=== PATIENT | female | born 1945 | race Caucasian/White ===

== ENCOUNTER 2018-10-21 09:33 | Emergency (ER) | payer MEDICARE, OTHER ==
[~2018-10-21] VITALS: Ht 154.9 cm; Wt 47.2 kg
[~2018-10-21 09:33] MED LIST: ACYCLOVIR800 MG PO; ALENDRONATE SOD70 MG PO; AMLODIPINE BESY10 MG PO; BETAMETHASONE V15 GM TOP; FOLIC ACID1 MG PO; GABAPENTIN100 MG PO; HYDROCHLOROTHIA25 MG PO; KEFLEX500 MG PO; LEFLUNOMIDE20 MG PO; LOSARTAN POTASS50 MG PO; METHOTREXATE2.5 MG PO; NORCO 5-325 TA1 EACH PO; OMEPRAZOLE40 MG PO; PLAQUENIL200 MG PO; POTASSIUM CHLO10 MEQ PO; POTASSIUM CHLO20 ME1 PO; VITAMIN D350000 UNIT PO
--- OUTSIDE RECORDS SUMMARY | 2018-10-21 09:36 | XMS ---
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 Alexsander VISIT COUNT (12 MO.) 2 LEXI Doherty TOTAL 2 NOTE: Visits indicate total known visits. 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
--- NOTE | 2018-10-21 13:11 | EKG ---
[facility] [address] [place], [place] [address] Signed Normal sinus rhythm Low voltage QRS Borderline ECG No previous ECGs available Confirmed by FRANCHESKA OLIVIER DO ([id number]) on 10/21/2018 1:11:25 PM Electronically Signed By: FRANCHESKA OLIVIER DO 10/21/18 1311 PATIENT NAME: CARMEN HAY ANN Electrocardiogram DATE OF : 45 PHYSICIAN: FRANCHESKA OLIVIER DO REPORT #: [id number] REPORT IS CONFIDENTIAL AND NOT TO BE RELEASED WITHOUT AUTHORIZATION
--- NOTE | 2018-10-22 14:07 | EKG ---
[facility] [address] [place], [place] [address] Signed Normal sinus rhythm Low voltage QRS Borderline ECG When compared with ECG of 21-OCT-2018 10:00, No significant change was found Confirmed by FRANCHESKA OLIVIER DO ([id number]) on 10/22/2018 2:07:29 PM Electronically Signed By: FRANCHESKA OLIVIER DO 10/22/18 1407 PATIENT NAME: CARMEN HAY ANN Electrocardiogram DATE OF : 45 PHYSICIAN: FRANCHESKA OLIVIER DO REPORT #: [id number] REPORT IS CONFIDENTIAL AND NOT TO BE RELEASED WITHOUT AUTHORIZATION
== END 2018-10-21 18:28 | disposition home or self-care (01) ==
LOC: ED 09:33
DX: I31.9 Disease of pericardium, unspecified (principal); I10 Essential (primary) hypertension; Z87.891 Personal history of nicotine dependence; Z88.8 Allergy status to other drugs, medicaments and biological substances; Z91.041 Radiographic dye allergy status; Z79.899 Other long term (current) 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
CPT/HCPCS: 36415; 71045; 71275; 74174; 80053; 82550; 82553; 83605; 83874; 83880; 84484; 85025; 85379; 85610; 93005; 93010; 99285-25; Q9967

== ENCOUNTER 2019-01-28 10:17 | Emergency (ER) | payer MEDICARE, OTHER ==
[~2019-01-28] VITALS: Ht 154.9 cm; Wt 47.2 kg
--- OUTSIDE RECORDS SUMMARY | ~2019-01-28 | XMS | Encounter Summary ---
Demographics + + + | Address | [address] | | | [place] [address] | + + + | Home Phone | | + + + | Preferred Language | Unknown | + + + | Marital Status | | + + + | Mormon Affiliation | Unknown | + + + | Race | Unknown | + + + | Ethnic Group | Unknown | + + + Author + + + | Author | [facility] | | | and Jdana | + + + | Organization | [facility] | | | and Jdana | + + + | Address | Unknown | + + + | Phone | Unavailable | + + + Support + + +---------+ + | Name | Relationship | Address | Phone | + + +---------+ + | Rey Mohan | ECON | Unknown | | + + +---------+ + | Bo Mancilla | ECON | Unknown | Unavailable | + + +---------+ + Care Team Providers + +------+ + | Care Tax Services Specialist Name | Role | Phone | + [...] arthroplasty | [address] | [address] [place] | | | | | | [place] | [place], | | | | | Procedures | [place], [place] | [place] [address] | | | | | ot eval | [address] | Phone: | | | | | | Phone: | [phone] | | | | | | [phone] | Fax: | | | | | | Fax: | [phone] | | | | | | [phone] | | +--------+--------+ + + + + Encounter Details +--------+---------+ + + + | Date | Type | Department | Care Team | Description | +--------+---------+ + + + | 08/10/ | Office | [facility] | Rey Blackmon | Hx of arthroplasty | | 2013 | Visit | MED [facility] ONCOLOGY | MD [address] | (Primary Dx); | | | | THERAPY [address] [place] | Stiffness of hand | | | | [place], | [place] [address] | joint, left; | | | | [place] [address] | [phone] | Weakness of hand; | | | | [phone] | | HTN (hypertension); | | | | | Mady Mccray A, OT | Low back pain; | | | | | [address] | Osteoporosis; | | | | | [place], [place] | Rheumatoid arthritis | | | | | [address] | (HCC) | | | | | [...] + documented as of this encounter Progress Notes Mady Mccray, OT - 08/10/2013 6:36 PM PDTFormatting of this note might be different fr om the original. [facility] THERAPY OT OP [address] [place] [address] Occupational Therapy Daily Treatment Note Date: 08/10/2013 Patient Information Patient Name: Mignon Mohan Date of : 1945 Age: 68 y.o. History Encounter Diagnoses Code Name Primary? V45.89 Hx of arthroplasty Yes 719.54 Stiffness of hand joint, left 728.87 Weakness of hand 401.9 HTN (hypertension) 724.2 Low back pain 733.00 Osteoporosis 714.0 Rheumatoid arthritis (HCC) Date of Onset: Referring Provider: Rey Blackmon MD No past medical history on file. No past surgical history on file. Rehab Precautions 07/18/13 Rehab Precautions Precautions Comments 4 fingere cmc arthroplasty Today's Treatment Patient Name: Mignon Mohan/: 1945/ Start Time: 1030 Stop time: 1108 Duration: 38 minutes Timed Treatment Codes: 38 minutes # of OT Visits: Subjective: My stomach has been a little irrated so I am trying to not use so many pain pil ls Pain Assessment Pain Rating Pre Assessment: 3 Location: I am tired and I didn't take my pain meds last night or this morning. Objective Patient/Caregiver Education Learner: Patient Readiness: Acceptance Method: Explanation;Demonstration Response: Verbalizes Understanding;Demonstrated Understanding Comment: Review HEP. Manual Therapy Manual Therapy: PROM/AROM to IP's, with AROM to MP's. She was provided with a ulner deviat ion splint for the right hand for her to use to determine if it will improve her function an d prevent additional ulner drift. Assessment Pt continues to have some left ulner drift. "Walking" fingers to radial side of hand exerc ise changed to 5 repetitions every hour. Rehabilitation potential: Patient demonstrates good potential to achieve established goals to address the documented impairments by participating in skilled occupational therapy serv ices. Next Visit: continue as per protical Electronically signed by: Mady Mccray OT, 08/10/2013 18:36 Patient Name: Mignon Mohan/: 1945/ documented in this e ncounter Plan of Treatment +--------+---------+ + + + | Date | Type | Specialty | Care Team | Description | +--------+---------+ + + + | 03/07/ | Office | Rheumatology | [place], | | | 2019 | Visit | | MIGNON Corey [address] | | | | | | [address] | | | | | | [place] [address] | | | | | | [phone] | | | | | | | | +--------+---------+ + + + documented as of this encounter Visit Diagnoses + + | Diagnosis | + + | Hx of arthroplasty - Primary Personal history of surgery to other organs | + + | Stiffness of hand joint, left | + + | Weakness of hand Muscle weakness (generalized) | + + | HTN (hypertension) Unspecified essential hypertension | + + | Low back pain Lumbago | + + | Osteoporosis Osteoporosis, unspecified | + + | Rheumatoid arthritis (HCC) | + + documented in this encounter
--- OUTSIDE RECORDS SUMMARY | ~2019-01-28 | XMS | Encounter Summary ---
Demographics + + + | Address | [address] | | | [place] [address] | + + + | Home Phone | | + + + | Preferred Language | Unknown | + + + | Marital Status | | + + + | Islam Affiliation | Unknown | + + + | Race | Unknown | + + + | Ethnic Group | Unknown | + + + Author + + + | Author | [facility] | | | and Jdana | + + + | Organization | [facility] | | | and Jdana [...] Team Providers + +------+ + | Care Squad Boss Name | Role | Phone | + +------+ + | Yosef Morrow MD | PCP | | + +------+ + Encounter Details +--------+ + + + + | Date | Type | Department | Care Team | Description | +--------+ + + + + | 03// | Orders Only | [facility] | [place], | | | 2015 | | RHEUMATOLOGY [address] | Florina Case [address] | | | | | [address] | [address] | | | | | [place], [place] | [place] [address] | | | | | [address] | [phone] | | | | | [phone] | | | +--------+ + + + [...] | +--------+---------+ + + + | 03/07/ Office | Rheumatology | [place], | | | 2019 | Visit | | MIGNON Corey [address] | | | | | | [address] | | | | | | [place] [address] | | | | | | [phone] | | | | | | | | +--------+---------+ + + + documented as of this encounter Procedures + +--------+ + + + | Procedure Name | Priori | Date/Time | Associated Diagnosis | Comments | | | ty | | | | + +--------+ + + + | EXTERNAL LAB: CBC | Routin | 05/06/2015 | | Results for this | | | e | 10:39 AM | | procedure are in the | | | | PDT | | results section. | + +--------+ + + + | SEDIMENTATION RATE, | Routin | 05/06/2015 | | Results for this | | AUTOMATED | e | 10:39 AM | | procedure are in the | | | | PDT | | results section. | + +--------+ + + + | COMPREHENSIVE | Routin | 05/06/2015 | | Results for this | | METABOLIC PANEL | e | 10:39 AM | | procedure are in the | | | | PDT | | results section. | + +--------+ + + + documented in this encounter Results Sedimentation rate, automated (05/06/2015 10:39 AM PDT) + +--------+ + + + | Component | Value | Ref Range | Performed | Pathologist | | | | | At | Signature | + +--------+ + + + | Sed Rate | 51 (H) | 0 - 30 | EXTERNAL | | | | | [...] + +---------+ + + External Lab: CBC (05/06/2015 10:39 AM PDT) + + + + + + | Component | Value | Ref Range | Performed | Pathologist | | | | | At | Signature | + + + + + + | WBC | 9.1 | 3.8 - 11.0 | EXTERNAL | | | | | 10*3/uL | LAB | | + + + + + + | RED CELL | 3.62 (L) | 3.70 - 5.10 | EXTERNAL | | | COUNT | | | LAB | | + + + + + + | Hgb | 11.3 | 11.3 - 15.5 | EXTERNAL | | | | | g/dL | LAB | | + + + + + + | Hematocrit, | 33.6 (L) | 34.0 - 46.0 % | EXTERNAL | | | POC | | | LAB | | + + + + + + | MCV | 93.0 | 80.0 - 100.0 fL | EXTERNAL | | | | | | LAB | | + + + + + + | MCH | 31.2 | 27.0 - 34.0 pg | EXTERNAL | | | | | | LAB | | + + + + + + | MCHC | 33.7 | 32.0 - 35.5 | EXTERNAL | | | | | g/dL | LAB | | + + + + + + | Platelet | 340 | 150 - 400 | EXTERNAL | | | Count | | 10*3/uL | LAB | | | Plasma | | | | | + + + + + + | MPV | 7.8 | fL | EXTERNAL | | | | | | LAB | | + + + + + + | Differentia | AUTOMATED | | EXTERNAL | | | l Type | | | LAB | | + + + + + + | % Segmented | 81.5 | | EXTERNAL | | | | | | LAB | | | Neutrophils | | | | | + + + + + + | % | 9.2 | % | EXTERNAL | | | Lymphocytes | | | LAB | | + + + + + + | % Monocytes | 7.4 | % | EXTERNAL | | | | | | LAB | | + + + + + + | % | 1.5 | % | EXTERNAL | | | Eosinophils | | | LAB | | + + + + + + | % Basophils | 0.4 | % | EXTERNAL | | | | | | LAB | | + + + + + + | Absolute | 7.4 | 1.9 - 7.4 | EXTERNAL | | | Segmented | | 10*3/uL | LAB | | | Neutrophils | | | | | + + + + + + | Absolute | 0.8 (L) | 1.0 - 3.9 | EXTERNAL | | | Lymphocytes | | 10*3/uL | LAB | | + + + + + + | Absolute | 0.7 | 0.0 - 0.8 | EXTERNAL | | | Monocytes | | 10*3/uL | LAB | | + + + + + + | Absolute | 0.1 | 0.0 - 0.5 | EXTERNAL | | | Eosinophils | | 10*3/uL | LAB | | + + + + + + | Absolute | 0.0 | 0.0 - 0.1 | EXTERNAL | [...] + +---------+ + + Comprehensive Metabolic Panel (05/06/2015 10:39 AM PDT) + + + + + [...] + + | K | 3.9 | 3.5 - 4.9 | EXTERNAL | | | | | mmol/L | LAB | | + + + + + + | Cl | 101 | 99 - 109 mmol/L | EXTERNAL | | | | | | LAB | | + + + + + + | CO2 | 23 | 23 - 32 mmol/L | EXTERNAL | | | | | | LAB | | + + + + + + | Anion Gap | 18 | 5 - 20 mmol/L | EXTERNAL | | | | | | LAB | | + + + + + + | Glucose, | 115 (H) | 65 - 99 mg/dL | EXTERNAL | | | Fasting | | | LAB | | + + + + + + | BUN | 22 | 8 - 25 mg/dL | EXTERNAL | | | | | | LAB | | + + + + + + | Creatinine | 1.2 (H) | 0.50 - 1.00 | EXTERNAL | | | | | mg/dL | LAB | | + + + + + + | BUN/Creatin | 18 | | EXTERNAL | | | ine Ratio | | | LAB | | + + + + + + | Calcium | 8.7 | 8.5 - 10.5 | EXTERNAL | | | | | mg/dL | LAB | | + + + + + + | Protein, | 6.5 | 6.3 - 8.2 g/dL | EXTERNAL | | | Total | | | LAB | | + + + + + + | Albumin | 3.7 | 3.3 - 4.8 g/dL | EXTERNAL | | | | | | LAB | | + + + + + + | Globulin | 2.8 | 1.3 - 4.9 g/dL | EXTERNAL [...] + + + + | ALP, | 72 | 35 - 115 U/L | EXTERNAL | | | External | | | LAB | | + + + + + + | AST | 23 | 10 - 45 U/L | EXTERNAL | | | | | | LAB | | + + + + + + | ALT | 18 | 10 - 65 U/L | EXTERNAL | | | | | | LAB | | + + + + + + | Estimated | 47 (L)Comment: GFR <60: | | EXTERNAL | | | GFR | CHRONIC KIDNEY DISEASE, | | LAB | | | | IF [...]
--- OUTSIDE RECORDS SUMMARY | ~2019-01-28 | XMS | Encounter Summary ---
Demographics + + + | Address | [address] | | | [place] [address] | + + + | Home Phone | | + + + | Preferred Language | Unknown | + + + | Marital Status | | + + + | Amish Affiliation | Unknown | + + + | Race | Unknown | + + + | Ethnic Group | Unknown | + + + Author + + + | Author | [facility] | | | and Jdana | + + + | Organization | [facility] | | | and [...] Team Providers + +------+ + | Care Cigar Packer And Grader Name | Role | Phone | + +------+ + | Yosef Morrow MD | PCP | | + +------+ + Encounter Details +--------+ + + + + | Date | Type | Department | Care Team | Description | +--------+ + + + + | 11/ | Documentati | [facility] | Mady Mccray, | | | 2015 | on | MED [facility] ONCOLOGY | OT [address] | | | | | THERAPY [address] | [place], [place] | | | | | [place], | [address] | | | | | [place] [address] | | | | | | [phone] | | | +--------+ + + + [...] as of this encounter Progress Notes Mady Mccray OT - 01/01/2015 3:43 PM PSTFormatting of this note might be different fr om the original. [facility] THER[facility] OT OP [address] [place] [address] Occupational Therapy Discharge Note This discharge is associated with the evaluation completed on 07/18/13. Date: 01/01/2015 Patient Information Patient Name: Mignon Mohan Date of : 1945 Age: 69 y.o. Encounter Diagnoses Code Name Primary? Z98.89 Hx of arthroplasty Yes M62.81 Weakness of hand M81.0 Osteoporosis Date of Onset: 06/26/13Referring Provider: Rey Blackmon MD Total Number of Visits Completed: 8 Total Cancellations: 1 Total No Shows: 0 Mignon Mohan was last seen on 08/16/13. . At this time we find it necessary to discharg e this patient from therapy services. The last progress note of 08/16/13 will serve as objective status for purposes of discharge. Electronically signed by: Mady Mccray OT, 01/01/2015 15:43 Patient Name: Mignon Mohan/: 1945/ documented in this e ncounter Plan of Treatment +--------+---------+ + + + | Date | Type | Specialty | Care Team | Description | +--------+---------+ + + + | 03/07/ | Office | Rheumatology | [place], | | | 2019 | Visit | | MIGNON Corey [address] | | | | | | [address] | | | | | | [place] [address] | | | | | | [phone] | | | | | | | | +--------+---------+ + + + documented as of this encounter Visit Diagnoses + + | Diagnosis | + + | Hx of arthroplasty - Primary Personal history of surgery to other organs | + + | Weakness of hand Muscle weakness (generalized) | + + | Osteoporosis Osteoporosis, unspecified | + + documented in this encounter"
--- OUTSIDE RECORDS SUMMARY | ~2019-01-28 | XMS | Encounter Summary ---
Demographics + + + | Address | [address] | | | [place] [address] | + + + | Home Phone | | + + + | Preferred Language | Unknown | + + + | Marital Status | | + + + | Hindu Affiliation | Unknown | + + + | Race | Unknown | + + + | Ethnic Group | Unknown | + + + Author + + + | Author | [facility] | | | and Jdana | + + + | Organization | [facility] | | | and [...] Team Providers + +------+ + | Care Merchandising Intern Name | Role | Phone | + +------+ + | Yosef Morrow MD | PCP | | + +------+ + Encounter Details +--------+ + + + + | Date | Type | Department | Care Team | Description | +--------+ + + + + | 03// | Orders Only | [facility] | [place], | | | 2015 | | RHEUMATOLOGY [address] | Florina Case ASSEMBLIES AND INSTALLATIONS INSPECTOR [address] | | | | | [address] | [address] | | | | | [place], [place] | [place] [address] | | | | | [address] | [phone] | | | | | [phone] | | | +--------+ + + + [...] PL | | | | | | [place] [address] | | | | | | [phone] | | | | | | | [...]
--- OUTSIDE RECORDS SUMMARY | ~2019-01-28 | XMS | Encounter Summary ---
Demographics + + + | Address | [address] | | | [place] [address] | + + + | Home Phone | | + + + | Preferred Language | Unknown | + + + | Marital Status | | + + + | Buddhist Affiliation | Unknown | + + + | Race | Unknown | + + + | Ethnic Group | Unknown | + + + Author + + + | Author | [facility] | | | and Jdana | + + + | Organization | [facility] | | | and [...] Team Providers + +------+ + | Care Lasting Floorworker Name | Role | Phone | + [...] arthroplasty | [address] | [address] | | | | | | [place] | [place], | | | | | Procedures | [place] | [place] [address] | | | | | ot eval | [address] | Phone: | | | | | | Phone: | [phone] | | | | | | [phone] | Fax: | | | | | | Fax: | [phone] | | | | | | [phone] | | +--------+--------+ + + + + [...] Stiffness of hand | | | | [address] [place], | [place] [address] | joint, left; | | | | [place] [address] | [phone] | Weakness of hand; | | | | [phone] | | HTN (hypertension); | | | | | Mady Mccray, OT | Low back pain; | | | | | [address] | Osteoporosis; | | | | | [place], [place] | Rheumatoid arthritis | | | | | [address] | (HCC) | | | | | [...] encounter Progress Notes Mady Mccray, OT - 08/16/2013 6:01 PM PDTFormatting of this note might be different fr om the original. 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# Goal 2 Status: LTG not tested Plan Date of Onset: 06/26/13 Start of Care Date: 07/18/13 Requested # of Visits: 12 2x/wk for 6 weeks (Decrease to 1x/week due to travel distance) Certification From: 08/16/13 Certification To: 09/15/13 Treatment Plan/Interventions 46879 OT Evaluation;33380 Therapeutic Exercises;91475 Therapeutic Activities;Splinting;9753 5 Self Care/Home Management;23487 Manual Therapy Medicare Functional Limitation Reporting G [...] impaired, limited or restricted Outcome Measures Tools: [facility]-PAC and professional judgement Justification of Severity Rating: Continued limited ability to use left hand due to surger y and severe right hand ulnar deviation deformity Patient and/or family has indicated understanding of treatment needs and actively participa richard in the creation of this plan for care. Electronically signed by: Mady Mccray OT, 08/16/2013 18:02 Patient Name: Mignon Basiliobeverlyuna/: 1945/ signed by Mady Mccray OT at 08/16/2013 6:07 PM PDTdocumented in this encounter Plan of Treatment +--------+---------+ + + + | Date | Type | Specialty | Care Team | Description | +--------+---------+ + + + | 03/07/ | Office | Rheumatology | [place], | | | 2019 | Visit | | Florina Case [facility] [address] | | | | | | [address] | | | | | | [place] [address] | | | | | | [phone] | | | | | | | [...]
--- OUTSIDE RECORDS SUMMARY | ~2019-01-28 | XMS | Encounter Summary ---
Demographics + + + | Address | [address] | | | [place] [address] | + + + | Home Phone | | + + + | Preferred Language | Unknown | + + + | Marital Status | | + + + | Spiritism Affiliation | Unknown | + + + | Race | Unknown | + + + | Ethnic Group | Unknown | + + + Author + + + | Author | [facility] | | | and Jdana | + + + | Organization | [facility] | | [...] Team Providers + +------+ + | Care Utility Worker [place] Name | Role | Phone | + +------+ + | Yosef Morrow MD | PCP | | + +------+ + Encounter Details +--------+ + + + + | Date | Type | Department | Care Team | Description | +--------+ + + + + | 08/05/ | Orders Only | [facility] | [place], | | | 2016 | | RHEUMATOLOGY [address] | Florina Case INSTRUCTIONAL SYSTEMS DESIGNER [address] | | | | | [address] | [address] | | | | | [place], [place] | [place] [address] | | | | | [address] | [phone] | | | | | [phone] | | | +--------+ + + + [...] 2020 | Visit | | [address]IGNON Corey [address] | | | | | | [address] | | | | | | [place] [address] | | | | | | [phone] | | | | | | | [...] | | | | | performed at [facility] | | | | | | [facility] | | | | | | [facility], [address] | | | | | | [address] | | | | | | [place] [address] | | | | + + + [...] | | | | | performed at [facility] | | | | | | [facility] | | | | | | [facility], [address] | | | | | | [address] | | | | | | [place] [address] | | | | + + + [...] | | | | | performed at [facility] | | | | | | [facility] | | | | | | [facility], [address] | | | | | | [address] | | | | | | [place] [address] | | | | + + + [...] | | | | | | at [facility], [address] | | | | | | [place] | | | | | | [address] | | | | + + + [...] + + + | RED CELL | 4.10 | 3.70 - 5.10 | EXTERNAL | | | COUNT | | 10*6/uL | LAB | | + + + + + + | Hgb | 12.1 | 11.3 - 15.5 | [...]
--- OUTSIDE RECORDS SUMMARY | ~2019-01-28 | XMS | Encounter Summary ---
Demographics + + + | Address | [address] | | | [place] [address] | + + + | Home Phone | | + + + | Preferred Language | Unknown | + + + | Marital Status | | + + + | Hinduism Affiliation | Unknown | + + + | Race | Unknown | + + + | Ethnic Group | Unknown | + + + Author + + + | Author | [facility] | | | and Jdana | + + + | Organization | [facility] | | | and Jdana [...] Team Providers + +------+ + | Care Automatic Pinsetter Adjuster Name | Role | Phone | + [...] arthroplasty | [address] | [place] | | | | | | [place] | [place], | | | | | Procedures | [place], [place] | [place] [address] | | | | | ot eval | [address] | Phone: | | | | | | Phone: | [phone] | | | | | | [phone] | Fax: | | | | | | Fax: | [phone] | | | | | | [phone] | | +--------+--------+ + + + + Encounter Details +--------+---------+ + + + | Date | Type | Department | Care Team | Description | +--------+---------+ + + + | 08/14/ | Office | JEAN MARIE ALEGRIA | LorriRey andrade | Hx of arthroplasty | | 2013 | Visit | [facility] | MD [address] | (Primary Dx); | | | | THERAPY [address] [place] | Stiffness of hand | | | | [place], | [place] [address] | joint, left; | | | | [place] [address] | [phone] | Weakness of hand; | | | | [phone] | | HTN (hypertension); | | | [...] documented as of this encounter Progress Notes GloTammy griffiths COTA - 08/14/2013 3:14 PM PDT [facility] THERAPY OT OP [address] [place] [address] Occupational Therapy Daily Treatment Note Date: 08/14/2013 [...] [address] | | | | | | [place] [address] | | | | | | [phone] | | | | | | | [...]
--- OUTSIDE RECORDS SUMMARY | ~2019-01-28 | XMS | Encounter Summary ---
Demographics + + + | Address | [address] | | | [place] [address] | + + + | Home Phone | | + + + | Preferred Language | Unknown | + + + | Marital Status | | + + + | Taoism Affiliation | Unknown | + + + | Race | Unknown | + + + | Ethnic Group | Unknown | + + + Author + + + | Author | [facility] | | | and Jdana | + + + | Organization | [facility] | | | and Jdana [...] Team Providers + +------+ + | Care Bushing And Broach Operator Name | Role | Phone | + +------+ + PCP | Unavailable | + +------+ + Encounter Details +--------+ + + + + | Date | Type | Department | Care Team | Description | +--------+ + + + + | 11/18/ | Hospital | [facility] | Oscar Wilson MD | | | 2010 | Encounter | MED CTR XRAY [address] | [address] | | | | | [place] | [place] [address] | | | | | [place] [address] | [phone] | | | | | [phone] | | | +--------+ + + + [...] | | 2020 | Visit | | Florina Case MANAGER METAL [address] | | | | | | [address] | | | | | | [place] [address] | | | | | | [phone] | | | | | | | [...] At | + + + | [facility] Diagnostic Imaging Department | [facility] | | [address] | [facility] | | THREE VIEWS LUMBAR SPINE, | [...] Transcribed Date/Time: 11/18/2010 16:45 | | | Pile Header: <Electronically Signed by Leobardo Mcneill MD> | | | 11/18/10 2216 | | + + + + + | Procedure Note | + + | David Funes - 03/24/2013 3:57 PM [facility] | | Diagnostic Imaging Department | | [address] [facility] [place] | | | | | | | [...] | Transcribed Date/Time: 11/18/2010 16:45 | | Pile Header: | | <Electronically Signed by Leobardo Mcneill MD> 11/18/10 2216 | + + + +---------+ + + | Performing | Address | City/State/Zipcode | Phone Number | | Organization | | | | + +---------+ + + | [facility] | | | | | [facility] | | | | + +---------+ + + documented in this encounter Visit Diagnoses Not on filedocumented in this encounter"
--- OUTSIDE RECORDS SUMMARY | ~2019-01-28 | XMS | Encounter Summary ---
Demographics + + + | Address | [address] | | | [place] [address] | + + + | Home Phone | | + + + | Preferred Language | Unknown | + + + | Marital Status | | + + + | Presybeterian Affiliation | Unknown | + + + | Race | Unknown | + + + | Ethnic Group | Unknown | + + + Author + + + | Author | [facility] | | | and Jdana | + + + | Organization | [facility] | | | [...] Team Providers + +------+ + | Care Foot Worker Name | Role | Phone | [...] arthroplasty | [address] | [place] | | | | | | [place] | [place], | | | | | Procedures | [place], [place] | [place] [address] | | | | | ot eval | [address] | Phone: | | | | | | Phone: | [phone] | | | | | | [phone] | Fax: | | | | | | Fax: | [phone] | | | | | | [phone] | | +--------+--------+ + + + + Encounter Details +--------+---------+ + + + | Date | Type | Department | Care Team | Description | +--------+---------+ + + + | 07/18/ | Office | JEAN MARIE ALEGRIA | LorriRey | Hx of arthroplasty | | 2014 | Visit | [facility] | MD [address] | (Primary Dx); | | | | THERAPY [address] | [address] [place] | Stiffness of hand | | | | [place], | [place] [address] | joint, left; | | | | [place] [address] | [phone] | Weakness of hand; | | | | [phone] | | HTN (hypertension); | | | | | Mady Mccray, OT | Low back pain; | | | | | [address] | Osteoporosis; | | | | | [place] | Rheumatoid arthritis | | | | | [address] | (HCC) | | | | | [...] encounter Progress Notes Mady Mccray, OT - 07/18/2013 6:00 PM PDTFormatting of this note might be different fr om the original. [facility] THERAPY OT OP [address] [place] [address] Occupational Therapy Initial Assessment Date: 07/18/2013 Patient [...] Status: No current HEP Goal 2: Increase chief green officer to 20# Goal 2 Status: Not tested this date Plan Date of Onset: 06/26/13 Start of Care Date: 07/18/13 Requested # of Visits: 8 2x/wk for 6 weeks (Decrease to 1x/week due to travel distance) Certification From: 07/18/13 Certification To: 08/17/13 Treatment Plan/Interventions 46171 OT Evaluation;75734 Therapeutic Exercises;86336 Therapeutic Activities;Splinting;9753 5 Self Care/Home Management;43969 Manual Therapy Patient and/or family has indicated understanding of treatment needs and actively participa richard in the creation of this plan for care. Electronically signed by: Mady Mccray OT, 07/18/2013 18:00 Patient Name: Mignon Mohan/: 1945/ documented in [...] [address] | | | | | | [place] [address] | | | | | | [phone] | | | | | | | [...]
--- OUTSIDE RECORDS SUMMARY | ~2019-01-28 | XMS | Encounter Summary ---
Demographics + + + | Address | [address] | | | [place] [address] | + + + | Home Phone | | + + + | Preferred Language | Unknown | + + + | Marital Status | | + + + | Buddhism Affiliation | Unknown | + + + | Race | Unknown | + + + | Ethnic Group | Unknown | + + + Author + + + | Author | [facility] | | | and Jdana | + + + | Organization | [facility] | | | and Jdana | [...] Providers + +------+ + | Care Budget Clerk Name | Role | Phone | + +------+ + | Yosef Morrow MD | PCP | | + +------+ + Encounter Details +--------+ + + + + | Date | Type | Department | Care Team | Description | +--------+ + + + + | 02/23/ | Orders Only | [facility] | [place], | | | 2017 | | [address] | Florina Case, MAKEUP ARTIST [address] | | | | | [place], [place] | [address] | | | | | [address] | [place] [address] | | | | | [phone] | [phone] | | | | | | | [...] | | 2019 | Visit | | [address] | | | | | | [address] | | | | | | [place] [address] | | | | | | [phone] | | | | | | | [...] + + + | RED CELL | 4.02 | 3.70 - 5.10 | [...]
--- OUTSIDE RECORDS SUMMARY | ~2019-01-28 | XMS | Encounter Summary ---
Demographics + + + | Address | [address] | | | [place] [address] | + + + | Home Phone | | + + + | Preferred Language | Unknown | + + + | Marital Status | | + + + | Restorationist Affiliation | Unknown | + + + | Race | Unknown | + + + | Ethnic Group | Unknown | + + + Author + + + | Author | [facility] | | | and Jdana | + + + | Organization | [facility] | | | and Jdana [...] Team Providers + +------+ + | Care Logistics Administrator Name | Role | Phone | + +------+ + | Yosef Morrow MD | PCP | | + +------+ + Encounter Details +--------+ + + + + | Date | Type | Department | Care Team | Description | +--------+ + + + + | 03// | Orders Only | [facility] | Claraviry, | | | 2017 | | RHEUMATOLOGY [address] | Florina Case [address]TH[address]RI[address] | | | | | [address] | [address] | | | | | [place], [place] | [place] [address] | | | | | [address] | [phone] | | | | | [phone] | | | +--------+ + + + [...] PL | | | | | | [place] [address] | | | | | | [phone] | | | | | | | [...] in this encounter Results Sedimentation rate, automated (05/07/2016 2:24 PM PDT) + +--------+ + + + | Component | Value | Ref Range | Performed | Pathologist | | | | | At | Signature | + +--------+ + + + | Sed Rate | 85 (H) | 0 - 30 mm/h | [...] + + + + | WBC | 4.9 | 3.8 - 11.0 | EXTERNAL | | | | | 10*3/uL | LAB | | + + + + + + | RED CELL | 4.00 | 3.70 - 5.10 | EXTERNAL | | | COUNT | | 10*6/uL | LAB | | + + + + + + | Hgb | 12.1 | 11.3 - 15.5 | EXTERNAL | | | | | g/dL | LAB | | + + + + + + | Hematocrit, | 36.5 | 34.0 - 46.0 % | EXTERNAL | | | POC | | | LAB | | + + + + + + | MCV | 91.2 | 80.0 - 100.0 fL | EXTERNAL | | | | | | LAB | | + + + + + + | MCH | 30.2 | 27.0 - 34.0 pg | EXTERNAL | | | | | | LAB | | + + + + + + | MCHC | 33.1 | 32.0 - 35.5 | EXTERNAL | | | | | g/dL | LAB | | + + + + + + | RDW-CV | 53.8 (H) | 37 - 53 fL | EXTERNAL | | | | | | LAB | | + + + + + + | Platelet | 251 | 150 - 400 | EXTERNAL | | | Count | | 10*3/uL | LAB | | | Plasma | | | | | + + + + + + | MPV | 8.0 | fL | EXTERNAL | | | | | | LAB | | + + + + + + | Differentia | AUTOMATED | | EXTERNAL | | | l Type | | | LAB | | + + + + + + | % Segmented | 66.24 | % | EXTERNAL | | | | | | LAB | | | Neutrophils | | | | | + + + + + + | % | 20.21 | % | EXTERNAL | | | Lymphocytes | | | LAB | | + + + + + + | % Monocytes | 8.17 | % | EXTERNAL | | | | | | LAB | | + + + + + + | % | 4.61 | % | EXTERNAL | | | Eosinophils | | | LAB | | + + + + + + | % Basophils | 0.77 | % | EXTERNAL | | | | | | LAB | | + + + + + + | Absolute | 3.22 | 1.90 - 7.40 | EXTERNAL | | | Segmented | | 10*3/uL | LAB | | | Neutrophils | | | | | + + + + + + | Absolute | 0.98 (L) | 1.00 - 3.90 | EXTERNAL | | | Lymphocytes | | 10*3/uL | LAB | | + + + + + + | Absolute | 0.40 | 0.00 - 0.80 | EXTERNAL | | | Monocytes | | 10*3/uL | LAB | | + + + + + + | Absolute | 0.22 | 0.00 - 0.50 | EXTERNAL | | | Eosinophils | | 10*3/uL | LAB | | + + + + + + | Absolute | 0.04 | 0.00 - 0.10 | EXTERNAL | [...] + + + + | Cl | 104 | 99 - 109 mmol/L | EXTERNAL [...] + + + + | Glucose, | 97 | 65 - 99 mg/dL | EXTERNAL [...] + + + + | Protein, | 7.5 | 6.3 - 8.2 g/dL | EXTERNAL | | | Total | | | LAB | | + + + + + + | Albumin | 3.6 | 3.3 - 4.8 g/dL | EXTERNAL | | | | | | LAB | | + + + + + + | Globulin | 3.9 | 1.3 - 4.9 g/dL | EXTERNAL [...] + + + + | ALP, | 98 | 35 - 115 U/L | EXTERNAL | | | External | | | LAB | | + + + + + + | AST | 27 | 10 - 45 U/L | EXTERNAL | | | | | | LAB | | + + + + + + | ALT | 26 | 10 - 65 U/L | EXTERNAL [...]
--- OUTSIDE RECORDS SUMMARY | ~2019-01-28 | XMS | Encounter Summary ---
Demographics + + + | Address | [address] | | | [place] [address] | + + + | Home Phone [...] + | Author | [facility] | | | and Jdana | + + + | Organization | [facility] | | | and Jdana [...] Team Providers + +------+ + | Care Web Development Manager Name | Role | Phone | + +------+ + | Yosef Morrow MD | PCP | | + +------+ + Encounter Details +--------+ + + + + | Date | Type | Department | Care Team | Description | +--------+ + + + + | 09/11/ | Orders Only | [facility] | Provider, | Other intermediate | | 2019 | | SYSTEM GENERIC OP | MD [address] | (current) drug | | | | CONVERSION [address] | [address] | therapy; Rheumatoid | | | | [address] [place], [place] | [place] [address] | arthritis of | | | | [address] | | multiple sites | | | | [phone] | | without organ or | | [...] 2019 | Visit | | Florina Case [facility] [address] | | | | | | [address] | | | | | | [place] [address] | | | | | | [phone] | | | | | | | | +--------+---------+ + + + + +------+--------+ + + | Name | Type | Priori | Associated Diagnoses | Order Schedule | | | | ty | | | + +------+--------+ + + | Comprehensive | Lab | Routin | Other intermediate | Expected: | | Metabolic Panel | [...] with | Lab | Routin | Other intermediate teacher | 2 Occurrences | | Differential | [...] Comprehensive | Lab | Routin | Other intermediate teacher | 2 Occurrences | | Metabolic Panel [...] Rate | Lab | Routin | Other intermediate | 2 Occurrences | | | | [...] | Diagnosis | + + | Other intermediate teacher (current) 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 | + + | Rheumatoid arthritis of multiple sites without organ or system involvement with | | positive rheumatoid factor (HCC) | + + documented in this encounter"
--- OUTSIDE RECORDS SUMMARY | ~2019-01-28 | XMS | Encounter Summary ---
Demographics + + + | Address | [address] | | | [place] [address] | + + + | Home Phone | | + + + | Preferred Language | Unknown | + + + | Marital Status | | + + + | Hoahaoism Affiliation | Unknown | + + + | Race | Unknown | + + + | Ethnic Group | Unknown | + + + Author + + + | Author | [facility] | | | and Jdana | + + + | Organization | [facility] | | | and [...] Team Providers + +------+ + | Care Wildlife Ecologist Name | Role | Phone | + [...] arthroplasty | [address] | [place] | | | | | | [place] | [place], | | | | | Procedures | [place], [place] | [place] [address] | | | | | ot eval | [address] | Phone: | | | | | | Phone: | [phone] | | | | | | [phone] | Fax: | | | | | | Fax: | [phone] | | | | | | [phone] | | +--------+--------+ + + + + Encounter Details +--------+---------+ + + + | Date | Type | Department | Care Team | Description | +--------+---------+ + + + | 07/31/ | Office | JEAN MARIE DIAMOND ENEIDA | LorriRey | Stiffness of hand | | 2013 | Visit | [facility] | MD [address] | joint, left (Primary | | | | THERAPY [address] [place] | Dx); Hx of | | | | [place], | [place] [address] | arthroplasty; | | | | [place] [address] | [phone] | Weakness of hand; | | | | [phone] | | HTN (hypertension); | | | | | Mady Mccray, OT | Low back pain; | | | | | [address] | Osteoporosis; | | | | | [place] | Rheumatoid arthritis | | | | | [address] | (HCC) | | | | | [...] encounter Progress Notes Mady Mccray OT - 07/31/2013 5:42 PM PDTFormatting of this note might be different fr om the original. [facility] THERAPY OT OP [address] [place] [address] Occupational Therapy Daily Treatment Note Date: 07/31/2013 [...] | | | | | [place] [address] | | | | | | [phone] | | | | | | | [...]
--- OUTSIDE RECORDS SUMMARY | ~2019-01-28 | XMS | Encounter Summary ---
Demographics + + + | Address | [address] | | | [place] [address] | + + + | Home Phone | | + + + | Preferred Language | Unknown | + + + | Marital Status | | + + + | Moravian Affiliation | Unknown | + + + | Race | Unknown | + + + | Ethnic Group | Unknown | + + + Author + + + | Author | [facility] | | | and Jdana | + + + | Organization | [facility] | [...] Team Providers + +------+ + | Care Winery Cellar Hand Name | Role | Phone | + +------+ + | Yosef Morrow MD | PCP | | + +------+ + Encounter Details +--------+ + + + + | Date | Type | Department | Care Team | Description | +--------+ + + + + | 05/07/ | Orders Only | [facility] | Yosef Morrow | | | 2016 | | [address] | MD [address] | | | | | [place] | [address] | | | | | [address] | [place] | | | | | [phone] | [address] | | | | | | [phone] | | | | | | | [...] [address] | | | | | | [place] [address] | | | | | | [phone] | | | | | | | [...] - 1.030 | EXTERNAL | | | [place] | | | LAB | | + [...] + + + + + + | MUCUS UA | 1+ | | EXTERNAL | | | | [...] + + + | RED CELL | 4.08 | 3.70 - 5.10 | EXTERNAL | | | COUNT | | 10*6/uL | LAB | | + + + + + + | Hgb | 12.2 | 11.3 - 15.5 | [...]
--- OUTSIDE RECORDS SUMMARY | ~2019-01-28 | XMS | Encounter Summary ---
Demographics + + + | Address | [address] | | | [place] [address] | + + + | Home Phone [...] + + | Author | [facility] | | | and Jdana | + + + | Organization | [facility] | | | and [...] Team Providers + +------+ + | Care Airline Counter Agent Name | Role | Phone | [...] + + | 12/13/ | Refill | [facility] | Juaquin | Medication Refill; | | 2018 | | RHEUMATOLOGY [address] | [address] | Medication Refill | | | | [address] | [address] | | | | | [place], [place] | [place] [address] | | | | | [address] | [phone] | | | | | [phone] | | | +--------+--------+ + + + [...] [address] | | | | | | [place] [address] | | | | | | [phone] | | | | | | | | +--------+---------+ + + + documented as of this encounter Visit Diagnoses Not on filedocumented in this encounter"
--- OUTSIDE RECORDS SUMMARY | ~2019-01-28 | XMS | Encounter Summary ---
Demographics + + + | Address | [address] | | | [place] [address] | + + + | Home Phone [...] | Author | [facility] | | | and Jdana | + + + | Organization | [facility] | | | and [...] Team Providers + +------+ + | Care Loft Worker Head Name | Role | Phone | + +------+ + | Yosef Morrow MD | PCP | | + +------+ + Encounter Details +--------+ + + + + | Date | Type | Department | Care Team | Description | +--------+ + + + + | 03// | Orders Only | [facility] | Clarav[place], | | | 2017 | | RHEUMATOLOGY [address] | Florina Case ASSISTANT CONTROLLER [address] | | | | | [address] | [address] | | | | | [place], [place] | [place] [address] | | | | | [address] | [phone] | | | | | [phone] | | | +--------+ + + + [...] PL | | | | | | [place] [address] | | | | | | [phone] | | | | | | | [...]
--- OUTSIDE RECORDS SUMMARY | ~2019-01-28 | XMS | Encounter Summary ---
Demographics + + + | Address | [address] | | | [place] [address] | + + + | Home Phone [...] | [facility] | | | and Jdana | + + + | Organization | [facility] | | | and Jdana [...] Team Providers + +------+ + | Care Shoe Reconditioner Name | Role | Phone | + [...] arthroplasty | [address] | [address] [place] | | | | | | [place] | [place], | | | | | Procedures | [place], [place] | [place] [address] | | | | | ot eval | [address] | Phone: | | | | | | Phone: | [phone] | | | | | | [phone] | Fax: | | | | | | Fax: | [phone] | | | | | | [phone] | | +--------+--------+ + + + + [...] Stiffness of hand | | | | [place], | [place] [address] | joint, left; | | | | [place] [address] | [phone] | Weakness of hand; | | | | [phone] | | HTN (hypertension); | | | | | Mady Mccray A, OT | Low back pain; | | | | | [address] | Osteoporosis; | | | | | [place] | Rheumatoid arthritis | | | | | [address] | (HCC) | | | | | [...] might be different fr om the original. [facility] THERAPY OT OP [address] [place] [address] Occupational Therapy Daily Treatment Note Date: 08/10/2013 [...] [address] | | | | | | [place] [address] | | | | | | [phone] | | | | | | | [...]
--- OUTSIDE RECORDS SUMMARY | ~2019-01-28 | XMS | Encounter Summary ---
Demographics + + + | Address | [address] | | | [place] [address] | + + + | Home Phone | | + + + | Preferred Language | Unknown | + + + | Marital Status | | + + + | Nondenominational Affiliation | Unknown | + + + | Race | Unknown | + + + | Ethnic Group | Unknown | + + + Author + + + | Author | [facility] | | | and Jdana | + + + | Organization | [facility] | | | and Jdana | [...] Providers + +------+ + | Care Director Dermatology Name | Role | Phone | + [...] | [address] | Florina Case, [address]BURR OPERATOR [address] | | | | | [place], [place] | [address] | | | | | [address] | [place] [address] | | | | | [phone] | [phone] | | | | | | | [...] PL | | | | | | [place] [address] | | | | | | [phone] | | | | | | | [...]
--- OUTSIDE RECORDS SUMMARY | ~2019-01-28 | XMS | Encounter Summary ---
Demographics + + + | Address | [address] | | | [place] [address] | + + + | Home Phone | | + + + | Preferred Language | Unknown | + + + | Marital Status | | + + + | Lutheran Affiliation | Unknown | + + + | Race | Unknown | + + + | Ethnic Group | Unknown | + + + Author + + + | Author | [facility] | | | and Jdana | + + + | Organization | [facility] | [...] Team Providers + +------+ + | Care Streetcar Repairer Helper Name | Role | Phone | [...] arthroplasty | [address] | [address] [place] | | | | | | [place] | [place], | | | | | Procedures | [place], [place] | [place] [address] | | | | | ot eval | [address] | Phone: | | | | | | Phone: | [phone] | | | | | | [phone] | Fax: | | | | | | Fax: | [phone] | | | | | | [phone] | | +--------+--------+ + + + + Encounter Details +--------+---------+ + + + | Date | Type | Department | Care Team | Description | +--------+---------+ + + + | 07/26/ | Office | JEAN MARIE DIAMOND ENEIDA | LorriRey | Stiffness of hand | | 2013 | Visit | [facility] | [address] | joint, left (Primary | | | | THERAPY [address] [place] | Dx); Hx of | | | | [place], | [place] [address] | arthroplasty; | | | | [place] [address] | [phone] | Weakness of hand; | | | | [phone] | | HTN (hypertension); | | | | | Mady Mccray, OT | Low back pain; | | | | | [address] | Osteoporosis; | | | | | [place] | Rheumatoid arthritis | | | | | [address] | (HCC) | | | | | [...] encounter Progress Notes Mady Mccray, OT - 07/26/2013 3:06 PM PDTFormatting of this note might be different fr om the original. [facility] THERAPY OT OP [address] [place] [address] Occupational Therapy Daily Treatment Note Date: 07/26/2013 [...] skilled occupational therapy serv ices. Next Visit: Incre ROM. Electronically signed by: Mady Mccray OT, 07/26/2013 [...] [address] | | | | | | [place] [address] | | | | | | [phone] | | | | | | | [...]
--- OUTSIDE RECORDS SUMMARY | ~2019-01-28 | XMS | Encounter Summary ---
Demographics + + + | Address | [address] | | | [place] [address] | + + + | Home Phone | | + + + | Preferred Language | Unknown | + + + | Marital Status | | + + + | Druze Affiliation | Unknown | + + + | Race | Unknown | + + + | Ethnic Group | Unknown | + + + Author + + + | Author | [facility] | | | and Jdana | + + + | Organization | [facility] | | | and Jdana | [...] Team Providers + +------+ + | Care Wireless Consultant Name | Role | Phone | + [...] | | | | | [place] | [place], | | | | | Procedures | [place], [place] | [place] [address] | | | | | ot eval | [address] | Phone: | | | | | | Phone: | [phone] | | | | | | [phone] | Fax: | | | | | | Fax: | [phone] | | | | | | [phone] | | +--------+--------+ + + + + Encounter Details +--------+---------+ + + + | Date | Type | Department | Care Team | Description | +--------+---------+ + + + | 08/07/ | Office | [facility] | LorriRey | Stiffness of hand | | 2013 | Visit | MED CNT ONCOLOGY | MD [address] | joint, left (Primary | | | | THERAPY [address] [place] | Dx); Hx of | | | | [place], | [place] [address] | arthroplasty; | | | | [place] [address] | [phone] | Weakness of hand; | | | | [phone] | | HTN (hypertension); | | | | | Mady Mccray, OT | Low back pain; | | | | | [address] | Osteoporosis; | | | | | [place], [place] | Rheumatoid arthritis | | | | | [address] | (HCC) | | | | | [...] encounter Progress Notes Mady Mccray OT - 08/07/2013 3:39 PM PDTFormatting of this note might be different fr om the original. [facility] CTR THERAPY OT OP [address] [place] [address] Occupational Therapy Daily Treatment Note Date: 08/07/2013 [...] Mccray OT, 08/07/2013 15:39 Patient Name: Mignon Basiliobeverlyuna/: 1945/ documented in this e ncounter Plan of Treatment +--------+---------+ + + + | Date | Type | Specialty | Care Team | Description | +--------+---------+ + + + | 03/07/ | Office | Rheumatology | Juaquin, | | | 2019 | Visit | | [address] | | | | | | [address] | | | | | | [place] [address] | | | | | | [phone] | | | | | | | [...]
--- OUTSIDE RECORDS SUMMARY | ~2019-01-28 | XMS | Encounter Summary ---
Demographics + + + | Address | [address] | | | [place] [address] | + + + | Home Phone | | + + + | Preferred Language | Unknown | + + + | Marital Status | | + + + | Baptism Affiliation | Unknown | + + + | Race | Unknown | + + + | Ethnic Group | Unknown | + + + Author + + + | Author | [facility] | | | and Jdana | + + + | Organization | [facility] | | | and Jdana [...] Team Providers + +------+ + | Care Machine Setup Operator Name | Role | Phone | + +------+ + PCP | Unavailable | + +------+ + Encounter Details +--------+ + + + + | Date | Type | Department | Care Team | Description | +--------+ + + + + | 12/23/ | Hospital | [facility] | | | | 2005 | Encounter | MED CTR XRAY [address] | | | | | | [address] | | | | | | [place] [address] | | | | | | [phone] | | | +--------+ + + + [...] 2019 | Visit | | [address] | | | | | | [address] | | | | | | [place] [address] | | | | | | [phone] | | | | | | | | +--------+---------+ + + + documented as of this encounter Visit Diagnoses Not on filedocumented in this encounter"
--- OUTSIDE RECORDS SUMMARY | ~2019-01-28 | XMS | Clinical Summary ---
Demographics + + + | Address | [address] | | | [place] [address] | + + + | Home Phone [...] + + | Author | [facility] (Historical as of | | | 10-01-18) | + + + | Organization | [facility] (Historical as of | | | 10-01-18) [...] Team Providers + +------+ + | Care [facility] Shift Lead Name | Role | Phone | + [...] | | | | | | | ([facility]), High risk | | | [...] Influenza | | 12/03/2008 | | | (#1) | 9 | | | + + [...] +------+-------+ + | MEDICARE | MEDICA | [id number] | | | [address] | | | RE | | | | [place] [address] | | | IP-OP | | | | | + +--------+ +------+-------+ + | ODS HEALTH PLAN | ODS | [id number] | | | | | | HEALTH [...] | | al/Fam | | 1945 | [phone] | [place] | | | rakan | | | [phone] | [address] | + +--------+ +--------+ + +
--- OUTSIDE RECORDS SUMMARY | ~2019-01-28 | XMS | Encounter Summary ---
Demographics + + + | Address | [address] | | | [place] [address] | + + + | Home Phone [...] + | Author | [facility] | | | and Jdana | + + + | Organization | [facility] [...] Team Providers + +------+ + | Care Sales Designer Name | Role | Phone | + +------+ + | Yosef Morrow MD | PCP | | + +------+ + Encounter Details +--------+ + + + + | Date | Type | Department | Care Team | Description | +--------+ + + + + | 05/07/ | Orders Only | [facility] | Yosef Morrow | | | 2016 | | [address] | MD [address] | | | | | [place] | [address] | | | | | [address] | [place] | | | | | [phone] | [address] | | | | | | [phone] | | | | | | | [...] [address] | | | | | | [place] [address] | | | | | | [phone] | | | | | | | [...] - 1.030 | EXTERNAL | | | [place] | | | LAB | | + [...]
--- OUTSIDE RECORDS SUMMARY | ~2019-01-28 | XMS | Encounter Summary ---
Demographics + + + | Address | [address] | | | [place] [address] | + + + | Home Phone | | + + + | Preferred Language | Unknown | + + + | Marital Status | | + + + | Confucianism Affiliation | Unknown | + + + | Race | Unknown | + + + | Ethnic Group | Unknown | + + + Author + + + | Author | [facility] | | | and Jdana | + + + | Organization | [facility] | | | and Jdana [...] Team Providers + +------+ + | Care Mixing Supervisor Name | Role | Phone | + +------+ + | Yosef Morrow MD | PCP | | + +------+ + Encounter Details +--------+ + + + + | Date | Type | Department | Care Team | Description | +--------+ + + + + | 06/04/ | Documentati | [facility] ALEGRIA | Concetta Camara, | | | 2013 | on | MED CNT ONCOLOGY | OT [address] | | | | | THERAPY [address] | [place], [place] | | | | | [place], | [address] | | | | | [place] [address] | | | | | | [phone] | | | +--------+ + + + [...] of this encounter Progress Notes Concetta Camara, OT - 07/19/2013 11:47 [facility] [address] [place] [address] Cancellation/No Show Date: 07/19/2013 Patient Information Patient [...] [address] | | | | | | [place] [address] | | | | | | [phone] | | | | | | | [...]
--- OUTSIDE RECORDS SUMMARY | ~2019-01-28 | XMS | Encounter Summary ---
Demographics + + + | Address | [address] | | | [place] [address] | + + + | Home Phone [...] Author | [facility] | | | and Jdana | + + + | Organization | [facility] | | [...] Team Providers + +------+ + | Care Professional Athlete Name | Role | Phone | + [...] arthroplasty | [address] | [address] [place] | | | | | | [place] | [place], | | | | | Procedures | [place], [place] | [place] [address] | | | | | ot eval | [address] | Phone: | | | | | | Phone: | [phone] | | | | | | [phone] | Fax: | | | | | | Fax: | [phone] | | | | | | [phone] | | +--------+--------+ + + + + [...] Dx); Hx of | | | | [place], | [place] [address] | arthroplasty; | | | | [place] [address] | [phone] | Weakness of hand; | | | | [phone] | | HTN (hypertension); | | | | | Mady Mccray, OT | Low back pain; | | | | | [address] | Osteoporosis; | | | | | [place] | Rheumatoid arthritis | | | | | [address] | (HCC) | | | | | [...] might be different fr om the original. [facility] CTR THERAPY OT OP [address] [place] [address] Occupational Therapy Daily Treatment Note Date: 07/26/2013 [...] [address] | | | | | | [place] [address] | | | | | | [phone] | | | | | | | [...]
--- OUTSIDE RECORDS SUMMARY | ~2019-01-28 | XMS | Clinical Summary ---
Demographics + + + | Address | [address] | | | [place] [address] | + + + | Home Phone | | + + + | Preferred Language | Unknown | + + + | Marital Status | | + + + | Faith Affiliation | Unknown | + + + | Race | Unknown | + + + | Ethnic Group | Unknown | + + + Author + + + | Author | [facility] | | | and Jdana | + + + | Organization | [facility] | | | and Jdana [...] Team Providers + +------+ + | Care Preschool Paraprofessional Name | Role | Phone | + [...] + +---------+------+------+-------+ | methotrexate 2.5 | Take 7.5 mg by mouth | | 0 | | | Activ | | mg tablet | Once a week. | | | | | e | + + + +---------+------+------+-------+ | alendronate | Take 70 mg by mouth | | 0 | | | Activ | | (FOSAMAX) 70 mg | every 7 days. | | | | | e | [...] 0 | | | Activ | | (K-DUR) 20 mEq | 2 times daily. | | | | | [...] | | + + + +---------+------+------+-------+ | gabapentin | | | 0 | 03/2 | | Activ | | (NEURONTIN) 300 mg | | | | 7/20 | | [...] | | + + + +---------+------+------+-------+ | folic acid 1 mg | Take 1 tablet by | | 0 | 05/0 | | Activ | | tablet | mouth 3 (three) | | | 7/20 | | e | | | times daily. | | | 19 | | | + + + +---------+------+------+-------+ | hydroxychloroquine | Take 1 tablet by | | 0 | 07/0 | | Activ | | (PLAQUENIL) 200 mg | mouth 2 (two) times | | | 2/20 | | e | | tablet | daily. | | | 19 | | | + + + +---------+------+------+-------+ | methotrexate 2.5 | Take 4 tablets by | 20 | 2 | 10/2 | | Activ | | mg | mouth once a week. 4 | tablet | | 9/20 | | e | | tabletIndications: | tablets by mouth | | | 19 | | | | Rheumatoid Arthritis | weekly Indications: | | | | | | | | Rheumatoid | | | | | | | | Arthritis | | | | | | + + + +---------+------+------+-------+ | leflunomide | Take 1 tablet by | 30 | 2 | 10/2 | | Activ | | (ARAVA) 20 mg tablet | mouth Daily. | tablet | | 9/20 | | e | | | | | | 19 | | | + + + +---------+------+------+-------+ | hydroxychloroquine | Take 1 tablet by | 60 | 2 | 10/2 | | Activ | | (PLAQUENIL) 200 mg | mouth 2 times daily. | tablet | | 9/20 | | e | | tablet | | | | 19 | | [...] or sooner | | for symptoms of | + + + + + [...] Osteoporosis | 07/18/2013 | + + + Resolved Problems + + + + | Problem | Noted | Resolved | | | Date | Date | + + + + | Rheumatoid arthritis | 07/19/19 | | | | 14 | 9 | + + + + Encounters +--------+--------+ + + + | Date | Type | Specialty | Care Team | Description | +--------+--------+ + + + | 12/13/ | Refill | Rheumatology | Juaquin, | Medication Refill; | | 2018 | | | MIGNON Corey | Medication Refill | +--------+--------+ + + + from Last 3 Months [...] | Blood Pressure | 135/83 | 09/22/2018 9:35 AM | | | | | PDT | | + + + + + | Pulse | 85 | 09/22/2018 9:35 AM | | | | | PDT | | + + + + + | Temperature | 36.7 C (98.1 F) | 09/22/2018 9:35 AM | | | | | PDT | | + + + + + [...] | 48.1 kg (106 lb) | 09/22/2018 9:35 AM | | | | | PDT | | + + + + + | Height | 157.5 cm (5' 2") | 09/22/2018 9:35 AM | | | | | PDT | | + + + + + | Body Mass Index | 19.39 | 09/22/2018 9:35 AM | | | | | PDT | | + + + + + [...] [address] | | | | | | [place] [address] | | | | | | [phone] | | | | | | | [...] + + | Vaccine: Influenza | | 12/03/2008, 12/03/2008 | | | (#1) | 9 [...] + +--------+ | MEDICARE | MEDICA | [id number] | | [phone] | | Medica | | | RE | | 010-Pr | 5 | | re | | | PART A | | esent | | | | | | AND B | | | | | | + +--------+ +--------+ + +--------+ | MODA | MODA | [id number] | 02/15/19 | [phone] | [address] | Indemn | | | HEALTH | | 13-Pre | 9 | [address] | ity | | | MDCR | | sent | | [place], | | | | [place] | | | | [place] [address] | | + +--------+ +--------+ + +--------+ [...] | | al/Fam | | 1945 | [phone] | [place] [address] | | | rakan | | | 4 (Home) | | + +--------+ +--------+ + + | Mignon Mohan | Person | Self | [birth year] | [address] | | | al/Fam | | 1945 | [phone] | [place] [address] | | | rakan | | | 4 (Home) | | + +--------+ +--------+ + + Advance Directives + + + + + | Type | Date Recorded | Patient | Explanation | | | | Press Setter | | + + + + + | Power of | | | | | Sailing Instructor | | | | + + + + + | Advance | | | | | Directive | | | | + + + + +
--- OUTSIDE RECORDS SUMMARY | ~2019-01-28 | XMS | Encounter Summary ---
Demographics + + + | Address | [address] | | | [place] [address] | + + + | Home Phone | | + + + | Preferred Language | Unknown | + + + | Marital Status | | + + + | Pentecostal Affiliation | Unknown | + + + | Race | Unknown | + + + | Ethnic Group | Unknown | + + + Author + + + | Author | [facility] | | | and Jdana | + + + | Organization | [facility] [...] Team Providers + +------+ + | Care Senior Internal Auditor Name | Role | Phone | + [...] arthroplasty | [address] | [place] | | | | | | [place] | [place], | | | | | Procedures | [place], [place] | [place] [address] | | | | | ot eval | [address] | Phone: | | | | | | Phone: | [phone] | | | | | | [phone] | Fax: | | | | | | Fax: | [phone] | | | | | | [phone] | | +--------+--------+ + + + + [...] Stiffness of hand | | | | [place], | [place] [address] | joint, left; | | | | [place] [address] | [phone] | Weakness of hand; | | | | [phone] | | HTN (hypertension); | | | | | Mady Mccray, OT | Low back pain; | | | | | [address] | Osteoporosis; | | | | | [place] | Rheumatoid arthritis | | | | | [address] | (HCC) | | | | | [...] might be different fr om the original. [facility] CTR THERAPY OT OP [address] [place] [address] Occupational Therapy Initial Assessment Date: 07/18/2013 Patient [...] Status: No current HEP Goal 2: Increase wheel filler to 20# Goal 2 Status: Not tested this date Plan Date of Onset: 06/26/13 Start of Care Date: 07/18/13 Requested # of Visits: 8 2x/wk for 6 weeks (Decrease to 1x/week due to travel distance) Certification From: 07/18/13 Certification To: 08/17/13 Treatment Plan/Interventions 02267 OT Evaluation;09733 Therapeutic Exercises;69008 Therapeutic Activities;Splinting;9753 5 Self Care/Home Management;82491 Manual Therapy Patient and/or family has indicated [...] [address] | | | | | | [place] [address] | | | | | | [phone] | | | | | | | [...]
--- OUTSIDE RECORDS SUMMARY | ~2019-01-28 | XMS | Encounter Summary ---
Demographics + + + | Address | [address] | | | [place] [address] | + + + | Home Phone [...] Author | [facility] | | | and Jdana | + + + | Organization | [facility] | | | and [...] Team Providers + +------+ + | Care Telecommunication Operator Name | Role | Phone | [...] + + | 12/13/ | Refill | [facility] | Juaquin | Medication Refill; | | 2018 | | RHEUMATOLOGY [address] | [address] | Medication Refill | | | | [address] | [address] | | | | | [place], [place] | [place] [address] | | | | | [address] | [phone] | | | | | [phone] | | | +--------+--------+ + + + [...] [address] | | | | | | [place] [address] | | | | | | [phone] | | | | | | | | +--------+---------+ + + + documented as of this encounter Visit Diagnoses Not on filedocumented in this encounter"
--- OUTSIDE RECORDS SUMMARY | ~2019-01-28 | XMS | Encounter Summary ---
Demographics + + + | Address | [address] | | | [place] [address] | + + + | Home Phone | | + + + | Preferred Language | Unknown | + + + | Marital Status | | + + + | Jehovah'S Witness Affiliation | Unknown | + + + | Race | Unknown | + + + | Ethnic Group | Unknown | + + + Author + + + | Author | [facility] | | | and Jdana | + + + | Organization | [facility] | [...] Team Providers + +------+ + | Care Research Fellow Name | Role | Phone | + [...] arthroplasty | [address] | [address] [place] | | | | | | [place] | [place], | | | | | Procedures | [place], [place] | [place] [address] | | | | | ot eval | [address] | Phone: | | | | | | Phone: | [phone] | | | | | | [phone] | Fax: | | | | | | Fax: | [phone] | | | | | | [phone] | | +--------+--------+ + + + + Encounter Details +--------+---------+ + + + | Date | Type | Department | Care Team | Description | +--------+---------+ + + + | 07/24/ | Office | JEAN MARIE DIAMOND ENEIDA | Rey Blackmon | Stiffness of hand | | 2013 | Visit | MED CNT ONCOLOGY | MD [address] | joint, left (Primary | | | | THERAPY [address] [place] | Dx); Hx of | | | | [place], | [place] [address] | arthroplasty; | | | | [place] [address] | [phone] | Weakness of hand; | | | | [phone] | | HTN (hypertension); | | | | | Mady Mccray, OT | Low back pain; | | | | | [address] | Osteoporosis; | | | | | [place] | Rheumatoid arthritis | | | | | [address] | (HCC) | | | | | [...] encounter Progress Notes Mady Mccray, OT - 07/24/2013 2:26 PM PDTFormatting of this note might be different fr om the original. [facility] CTR THERAPY OT OP [address] [place] [address] Occupational Therapy Daily Treatment Note Date: 07/24/2013 [...] | | 2019 | Visit | | [address] | | | | | | [address] | | | | | | [place] [address] | | | | | | [phone] | | | | | | | [...]
--- OUTSIDE RECORDS SUMMARY | ~2019-01-28 | XMS | Clinical Summary ---
Demographics + + + | Address | [address] | | | [place] [address] | + + + | Home Phone [...] + | Author | [facility] (Historical as of | | | 10-01-18) | + + + | Organization | [facility] (Historical as of | | | 10-01-18) [...] Team Providers + +------+ + | Care Enterprise Application Administrator Name | Role | Phone | [...] | | | | | ([facility]), High risk | | | [...] +------+-------+ + | MEDICARE | MEDICA | [id number] | | | [address] | | | RE | | | | [place] [address] | | | IP-OP | | | | | + +--------+ +------+-------+ + | ODS HEALTH PLAN | ODS | [id number] | | | | | | HEALTH [...] | | al/Fam | | 1945 | [phone] | [place] | | | rakan | | | [phone] | [address] | + +--------+ +--------+ + +
--- OUTSIDE RECORDS SUMMARY | ~2019-01-28 | XMS | Clinical Summary ---
Demographics + + + | Address | [address] | | | [place] [address] | + + + | Home Phone [...] + | Author | [facility] | | | and Jdana | + + + | Organization | [facility] | | | and Jdana [...] Team Providers + +------+ + | Care Software Reverse Engineer Name | Role | Phone | [...] [address] | | | | | | [place] [address] | | | | | | [phone] | | | | | | | [...] + +--------+ | MEDICARE | MEDICA | [id number] | | [phone] | | Medica | | | RE | | 010-Pr | 5 | | re | | | PART A | | esent | | | | | | AND B | | | | | | + +--------+ +--------+ + +--------+ | MODA | MODA | [id number] | 02/15/19 | [phone] | [address] | Indemn | | | HEALTH | | 13-Pre | 9 | [address] | ity | | | MDCR | | sent | | [place], | | | | [place] | | | | [place] [address] | | + +--------+ +--------+ + +--------+ [...] | | al/Fam | | 1945 | [phone] | [place] [address] | | | rakan | | | 4 (Home) | | + +--------+ +--------+ + + | Mignon Mohan | Person | Self | [birth year] | | [address] | | | al/Fam | | 1945 | [phone] | [place] [address] | | | rakan | | | 4 (Home) | | + +--------+ +--------+ + + Advance Directives + + + + + | Type | Date Recorded | Patient | Explanation | | | | Lead Mechanic | | + + + + + | Power of | | | | | Campus Aide | | | | + + + + + | Advance | | | | | Directive | | | | + + + + +
--- OUTSIDE RECORDS SUMMARY | ~2019-01-28 | XMS | Encounter Summary ---
Demographics + + + | Address | [address] | | | [place] [address] | + + + | Home Phone [...] | Author | [facility] | | | and Jdana | + + + | Organization | [facility] [...] Team Providers + +------+ + | Care Gelatin Dynamite Packing Operator Name | Role | Phone | [...] arthroplasty | [address] | [address] [place] | | | | | | [place] | [place], | | | | | Procedures | [place], [place] | [place] [address] | | | | | ot eval | [address] | Phone: | | | | | | Phone: | [phone] | | | | | | [phone] | Fax: | | | | | | Fax: | [phone] | | | | | | [phone] | | +--------+--------+ + + + + [...] Stiffness of hand | | | | [place], | [place] [address] | joint, left; | | | | [place] [address] | [phone] | Weakness of hand; | | | | [phone] | | HTN (hypertension); | | | [...] griffiths COTA - 08/14/2013 3:14 PM PDT [facility] CTR THERAPY OT OP [address] [place] [address] Occupational Therapy Daily Treatment Note Date: 08/14/2013 [...] [address] | | | | | | [place] [address] | | | | | | [phone] | | | | | | | [...]
--- OUTSIDE RECORDS SUMMARY | ~2019-01-28 | XMS | Encounter Summary ---
Demographics + + + | Address | [address] | | | [place] [address] | + + + | Home Phone [...] + | Author | [facility] | | | and Jdana | + + + | Organization | [facility] | | | and Jdana [...] Team Providers + +------+ + | Care Automobile Service Station Attendant Name | Role | Phone | + [...] arthroplasty | [address] | [address] [place] | | | | | | [place] | [place], | | | | | Procedures | [place], [place] | [place] [address] | | | | | ot eval | [address] | Phone: | | | | | | Phone: | [phone] | | | | | | [phone] | Fax: | | | | | | Fax: | [phone] | | | | | | [phone] | | +--------+--------+ + + + + [...] Dx); Hx of | | | | [place], | [place] [address] | arthroplasty; | | | | [place] [address] | [phone] | Weakness of hand; | | | | [phone] | | HTN (hypertension); | | | | | Mady Mccray, OT | Low back pain; | | | | | [address] | Osteoporosis; | | | | | [place] | Rheumatoid arthritis | | | | | [address] | (HCC) | | | | | [...] might be different fr om the original. [facility] CTR THERAPY OT OP [address] [place] [address] Occupational Therapy Daily Treatment Note Date: 08/07/2013 [...] [address] | | | | | | [place] [address] | | | | | | [phone] | | | | | | | [...]
--- OUTSIDE RECORDS SUMMARY | ~2019-01-28 | XMS | Encounter Summary ---
Demographics + + + | Address | [address] | | | [place] [address] | + + + | Home Phone [...] Author | [facility] | | | and Jdana | + + + | Organization | [facility] | | [...] Team Providers + +------+ + | Care Installations Inspector Name | Role | Phone | [...] [place], [place] | | | | | [place], | [address] | | | | | [place] [address] | | | | | | [phone] | | | +--------+ + + + [...] THERAPY OT OP [address] [place] [address] Occupational Therapy Discharge Note This discharge is [...] | | | | | [place] [address] | | | | | | [phone] | | | | | | | [...]
--- OUTSIDE RECORDS SUMMARY | ~2019-01-28 | XMS | Encounter Summary ---
Demographics + + + | Address | [address] | | | [place] [address] | + + + | Home Phone [...] + | Author | [facility] | | | and Jdana | + + + | Organization | [facility] | | | and Jdana [...] Team Providers + +------+ + | Care Restoration Silversmith Name | Role | Phone | + [...] arthroplasty | [address] | [address] | | | | | | [place] | [place], | | | | | Procedures | [place], [place] | [place] [address] | | | | | ot eval | [address] | Phone: | | | | | | Phone: | [phone] | | | | | | [phone] | Fax: | | | | | | Fax: | [phone] | | | | | | [phone] | | +--------+--------+ + + + + [...] Dx); Hx of | | | | [place], | [place] [address] | arthroplasty; | | | | [place] [address] | [phone] | Weakness of hand; | | | | [phone] | | HTN (hypertension); | | | | | Mady Mccray, OT | Low back pain; | | | | | [address] | Osteoporosis; | | | | | [place] | Rheumatoid arthritis | | | | | [address] | (HCC) | | | | | [...] different fr om the original. [facility] THERAPY OT OP [address] [place] [address] Occupational Therapy Daily Treatment Note Date: 07/24/2013 [...] [address] | | | | | | [place] [address] | | | | | | [phone] | | | | | | | [...]
--- OUTSIDE RECORDS SUMMARY | ~2019-01-28 | XMS | Encounter Summary ---
Demographics + + + | Address | [address] | | | [place] [address] | + + + | Home Phone | | + + + | Preferred Language | Unknown | + + + | Marital Status | | + + + | Scientologist Affiliation | Unknown | + + + | Race | Unknown | + + + | Ethnic Group | Unknown | + + + Author + + + | Author | [facility] | | | and Jdana | + + + | Organization | [facility] | | | and Jdana [...] Team Providers + +------+ + | Care Dry Cleaning Counter Clerk Name | Role | Phone | + +------+ + PCP | Unavailable | + +------+ + Encounter Details +--------+ + + + + | Date | Type | Department | Care Team | Description | +--------+ + + + + | 12/23/ | Hospital | [facility] | | | | 2005 | Encounter | MED CTR XRAY [address] | | | | | | [address] | | | | | | [place] [address] | | | | | | [phone] | | | +--------+ + + + [...] 2019 | Visit | | [address] | | | | | | [address] | | | | | | [place] [address] | | | | | | [phone] | | | | | | | | +--------+---------+ + + + documented as of this encounter Visit Diagnoses Not on filedocumented in this encounter"
--- OUTSIDE RECORDS SUMMARY | ~2019-01-28 | XMS | Encounter Summary ---
Demographics + + + | Address | [address] | | | [place] [address] | + + + | Home Phone [...] Providers + +------+ + | Care Terrazzo Polisher Helper Name | Role | Phone | [...] arthroplasty | [address] | [address] [place] | | | | | | [place] | [place], | | | | | Procedures | [place] | [place] [address] | | | | | ot eval | [id number] | Phone: | | | | | | Phone: | [phone] | | | | | | [phone] | Fax: | | | | | | Fax: | [phone] | | | | | | [phone] | | +--------+--------+ + + + + [...] Stiffness of hand | | | | [place], | [place] [address] | joint, left; | | | | [place] [address] | [phone] | Weakness of hand; | | | | [phone] | | HTN (hypertension); | | | | | Mady Mccray, OT | Low back pain; | | | | | [address] | Osteoporosis; | | | | | [place], [place] | Rheumatoid arthritis | | | | | [address] | (HCC) | | | | | [...] [facility] THERAPY OT OP [address] [place] [address] Occupational Therapy Progress Assessment Date: 08/16/2013 Patient [...] independent iwth upgraed HEP Goal 2: Increase barrel lathe operator inside to 20# Goal 2 Status: LTG not tested Plan Date of Onset: 06/26/13 Start of Care Date: 07/18/13 Requested # of Visits: 12 2x/wk for 6 weeks (Decrease to 1x/week due to travel distance) Certification From: 08/16/13 Certification To: 09/15/13 Treatment Plan/Interventions 35210 OT Evaluation;30738 Therapeutic Exercises;13246 Therapeutic Activities;Splinting;9753 5 Self Care/Home Management;62661 Manual Therapy Medicare Functional Limitation Reporting G [...] impaired, limited or restricted Outcome Measures Tools: [facility]-P[facility] and professional judgement Justification of Severity Rating: [...] 2019 | Visit | | Florina Case [facility] [address] | | | | | | [address] | | | | | | [place] [address] | | | | | | [phone] | | | | | | | [...]
--- OUTSIDE RECORDS SUMMARY | ~2019-01-28 | XMS | Encounter Summary ---
Demographics + + + | Address | [address] | | | [place] [address] | + + + | Home Phone [...] + | Author | [facility] | | | and Jdana | + + + | Organization | [facility] [...] Team Providers + +------+ + | Care Travel Agent Name | Role | Phone | + +------+ + | Yosef Morrow MD | PCP | | + +------+ + Encounter Details +--------+ + + + + | Date | Type | Department | Care Team | Description | +--------+ + + + + | 08/05/ | Orders Only | [facility] | [place], | | | 2016 | | RHEUMATOLOGY [address] | Florina Case HOTEL NIGHT [address]UDIT[address] | | | | | [address] | [address] | | | | | [place], [place] | [place] [address] | | | | | [address] | [phone] | | | | | [phone] | | | +--------+ + + + [...] PL | | | | | | [place] [address] | | | | | | [phone] | | | | | | | [...] | | | | | performed at [facility] | | | | | | [facility] | | | | | | [facility], [address] | | | | | | [address] | | | | | | [place] [address] | | | | + + + [...] | | | | | performed at [facility] | | | | | | [facility] | | | | | | [facility]ostics, [address] | | | | | | [address] | | | | | | [place] [address] | | | | + + + [...] | | | | | performed at [facility] | | | | | | [facility] | | | | | | Diagnostics, [address] | | | | | | [address] | | | | | | [place] [address] | | | | + + + [...] [place] | | | | | | [address] | | | | + + + [...]
--- OUTSIDE RECORDS SUMMARY | ~2019-01-28 | XMS | Encounter Summary ---
Demographics + + + | Address | [address] | | | [place] [address] | + + + | Home Phone | | + + + | Preferred Language | Unknown | + + + | Marital Status | | + + + | Uatsdin Affiliation | Unknown | + + + | Race | Unknown | + + + | Ethnic Group | Unknown | + + + Author + + + | Author | [facility] | | | and Jdana | + + + | Organization | [facility] | | | and Jdana [...] Team Providers + +------+ + | Care Duct Layer Supervisor Name | Role | Phone | [...] [place], [place] | | | | | [place], | [address] | | | | | [place] [address] | | | | | | [phone] | | | +--------+ + + + [...] Camara, OT - 07/19/2013 [facility] [address] [place] [address] Cancellation/No Show Date: 07/19/2013 Patient Information Patient [...] [address] | | | | | | [place] [address] | | | | | | [phone] | | | | | | | [...]
--- OUTSIDE RECORDS SUMMARY | ~2019-01-28 | XMS | Encounter Summary ---
Demographics + + + | Address | [address] | | | [place] [address] | + + + | Home Phone [...] + | Author | [facility] | | | and Jdana | + + + | Organization | [facility] | | | and Jdana [...] Team Providers + +------+ + | Care Soapstoner Name | Role | Phone | + +------+ + | Yosef Morrow MD | PCP | | + +------+ + Encounter Details +--------+ + + + + | Date | Type | Department | Care Team | Description | +--------+ + + + + | 09/11/ | Orders Only | [facility] | Provider, | Other residential | | 2019 | | SYSTEM GENERIC OP | MD [address] | (current) drug | | | | CONVERSION [address] | [address] | therapy; Rheumatoid | | | | [address] [place], [place] | [place] [address] | arthritis of | | | | [address] | | multiple sites | | | | [phone] | | without organ or | | [...] 2019 | Visit | | Florina Case [facility] [address] | | | | | | [address] | | | | | | [place] [address] | | | | | | [phone] | | | | | | | | +--------+---------+ + + + + +------+--------+ + + | Name | Type | Priori | Associated Diagnoses | Order Schedule | | | | ty | | | + +------+--------+ + + | Comprehensive | Lab | Routin | Other residential | Expected: | | Metabolic Panel | [...] Rate | Lab | Routin | Other residential | 2 Occurrences | | | | [...] | Diagnosis | + + | 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
--- OUTSIDE RECORDS SUMMARY | ~2019-01-28 | XMS | Encounter Summary ---
Demographics + + + | Address | [address] | | | [place] [address] | + + + | Home Phone [...] | Author | [facility] | | | and Jdana | + + + | Organization | [facility] [...] Providers + +------+ + | Care Senior Physician Name | Role | Phone | + +------+ + PCP | Unavailable | + +------+ + Encounter Details +--------+ + + + + | Date | Type | Department | Care Team | Description | +--------+ + + + + | 11/18/ | Hospital | [facility] | Oscar Wilson MD | | | 2010 | Encounter | MED CTR XRAY [address] | [address] | | | | | [place] | [place] [address] | | | | | [place] [address] | [phone] | | | | | [phone] | | | +--------+ + + + [...] 2020 | Visit | | Florina Case [facility] [address] | | | | | | [address] | | | | | | [place] [address] | | | | | | [phone] | | | | | | | [...] Performed At | + + + | [facility] Diagnostic Imaging Department | [facility] | | [address] [facility] [address] | [facility] | | THREE VIEWS LUMBAR SPINE, | [...] Transcribed Date/Time: 11/18/2010 16:45 | | | Educational Administrator: <Electronically Signed by Leobardo Mcneill MD> | | | 11/18/10 2216 | | + + + + + | Procedure Note | + + | David Funes - 03/24/2013 3:57 PM [facility] | | Diagnostic Imaging Department | | [address] [facility] [place] | | | | | | [...] | Transcribed Date/Time: 11/18/2010 16:45 | | Educational Administrator: | | <Electronically Signed by Leobardo Mcneill [...]
--- OUTSIDE RECORDS SUMMARY | ~2019-01-28 | XMS | Encounter Summary ---
Demographics + + + | Address | [address] | | | [place] [address] | + + + | Home Phone [...] | [facility] | | | and Jdana | + + + | Organization | [facility] | | [...] Team Providers + +------+ + | Care Solar Installation Manager Name | Role | Phone | [...] arthroplasty | [address] | [place] | | | | | | [place] | [place], | | | | | Procedures | [place], [place] | [place] [address] | | | | | ot eval | [address] | Phone: | | | | | | Phone: | [phone] | | | | | | [phone] | Fax: | | | | | | Fax: | [phone] | | | | | | [phone] | | +--------+--------+ + + + + [...] Dx); Hx of | | | | [place], | [place] [address] | arthroplasty; | | | | [place] [address] | [phone] | Weakness of hand; | | | | [phone] | | HTN (hypertension); | | | | | Mady Mccray, OT | Low back pain; | | | | | [address] | Osteoporosis; | | | | | [place] | Rheumatoid arthritis | | | | | [address] | (HCC) | | | | | [...] OP [address] [place] [address] Occupational Therapy Daily Treatment Note Date: 07/31/2013 [...] | | | | | [place] [address] | | | | | | [phone] | | | | | | | [...]
--- OUTSIDE RECORDS SUMMARY | 2019-01-28 10:20 | XMS ---
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 Care History Medical/Surgical 10/24/2018 [facility] - Patient is currently established with [facility]. If patient is seen in the ED during business hours. Please contact [facility] at [facility]. Care Recommendation: This patient has had 5 or more Emergency Department visits in the last 12 months.\T\nbsp; Patient requires education on the scope and purpose of the ED as an acute care provider not a Primary Care Provider and should not be utilized for chronic conditions.\T\nbsp; These are guidelines and the provider should exercise clinical judgment when providing care. E.D. VISIT COUNT (12 MO.) 3 LEXI Doherty TOTAL 3 NOTE: Visits indicate total known visits. 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
[2019-01-28] MEDS ORDERED: PEPCID20 MG PO (10:34)
[2019-01-28] MEDS ORDERED: IMODIUM A-D2 M2 PO (12:39)
== END 2019-01-28 12:45 | disposition home or self-care (01) ==
LOC: ED 10:17
DX: R19.7 Diarrhea, unspecified (principal); I10 Essential (primary) hypertension; Z87.891 Personal history of nicotine dependence; Z88.8 Allergy status to other drugs, medicaments and biological substances; Z79.899 Other long term (current) 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
CPT/HCPCS: 80053; 81001; 85025; 96360; 96361; 99284-25; J7030

== ENCOUNTER 2019-06-19 10:15 | Inpatient (IN) | payer MEDICARE, OTHER ==
[~2019-06-19] VITALS: Ht 154.9 cm; Wt 44.5 kg
--- OUTSIDE RECORDS SUMMARY | ~2019-06-19 | XMS | Clinical Summary ---
Demographics + + + | Address | [address] | | | [place] [address] | + + + | Home Phone | | + + + | Preferred Language | Unknown | + + + | Marital Status | | + + + | Christian Affiliation | Unknown | + + + | Race | Unknown | + + + | Ethnic Group | Unknown | + + + Author + + + | Author | [facility] (Historical as of | | | 10-01-18) | + + + | Organization | [facility] (Historical as of | | | 10-01-18) | + + + | Address | Unknown | + + + | Phone | Unavailable | + + + Support + + +---------+ + | Name | Relationship | Address | Phone | + + +---------+ + | Rey Mohan | ECON | Unknown | | + + +---------+ + | Bo Mancilla ECON | Unknown | | + + +---------+ + Care Team Providers + +------+ + | Care Billet Shearer Name | Role | Phone | + +------+ + | Julio Cesar Hawley MD | PP | | + +------+ + Allergies + + + + + + | Active Allergy | Reactions | Severity | Noted | Comments | | | | | Date | | + + + + + + | Etanercept | Shortness of Breath | High | 05/06/19 | | | | | | 16 | | + + + + + + | Povidone Iodine | Rash | Medium | 05/06/19 | | | | | | 16 | | + + + + + + Current Medications + + +--------+---------+------+------+-------+ | Prescription | Sig. | Disp. | Refills | Star | End | Statu | | | | | | t | Date | s | | | | | | Date | | | + + +--------+---------+------+------+-------+ | potassium chloride | Take 20 mEq by mouth | | | | | Activ | | (OMAIRAOR-CON) 20 MEQ | daily. | | | | | e | | packet | | | | | | | + + +--------+---------+------+------+-------+ | betamethasone | Apply topically as | | | | | Activ | | valerate (VALISONE) | needed. | | | | | e | | 0.1 % cream | | | | | | | + + +--------+---------+------+------+-------+ | amLODIPine | Take 10 mg by mouth | | | | | Activ | | (NORVASC) 10 MG | daily. | | | | | e | | tablet | | | | | | | + + +--------+---------+------+------+-------+ | losartan (COZAAR) | Take 50 mg by mouth | | | | | Activ | | 50 MG tablet | daily. | | | | | e | + + +--------+---------+------+------+-------+ | Cholecalciferol | Take by mouth. | | | | | Activ | | (VITAMIN D3) 5000 | | | | | | e | | units CAPS | | | | | | | + + +--------+---------+------+------+-------+ | famotidine | | | | 09/0 | | Activ | | (PEPCID) 40 MG | | | | 6/20 | | e | | tablet | | | | 18 | | | + + +--------+---------+------+------+-------+ | | | | | 10/3 | | Activ | | lidocaine-prilocaine | | | | 0/20 | | e | | (EMLA) cream | | | | 18 | | | + + +--------+---------+------+------+-------+ | lidocaine | | | | 03/2 | | Activ | | (LIDODERM) 5 % | | | | 7/20 | | e | | | | | | 19 | | | + + +--------+---------+------+------+-------+ | gabapentin | | | | 03/2 | | Activ | | (NEURONTIN) 300 MG | | | | 7/20 | | e | | capsule | | | | 19 | | | + + +--------+---------+------+------+-------+ | folic acid | Take 1 tablet by | 270 | 3 | 05/0 | | Activ | | (FOLVITE) 1 MG | mouth 3 (three) | tablet | | 7/20 | | e | | tabletIndications: | times daily. | | | 19 | | | | Rheumatoid arthritis | | | | | | | | involving multiple | | | | | | | | sites with positive | | | | | | | | rheumatoid factor | | | | | | | | (HCC), High risk | | | | | | | | medication use | | | | | | | + + +--------+---------+------+------+-------+ | hydroxychloroquine | Take 1 tablet by | 180 | 0 | 07/0 | | Activ | | (PLAQUENIL) 200 MG | mouth 2 (two) times | tablet | | 2/20 | | e | | tabletIndications: | daily. | | | 19 | | | | Rheumatoid arthritis | | | | | | | | involving multiple | | | | | | | | sites with positive | | | | | | | | rheumatoid factor | | | | | | | | (HCC), High risk | | | | | | | | medication use | | | | | | | + + +--------+---------+------+------+-------+ | leflunomide | Take 1 tablet by | 90 | 0 | 07/0 | | Activ | | (ARAVA) 20 MG | mouth daily. | tablet | | 2/20 | | e | | tabletIndications: | | | | 19 | | | | Rheumatoid arthritis | | | | | | | | involving multiple | | | | | | | | sites with positive | | | | | | | | rheumatoid factor | | | | | | | | ([facility]), High risk | | | | | | | | medication use | | | | | | | + + +--------+---------+------+------+-------+ | methotrexate 2.5 | Take 4 tablets by | 48 | 0 | 07/0 | | Activ | | MG | mouth once a week. 4 | tablet | | 2/20 | | e | | tabletIndications: | tablets by mouth | | | 19 | | | | Rheumatoid Arthritis | weekly | | | | | | + + +--------+---------+------+------+-------+ Active Problems + + + | Problem | Noted Date | + + + | Iliac artery aneurysm, bilateral (HCC) | 05/25/2017 | + + + + + | Last Assessment & Plan: Incidental finding on recent MRI of | | lumbar spineEducational handouts given to her today from Up to | | dateRecommend she make appointment with to discuss | + + + + + | Primary osteoarthritis involving multiple joints | 08/06/2015 | + + + + + | Last Assessment & Plan: Stable, continue conservative | | measures.Avoid NSAID's | + + + + + | Osteoporosis | 08/06/2015 | + + + + + | Last Assessment & Plan: Under the care of | + + + + + | Rheumatoid arthritis involving multiple sites with positive | 05/06/2015 | | rheumatoid factor (HCC) | | + + + + + | Last Assessment & Plan: Initially diagnosed with RA in 1996. | | 2018-erosive changes were seen in the hands and feetTenderness to | | L foot with palpation on the plantar surface. Foot symptoms may | | be mechanical and not inflammatory.Due to changes in renal | | function, I am reluctant to increase dose of methotrexate and | | leflunomide dose should be decreased as well. Encouraged her to | | wear supportive shoes and may need podiatry consult for | | inserts/foot wear.If RA symptoms become active in the feet, may | | need to consider changes in plan of care- taking into | | consideration renal function.The risks and benefit of treatment | | plan were discussed today-Continue Plaquenil 400 mg a | | day--Continue methotrexate 10 mg once a week-Decrease leflunomide | | 20 mg every other day due to changes in renal function-continue | | to f/u with pcp for further evaluation of renal function. May | | need nephrology consult.Return to clinic 3 to 4 months or sooner | | for symptoms of active RA | + + + + + | High risk medication use | 05/06/2015 | + + + + + | Last Assessment & Plan: Update labs today and continue to | | monitor closely while on DMARD and/or biologic medication. | | Counseled regarding medication compliance as well as potential | | toxicities with medications such as cytopenias, liver | | abnormalities and risks for infection, and the need for routine | | blood work monitoring. | + + + + + | HTN (hypertension) | 07/18/2013 | + + + | Hx of arthroplasty | 07/18/2013 | + + + | Low back pain | 07/18/2013 | + + + + + | Last Assessment & Plan: This is a chronic long standing issue | | for herAt this time she chooses not to return to pain | | management, but if back symptoms do not improve or quality of | | life declines she may return to pain management clinic | + + Resolved Problems + + + + | Problem | Noted | Resolved | | | Date | Date | + + + + | Rheumatoid arthritis flare | 05/06/19 | | | | 16 | 7 | + + + + Immunizations + + + + | Name | Dates Previously Given | Next Due | + + + + | Influenza, Trivalent | 12/03/2008 | | | W/Preservative | | | + + + + | Pneumococcal | 03/10/2018 | | | Conjugate 13-valent | | | + + + + | Td | 10/28/2017, 12/31/2008 | | + + + + Family History + +------+ + + | Relation | Name | Status | Comments | + +------+ + + | Father | | | | + +------+ + + | Mother | | | | + +------+ + + Social History + +-------+ +--------+------+ | Tobacco Use | Types | Packs/Day | Years | Date | | | | | Used | | + +-------+ +--------+------+ | Former Smoker | | 1 | 35 | | + +-------+ +--------+------+ + +---+---+---+ | Smokeless Tobacco: | | | | | Never Used | | | | + +---+---+---+ + + +---------+ + | Alcohol Use | Drinks/We | oz/Week | Comments | | | ek | | | + + +---------+ + | No | | | | + + +---------+ + + + + | Sex Assigned at | Date Recorded | | | | + + + | Not on file | | + + + Last Filed Vital Signs + + + + | Vital Sign | Reading | Time Taken | + + + + | Blood Pressure | 135/83 | 09/22/2018 9:33 AM PDT | + + + + | Pulse | 85 | 09/22/2018 9:33 AM PDT | + + + + | Temperature | 36.7 C (98.1 F) | 09/22/2018 9:33 AM PDT | + + + + | Respiratory Rate | - | - | + + + + | Oxygen Saturation | 97% | 02/02/2018 10:41 AM PST | + + + + | Inhaled Oxygen | - | - | | Concentration | | | + + + + | Weight | 48.1 kg (106 lb) | 09/22/2018 9:33 AM PDT | + + + + | Height | 157.5 cm (5' 2") | 09/22/2018 9:33 AM PDT | + + + + | Body Mass Index | 19.39 | 09/22/2018 9:33 AM PDT | + + + + Plan of Treatment + + + + + | Health Maintenance | Due Date | Last Done | Comments | + + + + + | Breast Cancer | | | | | Screening | 5 | | | | (Mammogram) | | | | + + + + + | Colon Cancer | | | | | Screening | 5 | | | | (Colonoscopy) | | | | + + + + + | Vaccine: Zoster (1 | | | | | of 2) | 5 | | | + + + + + | DEXA SCAN SCREENING | | | | | | 0 | | | + + + + + | Vaccine: | | 10/28/2017, 12/31/2008 | | | Dtap/Tdap/Td (1 - | 8 | | | | Tdap) | | | | + + + + + | Vaccine: | | 03/10/2018 | | | Pneumococcal 65+ | 0 | | | | Low/Medium Risk (2 | | | | | of 2 - PPSV23) | | | | + + + + + | Vaccine: Influenza | | 12/03/2008 | | | (Season Ended) | 0 | | | + + + + + Results Not on filefrom Last 3 Months Insurance + +--------+ +------+-------+ + | Payer | Benefi | Subscriber | Type | Phone | Address | | | t Plan | ID | | | | | | / | | | | | | | Group | | | | | + +--------+ +------+-------+ + | MEDICARE | MEDICA | [id number] | | | [address] | | | RE | | | | [place] [phone] | | | IP-OP | | | | | + +--------+ +------+-------+ + | [employer]AN | ODS | [id number] | | | | | | HEALTH | | | | | | | PLAN | | | | | + +--------+ +------+-------+ + + +--------+ +--------+ + + | Guarantor Name | Accoun | Relation to | Date | Phone | Billing Address | | | t Type | Patient | of | | | | | | | | | | + +--------+ +--------+ + + | MIGNON MOHAN | Person | Self [birth year] Home: | [address] | | | al/Fam | | 1945 | [phone] [place] | | | [place] | | | [phone] | [phone] | + +--------+ +--------+ + +
--- OUTSIDE RECORDS SUMMARY | ~2019-06-19 | XMS | Encounter Summary ---
Demographics + + + | Address | [address] | | | [place] [address] | + + + | Home Phone | | + + + | Preferred Language | Unknown | + + + | Marital Status | | + + + | Mandaen Affiliation | Unknown | + + + | Race | Unknown | + + + | Ethnic Group | Unknown | + + + Author + + + | Author | [facility] | | | and Jdana | + + + | Organization | [facility] | | | and Jdana | + + + | Address | Unknown | + + + | Phone | Unavailable | + + + Support + + +---------+ + | Name | Relationship | Address | Phone | + + +---------+ + | Rey Mohan | ECON | Unknown | | + + +---------+ + Care Team Providers + +------+ + | Care Patent Searcher Name | Role | Phone | + +------+ + | Yosef Morrow MD | PCP | | + +------+ + Reason for Visit + + + | Reason | Comments | + + + | Therapy Daily | | | Treatment | | + + + Evaluate (Routine) +--------+--------+ + + + + | Status | Reason | Specialty | Diagnoses / | Referred By | Referred To | | | | | Procedures | Contact | Contact | +--------+--------+ + + + + | Closed | | Rehabilitatio | Diagnoses | Lorri, | [facility] | | | | n | left hand | Rey | Oncology | | | | | randall | MD hCaim | Therapy [address] | | | | | arthroplasty | [address] | [address] | | | | | | [place] | [place], | | | | | Procedures | [place], [place] | [place] [address] | | | | | ot eval | [address] | Phone: | | | | | | Phone: | [phone] | | | | | | [phone] | Fax: | | | | | | Fax: | [phone] | | | | | | [phone] | | +--------+--------+ + + + + Encounter Details +--------+---------+ + + + | Date | Type | Department | Care Team | Description | +--------+---------+ + + + | 07/24/ | Office | [facility] | Rey Blackmon | Stiffness of hand | | 2014 | Visit | [facility] | MD [address] | joint, left (Primary | | | | THERAPY [address] | Dx); Hx of | | | | [address] [place], | [place] [address] | arthroplasty; | | | | [place] [address] | [phone] | Weakness of hand; | | | | [phone] | | HTN (hypertension); | | | | | Mahendra, Mady A, OT | Low back pain; | | | | | [address] | Osteoporosis; | | | | | [place], [place] | Rheumatoid arthritis | | | | | [address] | (HCC) | | | | | | | +--------+---------+ + + + Social History + +-------+ +--------+------+ | Tobacco Use | Types | Packs/Day | Years | Date | | | | | Used | | + +-------+ +--------+------+ | Never Assessed | | | | | + +-------+ +--------+------+ + + + | Sex Assigned at | Date Recorded | | | | + + + | Not on file | | + + + + + + + | Job Start Date | Occupation | Industry | + + + + | Not on file | Not on file | Not on file | + + + + + + + + | Travel History | Travel Start | Travel End | + + + + + + | No recent travel history available. | + + documented as of this encounter Progress Mady Lamar OT - 07/24/2013 2:26 PM PDTFormatting of this note might be different fr om the original. [facility] OT OP [address] [place] [address] Occupational Therapy Daily Treatment Note Date: 07/24/2013 Patient Information Patient Name: Mignon Mohan Date of : 1945 Age: 68 y.o. History Encounter Diagnoses Code Name Primary? 719.54 Stiffness of hand joint, left Yes V45.89 Hx of arthroplasty 728.87 Weakness of hand 401.9 HTN (hypertension) 724.2 Low back pain 733.00 Osteoporosis 714.0 Rheumatoid arthritis (HCC) Date of Onset: 06/26/13 Referring Provider: Rey Blackmon MD Rehab Precautions 07/18/13 Rehab Precautions Precautions Comments 4 fingere cmc arthroplasty Today's Treatment Patient Name: Mignon Mohan/: 1945/ Start Time: 1115 Stop time: 1210 Duration: 55 minutes Timed Treatment Codes: 55 minutes # of OT Visits: 2 Subjective: I had some abrasions on my hand from doing the scar massge. I was really tired last week and couldn't come in. Pain Assessment Pain Rating Pre Assessment: 4 Location: MP's Objective Patient/Caregiver Education Learner: Patient Readiness: Acceptance Method: Explanation;Demonstration Response: Verbalizes Understanding;Demonstrated Understanding Comment: Pt and instructed in radiat "stepping" exercises as well as AROM to IP's a nd MP's. When hand was out of brace for adustments, pt wias using left hand to hold latoya gabriel. Disucssion that this is over doing activities at this time. She was also instruct ed to not perfrom any pinch exericses for another 2 months to provent deviation. Add Another User?: yes Learner: Significant Readiness: Acceptance Method: Explanation;Demonstration Response: Verbalizes Understanding Manual Therapy Manual Therapy Site: left hand Manual Therapy: Pt seen for modification of hand brace to add foam dividers between fingers to prevent ulnar deviation. AROM to hand. Assessment Discussion with pt that she can cause harm to her fingers after surgery if she over does a t this stage. Rehabilitation potential: Patient demonstrates good potential to achieve established goals to address the documented impairments by participating in skilled occupational therapy serv ices. Next Visit: Electronically signed by: Mady Mccray OT, 07/24/2013 14:27 Patient Name: Mignon Mohan/: 1945/ of documented in this e ncounter Plan of Treatment +--------+---------+ + + + | Date | Type | Specialty | Care Team | Description | +--------+---------+ + + + | 06/28/ | Office | Rheumatology | [place], | | | 2019 | Visit | | [address]ON [address] | | | | | | [address] | | | | | | [place] [address] | | | | | | [phone] | | | | | | | | +--------+---------+ + + + | 07/30/ | Office | Nephrology | Ismael Gonzalez MD | | 2019 | Visit | | [address] [facility] | | | | | | [address] [place] | | | | | | [address] | | | | | | | | +--------+---------+ + + + documented as of this encounter Visit Diagnoses + + | Diagnosis | + + | Stiffness of hand joint, left - Primary | + + | Hx of arthroplasty Personal history of surgery to other organs | + + | Weakness of hand Muscle weakness (generalized) | + + | HTN (hypertension) Unspecified essential hypertension | + + | Low back pain Lumbago | + + | Osteoporosis Osteoporosis, unspecified | + + | Rheumatoid arthritis (HCC) | + + documented in this encounter
--- OUTSIDE RECORDS SUMMARY | ~2019-06-19 | XMS | Encounter Summary ---
Demographics + + + | Address | [address] | | | [place] [address] | + + + | Home Phone | | + + + | Preferred Language | Unknown | + + + | Marital Status | | + + + | Confucianist Affiliation | Unknown | + + + | Race | Unknown | + + + | Ethnic Group | Unknown | + + + Author + + + | Author | [facility] | | | and Jdana | + + + | Organization | [facility] | | | and Jdana | [...] Team Providers + +------+ + | Care Financial Officer Name | Role | Phone | + [...] | | | | randall | MD Chaim | Therapy [address] | | | | | arthroplasty | [address] | [address] | | | | | | [place] | [place], | | | | | Procedures | [place], [place] | [place] [address] | | | | | ot eval | [address] | Phone: | | | | | | Phone: | [phone] | | | | | | [phone] | Fax: | | | | | | Fax: | [phone] | | | | | | [phone] | | +--------+--------+ + + + + Encounter Details +--------+---------+ + + + | Date | Type | Department | Care Team | Description | +--------+---------+ + + + | 07/31/ | Office | [facility] | Rey Blackmon | Stiffness of hand | | 2014 | Visit | [facility] | MD [address] | joint, left (Primary | | | | THERAPY [address] | Dx); Hx of | | | | [place], | [place] [address] | arthroplasty; | | | | [place] [address] | [phone] | Weakness of hand; | | | | [phone] | | HTN (hypertension); | | | | | Mahendra, Mady A, OT | Low back pain; | | | | | [address] | Osteoporosis; | | | | | [place] | Rheumatoid arthritis | | | | | [address] | (HCC) | | | | | [...] this encounter Progress Mady Lamar OT - 07/31/2013 5:42 PM PDTFormatting of this note might be different fr om the original. [facility] OT OP [address] [place] [address] Occupational Therapy Daily Treatment Note Date: 07/31/2013 Patient Information Patient Name: Mignon Mohan Date of : 1945 Age: 68 y.o. History Encounter Diagnoses Code Name Primary? 719.54 Stiffness of hand joint, left Yes V45.89 Hx of arthroplasty 728.87 Weakness of hand 401.9 HTN (hypertension) 724.2 Low back pain 733.00 Osteoporosis 714.0 Rheumatoid arthritis (HCC) Date of Onset: 06/26/13 Referring Provider: Rey Blackmon MD No past medical history on file. No past surgical history on file. Rehab Precautions 07/18/13 Rehab Precautions Precautions Comments 4 fingere cmc arthroplasty Today's Treatment Patient Name: Mignon Mohan/: 1945/ Start Time: 1030 Stop time: 1130 Duration: 60 minutes Timed Treatment Codes: 60 minutes # of OT Visits: 4 Subjective: I have been doing my exericses. The new splint feets good Pain Assessment Pain Rating Pre Assessment: 0 Location: soreness, no more of the sharp pains Objective Patient/Caregiver Education Learner: Patient Readiness: Acceptance Method: Demonstration;Explanation Response: Verbalizes Understanding;Demonstrated Understanding Comment: exercises with outrigger splint Manual Therapy Manual Therapy: MFR to scars and ROM per protical for left hand. Pt fitted with a outrigge r splint for exerciseing left hand. Assessment Splint fit appeared good. Rehabilitation potential: Patient demonstrates good potential to achieve established goals to address the documented impairments by participating in skilled occupational therapy serv ices. Next Visit: Monitor splint, increrase ROM. Electronically signed by: Mady Mccray OT, 07/31/2013 17:42 Patient Name: Mignon Mohan/: 1945/ documented in this e ncounter Plan of Treatment +--------+---------+ + + + | Date | Type | Specialty | Care Team | Description | +--------+---------+ + + + | 06/28/ | Office | Rheumatology | [place], | | | 2019 | Visit | | [address]IGNON [address] | | | | | | [address] | | | | | | [place] [address] | | | | | | [phone] | | | | | | | | +--------+---------+ + + + | 07/30/ | Office | Nephrology | Ismael Gonzalez MD | | | 2019 | Visit | | [address] [facility] | | | | | | [address] [place] | | | | | | [address] | | | | | | | [...] (HCC) | + + documented in this encounter"
--- OUTSIDE RECORDS SUMMARY | ~2019-06-19 | XMS | Clinical Summary ---
Demographics + + + | Address | [address] | | | [place] [address] | + + + | Home Phone | | + + + | Preferred Language | Unknown | + + + | Marital Status | | + + + | Moravian Affiliation | Unknown | + + + | Race | Unknown | + + + | Ethnic Group | Unknown | + + + Author + + + | Author | [facility] | | | and Jdana | + + + | Organization | [facility] | | | and Jdana | [...] Team Providers + +------+ + | Care Tape Machine Tailer Name | Role | Phone | + +------+ + | Julio Cesar Hawley MD | PCP | | + +------+ + Allergies + + + + + + | Active Allergy | Reactions | Severity | Noted | Comments | | | | | Date | | + + + + + + | Etanercept | | | 07/19/19 | | | | | | 14 | | + + + + + + | Povidone Iodine | Hives | | 07/19/19 | | | | | | 14 | | + + + + + + Medications + + + +---------+------+------+-------+ | Medication | Sig | Dispensed | Refills | Star | End | Statu | | | | | | t | Date | s | | | | | | Date | | | + + + +---------+------+------+-------+ | Cholecalciferol | Take by mouth. | | 0 | | | Activ | | (VITAMIN D3) 5000 | | | | | | e | | UNITS CAPS | | | | | | | + + + +---------+------+------+-------+ | omeprazole | Take 40 mg by mouth | | 0 | | | Activ | | (PRILOSEC) 40 MG | every morning | | | | | e | | capsule | (before breakfast). | | | | | | + + + +---------+------+------+-------+ | | Take 25 mg by mouth | | 0 | | | Activ | | hydrochlorothiazide | Daily. | | | | | e | | 25 mg tablet | | | | | | | + + + +---------+------+------+-------+ | amlodipine | Take 10 mg by mouth | | 0 | | | Activ | | (NORVASC) 10 MG | Daily. | | | | | e | | tablet | | | | | | | + + + +---------+------+------+-------+ | | Take 1 tablet by | | 0 | | | Activ | | HYDROcodone-acetamin | mouth every 6 hours | | | | | e | | ophen (NORCO) 5-325 | as needed. | | | | | | | mg per tablet | | | | | | | + + + +---------+------+------+-------+ | losartan (COZAAR) | Take 50 mg by mouth | | 0 | | | Activ | | 50 mg tablet | Daily. | | | | | e | + + + +---------+------+------+-------+ | folic acid 1 mg | Take 1 mg by mouth | | 0 | | | Activ | | tablet | Daily. | | | | | e | + + + +---------+------+------+-------+ | betamethasone | Apply topically as | | 0 | | | Activ | | valerate (VALISONE) | needed. | | | | | e | | 0.1 % cream | | | | | | | + + + +---------+------+------+-------+ | famotidine | | | 0 | 09/0 | | Activ | | (PEPCID) 40 MG | | | | 6/20 | | e | | tablet | | | | 18 | | | + + + +---------+------+------+-------+ | lidocaine | | | 0 | 03/2 | | Activ | | (LIDODERM) 5% patch | | | | 7/20 | | e | | | | | | 19 | | | + + + +---------+------+------+-------+ | | | | 0 | 10/3 | | Activ | | lidocaine-prilocaine | | | | 0/20 | | e | | (EMLA) cream | | | | 18 | | | + + + +---------+------+------+-------+ | potassium chloride | Take 20 mEq by mouth | | 0 | | | Activ | | (KLOR-CON) 20 MEQ | daily. | | | | | e | | packet | | | | | | | + + + +---------+------+------+-------+ | methotrexate 2.5 | Take 4 tablets by | 20 | 2 | 10/2 | | Activ | | mg | mouth once a week. 4 | tablet | | 11/04 | | e | | tabletIndications: | tablets by mouth | | | 19 | | | | Rheumatoid Arthritis | weekly Indications: | | | | | | | | Rheumatoid | | | | | | | | Arthritis | | | | | | + + + +---------+------+------+-------+ | leflunomide | Take 1 tablet by | 90 | 0 | 01/2 | | Activ | | (ARAVA) 20 mg tablet | mouth Daily. | tablet | | /20 | | e | | | | | | 20 | | | + + + +---------+------+------+-------+ | metroNIDAZOLE | Apply topically 2 | | 0 | | | Activ | | (METROCREAM) 0.75 % | times daily. | | | | | e | | cream | | | | | | | + + + +---------+------+------+-------+ | TURMERIC CURCUMIN | Take by mouth. | | 0 | | | Activ | | PO | | | | | | e | + + + +---------+------+------+-------+ | UNABLE TO FIND | Med Name: thc | | 0 | | | Activ | | | gummies | | | | | e | + + + +---------+------+------+-------+ | DULoxetine | | | 0 | 05/3 | | Activ | | (CYMBALTA) [address] | | | | 20 | | e | | capsule | | | | 19 | | | + + + +---------+------+------+-------+ | hydroxychloroquine | Take 1 tablet by | 180 | 0 | 04/2 | | Activ | | (PLAQUENIL) 200 mg | mouth 2 times daily. | tablet | | 2/20 | | e | | tabletIndications: | | | | 20 | | | | Rheumatoid arthritis | | | | | | | | involving multiple | | | | | | | | sites with positive | | | | | | | | rheumatoid factor | | | | | | | | (HCC) | | | | | | | + + + +---------+------+------+-------+ | hydroxychloroquine | Take 1 tablet by | 180 | 0 | 01/2 | 04/2 | Disco | | (PLAQUENIL) 200 mg | mouth 2 times daily. | tablet | | 1/20 | 2/20 | ntinu | | tablet | | | | 20 | 20 | ed | | | | | | | | (Reor | | | | | | | | frank) | + + + +---------+------+------+-------+ Active Problems + + + | Problem | Noted Date | + + + | Scoliosis | 05/16/2019 | + + + | Heart disease | 05/16/2019 | + + + | Migraine | 05/16/2019 | + + + | PVD (peripheral vascular disease) | 05/16/2019 | + + + | Eustachian tube dysfunction | 05/16/2019 | + + + | Normocytic anemia | 05/16/2019 | + + + | Herpes zoster without complication | 05/16/2019 | + + + | Post herpetic neuralgia | 05/16/2019 | + + + | Immunosuppressed status | 05/16/2019 | + + + | Iliac artery aneurysm, bilateral | 05/25/2017 | + + + + + | Overview: Last Assessment & Plan: | | Incidental finding on recent MRI of lumbar spine | | Educational handouts given to her today from Up to date | | Recommend she make appointment with to discuss | + + + + + | Primary osteoarthritis involving multiple joints | 08/06/2015 | + + + + + | Overview: Last Assessment & Plan: | | Stable, continue conservative measures. | | Avoid NSAID's | + + + + + [...] positive | 05/06/2015 | | rheumatoid factor | | + + + + + | Last Assessment & Plan: No clinical evidence of active | | disease on today's exam. Responding well to current treatment | | plan. No change in treatment plan. Patient understands that | | treatment is joint terminal attack controller and if patient fails to continue regimen , | | the disease has propensity to flare.RTC 3-4 mos | |RTC 3-4 mos | + + + + + | Rheumatoid arthritis involving multiple sites with positive | 05/06/2015 | | rheumatoid factor | | + + + + + | Overview: Last Assessment & Plan: Initially diagnosed with RA | | in 1996. 2017-erosive changes were seen in the hands and | | feetTenderness to L foot with palpation on the plantar surface. | | Foot symptoms may be mechanical and not inflammatory.Due to | | changes in renal function, I am reluctant to increase dose of | | methotrexate and leflunomide dose should be decreased as well. | | Encouraged her to wear supportive shoes and may need podiatry | | consult for inserts/foot wear.If RA symptoms become active in the | | feet, may need to consider changes in plan of [...] | + + + + + | Hx of arthroplasty | 07/18/2013 | + + + | Stiffness of hand joint | 07/18/2013 | + + + | Weakness of hand | 07/18/2013 | + + + | HTN (hypertension) | 07/18/2013 | + + + | Low back pain | 07/18/2013 | + + + | Osteoporosis | 07/18/2013 | + + + | Osteoporosis | 07/18/2013 | + + + + + | Overview: Last Assessment & Plan: | | Under the care of | + + Resolved Problems + + + + | Problem | Noted | Resolved | | | Date | Date | + + + + | Rheumatoid arthritis | 07/19/19 | | | | 14 | 9 | + + + + Encounters +--------+ + + + + | Date | Type | Specialty | Care Team | Description | +--------+ + + + + | 06/06/ | Refill | Rheumatology | Juaquin, | Medication Refill | | 2019 | | | [place] | | +--------+ + + + + | 05/15/ | Orders Only | Nephrology | Ismael Gonzalez MD | Hypertension, | | 2020 | | | | unspecified type | | | | | | (Primary Dx); | | | | | | Scoliosis, | | | | | | unspecified | | | | | | scoliosis type, | | | | | | unspecified spinal | | | | | | region; Heart | | | | | | disease; PVD | | | | | | (peripheral vascular | | | | | | disease) ([facility]); | | | | | | Dysfunction [...] (HCC) | +--------+ + + + + from Last 3 Months Family History + +------+ + + | [...] recent travel history available. | + + Last Filed Vital Signs + + + + + | Vital Sign | Reading | Time Taken | Comments | + + + + + | Blood Pressure | 123/87 | 03/07/2019 11:04 AM | | | | | PST | | + + + + + | Pulse | 96 | 03/07/2019 11:04 AM | | | | | PST | | + + + + + | Temperature | 36.4 C (97.6 F) | 03/07/2019 11:04 AM | | | | | PST | | + + + + + | Respiratory Rate | - | - | | + + + + + | Oxygen Saturation | - | - | | + + + + + | Inhaled Oxygen | - | - | | | Concentration | | | | + + + + + | Weight | 45.8 kg (101 lb) | 03/07/2019 11:04 AM | | | | | PST | | + + + + + | Height | 157.5 cm (5' 2") | 03/07/2019 11:04 AM | | | | | PST | | + + + + + | Body Mass Index | 18.47 | 03/07/2019 11:04 AM | | | | | PST | | + + + + + Plan of Treatment +--------+---------+ + + + | Date | Type | Specialty | Care Team | Description | +--------+---------+ + + + | 06/28/ | Office | Rheumatology | Juaquin, | | | 2019 | Visit | | [address] | | | | | | [address] [place] | | | | | | [place] [address] | | | | | | [phone] | | | | | | | | +--------+---------+ + + + | 07/30/ | Office | Nephrology | Ismael Gonzalez MD | | | 2019 | Visit | | [address] [facility] [address] [address] | | | | | | [address] [place] | | | | | | [address] | | | | | | | | +--------+---------+ + + + + + + + + | Health Maintenance | Due Date | Last Done | Comments | + + + + + | Colorectal Cancer | | | | | Screening | 5 | | | | (Colonoscopy) | | | | + + + + + | Breast Cancer | | | | | Screening | 0 | | | + + + + + | Vaccine: | | | | | Pneumococcal 65+ (1 | 0 | | | | of 2 - PCV13) | | | | + + + + + | Adult Annual | | | | | Wellness Visit | 9 | | | + + + + + | Vaccine: Zoster (3 | | 12/29/2018, 10/12/2018, | | | of 3) | 0 | 10/12/2018 | | + + + + + | Vaccine: | | 10/28/2017, 05/12/2012, | | | Dtap/Tdap/Td (3 - | 8 | 12/31/2008 | | | Td) | | | | + + + + + | Hepatitis C | Completed | 02/23/2017 | | | Screening | | | | + + + + + | Vaccine: Influenza | Completed | 11/10/2018, 03/03/2017, | | | | | 12/03/2008, Additional history | | | | | exists | | + + + + + Results Not on filefrom Last 3 Months Insurance + +--------+ +--------+ + +--------+ | Payer | Benefi | Subscriber | Effect | Phone | Address | Type | | | t Plan | ID | olga | | | | | | / | | Dates | | | | | | Group | | | | | | + +--------+ +--------+ + +--------+ | MEDICARE | MEDICA | [id number] | | [phone] | | Medica | | | RE | | 010-Pr | 5 | | re | | | PART A | | esent | | | | | | AND B | | | | | | + +--------+ +--------+ + +--------+ | MEDICARE | MEDICA | [id number] | 10/17/19 | [phone] | | Medica | | | RE | | 12-Pre | 5 | | re | | | PART A | | sent | | | | | | AND B | | | | | | + +--------+ +--------+ + +--------+ | MODA | MODA | [id number] | 02/15/19 | [phone] | [address] | Indemn | | | HEALTH | | 13-Pre | 9 | [phone] | ity | | | MDCR | | sent | | [place], | | | | [place] | | | | [place] [address] | | + +--------+ +--------+ + +--------+ | MODA | MODA | [id number] | 02/15/19 | [phone] | [address] | Indemn | | | HEALTH | | 19-Pre | 9 | [phone] | ity | | | MDCR | | sent | | [place], | | | | [place] | | | | [place] [address] | | + +--------+ +--------+ + +--------+ + +--------+ +--------+ + + | Guarantor Name | Accoun | Relation to | Date | Phone | Billing Address | | | t Type | Patient | of | | | | | | | | | | + +--------+ +--------+ + + | Mignon Mohan | Person | Self | [birth year] | [address] | | | al/Fam | | 1945 | [phone] | [place] [address] | | | rakan | | | 4 (Home) | | + +--------+ +--------+ + + | Mignon Mohan | Person | Self | [birth year] | | [address] | | | al/Fam | | 1945 | [phone] | [place] [address] | | | rakan | | | 4 (Home) | | + +--------+ +--------+ + + Advance Directives + + + + + | Type | Date Recorded | Patient | Explanation | | | | Medical Safety Director | | + + + + + | Power of | | | | | Showroom Sales Consultant | | | | + + + + + | Advance | | | | | Directive | | | | + + + + +
--- OUTSIDE RECORDS SUMMARY | ~2019-06-19 | XMS | Clinical Summary ---
Demographics + + + | Address | [address] | | | [place] [address] | + + + | Home Phone | | + + + | Preferred Language | Unknown | + + + | Marital Status | | + + + | Restorationist Affiliation | Unknown | + + + | Race | Unknown | + + + | Ethnic Group | Unknown | + + + Author + + + | Author | [facility] (Historical as of | | | 10-01-18) | + + + | Organization | [facility] (Historical as of | | | 10-01-18) [...] Team Providers + +------+ + | Care Hand Filer Balance Wheel Name | Role | Phone | + [...] | | | | | ([facility]), High risk | | | | [...] +------+-------+ + | MEDICARE | MEDICA | [id number] | | | [address] | | | RE | | | | [place] [phone] | | | IP-OP | | | | | + +--------+ +------+-------+ + | O[employer] HE[employer] PLAN | ODS | [id number] | | | | | | HEALTH [...] | | al/Fam | | 1945 | [phone] [place] | | | [place] | | [phone] | + +--------+ +--------+ + +
--- OUTSIDE RECORDS SUMMARY | ~2019-06-19 | XMS | Encounter Summary ---
Demographics + + + | Address | [address] | | | [place] [address] | + + + | Home Phone | | + + + | Preferred Language | Unknown | + + + | Marital Status | | + + + | Gnosticism Affiliation | Unknown | + + + | Race | Unknown | + + + | Ethnic Group | Unknown | + + + Author + + + | Author | [facility] | | | and Jdana | + + + | Organization | [facility] | | | and Jdana [...] Team Providers + +------+ + | Care College Hire Name | Role | Phone | + +------+ + | Yosef Morrow MD | PCP | | + +------+ + Encounter Details +--------+ + + + + | Date | Type | Department | Care Team | Description | +--------+ + + + + | 07/19/ | Documentati | [facility] | Concetta Camara, | | | 2013 | on | MED CNT ONCOLOGY | OT [address] | | | | | THERAPY [address] | [place] | | | | | [place], | [address] | | | | | [place] [address] | | | | | | [phone] | | | +--------+ + + + [...] documented as of this encounter Progress Notes Concetta Camara, [place] - [facility]19[facility]2013 [facility] [address] [facility] [address] Cancellation/No Show Date: 07/19/2013 Patient Information Patient Name: Mignon Mohan Date of : 1945 Age: 68 y.o. Reason for missed visit: Called to cancel, reported she did not feel up to coming in today. Phone call placed: no Plan: Patient does have more visits schedule. Electronically signed by: Concetta Camara OT, 07/19/2013 11:47 Patient Name: Mignon Mohan/: 1945/ documented in [...] [address] | | | | | | [place] [address] | | | | | | [phone] | | | | | | | | +--------+---------+ + + + | 07/30/ | Office | Nephrology | Ismael Gonzalez MD | | | 2019 | Visit | | [address] [facility] | | | | | | [address] [place] | | | | | | [address] | | | | | | | [...] | Rheumatoid arthritis (HCC) | + + | Stiffness of hand joint, left | + + documented in this encounter"
--- OUTSIDE RECORDS SUMMARY | ~2019-06-19 | XMS | Encounter Summary ---
Demographics + + + | Address | [address] | | | [place] [address] | + + + | Home Phone | | + + + | Preferred Language | Unknown | + + + | Marital Status | | + + + | Caodaism Affiliation | Unknown | + + + | Race | Unknown | + + + | Ethnic Group | Unknown | + + + Author + + + | Author | [facility] | | | and Jdana | + + + | Organization | [facility] | | | and [...] Team Providers + +------+ + | Care Market Stall Vendor Name | Role | Phone | + +------+ + | Yosef Morrow MD | PCP | | + +------+ + Encounter Details +--------+ + + + + | Date | Type | Department | Care Team | Description | +--------+ + + + + | 07/19/ | Documentati | [facility] | Concetta Camara, | | | 2013 | on | MED CNT ONCOLOGY | OT [address] | | | | | THERAPY [address] | [place] | | | | | [place], | [address] | | | | | [place] [address] | | | | | | [phone] | | | +--------+ + + + [...] Camara, [place] - 07/19/2013 11[facility]47 [facility] OP [address] [facility] [address] Cancellation/No Show Date: 07/19/2013 Patient Information Patient [...] | | | | | | [place] [address] | | | | | | [phone] | | | | | | | | +--------+---------+ + + + | 07/30/ | Office | Nephrology | Ismael Gonzalez MD | | | 2019 | Visit | | [address] [facility] | | | | | | [address] [place] | | | | | | [address] | | | | | | | [...]
--- OUTSIDE RECORDS SUMMARY | ~2019-06-19 | XMS | Encounter Summary ---
Demographics + + + | Address | [address] | | | [place] [address] | + + + | Home Phone | | + + + | Preferred Language | Unknown | + + + | Marital Status | | + + + | Anabaptism Affiliation | Unknown | + + + | Race | Unknown | + + + | Ethnic Group | Unknown | + + + Author + + + | Author | [facility] | | | and Jdana | + + + | Organization | [facility] | | | and [place]dana | [...] Team Providers + +------+ + | Care Terrazzo Grinder Name | Role | Phone | + +------+ + | Yosef Morrow MD | PCP | | + +------+ + Encounter Details +--------+ + + + + | Date | Type | Department | Care Team | Description | +--------+ + + + + | 02/23/ | Orders Only | [facility] | Juaquin, | | | 2018 | | [address] | [address] | | | | | [place] | [place] | | | | | [address] | [place] [address] | | | | | [phone] | [phone] | | | | | | | | +--------+ + + + [...] | Rheumatology | Juaquin, | | | 2020 | Visit | | [address] | | | | | | [address] | | | | | | [place] [address] | | | | | | [phone] | | | | | | | | +--------+---------+ + + + | 07/30/ | Office | Nephrology | Ismael Gonzalez MD | | | 2019 | Visit | | [address] [facility] | | | | | | [address] [place] | | | | | | [address] | | | | | | | | +--------+---------+ + + + documented as of this encounter Procedures + +--------+ + + + | Procedure Name | Priori | Date/Time | Associated Diagnosis | Comments | | | ty | | | | + +--------+ + + + | EXTERNAL LAB: AXEL | Routin | 02/23/2017 | | Results for this | | | e | 11:13 AM | | procedure are in the | | | | PST | | results section. | + +--------+ + + + | HEPATITIS PANEL, | Routin | 02/23/2017 | | Results for this | | CHRONIC | e | 11:13 AM | | procedure are in the | | | | PST | | results section. | + +--------+ + + + | SEDIMENTATION RATE, | Routin | 02/23/2017 | | Results for this | | AUTOMATED | e | 11:13 AM | | procedure are in the | | | | PST | | results section. | + +--------+ + + + | COMPREHENSIVE | Routin | 02/23/2017 | | Results for this | | METABOLIC PANEL | e | 11:13 AM | | procedure are in the | | | | PST | | results section. | + +--------+ + + + documented in this encounter Results Hepatitis Panel, Chronic (02/23/2017 11:13 AM PST) + + + + + + | Component | Value | Ref Range | Performed | Pathologist | | | | | At | Signature | + + + + + + | Hep A Total | REACTIVE (A) | | EXTERNAL | | | Ab Interp | | | LAB | | + + + + + + | HEP B | NON REACTIVE | | EXTERNAL | | | SURFACE | | | LAB | | | ANTIBODY | | | | | + + + + + + | Hepatitis B | NON REACTIVE | | EXTERNAL | | | Core Ab | | | LAB | | | Total | | | | | + + + + + + | HEP B | <0.35Comment: <1.00 | {index_val} | EXTERNAL | | | SURFACE | Non Immune1.00 | | LAB | | | ANTIBODY | OR MORE Indicates | | | | | | vaccine response or | | | | | | response to HBV | | | | | | infection. An Index | | | | | | Value (IV) of 1.00 is | | | | | | equivalent to 10 mIU/mL. | | | | | | Samples with an IV of | | | | | | 1.00 or greater are | | | | | | considered reactive | | | | | | (protected) in | | | | | | accordance with CDC | | | | | | Guidelines. | | | | + + + + + + | HCV Ab | NON REACTIVE | | EXTERNAL | | | | | | LAB | | + + + + + + | Hepatitis | Current or past HAV | | EXTERNAL | | | Interpretat | infection. No serologic | | LAB | | | ion | evidence of HCV | | | | | | infection or HBV | | | | | | infection or | | | | | | vaccination. | | | | + + + + + + + + | Specimen | + + | | + + + +---------+ + + | Performing | Address | City/State/Zipcode | Phone Number | | Organization | | | | + +---------+ + + | EXTERNAL LAB | | | | + +---------+ + + Sedimentation rate, automated (02/23/2017 11:13 AM PST) + +--------+ + + + | Component | Value | Ref Range | Performed | Pathologist | | | | | At | Signature | + +--------+ + + + | Sed Rate | 64 (H) | 0 - 30 mm/h | [...] + +---------+ + + External Lab: CBC (02/23/2017 11:13 AM PST) + + + + + + | Component | Value | Ref Range | Performed | Pathologist | | | | | At | Signature | + + + + + + | WBC | 7.20 | 3.80 - 11.00 | EXTERNAL | | | | | 10*3/uL | LAB | | + + + + + + | Red Blood | 4.02 | 3.70 - 5.10 | EXTERNAL | | | Cells | | 10*6/uL | LAB | | | Counted | | | | | + + + + + + | Hemoglobin | 12.1 | 11.3 - 15.5 | EXTERNAL | | | | | g/dL | LAB | | + + + + + + | Hematocrit, | 36.0 | 34.0 - 46.0 % | EXTERNAL | | | POC | | | LAB | | + + + + + + | MCV | 89.7 | 80.0 - 100.0 fL | EXTERNAL | | | | | | LAB | | + + + + + + | MCH | 30.2 | 27.0 - 34.0 pg | EXTERNAL | | | | | | LAB | | + + + + + + | MCHC | 33.7 | 32.0 - 35.5 | EXTERNAL | | | | | g/dL | LAB | | + + + + + + | RDW-CV | 54.3 (H) | 37 - 53 fL | EXTERNAL | | | | | | LAB | | + + + + + + | Platelet | 284 | 150 - 400 | EXTERNAL | [...] + + + | % Segmented | 68.13 | % | EXTERNAL | | | | | | LAB | | | Neutrophils | | | | | + + + + + + | % | 12.99 | % | EXTERNAL | | | Lymphocytes | | | LAB | | + + + + + + | % Monocytes | 16.29 | % | EXTERNAL | | | | | | LAB | | + + + + + + | % | 1.92 | % | EXTERNAL | | | Eosinophils | | | LAB | | + + + + + + | % Basophils | 0.67 | % | EXTERNAL | | | | | | LAB | | + + + + + + | Absolute | 4.90 | 1.90 - 7.40 | EXTERNAL | | | Segmented | | 10*3/uL | LAB | | | Neutrophils | | | | | + + + + + + | Absolute | 0.94 (L) | 1.00 - 3.90 | EXTERNAL | | | Lymphocytes | | 10*3/uL | LAB | | + + + + + + | Absolute | 1.17 (H) | 0.00 - 0.80 | EXTERNAL | | | Monocytes | | 10*3/uL | LAB | | + + + + + + | Absolute | 0.14 | 0.00 - 0.50 | EXTERNAL | | | Eosinophils | | 10*3/uL | LAB | | + + + + + + | Absolute | 0.05 | 0.00 - 0.10 | EXTERNAL | | | Basophils | [...] + +---------+ + + Comprehensive Metabolic Panel (02/23/2017 11:13 AM PST) + + + + + + | Component | Value | Ref Range | Performed | Pathologist | | | | | At | Signature | + + + + + + | Na | 138 | 135 - 145 | EXTERNAL | | | | | mmol/L | LAB | | + + + + + + | K | 4.1 | 3.5 - 4.9 | EXTERNAL | | | | | mmol/L | LAB | | + + + + + + | Cl | 102 | 99 - 109 mmol/L | EXTERNAL | | | | | | LAB | | + + + + + + | CO2 | 26 | 23 - 32 mmol/L | EXTERNAL | | | | | | LAB | | + + + + + + | Anion Gap | 14 | 5 - 20 mmol/L | EXTERNAL | | | | | | LAB | | + + + + + + | Glucose, | 85 | 65 - 99 mg/dL | EXTERNAL | | | Fasting | | | LAB | | + + + + + + | BUN | 20 | 8 - 25 mg/dL | EXTERNAL | | | | | | LAB | | + + + + + + | Creatinine | 1.5 (H) | 0.50 - 1.00 | EXTERNAL | | | | | mg/dL | LAB | | + + + + + + | BUN/Creatin | 13 | | EXTERNAL | | | ine Ratio | | | LAB | | + + + + + + | Calcium | 9.1 | 8.5 - 10.5 | EXTERNAL | | | | | mg/dL | LAB | | + + + + + + | Protein, | 7.1 | 6.3 - 8.2 g/dL | EXTERNAL | | | Total | | | LAB | | + + + + + + | Albumin | 3.3 | 3.3 - 4.8 g/dL | EXTERNAL | | | | | | LAB | | + + + + + + | Globulin | 3.8 | 1.3 - 4.9 g/dL | EXTERNAL | | | | | | LAB | | + + + + + + | A/G Ratio | 0.9 (L) | 1.0 - 2.4 | EXTERNAL | | | | | | LAB | | + + + + + + | Bilirubin | 0.3 | 0.1 - 1.5 mg/dL | EXTERNAL | | | Total | | | LAB | | + + + + + + | ALP, | 84 | 35 - 115 U/L | EXTERNAL | | | External | | | LAB | | + + + + + + | AST | 26 | 10 - 45 U/L | EXTERNAL | | | | | | LAB | | + + + + + + | ALT | 21 | 10 - 65 U/L | EXTERNAL | | | | | | LAB | | + + + + + + | Estimated | 36 (L)Comment: GFR <60: | mL/min/1.73_m2 | EXTERNAL | | | GFR | [...]
--- OUTSIDE RECORDS SUMMARY | ~2019-06-19 | XMS | Encounter Summary ---
Demographics + + + | Address | [address] | | | [place] [address] | + + + | Home Phone | | + + + | Preferred Language | Unknown | + + + | Marital Status | | + + + | Samaritan Affiliation | Unknown | + + + | Race | Unknown | + + + | Ethnic Group | Unknown | + + + Author + + + | Author | [facility] | | | and Jdana | + + + | Organization | [facility] | | | and Jdana [...] Team Providers + +------+ + | Care Clinic Manager Name | Role | Phone | + +------+ + | Yosef Morrow MD | PCP | | + +------+ + Reason for Visit + + + | Reason | Comments | + + + | Re-Assessment/ | | | Significant Change | | | Assessment | | + + + Evaluate (Routine) [...] arthroplasty | [address] | [place] | | | | | | [place] | [place], | | | | | Procedures | [place], [place] | [place] [address] | | | | | ot eval | [address] | Phone: | | | | | | Phone: | [phone] | | | | | | [phone] | Fax: | | | | | | Fax: | [phone] | | | | | | [phone] | | +--------+--------+ + + + + Encounter Details +--------+---------+ + + + | Date | Type | Department | Care Team | Description | +--------+---------+ + + + | 08/16/ | Office | [facility] | Lorri Rey | Hx of arthroplasty | | 2014 | Visit | [facility] | MD Ch[address] | (Primary Dx); | | | | THERAPY [address] [place] | Stiffness of hand | | | | [place], | [place] [address] | joint, left; | | | | [place] [address] | [phone] | Weakness of hand; | | | | [phone] | | HTN (hypertension); | | | | | MahendraMady A, OT | Low back pain; | | | | | [address] | Osteoporosis; | | | | | [place], [place] | Rheumatoid arthritis | | | | | [address] | (HCC) | | | | | [...] this encounter Progress Mady Lamar OT - 08/16/2013 6:01 PM PDTFormatting of this note might be different fr om the original. [facility] THERAP[facility] OT OP [address] [address] Occupational Therapy Progress Assessment Date: 08/16/2013 Patient Information Patient Name: Mignon Mohan Date [...] file. No past surgical history on file. Allergies Allergen Reactions Enbrel Povidone Iodine Hives Rehab Precautions 07/18/13 Rehab Precautions Precautions Comments 4 fingere cmc arthroplasty Pain Assessment Pain Rating Pre Assessment: 0 Objective Range of Motion (measured in degrees): Hand Dominance: right Left Hand AROM L Index Finger MCP Extension - Flexion 0-90: 70 Degrees L Long Finger MCP Extension - Flexion 0-90: 76 Degrees L Ring Finger MCP Extension - Flexion 0-90 : 56 Degrees L Small Finger MCP Extension - Flexion 0-90: 64 Left Hand AROM Comment: AROM MCP extension active (passive): Index 31(24), Middle 39(20), R ing 40(30), Little 26(19). PIP active extension I 31, M 35, R, 28, L 7(ring finger assisting ). Ulnar deviation of MCP active (passive): I 16(5), M and R 8(5), L 0 Today's Treatment Patient Name: Mignon Mohan/: 1945/ Start Time: 1030 Stop time: 1110 Duration: 40 minutes Timed Treatment Codes: 40 minutes # of OT Visits: 7 Visit Summary: I really like haveing my (resating) splint for my hand. Next Visit: Pt to see 08/22/13. Will continue program with recomendations by Patient/Caregiver Education Comment: instructed in use of left ulnar deviation splint to use during for light motions 30 min, 2x a day. Review of importance of not perfroming lateral pinch in order to preven t ulnare deviation of fingers. Manual Therapy Manual Therapy: Seen for re-eval. PROM to left hand Assessment Clinical Impression: Pt is progressing well, but is limited by the arthritis in her PIP pramod nts. She is progressing well with prevention of ulnar deviation, but has some MP extensor l ag. Rehabilitation potential: Patient demonstrates good potential to achieve established goals to address the documented impairments by participating in skilled occupational therapy serv ices. Outcome Specific Scored Goals Patient's Primary Functional Goal 1: Pt will be independent with use of splnt to protect fi ngers and thumb s/p surgery Primary Functional Goal 1 Status Comment: Goal achieved - New goal to be independent with u se of ulnar deviation splint to prevent devition until totally healed. Patient's Primary Functional Goal 2: Pt will be able to use left hand for daily activities in preparation for anticipated surgery on right hand. Primary Functional Goal 2 Status Comment: In progress. OP OT Goals Goal 1: Pt will be independent with HEP Goal 1 Status: Castro achieved, New goal to be independent iwth upgraed HEP Goal 2: Increase senior center director to 20# Goal 2 Status: LTG not tested Plan Date of Onset: 06/26/13 Start of Care Date: 07/18/13 Requested # of Visits: 12 2x/wk for 6 weeks (Decrease to 1x/week due to travel distance) Certification From: 08/16/13 Certification To: 09/15/13 Treatment Plan/Interventions 94414 OT Evaluation;91663 Therapeutic Exercises;87688 Therapeutic Activities;Splinting;9753 5 Self Care/Home Management;90389 Manual Therapy Medicare Functional Limitation Reporting G Code Severity Modifier Current Status G8987 Self care functional limitation, current status, at therapy episode outset and at reporting intervals CM At least 80 percent but less than 100 percent impaired, limited o r restricted Goal G8988 Self care functional limitation, projected goal status CL At least 60 percent b ut less than 80 percent impaired, limited or restricted Outcome Measures Tools: [place] AM-PAC and professional judgement Justification of Severity Rating: Continued limited ability to use left hand due to surger y and severe right hand ulnar deviation deformity Patient and/or family has indicated understanding of treatment needs and actively participa richard in the creation of this plan for care. Electronically signed by: Mady Mccray OT, 08/16/2013 18:02 Patient Name: Mignon Mohan/: 1945/ signed by Mady Mccray OT at 08/16/2013 6:07 PM PDTdocumented in this encounter Plan of Treatment +--------+---------+ + + + | Date | Type | Specialty | Care Team | Description | +--------+---------+ + + + | 06/28/ | Office | Rheumatology | Juaquin, | | | 2019 | Visit | | [address] | | | | | | [address] | | | | | | [place] [address] | | | | | | [phone] | | | | | | | | +--------+---------+ + + + | 07/30/ | Office | Nephrology | Ismael Gonzalez MD | | | 2019 | Visit | | [address] [facility] | | | | | | [address] [place] | | | | | | [address] | | | | | | | [...]
--- OUTSIDE RECORDS SUMMARY | ~2019-06-19 | XMS | Encounter Summary ---
Demographics + + + | Address | [address] | | | [place] [address] | + + + | Home Phone | | + + + | Preferred Language | Unknown | + + + | Marital Status | | + + + | Quaker Affiliation | Unknown | + + + | Race | Unknown | + + + | Ethnic Group | Unknown | + + + Author + + + | Author | [facility] | | | and Jdana | + + + | Organization | [facility] | | | and Jdana | [...] Team Providers + +------+ + | Care Beading Machine Operator Name | Role | Phone | + +------+ + PCP | Unavailable | + +------+ + Encounter Details +--------+ + + + + | Date | Type | Department | Care Team | Description | +--------+ + + + + | 11/18/ | [facility] | [facility] | Oscar Wilson MD | | | 2010 | Encounter | MED CTR XRAY [address] | | | | | [address] | [place] [address] | | | | | [place] [address] | [phone] | | | | | [phone] | | | +--------+ + + + [...] 2019 | Visit | | [address] | | | | | | [address] | | | | | | [place] [address] | | | | | | [phone] | | | | | | | | +--------+---------+ + + + | 07/30/ | Office | Nephrology | Ismael Gonzalez MD | | | 2019 | Visit | | [address] [facility] | | | | | | [address] [facility], [place] | | | | | | [address] | | | | | | | | +--------+---------+ + + + documented as of this encounter Procedures + +--------+ + + + | Procedure Name | Priori | Date/Time | Associated Diagnosis | Comments | | | ty | | | | + +--------+ + + + | XR LUMBAR SPINE 2 OR | | 11/18/2010 | | Results for this | | 3 VW | | 1:16 PM | | procedure are in the | | | | PDT | | results section. | + +--------+ + + + documented in this encounter Results XR Lumbar Spine 2 or 3 Vw (11/18/2010 1:16 PM PDT) + + | Specimen | + + | | + + + + + | Narrative | Performed At | + + + | [facility] Diagnostic Imaging Department | [facility] | | [address] [facility] | [facility] | | THREE VIEWS LUMBAR SPINE, | DIAG IMG | | 11/18/2010 CLINICAL HISTORY: BACK PAIN. COMPARISON: Lumbar | | | MRI 11/03/2010. FINDINGS: Lateral views of the lumbar spine in | | | neutral, flexed and extended positions are provided. The most | | | inferior type lumbar vertebra is designated L5. There is | | | exaggeration of the lumbar lordosis. Compression deformities of | | | the T10 through T12 vertebral bodies correspond with those visible on | | | previous MRI and appear grossly similar in extent. Lumbar | | | vertebral height is maintained , without evidence of new fracture. | | | There is multilevel vertebral spondylosis and facet hypertrophy. | | | Mild to moderate disc space narrowing is present at L1- 2 and mild | | | disc space narrowing is present at L2-3. Approximately 3 mm of | | | retrolisthesis of L1 on L2 is stable with active extension but | | | resolves with active flexion. Approximately 4 mm of retrolisthesis | | | of L2 on L3 is stable with active extension but decreases to 2 mm | | | with active flexion. Approximately 2 mm of retrolisthesis of L3 on | | | L4 increases to 2.5 mm with active extension and resolves with | | | active flexion. There is aortoiliac calcification. IMPRESSION: | | | 1. MULTILEVEL DEGENERATIVE DISC DISEASE AND SPONDYLOSIS AND | | | EXAGGERATION OF THE LUMBAR LORDOSIS, WITH GRADE I RETROLISTHESIS AT | | | L1-2, L2-3 AND L3-4 DEMONSTRATING A SIMILAR APPEARANCE WITH ACTIVE | | | EXTENSION BUT DECREASING WITH ACTIVE FLEXION, DESCRIBED. 2. | | | SIMILAR COMPRESSION DEFORMITIES OF THE T10 THROUGH T12 VERTEBRAL | | | BODIES. 3. VASCULAR CALCIFICATION. Dictated Date/Time: | | | 11/18/2010 16:21 Transcribed Date/Time: 11/18/2010 16:45 | | | Hand Ironer: <Electronically Signed by Leobardo Mcneill MD> | | | 11/18/10 2216 | | + + + + + | Procedure Note | + + | Marin, Rad Conversion - 03/24/2013 3:57 PM [facility] | | Diagnostic Imaging Department | | [address] [facility] | | | | | | | | THREE VIEWS LUMBAR SPINE, 11/18/2010 | | | | CLINICAL HISTORY: BACK PAIN. | | | | COMPARISON: Lumbar MRI 11/03/2010. | | | | FINDINGS: Lateral views of the lumbar spine in neutral, flexed and extended | | positions are provided. The most inferior type lumbar vertebra is designated | | L5. There is exaggeration of the lumbar lordosis. Compression deformities of | | the T10 through T12 vertebral bodies correspond with those visible on previous | | MRI and appear grossly similar in extent. Lumbar vertebral height is maintained | | , without evidence of new fracture. There is multilevel vertebral spondylosis | | and facet hypertrophy. Mild to moderate disc space narrowing is present at L1- | | 2 and mild disc space narrowing is present at L2-3. | | | | Approximately 3 mm of retrolisthesis of L1 on L2 is stable with active | | extension but resolves with active flexion. | | | | Approximately 4 mm of retrolisthesis of L2 on L3 is stable with active | | extension but decreases to 2 mm with active flexion. | | | | Approximately 2 mm of retrolisthesis of L3 on L4 increases to 2.5 mm with | | active extension and resolves with active flexion. | | | | There is aortoiliac calcification. | | | | IMPRESSION: | | 1. MULTILEVEL DEGENERATIVE DISC DISEASE AND SPONDYLOSIS AND EXAGGERATION OF | | THE LUMBAR LORDOSIS, WITH GRADE I RETROLISTHESIS AT L1-2, L2-3 AND L3-4 | | DEMONSTRATING A SIMILAR APPEARANCE WITH ACTIVE EXTENSION BUT DECREASING WITH | | ACTIVE FLEXION, DESCRIBED. | | | | 2. SIMILAR COMPRESSION DEFORMITIES OF THE T10 THROUGH T12 VERTEBRAL BODIES. | | | | 3. VASCULAR CALCIFICATION. | | | | Dictated Date/Time: 11/18/2010 16:21 | | Transcribed Date/Time: 11/18/2010 16:45 | | Hand Ironer: | | <Electronically Signed by Leobardo Mcneill MD> 11/18/10 2216 | + + + +---------+ + + | Performing | Address | City/State/Zipcode | Phone Number | | Organization | | | | + +---------+ + + | [place] | | | | | [facility] [place] | | | | + +---------+ + + documented in this encounter Visit Diagnoses Not on filedocumented in this encounter"
--- OUTSIDE RECORDS SUMMARY | ~2019-06-19 | XMS | Encounter Summary ---
Demographics + + + | Address | [address] | | | [place] [address] | + + + | Home Phone | | + + + | Preferred Language | Unknown | + + + | Marital Status | | + + + | Hinduism Affiliation | Unknown | + + + | Race | Unknown | + + + | Ethnic Group | Unknown | + + + Author + + + | Author | [facility] | | | and Jdana | + + + | Organization | [facility] | | | and Jdana [...] Team Providers + +------+ + | Care Tanyard Worker Name | Role | Phone | + [...] arthroplasty | [address] | [address] [place] | | | | | | [place] | [place], | | | | | Procedures | [place], [place] | [place] [address] | | | | | ot eval | [address] | Phone: | | | | | | Phone: | [phone] | | | | | | [phone] | Fax: | | | | | | Fax: | [phone] | | | | | | [phone] | | +--------+--------+ + + + + [...] Dx); Hx of | | | | [place], | [place] [address] | arthroplasty; | | | | [place] [address] | [phone] | Weakness of hand; | | | | [phone] | | HTN (hypertension); | | | | | Mahendra, Mady A, OT | Low back pain; | | | | | [address] | Osteoporosis; | | | | | [place] | Rheumatoid arthritis | | | | | [address] | (HCC) | | | | | [...] might be different fr om the original. [facility] THERAPY OT OP [address] [address] Occupational Therapy Daily Treatment Note Date: 07/24/2013 [...] [address] | | | | | | [place] [address] | | | | | | [phone] | | | | | | | | +--------+---------+ + + + | 07/30/ | Office | Nephrology | Ismael Gonzalez MD | | 2019 | Visit | | [address] [facility] | | | | | | [address] [place] | | | | | | [address] | | | | | | | [...]
--- OUTSIDE RECORDS SUMMARY | ~2019-06-19 | XMS | Encounter Summary ---
Demographics + + + | Address | [address] | | | [place] [address] | + + + | Home Phone | | + + + | Preferred Language | Unknown | + + + | Marital Status | | + + + | Bahai Affiliation | Unknown | + + + | Race | Unknown | + + + | Ethnic Group | Unknown | + + + Author + + + | Author | [facility] | | | and Jdana | + + + | Organization | [facility] | | [...] Team Providers + +------+ + | Care Golf Course Starter Name | Role | Phone | + [...] arthroplasty | [address] | [place] | | | | | | [place] | [place], | | | | | Procedures | [place], [place] | [place] [address] | | | | | ot eval | [address] | Phone: | | | | | | Phone: | [phone] | | | | | | [phone] | Fax: | | | | | | Fax: | [phone] | | | | | | [phone] | | +--------+--------+ + + + + [...] Stiffness of hand | | | | [place], | [place] [address] | joint, left; | | | | [place] [address] | [phone] | Weakness of hand; | | | | [phone] | | HTN (hypertension); | | | | | Mahendra, Mady A, OT | Low back pain; | | | | | [address] | Osteoporosis; | | | | | [place] | Rheumatoid arthritis | | | | | [address] | (HCC) | | | | | [...] might be different fr om the original. [facility] THERAPY OT OP [address] [address] Occupational Therapy Daily Treatment Note Date: 08/10/2013 [...] [address] | | | | | | [place] [address] | | | | | | [phone] | | | | | | | | +--------+---------+ + + + | 07/30/ | Office | Nephrology | Ismael Gonzalez MD | | | 2019 | Visit | | [address] [facility] | | | | | | [address] [place] | | | | | | [address] | | | | | | | [...]
--- OUTSIDE RECORDS SUMMARY | ~2019-06-19 | XMS | Encounter Summary ---
Demographics + + + | Address | [address] | | | [place] [address] | + + + | Home Phone | | + + + | Preferred Language | Unknown | + + + | Marital Status | | + + + | Sikh Affiliation | Unknown | + + + | Race | Unknown | + + + | Ethnic Group | Unknown | + + + Author + + + | Author | [facility] | | | and Jdana | + + + | Organization | [facility] | | | and Jdana [...] Team Providers + +------+ + | Care Manager Grocery Name | Role | Phone | + +------+ + PCP | Unavailable | + +------+ + Encounter Details +--------+ + + + + | Date | Type | Department | Care Team | Description | +--------+ + + + + | 12/23/ | Hospital | [facility] | | | | 2005 | Encounter | MED CTR XRAY [address] | | | | | | [address] | | | | | | [place] [address] | | | | | | [phone] | | | +--------+ + + + [...] 2019 | Visit | | [address] | | | | | | [address] | | | | | | [place] [address] | | | | | | [phone] | | | | | | | | +--------+---------+ + + + | 06/15/ | Office | Nephrology | Ismael Gonzalez MD | | | 2019 | Visit | | [address] [facility] | | | | | | [address] [place] | | | | | | [address] | | | | | | | | +--------+---------+ + + + documented as of this encounter Visit Diagnoses Not on filedocumented in this encounter"
--- OUTSIDE RECORDS SUMMARY | ~2019-06-19 | XMS | Encounter Summary ---
Demographics + + + | Address | [address] | | | [place] [address] | + + + | Home Phone | | + + + | Preferred Language | Unknown | + + + | Marital Status | | + + + | Catholic Affiliation | Unknown | + + + | Race | Unknown | + + + | Ethnic Group | Unknown | + + + Author + + + | Author | [facility] | | | and Jdana | + + + | Organization | [facility] | | | and Jdana [...] Team Providers + +------+ + | Care Calender Runner Name | Role | Phone | + +------+ + | Yosef Morrow MD | PCP | | + +------+ + Encounter Details +--------+ + + + + | Date | Type | Department | Care Team | Description | +--------+ + + + + | 05/07/ | Orders Only | [facility] | Yosef Morrow | | | 2017 | | [address] | [address] | | | | | [place] | [address] | | | | | [address] | [place] | | | | | [phone] | [address] | | | | | | [phone] | | | | | | | [...] 2020 | Visit | | [address] | | | | | | [address] | | | | | | [place] [address] | | | | | | [phone] | | | | | | | | +--------+---------+ + + + | 07/30/ | Office | Nephrology | Ismael Gonzalez MD | | | 2019 | Visit | | [address] [facility] | | | | | | [address] [place] | | | | | | [address] | | | | | | | | +--------+---------+ + + + documented as of this encounter Procedures + +--------+ + + + | Procedure Name | Priori | Date/Time | Associated Diagnosis | Comments | | | ty | | | | + +--------+ + + + | URINALYSIS, REFLEX | Routin | 05/07/2016 | | Results for this | | MICROSCOPIC AND/OR | e | 3:06 PM | | procedure are in the | | CULTURE | | PDT | | results section. | + +--------+ + + + | URINALYSIS, | Routin | 05/07/2016 | | Results for this | | MICROSCOPIC ONLY | e | 3:06 PM | | procedure are in the | | | | PDT | | results section. | + +--------+ + + + | EXTERNAL LAB: CBC | Routin | 05/07/2016 | | Results for this | | | e | 2:24 PM | | procedure are in the | | | | PDT | | results section. | + +--------+ + + + | VITAMIN D, | Routin | 05/07/2016 | | Results for this | | DEFICIENCY SCREEN | e | 2:24 PM | | procedure are in the | | (25-HYDROXY) | | PDT | | results section. | + +--------+ + + + | SEDIMENTATION RATE, | Routin | 05/07/2016 | | Results for this | | AUTOMATED | e | 2:24 PM | | procedure are in the | | | | PDT | | results section. | + +--------+ + + + | C-REACTIVE PROTEIN | Routin | 05/07/2016 | | Results for this | | | e | 2:24 PM | | procedure are in the | | | | PDT | | results section. | + +--------+ + + + | COMPREHENSIVE | Routin | 05/07/2016 | | Results for this | | METABOLIC PANEL | e | 2:24 PM | | procedure are in the | | | | PDT | | results section. | + +--------+ + + + documented in this encounter Results Urinalysis, Reflex Microscopic and/or Culture (05/07/2016 3:06 PM PDT) + + + + + + | Component | Value | Ref Range | Performed | Pathologist | | | | | At | Signature | + + + + + + | Color | YELLOW | | EXTERNAL | | | | | | LAB | | + + + + + + | Clarity | CLEAR | | EXTERNAL | | | | | | LAB | | + + + + + + | Specific | 1.018 | 1.002 - 1.030 | EXTERNAL | | | [place], | | | LAB | | | Urine | | | | | + + + + + + | Leukocyte | NEGATIVE | | EXTERNAL | | | Esterase, | | | LAB | | | Urine | | | | | + + + + + + | Nitrite, | NEGATIVE | | EXTERNAL | | | Urine | | | LAB | | + + + + + + | Urobilinoge | NORMAL | mg/dL | EXTERNAL | | | n, Urine | | | LAB | | + + + + + + | Protein, | 100 (A) | mg/dL | EXTERNAL | | | Urine | | | LAB | | + + + + + + | pH, Urine | 5.0 | 5.0 - 8.0 | EXTERNAL | | | | | | LAB | | + + + + + + | Blood, | NEGATIVE | | EXTERNAL | | | Urine | | | LAB | | + + + + + + | Ketones | NEGATIVE | mg/dL | EXTERNAL | | | | | | LAB | | + + + + + + | Bilirubin, | NEGATIVE | | EXTERNAL | | | Urine | | | LAB | | + + + + + + | Glucose, | NEGATIVE | mg/dL | EXTERNAL | | | Urine | | | LAB | | + + + + + + + + | Specimen | + + | | + + + +---------+ + + | Performing | Address | City/State/Zipcode | Phone Number | | Organization | | | | + +---------+ + + | EXTERNAL LAB | | | | + +---------+ + + Urinalysis, Microscopic Only (05/07/2016 3:06 PM PDT) + + + + + + | Component | Value | Ref Range | Performed | Pathologist | | | | | At | Signature | + + + + + + | WBC, UA | 0-2 | 0 - 5 /[HPF] | EXTERNAL | | | | | | LAB | | + + + + + + | RBC, UA | 3-5 | 0 - 5 /[HPF] | EXTERNAL | | | | | | LAB | | + + + + + + | Epithelial | 6-10 | /[LPF] | EXTERNAL | | | Cells | | | LAB | | + + + + + + | Bacteria, | 1+ (A) | | EXTERNAL | | | UA | | | LAB | | + + + + + + | Mucus, | 1+ | | EXTERNAL | | | Urine | | | LAB | | + + + + + + | CASTS | SEE BELOW | /[LPF] | EXTERNAL | | | | | | LAB | | + + + + + + | CASTS | 3-5 HYALINE CAST | /[LPF] | EXTERNAL | | | | | | LAB | | + + + + + + + + | Specimen | + + | | + + + +---------+ + + | Performing | Address | City/State/Zipcode | Phone Number | | Organization | | | | + +---------+ + + | EXTERNAL LAB | | | | + +---------+ + + Vitamin D, Deficiency Screen (25-Hydroxy) (05/07/2016 2:24 PM PDT) + + + + + + | Component | Value | Ref Range | Performed | Pathologist | | | | | At | Signature | + + + + + + | Vit D, | 49Comment: <20 ng/mL | 30 - 150 ng/mL | EXTERNAL | | | 25-Hydroxy | Suggests deficiency | | LAB | | | | of 25-OH Vitamin D. | | | | | | 20-29 ng/mL | | | | | | Suggests a relative | | | | | | insufficiency of 25-OH | | | | | | Vitamin D. 30-150 ng/mL | | | | | | Suggests a sufficient | | | | | | level of 25-OH Vitamin | | | | | | D. >150 ng/mL | | | | | | Toxic level of 25-OH | | | | | | Vitamin D. Blood levels | | | | | | of 25 Hydroxy Vitamin D | | | | | | vary with the extent of | | | | | | sun exposure. Values | | | | | | tend to be highest in | | | | | | late summer and lowest | | | | | | in the spring. Values | | | | | | also tend to decrease | | | | | | with age, due to | | | | | | decreased precursor | | | | | | synthesis in the skin. | | | | + + + + + + + + | Specimen | + + | | + + + +---------+ + + | Performing | Address | City/State/Zipcode | Phone Number | | Organization | | | | + +---------+ + + | EXTERNAL LAB | | | | + +---------+ + + Sedimentation rate, automated (05/07/2016 2:24 PM PDT) + +---------+ + + + | Component | Value | Ref Range | Performed | Pathologist | | | | | At | Signature | + +---------+ + + + | Sed Rate | 103 (H) | 0 - 30 mm/h | [...] + +---------+ + + External Lab: CBC (05/07/2016 2:24 PM PDT) + + + + + + | Component | Value | Ref Range | Performed | Pathologist | | | | | At | Signature | + + + + + + | WBC | 4.74 | 3.80 - 11.00 | EXTERNAL | | | | | 10*3/uL | LAB | | + + + + + + | Red Blood | 4.08 | 3.70 - 5.10 | EXTERNAL | | | Cells | | 10*6/uL | LAB | | | Counted | | | | | + + + + + + | Hemoglobin | 12.2 | 11.3 - 15.5 | EXTERNAL | | | | | g/dL | LAB | | + + + + + + | Hematocrit, | 37.4 | 34.0 - 46.0 % | EXTERNAL | | | POC | | | LAB | | + + + + + + | MCV | 91.8 | 80.0 - 100.0 fL | EXTERNAL | | | | | | LAB | | + + + + + + | MCH | 29.9 | 27.0 - 34.0 pg | EXTERNAL | | | | | | LAB | | + + + + + + | MCHC | 32.5 | 32.0 - 35.5 | EXTERNAL | | | | | g/dL | LAB | | + + + + + + | RDW-CV | 54.7 (H) | 37 - 53 fL | EXTERNAL | | | | | | LAB | | + + + + + + | Platelet | 264 | 150 - 400 | EXTERNAL | | | Count | | 10*3/uL | LAB | | | Plasma | | | | | + + + + + + | MPV | 7.9 | fL | EXTERNAL | | | | | | LAB | | + + + + + + | Differentia | AUTOMATED | | EXTERNAL | | | l Type | | | LAB | | + + + + + + | % Segmented | 66.20 | % | EXTERNAL | | | | | | LAB | | | Neutrophils | | | | | + + + + + + | % | 19.64 | % | EXTERNAL | | | Lymphocytes | | | LAB | | + + + + + + | % Monocytes | 9.05 | % | EXTERNAL | | | | | | LAB | | + + + + + + | % | 4.46 | % | EXTERNAL | | | Eosinophils | | | LAB | | + + + + + + | % Basophils | 0.65 | % | EXTERNAL | | | | | | LAB | | + + + + + + | Absolute | 3.14 | 1.90 - 7.40 | EXTERNAL | | | Segmented | | 10*3/uL | LAB | | | Neutrophils | | | | | + + + + + + | Absolute | 0.93 (L) | 1.00 - 3.90 | EXTERNAL | | | Lymphocytes | | 10*3/uL | LAB | | + + + + + + | Absolute | 0.43 | 0.00 - 0.80 | EXTERNAL | | | Monocytes | | 10*3/uL | LAB | | + + + + + + | Absolute | 0.21 | 0.00 - 0.50 | EXTERNAL | | | Eosinophils | | 10*3/uL | LAB | | + + + + + + | Absolute | 0.03 | 0.00 - 0.10 | EXTERNAL | [...] | + +---------+ + + C-Reactive Protein (05/07/2016 2:24 PM PDT) + +---------+ + + + | [...] + +---------+ + + Comprehensive Metabolic Panel (05/07/2016 2:24 PM PDT) + + + + + + | Component | Value | Ref Range | Performed | Pathologist | | | | | At | Signature | + + + + + + | Na | 139 | 135 - 145 | EXTERNAL | | | | | mmol/L | LAB | | + + + + + + | K | 4.2 | 3.5 - 4.9 | EXTERNAL | | | | | mmol/L | LAB | | + + + + + + | Cl | 103 | 99 - 109 mmol/L | EXTERNAL | | | | | | LAB | | + + + + + + | CO2 | 24 | 23 - 32 mmol/L | EXTERNAL | | | | | | LAB | | + + + + + + | Anion Gap | 16 | 5 - 20 mmol/L | EXTERNAL | | | | | | LAB | | + + + + + + | Glucose, | 96 | 65 - 99 mg/dL | EXTERNAL | | | Fasting | | | LAB | | + + + + + + | BUN | 21 | 8 - 25 mg/dL | EXTERNAL | | | | | | LAB | | + + + + + + | Creatinine | 1.5 (H) | 0.50 - 1.00 | EXTERNAL | | | | | mg/dL | LAB | | + + + + + + | BUN/Creatin | 14 | | EXTERNAL | | | ine Ratio | | | LAB | | + + + + + + | Calcium | 9.4 | 8.5 - 10.5 | EXTERNAL | | | | | mg/dL | LAB | | + + + + + + | Protein, | 7.6 | 6.3 - 8.2 g/dL | EXTERNAL | | | Total | | | LAB | | + + + + + + | Albumin | 3.6 | 3.3 - 4.8 g/dL | EXTERNAL | | | | | | LAB | | + + + + + + | Globulin | 4.0 | 1.3 - 4.9 g/dL | EXTERNAL [...] + + + + | ALP, | 99 | 35 - 115 U/L | EXTERNAL | | | External | | | LAB | | + + + + + + | AST | 29 | 10 - 45 U/L | EXTERNAL | | | | | | LAB | | + + + + + + | ALT | 27 | 10 - 65 U/L | EXTERNAL [...]
--- OUTSIDE RECORDS SUMMARY | ~2019-06-19 | XMS | Encounter Summary ---
Demographics + + + | Address | [address] | | | [place] [address] | + + + | Home Phone | | + + + | Preferred Language | Unknown | + + + | Marital Status | | + + + | Tenriism Affiliation | Unknown | + + + | Race | Unknown | + + + | Ethnic Group | Unknown | + + + Author + + + | Author | [facility] | | | and Jdana | + + + | Organization | [facility] | | | and Jdana | [...] Team Providers + +------+ + | Care Linoleum Layer Name | Role | Phone | + [...] [address] | | | | | [place] | [address] | | | | | [address] | [place] | | | | | [phone] | [address] | | | | | | [phone] | | | | | | | [...] 2020 | Visit | | [address] | | | | | | [address] | | | | | | [place] [address] | | | | | | [phone] | | | | | | | | +--------+---------+ + + + | 07/30/ | Office | Nephrology | Ismael Gonzalez MD | | | 2019 | Visit | | [address] [facility] | | | | | | [address] [place] [address] | | | | | | [address] | | | | | | | [...] - 1.030 | EXTERNAL | | | [place], | | | LAB | | | [...]
--- OUTSIDE RECORDS SUMMARY | ~2019-06-19 | XMS | Encounter Summary ---
Demographics + + + | Address | [address] | | | [place] [address] | + + + | Home Phone | | + + + | Preferred Language | Unknown | + + + | Marital Status | | + + + | Voodoo Affiliation | Unknown | + + + | Race | Unknown | + + + | Ethnic Group | Unknown | + + + Author + + + | Author | [facility] | | | and Jdana | + + + | Organization | [facility] | | | and [...] Team Providers + +------+ + | Care Fur Buyer Name | Role | Phone | + [...] arthroplasty | [address] | [address] [place] | | | | | | [place] | [place], | | | | | Procedures | [place], [place] | [place] [address] | | | | | ot eval | [address] | Phone: | | | | | | Phone: | [phone] | | | | | | [phone] | Fax: | | | | | | Fax: | [phone] | | | | | | [phone] | | +--------+--------+ + + + + [...] Dx); Hx of | | | | [address] [place], | [place] [address] | arthroplasty; | | | | [place] [address] | [phone] | Weakness of hand; | | | | [phone] | | HTN (hypertension); | | | | | Mahendra, Mady A, OT | Low back pain; | | | | | [address] | Osteoporosis; | | | | | [place], [place] | Rheumatoid arthritis | | | | | [address] | (HCC) | | | | | [...] might be different fr om the original. [facility] OT OP [address] [address] Occupational Therapy Daily Treatment Note Date: 07/31/2013 [...] [address] | | | | | | [place] [address] | | | | | | [phone] | | | | | | | | +--------+---------+ + + + | 07/30/ | Office | Nephrology | Ismael Gonzalez MD | | | 2019 | Visit | | [address] [facility] | | | | | | [address] [place] | | | | | | [address] | | | | | | | [...]
--- OUTSIDE RECORDS SUMMARY | ~2019-06-19 | XMS | Encounter Summary ---
Demographics + + + | Address | [address] | | | [place] [address] | + + + | Home Phone | | + + + | Preferred Language | Unknown | + + + | Marital Status | | + + + | Jewish Affiliation | Unknown | + + + | Race | Unknown | + + + | Ethnic Group | Unknown | + + + Author + + + | Author | [facility] | | | and Jdana | + + + | Organization | [facility] | | | and Jdana | [...] Team Providers + +------+ + | Care Casing Trimmer Name | Role | Phone | + +------+ + PCP | Unavailable | + +------+ + Encounter Details +--------+ + + + + | Date | Type | Department | Care Team | Description | +--------+ + + + + | 11/18/ | [facility] | [facility] | Oscar Wilson MD | | | 2010 | Encounter | MED CTR XRAY [address] | [address] | | | | | [address] | [place] [address] | | | | | [place] [address] | [phone] | | | | | [phone] | | | +--------+ + + + [...] 2019 | Visit | | [address] | | | | | | [address] | | | | | | [place] [address] | | | | | | [phone] | | | | | | | | +--------+---------+ + + + | 07/30/ | Office | Nephrology | Ismael Gonzalez MD | | | 2019 | Visit | | [address] [facility] | | | | | | [address] [facility] [place] | | | | | | [address] | | | | | | | [...] Performed At | + + + | [facility] Diagnostic Imaging Department | [facility] | | [address] [facility] | [facility] | | THREE VIEWS LUMBAR SPINE, | [...] Transcribed Date/Time: 11/18/2010 16:45 | | | Automated Manufacturing Instructor: <Electronically Signed by Leobardo Mcnelil MD> | | | 11/18/10 2216 | | + + + + + | Procedure Note | + + | Marin, Rad Conversion - 03/24/2013 3:57 PM [facility] | | Diagnostic Imaging Department | | [address] [facility] | | | | | | | [...] | Transcribed Date/Time: 11/18/2010 16:45 | | Automated Manufacturing Instructor: | | <Electronically Signed by Leobardo Mcneill [...]
--- OUTSIDE RECORDS SUMMARY | ~2019-06-19 | XMS | Encounter Summary ---
Demographics + + + | Address | [address] | | | [place] [address] | + + + | Home Phone | | + + + | Preferred Language | Unknown | + + + | Marital Status | | + + + | Restoration Affiliation | Unknown | + + + | Race | Unknown | + + + | Ethnic Group | Unknown | + + + Author + + + | Author | [facility] | | | and Jdana | + + + | Organization | [facility] | | | and Jdana [...] Team Providers + +------+ + | Care Track Oiler Name | Role | Phone | + +------+ + | Yosef Morrow MD | PCP | | + +------+ + Reason for Visit + + + | Reason | Comments | + + + | Initial Assessment | | + + + Evaluate [...] arthroplasty | [address] | [address] | | | | | | [place] | [place], | | | | | Procedures | [place], [place] | [place] [address] | | | | | ot eval | [address] | Phone: | | | | | | Phone: | [phone] | | | | | | [phone] | Fax: | | | | | | Fax: | [phone] | | | | | | [phone] | | +--------+--------+ + + + + Encounter Details +--------+---------+ + + + | Date | Type | Department | Care Team | Description | +--------+---------+ + + + | 06/03/ | Office | [facility] | Lorri Rey | Hx of arthroplasty | | 2014 | Visit | [facility] | MD [address] | (Primary Dx); | | | | THERAPY [address] [place] | Stiffness of hand | | | | [place], | [place] [address] | joint, left; | | | | [place] [address] | [phone] | Weakness of hand; | | | | [phone] | | HTN (hypertension); | | | | | Mahendra, Mady A, OT | Low back pain; | | | | | [address] | Osteoporosis; | | | | | [place], [place] | Rheumatoid arthritis | | | | | [address] | (HCC) | | | | | [...] this encounter Progress Mady Lamar OT - 07/18/2013 6:00 PM PDTFormatting of this note might be different fr om the original. [facility] TH[facility] OT OP [address] [address] Occupational Therapy Initial Assessment Date: 07/18/2013 Patient Information Patient Name: Mignon Mohan Date of : 1945 Age: 68 y.o. History Encounter Diagnoses Code Name Primary? V45.89 Hx of arthroplasty Yes 719.54 Stiffness of hand joint, left 728.87 Weakness of hand 401.9 HTN (hypertension) 724.2 Low back pain 733.00 Osteoporosis 714.0 Rheumatoid arthritis (HCC) Onset Date: 06/26/13 Referring Provider: Rey Blackmon MD No past medical history on file. No past surgical history on file. Allergies Allergen Reactions Enbrel Povidone Iodine Hives Prior treatment: None within the last sixty days Rehab Precautions 07/18/13 Rehab Precautions Precautions Comments 4 fingere cmc arthroplasty Fall Risk 2 or more falls in the past year?: No Abuse Assessment Do you feel safe in your current relationship or home?: Yes Subjective Mechanism of injury: Surgery for MCP arthroplasty of fingers 2-5 and fusion of thumb CMC. History of Symptoms: DOS 06/26/13 Previous level of function and limitations: very limited due to immobilization of left hand and severe ulnar deviation of right hand. Work status: Retired Living situation: Lives with . Son lives in area and assists when he is off of wor k. Today's Treatment Patient Name: Mignon Mohan/: 1945/ Start Time: 1235 Stop time: 1400 Duration: 85 minutes Timed Treatment Codes: 55 minutes # of OT Visits: 1 Visit Summary: I had my susrgery 07/05/13 and had my stitiches out today. Next Visit: Instruct in HEP Patient/Caregiver Education Learner: Patient Readiness: Acceptance Method: Explanation Comment: Pt instructed to continue wearing this brace for support of the hand. She was ins tructed in scar massage to be done in splint. Manual Therapy Manual Therapy: Pt seen for fabrication of left hand resting splint. K tape applied to for arm and hand to reduce edema. moderate edema maily distal to the surgery with bruising over PIP's of all fingers and thumb. Wound healing well with eschar over middle 1/2 of dorsal hand. Some continued inflammation but no infection noted. Assessment Clinical Impression: Pt 22 day post left 4 finger MCP arthroplasty with fusion of thumb CMC . Currently requiring assistance from for daily self care due to lack of left hand use and limited right hand use due to severe ulnar deviation. She would benif from OT for splinting, scar management, A/PROM, progressive strengtheing as per proticol and HEP instruc tion. . Rehabilitation potential: Patient demonstrates good potential to achieve established goals to address the documented impairments by participating in skilled occupational therapy serv ices. Outcome Specific Scored Goals Primary Functional Goals: Functional Goal 1;Functional Goal 2 Patient's Primary Functional Goal 1: Pt will be independent with use of splnt to protect fi ngers and thumb s/p surgery Primary Functional Goal 1 Status Comment: Wearing support from MD Patient's Primary Functional Goal 2: Pt will be able to use left hand for daily activities in preparation for anticipated surgery on right hand. 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 Electronically signed by: Mady Mccray OT, 07/18/2013 18:00 Patient Name: Mignon Suazokyrieuna/: 1945/ documented in this e ncounter Plan [...] | | | | | | [place] [address] | | | | | | [phone] | | | | | | | | +--------+---------+ + + + | 07/30/ | Office | Nephrology | Ismael Gonzalez MD | | | 2019 | Visit | | [address] | | | | | | [address] [place] | | | | | | [address] | | | | | | | [...]
--- OUTSIDE RECORDS SUMMARY | ~2019-06-19 | XMS | Encounter Summary ---
Demographics + + + | Address | [address] | | | [place] [address] | + + + | Home Phone | | + + + | Preferred Language | Unknown | + + + | Marital Status | | + + + | Worship Affiliation | Unknown | + + + | Race | Unknown | + + + | Ethnic Group | Unknown | + + + Author + + + | Author | [facility] | | | and Jdana | + + + | Organization | [facility] | | | and Jdana [...] Team Providers + +------+ + | Care Disability Aide Name | Role | Phone | + +------+ + | Julio Cesar Hawley MD | PCP | | + +------+ + Encounter Details +--------+ + + + + | Date | Type | Department | Care Team | Description | +--------+ + + + + | 05/15/ | Orders Only | [facility] | Ismael Gonzalez MD | Hypertension, | | 2020 | | NEPHROLOGY [place] | [address] [facility] | unspecified type | | | | [address] | [address] [place], [place] | (Primary Dx); | | | | [address] | [address] | Scoliosis, | | | | [place], [place] | | unspecified | | | | [address] | | scoliosis type, | | | | [phone] | | unspecified spinal | | | [...] [address] | | | | | | [place] [address] | | | | | | [phone] | | | | | | | | +--------+---------+ + + + | 07/30/ | Office | Nephrology | Ismael Gonzalez MD | | | 2019 | Visit | | [address] [facility] | | | | | | [address] [place] | | | | | | [address] | | | | | | | [...]
--- OUTSIDE RECORDS SUMMARY | ~2019-06-19 | XMS | Encounter Summary ---
Demographics + + + | Address | [address] | | | [place] [address] | + + + | Home Phone | | + + + | Preferred Language | Unknown | + + + | Marital Status | | + + + | Confucianist Affiliation | Unknown | + + + | Race | Unknown | + + + | Ethnic Group | Unknown | + + + Author + + + | Author | [facility] | | | and Jdana | + + + | Organization | [facility] | | | and Jdana [...] Team Providers + +------+ + | Care Radar Scientist Name | Role | Phone | + [...] arthroplasty | [address] | [address] [place] [address] | | | | | | [place] | [place], | | | | | Procedures | [place], [place] | [place] [address] | | | | | ot eval | [address] | Phone: | | | | | | Phone: | [phone] | | | | | | [phone] | Fax: | | | | | | Fax: | [phone] | | | | | | [phone] | | +--------+--------+ + + + + [...] Dx); Hx of | | | | [place], | [place] [address] | arthroplasty; | | | | [place] [address] | [phone] | Weakness of hand; | | | | [phone] | | HTN (hypertension); | | | | | Mahendra, Mady A, OT | Low back pain; | | | | | [address] | Osteoporosis; | | | | | [place] | Rheumatoid arthritis | | | | | [address] | (HCC) | | | | | [...] might be different fr om the original. [facility] THERAPY OT OP [address] [address] Occupational Therapy Daily Treatment Note Date: 07/26/2013 [...] [place] | | | | | | [place] [address] | | | | | | [phone] | | | | | | | | +--------+---------+ + + + | 07/30/ | Office | Nephrology | Ismael Gonzalez MD | | | 2019 | Visit | | [address] [facility] | | | | | | [address] [place] | | | | | | [address] | | | | | | | [...]
--- OUTSIDE RECORDS SUMMARY | ~2019-06-19 | XMS | Encounter Summary ---
Demographics + + + | Address | [address] | | | [place] [address] | + + + | Home Phone | | + + + | Preferred Language | Unknown | + + + | Marital Status | | + + + | Gnosticist Affiliation | Unknown | + + + | Race | Unknown | + + + | Ethnic Group | Unknown | + + + Author + + + | Author | [facility] | | | and Jdana | + + + | Organization | [facility] | | | and [...] Team Providers + +------+ + | Care Budget Analyst Name | Role | Phone | + +------+ + PCP | Unavailable | + +------+ + Encounter Details +--------+ + + + + | Date | Type | Department | Care Team | Description | +--------+ + + + + | 12/23/ | Hospital | [facility] | | | | 2005 | Encounter | MED CTR XRAY [address] | | | | | | [address] | | | | | | [place] [address] | | | | | | [phone] | | | +--------+ + + + [...] 2019 | Visit | | [address] | | | | | | [address] [place] | | | | | | [place] [address] | | | | | | [phone] | | | | | | | | +--------+---------+ + + + | 06/15/ | Office | Nephrology | Ismael Gonzalez MD | | | 2019 | Visit | | [address] [facility] | | | | | | [address] [place] | | | | | | [address] | | | | | | | | +--------+---------+ + + + documented as of this encounter Visit Diagnoses Not on filedocumented in this encounter"
--- OUTSIDE RECORDS SUMMARY | ~2019-06-19 | XMS | Encounter Summary ---
Demographics + + + | Address | [address] | | | [place] [address] | + + + | Home Phone | | + + + | Preferred Language | Unknown | + + + | Marital Status | | + + + | Cheondoism Affiliation | Unknown | + + + | Race | Unknown | + + + | Ethnic Group | Unknown | + + + Author + + + | Author | [facility] | | | and Jdana | + + + | Organization | [facility] | | | and [...] Team Providers + +------+ + | Care Back End Engineer Name | Role | Phone | + +------+ + | Yosef Morrow MD | PCP | | + +------+ + Encounter Details +--------+ + + + + | Date | Type | Department | Care Team | Description | +--------+ + + + + | 07/19/ | Documentati | [facility] | Concetta Camara, | | | 2013 | on | MED CNT ONCOLOGY | OT [address] | | | | | THERAPY [address] | [place] | | | | | [place], | [address] | | | | | [place] [address] | | | | | | [phone] | | | +--------+ + + + [...] Camara, STERLING - 07/19/2013 11[facility]47 [facility] [address] [facility] [address] Cancellation/No Show Date: 07/19/2013 Patient Information Patient [...] | | | | | | [place] [address] | | | | | | [phone] | | | | | | | | +--------+---------+ + + + | 07/30/ | Office | Nephrology | Ismael Gonzalez MD | | | 2019 | Visit | | [address] [facility] | | | | | | [address] [place] | | | | | | [address] | | | | | | | [...]
--- OUTSIDE RECORDS SUMMARY | ~2019-06-19 | XMS | Encounter Summary ---
Demographics + + + | Address | [address] | | | [place] [address] | + + + | Home Phone | | + + + | Preferred Language | Unknown | + + + | Marital Status | | + + + | Episcopalian Affiliation | Unknown | + + + | Race | Unknown | + + + | Ethnic Group | Unknown | + + + Author + + + | Author | [facility] | | | and Jdana | + + + | Organization | [facility] | | | and Jdana [...] Team Providers + +------+ + | Care Enzyme Chemist Name | Role | Phone | + [...] arthroplasty | [address] | [address] [place] | | | | | | [place] | [place], | | | | | Procedures | [place], [place] | [place] [address] | | | | | ot eval | [address] | Phone: | | | | | | Phone: | [phone] | | | | | | [phone] | Fax: | | | | | | Fax: | [phone] | | | | | | [phone] | | +--------+--------+ + + + + Encounter Details +--------+---------+ + + + | Date | Type | Department | Care Team | Description | +--------+---------+ + + + | 08/07/ | Office | [facility] | Rey Blackmon | Stiffness of hand | | 2014 | Visit | MED CNT ONCOLOGY | MD [address] | joint, left (Primary | | | | THERAPY [address] | Dx); Hx of | | | | [place], | [place] [address] | arthroplasty; | | | | [place] [address] | [phone] | Weakness of hand; | | | | [phone] | | HTN (hypertension); | | | | | Mahendra, Mady A, OT | Low back pain; | | | | | [address] | Osteoporosis; | | | | | [place], [place] | Rheumatoid arthritis | | | | | [address] | (HCC) | | | | | [...] this encounter Progress Mady Lamar OT - 08/07/2013 3:39 PM PDTFormatting of this note might be different fr om the original. [facility] THERAPY OT OP [address] [address] Occupational Therapy Daily Treatment Note Date: 08/07/2013 Patient Information Patient Name: Mignon Mohan Date [...] Patient Name: Mignon Mohan/: 1945/ Start Time: 0950 Stop time: 1030 Duration: 40 minutes Timed Treatment Codes: minutes # of OT Visits: 5 Subjective: It seems to be going just fine Pain Assessment Pain Rating Pre Assessment: 1 Location: hand, greater in bacl Objective Manual Therapy Manual Therapy Site: left hand Manual Therapy: Pt seen for ROM to left fingers. She was provided with finger splinst to p revent PIP hyper extension for middle, index and little fingers. Assessment Pt progressing well. Rehabilitation potential: Patient demonstrates good potential to achieve established goals to address the documented impairments by participating in skilled occupational therapy serv ices. Next Visit: increase MP extension of resting splint Electronically signed by: Mady Mccray OT, 08/07/2013 15:39 Patient Name: Mignon Mohan/: 1945/ documented in [...] | | | | | [place] [address] | | | | | | [phone] | | | | | | | | +--------+---------+ + + + | 07/30/ | Office | Nephrology | Ismael Gonzalez MD | | | 2019 | Visit | | [address] [facility] | | | | | | [address] [place] | | | | | | [address] | | | | | | | [...]
--- OUTSIDE RECORDS SUMMARY | ~2019-06-19 | XMS | Encounter Summary ---
Demographics + + + | Address | [address] | | | [place] [address] | + + + | Home Phone | | + + + | Preferred Language | Unknown | + + + | Marital Status | | + + + | Baptist Affiliation | Unknown | + + + | Race | Unknown | + + + | Ethnic Group | Unknown | + + + Author + + + | Author | [facility] | | | and Jdana | + + + | Organization | [facility] | | | and dJana | + + + | Address | Unknown | + + + | Phone | Unavailable | + + + Support + + +---------+ + | Name | Relationship | Address | Phone | + + +---------+ + | Rey Mohan | ECON | Unknown | | + + +---------+ + Care Team Providers + +------+ + | Care Room Service Supervisor Name | Role | Phone | + [...] [address] | | | | | [place] | [address] | | | | | [address] | [place] | | | | | [phone] | [address] | | | | | | [phone] | | | | | | | [...] 2020 | Visit | | [address] | | | | | | [address] [place] | | | | | | [place] [address] | | | | | | [phone] | | | | | | | | +--------+---------+ + + + | 07/30/ | Office | Nephrology | Ismael Gonzalez MD | | | 2019 | Visit | | [address] [facility] | | | | | | [address] [place] | | | | | | [address] | | | | | | | [...] - 1.030 | EXTERNAL | | | [place], | | | LAB | | | [...]
--- OUTSIDE RECORDS SUMMARY | ~2019-06-19 | XMS | Encounter Summary ---
Demographics + + + | Address | [address] | | | [place] [address] | + + + | Home Phone | | + + + | Preferred Language | Unknown | + + + | Marital Status | | + + + | Presybeterian Affiliation | Unknown | + + + | Race | Unknown | + + + | Ethnic Group | Unknown | + + + Author + + + | Author | [facility] | | | and Jdana | + + + | Organization | [facility] | | [...] Team Providers + +------+ + | Care Automotive Glass Technician Name | Role | Phone | [...] arthroplasty | [address] | [address] [place] | | | | | | [place] | [place], | | | | | Procedures | [place], [place] | [place] [address] | | | | | ot eval | [address] | Phone: | | | | | | Phone: | [phone] | | | | | | [phone] | Fax: | | | | | | Fax: | [phone] | | | | | | [phone] | | +--------+--------+ + + + + [...] Stiffness of hand | | | | [place], | [place] [address] | joint, left; | | | | [place] [address] | [phone] | Weakness of hand; | | | | [phone] | | HTN (hypertension); | | | [...] Landa COTA - 08/14/2013 3:14 PM PDT [facility] CTR THERAPY OT OP [address] [place] [address] Occupational Therapy Daily Treatment Note Date: 08/14/2013 [...] | | | | | | [place] [address] | | | | | | [phone] | | | | | | | | +--------+---------+ + + + | 07/30/ | Office | Nephrology | Ismael Gonzalez MD | | | 2019 | Visit | | [address] [facility] | | | | | | [address] [place] | | | | | | [address] | | | | | | | [...]
--- OUTSIDE RECORDS SUMMARY | ~2019-06-19 | XMS | Encounter Summary ---
Demographics + + + | Address | [address] | | | [place] [address] | + + + | Home Phone | | + + + | Preferred Language | Unknown | + + + | Marital Status | | + + + | Sabianist Affiliation | Unknown | + + + | Race | Unknown | + + + | Ethnic Group | Unknown | + + + Author + + + | Author | [facility] | | | and Jdana | + + + | Organization | [facility] | | | and [...] Team Providers + +------+ + | Care Safety Associate Name | Role | Phone | + [...] arthroplasty | [address] | [address] [place] | | | | | | [place] | [place], | | | | | Procedures | [place], [place] | [place] [address] | | | | | ot eval | [address] | Phone: | | | | | | Phone: | [phone] | | | | | | [phone] | Fax: | | | | | | Fax: | [phone] | | | | | | [phone] | | +--------+--------+ + + + + [...] Stiffness of hand | | | | [place], | [place] [address] | joint, left; | | | | [place] [address] | [phone] | Weakness of hand; | | | | [phone] | | HTN (hypertension); | | | [...] Landa COTA - 08/14/2013 3:14 PM PDT [facility] CTR THERAPY OT OP [address] [place] [address] Occupational Therapy Daily Treatment Note Date: 08/14/2013 [...] | | | | | | [place] [address] | | | | | | [phone] | | | | | | | | +--------+---------+ + + + | 07/30/ | Office | Nephrology | Ismael Gonzalez MD | | | 2019 | Visit | | [address] [facility] | | | | | | [address] [place] | | | | | | [address] | | | | | | | [...]
--- OUTSIDE RECORDS SUMMARY | ~2019-06-19 | XMS | Encounter Summary ---
Demographics + + + | Address | [address] | | | [place] [address] | + + + | Home Phone | | + + + | Preferred Language | Unknown | + + + | Marital Status | | + + + | Judaism Affiliation | Unknown | + + + | Race | Unknown | + + + | Ethnic Group | Unknown | + + + Author + + + | Author | [facility] | | | and Jdana | + + + | Organization | [facility] | | | and [...] Team Providers + +------+ + | Care Soybean Grower Name | Role | Phone | + [...] | [address] | [address] | | | | | [place] | [place] | | | | | [address] | [place] [address] | | | | | [phone] | [phone] | | | | | | | [...] 2020 | Visit | | [address] | | | | | | [address] [place] | | | | | | [place] [address] | | | | | | [phone] | | | | | | | | +--------+---------+ + + + | 07/30/ | Office | Nephrology | Ismael Gonzalez MD | | | 2019 | Visit | | [address] [facility] | | | | | | [address] [place] | | | | | | [address] | | | | | | | [...]
--- OUTSIDE RECORDS SUMMARY | ~2019-06-19 | XMS | Encounter Summary ---
Demographics + + + | Address | [address] | | | [place] [address] | + + + | Home Phone [...] | Author | [facility] | | | and Jdana | + + + | Organization | [facility] | | | and [...] Providers + +------+ + | Care Casing Tier Name | Role | Phone | + +------+ + | Yosef Morrow MD | PCP | | + +------+ + Encounter Details +--------+ + + + + | Date | Type | Department | Care Team | Description | +--------+ + + + + | 05/05/ | Orders Only | [facility] | [place], | | | 2015 | | RHEUMATOLOGY [address] | [address] | | | | | [address] | [address] | | | | | [place] | [place] [address] | | | | | [address] | [phone] | | | | | [phone] | | | +--------+ + + + [...] 2020 | Visit | | [address] | | | | | | [address] | | | | | | [place] [address] | | | | | | [phone] | | | | | | | | +--------+---------+ + + + | 07/30/ | Office | Nephrology | Ismael Gonzalez MD | | | 2019 | Visit | | [address] [facility] | | | | | | [address] [place] | | | | | | [address] | | | | | | | | +--------+---------+ + + + documented as of this encounter Procedures + +--------+ + + + | Procedure Name | Priori | Date/Time | Associated Diagnosis | Comments | | | ty | | | | + +--------+ + + + | EXTERNAL LAB: AXEL | Routin | 05/06/2015 | | Results [...] | + +---------+ + + External Lab: AX[facility] (05/06/2015 10:39 AM PDT) + + + [...] + + + | Red Blood | 3.62 (L) | 3.70 - 5.10 | EXTERNAL | | | Cells | | | LAB | | | Counted | | | | | + + + + + + | Hemoglobin | 11.3 | 11.3 - 15.5 | [...]
--- OUTSIDE RECORDS SUMMARY | ~2019-06-19 | XMS | Encounter Summary ---
Demographics + + + | Address | [address] | | | [place] [address] | + + + | Home Phone | | + + + | Preferred Language | Unknown | + + + | Marital Status | | + + + | Rastafarian Affiliation | Unknown | + + + | Race | Unknown | + + + | Ethnic Group | Unknown | + + + Author + + + | Author | [facility] | | | and Jdana | + + + | Organization | [facility] | | | and Jdana [...] Team Providers + +------+ + | Care Military Education Coordinator Name | Role | Phone | + +------+ + | Julio Cesar Hawley MD | PCP | | + +------+ + Encounter Details +--------+ + + + + | Date | Type | Department | Care Team | Description | +--------+ + + + + | 05/15/ | Orders Only | [facility] | Ismael Gonzalez MD | Hypertension, | | 2020 | | NEPHROLOGY [place] | [address] [facility] | unspecified type | | | | [address] | [address] [place], [place] | (Primary Dx); | | | | [address] | [address] | Scoliosis, | | | | [place], [place] | | unspecified | | | | [address] | | scoliosis type, | | | | [phone] | | unspecified spinal | | | [...] [place] | | | | | | [place] [address] | | | | | | [phone] | | | | | | | | +--------+---------+ + + + | 07/30/ | Office | Nephrology | Ismael Gonzalez MD | | | 2019 | Visit | | [address] [facility] | | | | | | [address] [place] | | | | | | [address] | | | | | | | [...]
--- OUTSIDE RECORDS SUMMARY | ~2019-06-19 | XMS | Encounter Summary ---
Demographics + + + | Address | [address] | | | [place] [address] | + + + | Home Phone | | + + + | Preferred Language | Unknown | + + + | Marital Status | | + + + | Baptism Affiliation | Unknown | + + + | Race | Unknown | + + + | Ethnic Group | Unknown | + + + Author + + + | Author | [facility] | | | and Jdana | + + + | Organization | [facility] | | | and [...] Team Providers + +------+ + | Care Services Program Manager Name | Role | Phone | + +------+ + | Julio Cesar Hawley MD | PCP | | + +------+ + Encounter Details +--------+ + + + + | Date | Type | Department | Care Team | Description | +--------+ + + + + | 05/15/ | Orders Only | [facility] | Ismael Gonzalez MD | Hypertension, | | 2020 | | NEPHROLOGY [place] | [address] [facility] | unspecified type | | | | [address] | [address] [place], [place] | (Primary Dx); | | | | [address] | [address] | Scoliosis, | | | | [place], [place] | | unspecified | | | | [address] | | scoliosis type, | | | | [phone] | | unspecified spinal | | | [...] [address] | | | | | | [place] [address] | | | | | | [phone] | | | | | | | | +--------+---------+ + + + | 07/30/ | Office | Nephrology | Ismael Gonzalez MD | | | 2019 | Visit | | [address] [facility] | | | | | | [address] [place] | | | | | | [address] | | | | | | | [...]
--- OUTSIDE RECORDS SUMMARY | ~2019-06-19 | XMS | Encounter Summary ---
Demographics + + + | Address | [address] | | | [place] [address] | + + + | Home Phone | | + + + | Preferred Language | Unknown | + + + | Marital Status | | + + + | Yazdanism Affiliation | Unknown | + + + | Race | Unknown | + + + | Ethnic Group | Unknown | + + + Author + + + | Author | [facility] | | | and Jdana | + + + | Organization | 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 | therapy; Rheumatoid | | | | [address] [place], [place] | [place] [address] | arthritis of | | | | [address] | | multiple sites | | | | [phone] | | without organ or | | | | | | system involvement | | | | | | with positive | | | | | | rheumatoid factor | | | | | | (HCC) | +--------+ + + + + [...] | | | | | [place] [address] | | | | | | [phone] | | | | | | | | +--------+---------+ + + + | 07/30/ | Office | Nephrology | Ismael Gonzalez MD | | | 2019 | Visit | | [address] | | | | | | [address] | | | | | | [address] | | | | | | | | +--------+---------+ + + + + +------+--------+ + + | Name | Type | Priori | Associated Diagnoses | Order Schedule | | | | ty | | | + +------+--------+ + + | Comprehensive | Lab | Routin | Other longterm | Expected: | | Metabolic Panel | | e | (current) drug | 11/11/2017, Expires: | | | | | therapy Rheumatoid | 10/28/2018 | | | | | arthritis of | | | | | | multiple sites | | | | | | without organ or | | | | | | system involvement | | | | | | with positive | | | | | | rheumatoid factor | | | | | | (HCC) | | + +------+--------+ + + | CBC with | Lab | Routin | 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 | 2 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 | | Differential | | e | (current) drug | starting 09/30/2018 | | | | | therapy Rheumatoid | until 05/18/2019 | | | | | arthritis of | | | | | | multiple sites | | | | | | without organ or | | | | | | system involvement | | | | | | with positive | | | | | | rheumatoid factor | | | | | | (HCC) | | + +------+--------+ + + | Comprehensive | Lab | Routin | 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 | 2 Occurrences | | Metabolic Panel | | e | (current) drug | starting 09/30/2018 | | | | | therapy Rheumatoid | until 05/18/2019 | | | | | arthritis of | | | | | | multiple sites | | | | | | without organ or | | | | | | system involvement | | | | | | with positive | | | | | | rheumatoid factor | | | | | | (HCC) | | + +------+--------+ + + | Sedimentation Rate | Lab | Routin | Other longterm | 2 Occurrences | | | | e | (current) drug | starting 09/30/2018 | | | | | therapy Rheumatoid | until 05/18/2019 | | | | | arthritis of | | | | | | multiple sites | | | | | | without organ or | | | | | | system involvement | | | | | | with positive | | | | | | rheumatoid factor | | | | | | ([facility]) | | + +------+--------+ + + documented as of this encounter Visit Diagnoses + + | Diagnosis | + + | Other longterm (current) 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 | + + | Rheumatoid arthritis of multiple sites without organ or system involvement with | | positive rheumatoid factor (HCC) | + + documented in this encounter"
--- OUTSIDE RECORDS SUMMARY | ~2019-06-19 | XMS | Encounter Summary ---
Demographics + + + | Address | [address] | | | [place] [address] | + + + | Home Phone | | + + + | Preferred Language | Unknown | + + + | Marital Status | | + + + | Presybeterian Affiliation | Unknown | + + + | Race | Unknown | + + + | Ethnic Group | Unknown | + + + Author + + + | Author | [facility] | | | and Jdana | + + + | Organization | [facility] | | | and [...] Team Providers + +------+ + | Care Keymodule Assembly Machine Tender Name | Role | Phone | + +------+ + | Yosef Morrow MD | PCP | | + +------+ + Encounter Details +--------+ + + + + | Date | Type | Department | Care Team | Description | +--------+ + + + + | 01/01/ | Documentati | [facility] | Mady Mccray, | | | 2014 | on | MED CNT ONCOLOGY | OT [address] | | | | | THERAPY [address] | [place] | | | | | [place], | [address] | | | | | [place] [address] | | | | | | [phone] | | | +--------+ + + + [...] might be different fr om the original. [facility] THERAPY OT OP [address] [place] [address] Occupational Therapy Discharge Note This discharge is [...] 2019 | Visit | | Florina Case [facility] [address] | | | | | | [address] | | | | | | [place] [address] | | | | | | [phone] | | | | | | | | +--------+---------+ + + + | 07/30/ | Office | Nephrology | Ismael Gonzalez MD | | 2019 | Visit | | [address] | | | | | | [address] [place] | | | | | | [address] | | | | | | | [...]
--- OUTSIDE RECORDS SUMMARY | ~2019-06-19 | XMS | Encounter Summary ---
Demographics + + + | Address | [address] | | | [place] [address] | + + + | Home Phone | | + + + | Preferred Language | Unknown | + + + | Marital Status | | + + + | Yarsanism Affiliation | Unknown | + + + | Race | Unknown | + + + | Ethnic Group | Unknown | + + + Author + + + | Author | [facility] | | | and Jdana | + + + | Organization | [facility] | | | and [...] Team Providers + +------+ + | Care Director Experimental Medicine Name | Role | Phone | + [...] + + | 12/13/ | Refill | [facility] | Juaquin, | Medication Refill; | | 2018 | | RHEUMATOLOGY [address] | Florina Case [address] | Medication Refill | | | | [address] | [address] | | | | | [place], [place] | [place] [address] | | | | | [address] | [phone] | | | | | [phone] | | | +--------+--------+ + + + [...] | | | | | [place] [address] | | | | | | [phone] | | | | | | | | +--------+---------+ + + + | 07/30/ | Office | Nephrology | Ismael Gonzalez MD | | | 2019 | Visit | | [address] | | | | | | [address] [place] | | | | | | [address] | | | | | | | | +--------+---------+ + + + documented as of this encounter Visit Diagnoses Not on filedocumented in this encounter"
--- OUTSIDE RECORDS SUMMARY | ~2019-06-19 | XMS | Encounter Summary ---
Demographics + + + | Address | [address] | | | [place] [address] | + + + | Home Phone [...] | Author | [facility] | | | and Jdana | + + + | Organization | [facility] | | | and [...] Team Providers + +------+ + | Care Avionics Integration Engineer Name | Role | Phone | + +------+ + PCP | Unavailable | + +------+ + Encounter Details +--------+ + + + + | Date | Type | Department | Care Team | Description | +--------+ + + + + | 11/18/ | [facility] | [facility] | Oscar Wilson MD | | | 2010 | Encounter | MED CTR XRAY [address] | [address] | | | | | [place] [address] | [place] [address] | | | | | [place] [address] | [phone] | | | | | [phone] | | | +--------+ + + + [...] 2019 | Visit | | [address] | | | | | | [address] | | | | | | [place] [address] | | | | | | [phone] | | | | | | | | +--------+---------+ + + + | 07/30/ | Office | Nephrology | Ismael Gonzalez MD | | | 2019 | Visit | | [address] [facility] | | | | | | [address] [facility] [place] | | | | | | [address] | | | | | | | [...] Performed At | + + + | [facility] Diagnostic Imaging Department | [facility] | | [address] [facility] | [facility] | | THREE VIEWS LUMBAR [...] Transcribed Date/Time: 11/18/2010 16:45 | | | Hedis Review Nurse: <Electronically Signed by Leobardo Mcneill MD> | | | 11/18/10 2216 | | + + + + + | Procedure Note | + + | Marin, Rad Conversion - 03/24/2013 3:57 PM [facility] | | Diagnostic Imaging Department | | [address] [facility] | | | | | | [...] | Transcribed Date/Time: 11/18/2010 16:45 | | Hedis Review Nurse: | | <Electronically Signed by Leobardo Mcneill [...]
--- OUTSIDE RECORDS SUMMARY | ~2019-06-19 | XMS | Encounter Summary ---
Demographics + + + | Address | [address] | | | [place] [address] | + + + | Home Phone | | + + + | Preferred Language | Unknown | + + + | Marital Status | | + + + | Shinto Affiliation | Unknown | + + + | Race | Unknown | + + + | Ethnic Group | Unknown | + + + Author + + + | Author | [facility] | | | and Jdana | + + + | Organization | [facility] | | | and [...] Team Providers + +------+ + | Care Lens Generator Name | Role | Phone | + [...] [address] | | | | | [place] | [address] | | | | | [address] | [place] | | | | | [phone] | [address] | | | | | | [phone] | | | | | | | [...] 2020 | Visit | | [address] | | | | | | [address] | | | | | | [place] [address] | | | | | | [phone] | | | | | | | | +--------+---------+ + + + | 07/30/ | Office | Nephrology | Ismael Gonzalez MD | | | 2019 | Visit | | [address] [facility] | | | | | | [address] [place] | | | | | | [address] | | | | | | | [...] - 1.030 | EXTERNAL | | | [place], | | | LAB | | | [...]
--- OUTSIDE RECORDS SUMMARY | ~2019-06-19 | XMS | Encounter Summary ---
Demographics + + + | Address | [address] | | | [place] [address] | + + + | Home Phone [...] + | Author | [facility] | | | and Jdana | + + + | Organization | [facility] | [...] Team Providers + +------+ + | Care Low Pressure Kettle Operator Name | Role | Phone | [...] | [address] | [address] | | | | | [place] | [place] | | | | | [address] | [place] [address] | | | | | [phone] | [phone] | | | | | | | [...] 2020 | Visit | | [address] | | | | | | [address] | | | | | | [place] [address] | | | | | | [phone] | | | | | | | | +--------+---------+ + + + | 07/30/ | Office | Nephrology | Ismael Gonzalez MD | | | 2019 | Visit | | [address] [facility] | | | | | | [address] [place] | | | | | | [address] | | | | | | | [...]
--- OUTSIDE RECORDS SUMMARY | ~2019-06-19 | XMS | Encounter Summary ---
Demographics + + + | Address | [address] | | | [place] [address] | + + + | Home Phone [...] + | Author | [facility] | | | and Jdana | + + + | Organization | [facility] | | | and [...] Team Providers + +------+ + | Care Mattress Spring Encaser Name | Role | Phone | + [...] | [address] | [address] | | | | | [place] | [place] | | | | | [address] | [place] [address] | | | | | [phone] | [phone] | | | | | | | [...] 2020 | Visit | | [address] | | | | | | [address] | | | | | | [place] [address] | | | | | | [phone] | | | | | | | | +--------+---------+ + + + | 07/30/ | Office | Nephrology | Ismael Gonzalez MD | | | 2019 | Visit | | [address] [facility] | | | | | | [address] [place] | | | | | | [address] | | | | | | | [...]
--- OUTSIDE RECORDS SUMMARY | ~2019-06-19 | XMS | Encounter Summary ---
Demographics + + + | Address | [address] | | | [place] [address] | + + + | Home Phone [...] Author | [facility] | | | and Jdana | + + + | Organization | [facility] | | [...] Team Providers + +------+ + | Care Infant Lead Teacher Name | Role | Phone | + [...] arthroplasty | [address] | [address] | | | | | | [place] | [place], | | | | | Procedures | [place], [place] | [place] [address] | | | | | ot eval | [address] | Phone: | | | | | | Phone: | [phone] | | | | | | [phone] | Fax: | | | | | | Fax: | [phone] | | | | | | [phone] | | +--------+--------+ + + + + [...] Stiffness of hand | | | | [address] [place], | [place] [address] | joint, left; | | | | [place] [address] | [phone] | Weakness of hand; | | | | [phone] | | HTN (hypertension); | | | | | MahendraMady A, OT | Low back pain; | | | | | [address] | Osteoporosis; | | | | | [place], [place] | Rheumatoid arthritis | | | | | [address] | (HCC) | | | | | [...] OT OP [address] [address] Occupational Therapy Progress Assessment Date: 08/16/2013 Patient [...] independent iwth upgraed HEP Goal 2: Increase practice billing associate to 20# Goal 2 Status: LTG not tested Plan Date of Onset: 06/26/13 Start of Care Date: 07/18/13 Requested # of Visits: 12 2x/wk for 6 weeks (Decrease to 1x/week due to travel distance) Certification From: 08/16/13 Certification To: 09/15/13 Treatment Plan/Interventions 92541 OT Evaluation;39345 Therapeutic Exercises;03907 Therapeutic Activities;Splinting;9753 5 Self Care/Home Management;08860 Manual Therapy Medicare Functional Limitation Reporting G [...] impaired, limited or restricted Outcome Measures Tools: [place] AM-PAC and professional judgement Justification of Severity [...] [address] | | | | | | [place] [address] | | | | | | [phone] | | | | | | | | +--------+---------+ + + + | 07/30/ | Office | Nephrology | Ismael Gonzalez MD | | | 2019 | Visit | | [address] [facility] | | | | | | [address] [place] | | | | | | [address] | | | | | | | [...]
--- OUTSIDE RECORDS SUMMARY | ~2019-06-19 | XMS | Encounter Summary ---
Demographics + + + | Address | [address] | | | [place] [address] | + + + | Home Phone | | + + + | Preferred Language | Unknown | + + + | Marital Status | | + + + | Yazidi Affiliation | Unknown | + + + | Race | Unknown | + + + | Ethnic Group | Unknown | + + + Author + + + | Author | [facility] | | | and Jdana | + + + | Organization | [facility] | | | and Jdana | [...] Team Providers + +------+ + | Care Payroll Supervisor Name | Role | Phone | [...] arthroplasty | [address] | [address] | | | | | | [place] | [place], | | | | | Procedures | [place], [place] | [place] [address] | | | | | ot eval | [address] | Phone: | | | | | | Phone: | [phone] | | | | | | [phone] | Fax: | | | | | | Fax: | [phone] | | | | | | [phone] | | +--------+--------+ + + + + [...] Dx); Hx of | | | | [address] [place], | [place] [address] | arthroplasty; | | | | [place] [address] | [phone] | Weakness of hand; | | | | [phone] | | HTN (hypertension); | | | | | Mahendra, Mady A, OT | Low back pain; | | | | | [address] | Osteoporosis; | | | | | [place], [place] | Rheumatoid arthritis | | | | | [address] | (HCC) | | | | | [...] might be different fr om the original. [facility] CTR THERAPY OT OP [address] [address] Occupational Therapy Daily Treatment Note Date: 07/31/2013 [...] [address] | | | | | | [place] [address] | | | | | | [phone] | | | | | | | | +--------+---------+ + + + | 07/30/ | Office | Nephrology | Ismael Gonzalez MD | | | 2019 | Visit | | [address] [facility] | | | | | | [address] [place] | | | | | | [address] | | | | | | | [...]
--- OUTSIDE RECORDS SUMMARY | ~2019-06-19 | XMS | Encounter Summary ---
Demographics + + + | Address | [address] | | | [place] [address] | + + + | Home Phone | | + + + | Preferred Language | Unknown | + + + | Marital Status | | + + + | Voodoo Affiliation | Unknown | + + + | Race | Unknown | + + + | Ethnic Group | Unknown | + + + Author + + + | Author | [facility] | | | and Jdana | + + + | Organization | [facility] | | | and [...] Team Providers + +------+ + | Care Weight Clerk Name | Role | Phone | + +------+ + | Yosef Morrow MD | PCP | | + +------+ + Encounter Details +--------+ + + + + | Date | Type | Department | Care Team | Description | +--------+ + + + + | 07/19/ | Documentati | [facility] | Concetta Camara, | | | 2013 | on | MED CNT ONCOLOGY | OT [address] | | | | | THERAPY [address] | [place] | | | | | [place], | [address] | | | | | [place] [address] | | | | | | [phone] | | | +--------+ + + + [...] Camara, STERLING - 07/19/2013 11[facility] OP [address] [facility] [address] Cancellation/No Show Date: 07/19/2013 Patient Information Patient [...] | | | | | | [place] [address] | | | | | | [phone] | | | | | | | | +--------+---------+ + + + | 07/30/ | Office | Nephrology | Ismael Gonzalez MD | | | 2019 | Visit | | [address] [facility] | | | | | | [address] [place] | | | | | | [address] | | | | | | | [...]
--- OUTSIDE RECORDS SUMMARY | ~2019-06-19 | XMS | Encounter Summary ---
Demographics + + + | Address | [address] | | | [place] [address] | + + + | Home Phone | | + + + | Preferred Language | Unknown | + + + | Marital Status | | + + + | Congregation Affiliation | Unknown | + + + | Race | Unknown | + + + | Ethnic Group | Unknown | + + + Author + + + | Author | [facility] | | | and Jdana | + + + | Organization | [facility] | | | and [...] Team Providers + +------+ + | Care Blind Escort Name | Role | Phone | + +------+ + | Yosef Morrow MD | PCP | | + +------+ + Encounter Details +--------+ + + + + | Date | Type | Department | Care Team | Description | +--------+ + + + + | 05/07/ | Orders Only | [facility] | Juaquin, | | | 2016 | | RHEUMATOLOGY [address] | [address] | | | | | [address] | [address] | | | | | [place] | [place] [address] | | | | | [address] | [phone] | | | | | [phone] | | | +--------+ + + + [...] 2020 | Visit | | [address] | | | | | | [address] | | | | | | [place] [address] | | | | | | [phone] | | | | | | | | +--------+---------+ + + + | 07/30/ | Office | Nephrology | Ismael Gonzalez MD | | | 2019 | Visit | | [address] [facility] | | | | | | [address] [place] | | | | | | [address] | | | | | | | | +--------+---------+ + + + documented as of this encounter Procedures + +--------+ + + + | Procedure Name | Priori | Date/Time | Associated Diagnosis | Comments | | | ty | | | | + +--------+ + + + | EXTERNAL LAB: AXEL | Routin | 05/07/2016 | | Results [...] + + + | Red Blood | 4.00 | 3.70 - 5.10 | [...]
--- OUTSIDE RECORDS SUMMARY | ~2019-06-19 | XMS | Encounter Summary ---
Demographics + + + | Address | [address] | | | [place] [address] | + + + | Home Phone | | + + + | Preferred Language | Unknown | + + + | Marital Status | | + + + | Taoism Affiliation | Unknown | + + + | Race | Unknown | + + + | Ethnic Group | Unknown | + + + Author + + + | Author | [facility] | | | and Jdana | + + + | Organization | [facility] | | | and [...] Team Providers + +------+ + | Care Bee Tender Name | Role | Phone | + +------+ + | Yosef Morrow MD | PCP | | + +------+ + Encounter Details +--------+ + + + + | Date | Type | Department | Care Team | Description | +--------+ + + + + | 05/07/ | Orders Only | [facility] | Juaquin, | | | 2016 | | RHEUMATOLOGY [address] | [address] | | | | | [address] | [address] | | | | | [place] | [place] [address] | | | | | [address] | [phone] | | | | | [phone] | | | +--------+ + + + [...] 2020 | Visit | | [address] | | | | | | [address] | | | | | | [place] [address] | | | | | | [phone] | | | | | | | | +--------+---------+ + + + | 07/30/ | Office | Nephrology | Ismael Gonzalez MD | | | 2019 | Visit | | [address] [facility] | | | | | | [address] [place] | | | | | | [address] | | | | | | | [...]
--- OUTSIDE RECORDS SUMMARY | ~2019-06-19 | XMS | Encounter Summary ---
Demographics + + + | Address | [address] | | | [place] [address] | + + + | Home Phone | | + + + | Preferred Language | Unknown | + + + | Marital Status | | + + + | Temple Affiliation | Unknown | + + + | Race | Unknown | + + + | Ethnic Group | Unknown | + + + Author + + + | Author | [facility] | | | and Jdana | + + + | Organization | [facility] | [...] Team Providers + +------+ + | Care Heel Packer Name | Role | Phone | + +------+ + | Julio Cesar Hawley MD | PCP | | + +------+ + Reason for Visit + + + | Reason | Comments | + + + | Rheumatoid Arthritis | | + + + Encounter Details +--------+---------+ + + + | Date | Type | Department | Care Team | Description | +--------+---------+ + + + | 03/07/ | Office | [facility] | Juaquin, | Rheumatoid arthritis | | 2020 | Visit | RHEUMATOLOGY [address] | [address] | involving multiple | | | | [address] | [address] | sites with positive | | | | [place], [place] | [place] [address] | rheumatoid factor | | | | [address] | [phone] | (HCC) (Primary Dx); | | | | [phone] | | High risk medication | | | | | | use | +--------+---------+ + + + Social History [...] + + documented as of this encounter Last Filed Vital Signs + + + [...] | | + + + + + documented in this encounter Patient Instructions Patient Instructions Luiza Landry, Narrow Gauge Engineer - 03/07/2019 11:10 AM PSTWe hope that you have experienced exceptional care today and that you found our service to be courte ous and helpful. If you have any questions you can send us a message/request using [employer]-Sec or call our o ffice at [phone]. To reach Luiza AGUDELO type extension [phone]. If you are unable to reach a nurse during clinic hours, please leave a detailed message. We check our messages often and return calls in a timely manner during clinic hours. Medication refills- please contact your pharmacy first Orders for labs or imaging: Please remember that Florina will only call you if something i s of concern AND needs to be addressed, otherwise results will be discussed at your next of fice visit. You can also look at your results on [employer]. If you are experiencing an emergency, please call 911 Continue methotrexate 4 tabs once week, plaquenil 2 tabs every day and arava 1 tab every da y documented in this encounter Progress Notes Florina Reza ARNP - 03/07/2019 11:10 AM PSTFormatting of this note might be diffe rent from the original. Subjective: Patient ID: Mignon Mohan is a 74 y.o. female. Reason for visit: Rheumatoid Arthritis Here forFollow up Rheumatological History Patient was diagnosed in 1996 with an initial presentation of pain in the hands/feet. Serology: Unable to locate data from 2000 Pertinent Imagin- X-rays H/F- Erosive changes in hands and feet HPI Last visit:09/22/2018 Changes in overall health since last visit: No Main Concern: RA-overall she is doing well on current regimen. She states that she is taki ng leflunomide 1 tab a day not every other day She states that she has tried to increase iron intake in her diet to improve symptoms of an emia Denies joint pain, swelling, AM stiffness > 30 minutes, fevers, illness, infection, rashes, oral ulcers, chest pain, SOB or abdominal pain Current medications:Plaquenil 400 mg QD (refilled by PCP), Methotrexate 10 mg once per w [place] (dose dec.due to mild anemia and changes in renal function), Folic acid 2 mg QD, Arava 20 mg QD Previous Medications tried and failed: Enbrel-respiratory infections The following portions of the patient's history were reviewed and updated as appropriate an d is available elsewhere in the record: allergies, current medications, past family history, past social history, past surgical history and problem list. Past Medical History: Diagnosis Date Anemia Hypertension Osteoarthritis Review of Systems Constitutional: Negative for fatigue and fever. HENT: Negative for mouth sores. Eyes: Negative for pain and redness. Respiratory: Negative for cough and shortness of breath. Cardiovascular: Negative for chest pain. Gastrointestinal: Positive for abdominal pain and diarrhea. Negative for blood in stool. Genitourinary: Negative for dysuria and hematuria. Musculoskeletal: Negative for arthralgias and joint swelling. Skin: Negative for rash. Neurological: Negative for numbness and headaches. Psychiatric/Behavioral: The patient is not nervous/anxious. IFlorina, reviewed the above ROS, all other systems are reviewed and nega tive Objective: BP 123/87 | Pulse 96 | Temp 36.4 C (97.6 F) | Ht 1.575 m (5' 2") | Wt 45.8 kg (101 lb) | No | BMI 18.47 kg/m Physical Exam Constitutional: Appearance: She is well-developed. HENT: Head: Normocephalic. Eyes: Pupils: Pupils are equal, round, and reactive to light. Cardiovascular: Rate and Rhythm: Normal rate and regular rhythm. Heart sounds: Normal heart sounds. Pulmonary: Effort: Pulmonary effort is normal. Breath sounds: Normal breath sounds. Musculoskeletal: Normal range of motion. Comments: Musculoskeletal examination of the RIGHT and LEFT upper extremity, RIGHT and L EFT lower extremity, spine, ribs ,pelvis ,head and neck was performed See homonculus Musculoskeletal examination reveals chronic rheumatoid changes with MCP subluxation and uln ar deviation and forefoot deformities Skin: General: Skin is warm and dry. Neurological: Mental Status: She is alert and oriented to person, place, and time. Psychiatric: Behavior: Behavior normal. There is currently no information documented on the homunculus. Go to the Rheumatology acti juvenal and complete the homunculus joint exam. ZAMORA-28 (ESR): 3.01 (Low disease activity) I Luiza AGUDELO am personally using the homunculus tool during Florina SALINAS patient exam. Labs reviewed in [facility] --09/22/201805/30- Neg.IEP 2018hep b/c neg. Eye exam- 08/2018-satisfactory Tb- negative 10/2017 Reviewed chart notes, labs and imaging form other provider(s) since the last visit. Assessment and Plan: Visit Diagnoses and Associated Orders: Rheumatoid arthritis involving multiple sites with positive rheumatoid factor (HCC) (Primar y) Assessment & Plan: No clinical evidence of active disease on today's exam. Responding well to current treatment plan. No change in treatment plan. Patient understands that treatment is exterminator termite and if patient fails to continue regimen , the disease has propensity to flare. RTC 3-4 mos High risk medication use Assessment & Plan: Update labs today and continue to monitor closely while on DMARD and/or biologic medication . Counseled regarding medication compliance as well as potential toxicities with medication s such as cytopenias, liver abnormalities and risks for infection, and the need for routine blood work monitoring. Other orders - leflunomide (ARAVA) 20 mg tablet; Take 1 tablet by mouth Daily. Dispense: 90 tablet; Refill: 0 - hydroxychloroquine (PLAQUENIL) 200 mg tablet; Take 1 tablet by mouth 2 times daily. Dispense: 180 tablet; Refill: 0 Risks and benefits of a treatment plan were explained to patient. Patient will follow up with their primary care physician in regards to non-rheumatological symptoms listed under review of systems. Patient was advised to contact our office if there are any change in their symptoms. This document has been prepared with App[employer]rick voice recognition system. The possibility of "s ound alike" casino slot supervisor errors, and additions, or deletions may occur. If there is any que stion with respect to clarity of the message being conveyed, please contact me directly for clarification. documented in this encounter Plan of Treatment +--------+---------+ + + + | Date | Type | Specialty | Care Team | Description | +--------+---------+ + + + | 06/28/ | Office | Rheumatology | Juaquin, | | | 2019 | Visit | | [address] | | | | | | [address] | | | | | | [place] [address] | | | | | | [phone] | | | | | | | | +--------+---------+ + + + | 07/30/ | Office | Nephrology | Ismael Gonzalez MD | | | 2019 | Visit | | [address] [facility] | | | | | | [address] [place] | | | | | | [address] | | | | | | | | +--------+---------+ + + + documented as of this encounter Visit Diagnoses + + | Diagnosis | + + | Rheumatoid arthritis involving multiple sites with positive rheumatoid factor (HCC) - | | Primary | + + | High risk medication use Encounter for long-term (current) use of other medications | + + documented in this encounter
--- OUTSIDE RECORDS SUMMARY | ~2019-06-19 | XMS | Clinical Summary ---
Demographics + + + | Address | [address] | | | [place] [address] | + + + | Home Phone | | + + + | Preferred Language | Unknown | + + + | Marital Status | | + + + | Jain Affiliation | Unknown | + + + | Race | Unknown | + + + | Ethnic Group | Unknown | + + + Author + + + | Author | [facility] (Historical as of | | | 10-01-18) | + + + | Organization | [facility] (Historical as of | | | 10-01-18) [...] Team Providers + +------+ + | Care Ornamental Metal Worker Apprentice Name | Role | Phone | + [...] | | | | | | | ([facility]), High risk | | | | | [...] +------+-------+ + | MEDICARE | MEDICA | [id number] | | | [address] | | | RE | | | | [place] [phone] | | | IP-OP | | | | | + +--------+ +------+-------+ + | ODS HEALTH PLAN | ODS | [id number] | | | | | | HEALTH [...] | | al/Fam | | 1945 | [phone] [place] | | | rakan | | | [phone] | [phone] | + +--------+ +--------+ + +
--- OUTSIDE RECORDS SUMMARY | ~2019-06-19 | XMS | Clinical Summary ---
Demographics + + + | Address | [address] | | | [place] [address] | + + + | Home Phone [...] Author | [facility] | | | and Jdana | + + + | Organization | [facility] [...] Team Providers + +------+ + | Care Catering Truck Driver Name | Role | Phone | + [...] Patient understands that | | treatment is termination clerk and if patient fails to continue regimen [...] | | | | | | disease) ([facility]); | | | | | | Dysfunction [...] 2019 | Visit | | [address] | | | | | | [address] | | | | | | [place] [address] | | | | | | [phone] | | | | | | | | +--------+---------+ + + + | 07/30/ | Office | Nephrology | Ismael Gonzalez MD | | | 2019 | Visit | | [address] [facility] | | | | | | [address] [place] | | | | | | [address] | | | | | | | [...] + +--------+ | MEDICARE | MEDICA | [id number] | | [phone] | | Medica | | | RE | | 010-Pr | 5 | | re | | | PART A | | esent | | | | | | AND B | | | | | | + +--------+ +--------+ + +--------+ | MEDICARE | MEDICA | [id number] | 10/17/19 | [phone] | | Medica | | | RE | | 12-Pre | 5 | | re | | | PART A | | sent | | | | | | AND B | | | | | | + +--------+ +--------+ + +--------+ | MODA | MODA | [id number] | 02/15/19 | [phone] | [address] | Indemn | | | HEALTH | | 13-Pre | 9 | [phone] | ity | | | MDCR | | sent | | [place], | | | | [place] | | | | [place] [address] | | + +--------+ +--------+ + +--------+ | MODA | MODA | [id number] | 02/15/19 | [phone] | [address] | Indemn | | | HEALTH | | 19-Pre | 9 | [phone] | ity | | | MDCR | | sent | | [place], | | | | [place] | | | | [place] [address] | | + +--------+ +--------+ + +--------+ [...] | | al/Fam | | 1945 | [phone] | [place] [address] | | | rakan | | | 4 (Home) | | + +--------+ +--------+ + + | Mignon Mohan | Person | Self | [birth year] | [address] | | | al/Fam | | 1945 | [phone] | [place] [address] | | | rakan | | | 4 (Home) | | + +--------+ +--------+ + + Advance Directives + + + + + | Type | Date Recorded | Patient | Explanation | | | | Director Online Marketing | | + + + + + | Power of | | | | | Home Coordinator | | | | + + + + + | Advance | | | | | Directive | | | | + + + + +
--- OUTSIDE RECORDS SUMMARY | ~2019-06-19 | XMS | Encounter Summary ---
Demographics + + + | Address | [address] | | | [place] [address] | + + + | Home Phone | | + + + | Preferred Language | Unknown | + + + | Marital Status | | + + + | Roman Catholic Affiliation | Unknown | + + + | Race | Unknown | + + + | Ethnic Group | Unknown | + + + Author + + + | Author | [facility] | | | and Jdana | + + + | Organization | [facility] | | [...] Team Providers + +------+ + | Care Custom Studio Coordinator Name | Role | Phone | [...] + + | 01/28/ | Telephone | [facility] | Juaquin, | Results | | 2019 | | RHEUMATOLOGY [address] | Florina Case, SITE AUDITOR [address] | | | | | [address] | [address] | | | | | [place], [place] | [place] [address] | | | | | [address] | [phone] | | | | | [phone] | | | +--------+ + + + [...] | | | | | | [place] [address] | | | | | | [phone] | | | | | | | | +--------+---------+ + + + | 07/30/ | Office | Nephrology | Ismael Gonzalez MD | | | 2019 | Visit | | [address] [facility] | | | | | | [address] [place] | | | | | | [address] | | | | | | | | +--------+---------+ + + + documented as of this encounter Visit Diagnoses Not on filedocumented in this encounter"
--- OUTSIDE RECORDS SUMMARY | ~2019-06-19 | XMS | Encounter Summary ---
Demographics + + + | Address | [address] | | | [place] [address] | + + + | Home Phone [...] Author | [facility] | | | and Jdana | + + + | Organization | [facility] | [...] Team Providers + +------+ + | Care Cat Tender Name | Role | Phone | [...] + + | 01/28/ | Telephone | [facility] | Juaquin, | Results | | 2019 | | RHEUMATOLOGY [address] | Florina Case, ABRASIVE WORKER [address] | | | | | [address] | [address] | | | | | [place], [place] | [place] [address] | | | | | [address] | [phone] | | | | | [phone] | | | +--------+ + + + [...] | | | | | | [place] [address] | | | | | | [phone] | | | | | | | | +--------+---------+ + + + | 07/30/ | Office | Nephrology | Ismael Gonzalez MD | | | 2019 | Visit | | [address] [facility] | | | | | | [address] [place] | | | | | | [address] | | | | | | | | +--------+---------+ + + + documented as of this encounter Visit Diagnoses Not on filedocumented in this encounter"
--- OUTSIDE RECORDS SUMMARY | ~2019-06-19 | XMS | Encounter Summary ---
Demographics + + + | Address | [address] | | | [place] [address] | + + + | Home Phone | | + + + | Preferred Language | Unknown | + + + | Marital Status | | + + + | Religion Affiliation | Unknown | + + + | Race | Unknown | + + + | Ethnic Group | Unknown | + + + Author + + + | Author | [facility] | | | and Jdana | + + + | Organization | [facility] | | | and Jdana [...] Team Providers + +------+ + | Care Primer Expeditor And Drier Name | Role | Phone | + [...] + + | 06/06/ | Refill | [facility] | Clarain, | Medication Refill | | 2019 | | RHEUMATOLOGY [address] | Florina Case, [facility] [address] | | | | | [address] | [address] | | | | | [place], [place] | [place] [address] | | | | | [address] | [phone] | | | | | [phone] | | | +--------+--------+ + + + [...] [address] | | | | | | [place] [address] | | | | | | [phone] | | | | | | | | +--------+---------+ + + + | 07/30/ | Office | Nephrology | Ismael Gonzalez MD | | | 2019 | Visit | | [address] [facility] | | | | | | [address] | | | | | | [address] | | | | | | | | +--------+---------+ + + + documented as of this encounter Visit Diagnoses + + | Diagnosis | + + | Rheumatoid arthritis involving multiple sites with positive rheumatoid factor (HCC) - | | Primary | + + documented in this encounter"
--- OUTSIDE RECORDS SUMMARY | ~2019-06-19 | XMS | Encounter Summary ---
Demographics + + + | Address | [address] | | | [place] [address] | + + + | Home Phone | | + + + | Preferred Language | Unknown | + + + | Marital Status | | + + + | Presybeterian Affiliation | Unknown | + + + | Race | Unknown | + + + | Ethnic Group | Unknown | + + + Author + + + | Author | [facility] | | | and Jdana | + + + | Organization | [facility] | | [...] Team Providers + +------+ + | Care Order Management Specialist Name | Role | Phone | [...] [address] | | | | | [place], | [address] | | | | | [place] [address] | | | | | | [phone] | | | +--------+ + + + [...] [facility] THERAPY OT OP [address] [place] [address] Occupational Therapy Discharge Note This discharge is [...] 2019 | Visit | | Florina Case [facility] [address] | | | | | | [address] | | | | | | [place] [address] | | | | | | [phone] | | | | | | | | +--------+---------+ + + + | 07/30/ | Office | Nephrology | Ismael Gonzalez MD | | 2019 | Visit | | [address] | | | | | | [address] [place] | | | | | | [address] | | | | | | | [...]
--- OUTSIDE RECORDS SUMMARY | ~2019-06-19 | XMS | Encounter Summary ---
Demographics + + + | Address | [address] | | | [place] [address] | + + + | Home Phone [...] | Author | [facility] | | | and Jdana | + + + | Organization | [facility] | | | and Jdana [...] Team Providers + +------+ + | Care Equity Trader Name | Role | Phone | + [...] arthroplasty | [address] | [address] [place] | | | | | | [place] | [place], | | | | | Procedures | [place], [place] | [place] [address] | | | | | ot eval | [address] | Phone: | | | | | | Phone: | [phone] | | | | | | [phone] | Fax: | | | | | | Fax: | [phone] | | | | | | [phone] | | +--------+--------+ + + + + [...] Stiffness of hand | | | | [place] [place], | [place] [address] | joint, left; | | | | [place] [address] | [phone] | Weakness of hand; | | | | [phone] | | HTN (hypertension); | | | | | Mahendra, Mady A, OT | Low back pain; | | | | | [address] | Osteoporosis; | | | | | [place], [place] | Rheumatoid arthritis | | | | | [address] | (HCC) | | | | | [...] might be different fr om the original. [facility] CTR THERAPY OT OP [address] [address] Occupational Therapy Daily Treatment Note Date: 08/10/2013 [...] [address] | | | | | | [place] [address] | | | | | | [phone] | | | | | | | | +--------+---------+ + + + | 07/30/ | Office | Nephrology | Ismael Gonzalez MD | | | 2019 | Visit | | [address] [facility] | | | | | | [address] [place] | | | | | | [address] | | | | | | | [...]
--- OUTSIDE RECORDS SUMMARY | ~2019-06-19 | XMS | Encounter Summary ---
Demographics + + + | Address | [address] | | | [place] [address] | + + + | Home Phone [...] [facility] | | | and Jdana | + + + | Organization | [facility] | | | and Jdana [...] Team Providers + +------+ + | Care Beam Builder Helper Name | Role | Phone | + [...] + + | 06/06/ | Refill | [facility] | Clarain, | Medication Refill | | 2019 | | RHEUMATOLOGY [address] | Florina Case, [facility] [address] | | | | | [address] | [address] | | | | | [place], [place] | [place] [address] | | | | | [address] | [phone] | | | | | [phone] | | | +--------+--------+ + + + [...] [address] | | | | | | [place] [address] | | | | | | [phone] | | | | | | | | +--------+---------+ + + + | 07/30/ | Office | Nephrology | Ismael Gonzalez MD | | | 2019 | Visit | | [address] [facility] | | | | | | [address] | | | | | | [address] | | | | | | | | +--------+---------+ + + + documented as of this encounter Visit Diagnoses + + | Diagnosis | + + | Rheumatoid arthritis involving multiple sites with positive rheumatoid factor (HCC) - | | Primary | + + documented in this encounter"
--- OUTSIDE RECORDS SUMMARY | ~2019-06-19 | XMS | Encounter Summary ---
Demographics + + + | Address | [address] | | | [place] [address] | + + + | Home Phone | | + + + | Preferred Language | Unknown | + + + | Marital Status | | + + + | Methodist Affiliation | Unknown | + + + | Race | Unknown | + + + | Ethnic Group | Unknown | + + + Author + + + | Author | [facility] | | | and Jdana | + + + | Organization | [facility] | | | and Jdana [...] Team Providers + +------+ + | Care Civil Transportation Engineer Name | Role | Phone | [...] arthroplasty | [address] | [address] [place] | | | | | | [place] | [place], | | | | | Procedures | [place], [place] | [place] [address] | | | | | ot eval | [address] | Phone: | | | | | | Phone: | [phone] | | | | | | [phone] | Fax: | | | | | | Fax: | [phone] | | | | | | [phone] | | +--------+--------+ + + + + [...] Dx); Hx of | | | | [place], | [place] [address] | arthroplasty; | | | | [place] [address] | [phone] | Weakness of hand; | | | | [phone] | | HTN (hypertension); | | | | | Mahendra, Mady A, OT | Low back pain; | | | | | [address] | Osteoporosis; | | | | | [place] | Rheumatoid arthritis | | | | | [address] | (HCC) | | | | | [...] might be different fr om the original. [facility] CTR THERAPY OT OP [address] [address] Occupational Therapy Daily Treatment Note Date: 07/26/2013 [...] [address] | | | | | | [place] [address] | | | | | | [phone] | | | | | | | | +--------+---------+ + + + | 07/30/ | Office | Nephrology | Ismael Gonzalez MD | | | 2019 | Visit | | [address] [facility] | | | | | | [address] [place] | | | | | | [address] | | | | | | | [...]
--- OUTSIDE RECORDS SUMMARY | ~2019-06-19 | XMS | Encounter Summary ---
Demographics + + + | Address | [address] | | | [place] [address] | + + + | Home Phone | | + + + | Preferred Language | Unknown | + + + | Marital Status | | + + + | Holiness Affiliation | Unknown | + + + | Race | Unknown | + + + | Ethnic Group | Unknown | + + + Author + + + | Author | [facility] | | | and Jdana | + + + | Organization | [facility] | [...] Team Providers + +------+ + | Care Third Miller Name | Role | Phone | + [...] + + | 12/13/ | Refill | [facility] | Juaquin, | Medication Refill; | | 2018 | | RHEUMATOLOGY [address] | Florina Case FITTER'S ASSISTANT [address] | Medication Refill | | | | [address] | [address] | | | | | [place], [place] | [place] [address] | | | | | [address] | [phone] | | | | | [phone] | | | +--------+--------+ + + + [...] | | | | | [place] [address] | | | | | | [phone] | | | | | | | | +--------+---------+ + + + | 07/30/ | Office | Nephrology | Ismael Gonzalez MD | | | 2019 | Visit | | [address] | | | | | | [address] [place] | | | | | | [address] | | | | | | | | +--------+---------+ + + + documented as of this encounter Visit Diagnoses Not on filedocumented in this encounter"
--- OUTSIDE RECORDS SUMMARY | ~2019-06-19 | XMS | Encounter Summary ---
Demographics + + + | Address | [address] | | | [place] [address] | + + + | Home Phone | | + + + | Preferred Language | Unknown | + + + | Marital Status | | + + + | Faith Affiliation | Unknown | + + + | Race | Unknown | + + + | Ethnic Group | Unknown | + + + Author + + + | Author | [facility] | | | and Jdana | + + + | Organization | [facility] | | | and Jdana [...] Providers + +------+ + | Care Computer Programmer Chief Name | Role | Phone | + +------+ + PCP | Unavailable | + +------+ + Encounter Details +--------+ + + + + | Date | Type | Department | Care Team | Description | +--------+ + + + + | 12/23/ | Hospital | [facility] | | | | 2005 | Encounter | MED CTR XRAY [address] | | | | | | [address] | | | | | | [place] [address] | | | | | | [phone] | | | +--------+ + + + [...] 2019 | Visit | | [address] | | | | | | [address] [place] | | | | | | [place] [address] | | | | | | [phone] | | | | | | | | +--------+---------+ + + + | 06/15/ | Office | Nephrology | Ismael Gonzalez MD | | | 2019 | Visit | | [address] [facility] | | | | | | [address] [place] | | | | | | [address] | | | | | | | | +--------+---------+ + + + documented as of this encounter Visit Diagnoses Not on filedocumented in this encounter"
--- OUTSIDE RECORDS SUMMARY | ~2019-06-19 | XMS | Encounter Summary ---
Demographics + + + | Address | [address] | | | [place] [address] | + + + | Home Phone | | + + + | Preferred Language | Unknown | + + + | Marital Status | | + + + | Confucianism Affiliation | Unknown | + + + | Race | Unknown | + + + | Ethnic Group | Unknown | + + + Author + + + | Author | [facility] | | | and Jdana | + + + | Organization | [facility] | | | and Jdana | [...] Team Providers + +------+ + | Care Glue Spreader Name | Role | Phone | + [...] arthroplasty | [address] | [address] | | | | | | [place] | [place], | | | | | Procedures | [place], [place] | [place] [address] | | | | | ot eval | [address] | Phone: | | | | | | Phone: | [phone] | | | | | | [phone] | Fax: | | | | | | Fax: | [phone] | | | | | | [phone] | | +--------+--------+ + + + + [...] Stiffness of hand | | | | [address] [place], | [place] [address] | joint, left; | | | | [place] [address] | [phone] | Weakness of hand; | | | | [phone] | | HTN (hypertension); | | | [...] Landa COTA - 08/14/2013 3:14 PM PDT [facility] THERAPY OT OP [address] [place] [address] Occupational Therapy Daily Treatment Note Date: 08/14/2013 [...] | | | | | | [place] [address] | | | | | | [phone] | | | | | | | | +--------+---------+ + + + | 07/30/ | Office | Nephrology | Ismael Gonzalez MD | | | 2019 | Visit | | [address] [facility] | | | | | | [address] [place] | | | | | | [address] | | | | | | | [...]
--- OUTSIDE RECORDS SUMMARY | ~2019-06-19 | XMS | Encounter Summary ---
Demographics + + + | Address | [address] | | | [place] [address] | + + + | Home Phone [...] | Author | [facility] | | | and Jdana | + + + | Organization | [facility] | | | and Jdana [...] Team Providers + +------+ + | Care Executive Secretary Name | Role | Phone | + +------+ + | Yosef Morrow MD | PCP | | + +------+ + Encounter Details +--------+ + + + + | Date | Type | Department | Care Team | Description | +--------+ + + + + | 05/07/ | Orders Only | [facility] | Juaquin, | | | 2016 | | RHEUMATOLOGY [address] | [address] | | | | | [address] | [address] [place] | | | | | [place] | [place] [address] | | | | | [address] | [phone] | | | | | [phone] | | | +--------+ + + + [...] 2020 | Visit | | [address] | | | | | | [address] [place] | | | | | | [place] [address] | | | | | | [phone] | | | | | | | | +--------+---------+ + + + | 07/30/ | Office | Nephrology | Ismael Gonzalez MD | | | 2019 | Visit | | [address] [facility] | | | | | | [address] [place] | | | | | | [address] | | | | | | | [...]
--- OUTSIDE RECORDS SUMMARY | ~2019-06-19 | XMS | Encounter Summary ---
Demographics + + + | Address | [address] | | | [place] [address] | + + + | Home Phone [...] | [facility] | | | and Jdana | + + + | Organization | [facility] | | | and [...] Team Providers + +------+ + | Care Talent Management Manager Name | Role | Phone | [...] + + | 01/28/ | Telephone | [facility] | Juaquin, | Results | | 2019 | | RHEUMATOLOGY [address] | Florina Case, TRAFFIC REPRESENTATIVE [address] | | | | | [address] | [address] | | | | | [place], [place] | [place] [address] | | | | | [address] | [phone] | | | | | [phone] | | | +--------+ + + + [...] | | | | | | [place] [address] | | | | | | [phone] | | | | | | | | +--------+---------+ + + + | 07/30/ | Office | Nephrology | Ismael Gonzalez MD | | | 2019 | Visit | | [address] [facility] [facility] | | | | | | [address] [place] | | | | | | [address] | | | | | | | | +--------+---------+ + + + documented as of this encounter Visit Diagnoses Not on filedocumented in this encounter"
--- OUTSIDE RECORDS SUMMARY | ~2019-06-19 | XMS | Encounter Summary ---
Demographics + + + | Address | [address] | | | [place] [address] | + + + | Home Phone [...] Author | [facility] | | | and Jdana | + + + | Organization | [facility] | | | and dJana | [...] Team Providers + +------+ + | Care Postal Supervisor Name | Role | Phone | [...] arthroplasty | [address] | [address] [place] | | | | | | [place] | [place], | | | | | Procedures | [place], [place] | [place] [address] | | | | | ot eval | [address] | Phone: | | | | | | Phone: | [phone] | | | | | | [phone] | Fax: | | | | | | Fax: | [phone] | | | | | | [phone] | | +--------+--------+ + + + + [...] Dx); Hx of | | | | [address] [place], | [place] [address] | arthroplasty; | | | | [place] [address] | [phone] | Weakness of hand; | | | | [phone] | | HTN (hypertension); | | | | | Mahendra, Mady A, OT | Low back pain; | | | | | [address] | Osteoporosis; | | | | | [place] | Rheumatoid arthritis | | | | | [address] | (HCC) | | | | | [...] be different fr om the original. [facility] THERAPY OT OP [address] [address] Occupational Therapy Daily Treatment Note Date: 07/24/2013 [...] [place] | | | | | | [place] [address] | | | | | | [phone] | | | | | | | | +--------+---------+ + + + | 07/30/ | Office | Nephrology | Ismael Gonzalez MD | | 2019 | Visit | | [address] [facility] | | | | | | [address] [place] | | | | | | [address] | | | | | | | [...]
--- OUTSIDE RECORDS SUMMARY | ~2019-06-19 | XMS | Encounter Summary ---
Demographics + + + | Address | [address] | | | [place] [address] | + + + | Home Phone [...] | Author | [facility] | | | and Jdana | + + + | Organization | [facility] | | | and Jdana [...] Team Providers + +------+ + | Care Cupola Melter Name | Role | Phone | + [...] + + | 01/28/ | Telephone | [facility] | Juaquin, | Results | | 2019 | | RHEUMATOLOGY [address] | Florina Case, EXHIBIT CARPENTER [address] | | | | | [address] | [address] | | | | | [place], [place] | [place] [address] | | | | | [address] | [phone] | | | | | [phone] | | | +--------+ + + + [...] | | | | | [place] [address] | | | | | | [phone] | | | | | | | | +--------+---------+ + + + | 07/30/ | Office | Nephrology | Ismael Gonzalez MD | | | 2019 | Visit | | [address] [facility] | | | | | | [address] [place] | | | | | | [address] | | | | | | | | +--------+---------+ + + + documented as of this encounter Visit Diagnoses Not on filedocumented in this encounter"
--- OUTSIDE RECORDS SUMMARY | ~2019-06-19 | XMS | Encounter Summary ---
Demographics + + + | Address | [address] | | | [place] [address] | + + + | Home Phone | | + + + | Preferred Language | Unknown | + + + | Marital Status | | + + + | Mandaeism Affiliation | Unknown | + + + | Race | Unknown | + + + | Ethnic Group | Unknown | + + + Author + + + | Author | [facility] | | | and Jdana | + + + | Organization | [facility] | | | and Jdana [...] Team Providers + +------+ + | Care Patient Transition Specialist Name | Role | Phone | + +------+ + | Yosef Morrow MD | PCP | | + +------+ + Encounter Details +--------+ + + + + | Date | Type | Department | Care Team | Description | +--------+ + + + + | 05/05/ | Orders Only | [facility] | Juaquin, | | | 2015 | | RHEUMATOLOGY [address] | [address] | | | | | [address] | [address] | | | | | [place] | [place] [address] | | | | | [address] | [phone] | | | | | [phone] | | | +--------+ + + + [...] 2020 | Visit | | [address] | | | | | | [address] | | | | | | [place] [address] | | | | | | [phone] | | | | | | | | +--------+---------+ + + + | 07/30/ | Office | Nephrology | Ismael Gonzalez MD | | | 2019 | Visit | | [address] [facility] | | | | | | [address] [place] | | | | | | [address] | | | | | | | [...]
--- OUTSIDE RECORDS SUMMARY | ~2019-06-19 | XMS | Encounter Summary ---
Demographics + + + | Address | [address] | | | [place] [address] | + + + | Home Phone [...] | Author | [facility] | | | and Jdana | + + + | Organization | [facility] | | | and [...] Team Providers + +------+ + | Care Proj Mgr Name | Role | Phone | + +------+ + | Yosef Morrow MD | PCP | | + +------+ + Encounter Details +--------+ + + + + | Date | Type | Department | Care Team | Description | +--------+ + + + + | 05/05/ | Orders Only | [facility] | Juaquin, | | | 2015 | | RHEUMATOLOGY [address] | [address] | | | | | [address] | [address] | | | | | [place] | [place] [address] | | | | | [address] | [phone] | | | | | [phone] | | | +--------+ + + + [...] 2020 | Visit | | [address] | | | | | | [address] | | | | | | [place] [address] | | | | | | [phone] | | | | | | | | +--------+---------+ + + + | 07/30/ | Office | Nephrology | Ismael Gonzalez MD | | | 2019 | Visit | | [address] [facility] | | | | | | [address] [place] | | | | | | [address] | | | | | | | [...]
--- OUTSIDE RECORDS SUMMARY | ~2019-06-19 | XMS | Encounter Summary ---
Demographics + + + | Address | [address] | | | [place] [address] | + + + | Home Phone [...] + | Author | [facility] | | | and Jdana | + + + | Organization | [facility] | | | and [...] Team Providers + +------+ + | Care Regional Production Manager Name | Role | Phone | [...] + + | 06/06/ | Refill | [facility] | Clarain, | Medication Refill | | 2019 | | RHEUMATOLOGY [address] | Florina Case, [facility] [address] | | | | | [address] | [address] | | | | | [place], [place] | [place] [address] | | | | | [address] | [phone] | | | | | [phone] | | | +--------+--------+ + + + [...] [place] | | | | | | [place] [address] | | | | | | [phone] | | | | | | | | +--------+---------+ + + + | 07/30/ | Office | Nephrology | Ismael Gonzalez MD | | | 2019 | Visit | | [address] [facility] | | | | | | [address] | | | | | | [address] | | | | | | | | +--------+---------+ + + + documented as of this encounter Visit Diagnoses + + | Diagnosis | + + | Rheumatoid arthritis involving multiple sites with positive rheumatoid factor (HCC) - | | Primary | + + documented in this encounter"
--- OUTSIDE RECORDS SUMMARY | ~2019-06-19 | XMS | Encounter Summary ---
Demographics + + + | Address | [address] | | | [place] [address] | + + + | Home Phone | | + + + | Preferred Language | Unknown | + + + | Marital Status | | + + + | Yazidism Affiliation | Unknown | + + + | Race | Unknown | + + + | Ethnic Group | Unknown | + + + Author + + + | Author | [facility] | | | and Jdana | + + + | Organization | [facility] | | | and Jdana [...] Team Providers + +------+ + | Care Steward/Stewardess Name | Role | Phone | + +------+ + | Yosef Morrow MD | PCP | | + +------+ + Encounter Details +--------+ + + + + | Date | Type | Department | Care Team | Description | +--------+ + + + + | 08/05/ | Orders Only | [facility] | Juaquin, | | | 2015 | | RHEUMATOLOGY [address] | [address] | | | | | [address] | [address] | | | | | [place] | [place] [address] | | | | | [address] | [phone] | | | | | [phone] | | | +--------+ + + + [...] 2020 | Visit | | [address] | | | | | | [address] | | | | | | [place] [address] | | | | | | [phone] | | | | | | | | +--------+---------+ + + + | 07/30/ | Office | Nephrology | Ismael Gonzalez MD | | | 2019 | Visit | | [address] [facility] | | | | | | [address] [place] | | | | | | [address] | | | | | | | | +--------+---------+ + + + documented as of this encounter Procedures + +--------+ + + + | Procedure Name | Priori | Date/Time | Associated Diagnosis | Comments | | | ty | | | | + +--------+ + + + | EXTERNAL LAB: AXEL | Routin | 08/06/2015 | | Results [...] | | | | | performed at [facility] | | | | | | [place] | | | | | | Diagnostics, [address] | | | | | | [address] | | | | | | [place] [address] | | | | + + + [...] | | | | | performed at [facility] | | | | | | [place] | | | | | | Diagnostics, [address] | | | | | | [address] | | | | | | [place] [address] | | | | + + + [...] | | | | | performed at [facility] | | | | | | [place] | | | | | | Diagnostics, [address] | | | | | | [address] | | | | | | [place] [address] | | | | + + + [...] [place] | | | | | | [address] | | | | + + + [...]
--- OUTSIDE RECORDS SUMMARY | ~2019-06-19 | XMS | Encounter Summary ---
Demographics + + + | Address | [address] | | | [place] [address] | + + + | Home Phone | | + + + | Preferred Language | Unknown | + + + | Marital Status | | + + + | Zoroastrianism Affiliation | Unknown | + + + | Race | Unknown | + + + | Ethnic Group | Unknown | + + + Author + + + | Author | [facility] | | | and Jdana | + + + | Organization | [facility] | | | and [...] Team Providers + +------+ + | Care Air Export Logistics Manager Name | Role | Phone | + +------+ + | Yosef Morrow MD | PCP | | + +------+ + Encounter Details +--------+ + + + + | Date | Type | Department | Care Team | Description | +--------+ + + + + | 08/05/ | Orders Only | [facility] | Juaquin, | | | 2015 | | RHEUMATOLOGY [address] | [address] | | | | | [address] | [address] | | | | | [place] | [place] [address] | | | | | [address] | [phone] | | | | | [phone] | | | +--------+ + + + [...] 2020 | Visit | | [address] | | | | | | [address] | | | | | | [place] [address] | | | | | | [phone] | | | | | | | | +--------+---------+ + + + | 07/30/ | Office | Nephrology | Ismael Gonzalez MD | | | 2019 | Visit | | [address] [facility] | | | | | | [address] [place] | | | | | | [address] | | | | | | | [...] | | | | | performed at [facility] | | | | | | [place] | | | | | | Diagnostics, [address] | | | | | | [address] | | | | | | [place] [address] | | | | + + + [...] | | | | | performed at [facility] | | | | | | [place] | | | | | | Diagnostics, [address] | | | | | | [address] | | | | | | [place] [address] | | | | + + + [...] | | | | | performed at [facility] | | | | | | [place] | | | | | | Diagnostics, [address] | | | | | | [address] | | | | | | [place] [address] | | | | + + + [...] [place] | | | | | | [address] | | | | + + + [...]
--- OUTSIDE RECORDS SUMMARY | ~2019-06-19 | XMS | Encounter Summary ---
Demographics + + + | Address | [address] | | | [place] [address] | + + + | Home Phone [...] Author | [facility] | | | and Jdana | + + + | Organization | [facility] | | | and Jdana [...] Providers + +------+ + | Care Electrical Contractor Name | Role | Phone | + [...] arthroplasty | [address] | [address] [place] | | | | | | [place] | [place], | | | | | Procedures | [place], [place] | [place] [address] | | | | | ot eval | [address] | Phone: | | | | | | Phone: | [phone] | | | | | | [phone] | Fax: | | | | | | Fax: | [phone] | | | | | | [phone] | | +--------+--------+ + + + + [...] Dx); Hx of | | | | [place], | [place] [address] | arthroplasty; | | | | [place] [address] | [phone] | Weakness of hand; | | | | [phone] | | HTN (hypertension); | | | | | Mahendra, Mady A, OT | Low back pain; | | | | | [address] | Osteoporosis; | | | | | [place] | Rheumatoid arthritis | | | | | [address] | (HCC) | | | | | [...] might be different fr om the original. [facility] THERAPY OT OP [address] [address] Occupational Therapy Daily Treatment Note Date: 07/26/2013 [...] [place] | | | | | | [place] [address] | | | | | | [phone] | | | | | | | | +--------+---------+ + + + | 07/30/ | Office | Nephrology | Ismael Gonzalez MD | | | 2019 | Visit | | [address] [facility] | | | | | | [address] [place] | | | | | | [address] | | | | | | | [...]
--- OUTSIDE RECORDS SUMMARY | ~2019-06-19 | XMS | Encounter Summary ---
Demographics + + + | Address | [address] | | | [place] [address] | + + + | Home Phone [...] | Author | [facility] | | | and Jdana | + + + | Organization | [facility] | | | and [...] Team Providers + +------+ + | Care Hotel Director Name | Role | Phone | + [...] arthroplasty | [address] | [address] [place] | | | | | | [place] | [place], | | | | | Procedures | [place], [place] | [place] [address] | | | | | ot eval | [address] | Phone: | | | | | | Phone: | [phone] | | | | | | [phone] | Fax: | | | | | | Fax: | [phone] | | | | | | [phone] | | +--------+--------+ + + + + [...] Stiffness of hand | | | | [place], | [place] [address] | joint, left; | | | | [place] [address] | [phone] | Weakness of hand; | | | | [phone] | | HTN (hypertension); | | | [...] Landa COTA - 08/14/2013 3:14 PM PDT [facility] THERAPY OT OP [address] [place] [address] Occupational Therapy Daily Treatment Note Date: 08/14/2013 [...] | | | | | | [place] [address] | | | | | | [phone] | | | | | | | | +--------+---------+ + + + | 07/30/ | Office | Nephrology | Ismael Gonzalez MD | | | 2019 | Visit | | [address] [facility] | | | | | | [address] [place] | | | | | | [address] | | | | | | | [...]
--- OUTSIDE RECORDS SUMMARY | ~2019-06-19 | XMS | Encounter Summary ---
Demographics + + + | Address | [address] | | | [place] [address] | + + + | Home Phone [...] | Author | [facility] | | | and Jdana | + + + | Organization | [facility] | | | and [...] Team Providers + +------+ + | Care Masseur/Masseuse Name | Role | Phone | + [...] arthroplasty | [address] | [address] [place] | | | | | | [place] | [place], | | | | | Procedures | [place], [place] | [place] [address] | | | | | ot eval | [address] | Phone: | | | | | | Phone: | [phone] | | | | | | [phone] | Fax: | | | | | | Fax: | [phone] | | | | | | [phone] | | +--------+--------+ + + + + [...] Dx); Hx of | | | | [place], | [place] [address] | arthroplasty; | | | | [place] [address] | [phone] | Weakness of hand; | | | | [phone] | | HTN (hypertension); | | | | | Mahendra, Mady A, OT | Low back pain; | | | | | [address] | Osteoporosis; | | | | | [place] | Rheumatoid arthritis | | | | | [address] | (HCC) | | | | | [...] might be different fr om the original. [facility] THERAPY OT OP [address] [address] Occupational Therapy Daily Treatment Note Date: 08/07/2013 [...] | | | | | [place] [address] | | | | | | [phone] | | | | | | | | +--------+---------+ + + + | 07/30/ | Office | Nephrology | Ismael Gonzalez MD | | | 2019 | Visit | | [address] [facility] | | | | | | [address] [place] | | | | | | [address] | | | | | | | [...]
--- OUTSIDE RECORDS SUMMARY | ~2019-06-19 | XMS | Encounter Summary ---
Demographics + + + | Address | [address] | | | [place] [address] | + + + | Home Phone | | + + + | Preferred Language | Unknown | + + + | Marital Status | | + + + | Yarsanism Affiliation | Unknown | + + + | Race | Unknown | + + + | Ethnic Group | Unknown | + + + Author + + + | Author | [facility] | | | and Jdana | + + + | Organization | [facility] | | | and Jdana [...] Team Providers + +------+ + | Care Political Organizer Name | Role | Phone | + +------+ + | Julio Cesar Hawley MD | PCP | | + +------+ + Encounter Details +--------+ + + + + | Date | Type | Department | Care Team | Description | +--------+ + + + + | 09/11/ | Orders Only | [facility] | Provider, | Other extermination supervisor | | 2019 | | SYSTEM GENERIC OP | MD [address] | (current) drug | | | | [address]VERSION [address] | [address] | therapy; Rheumatoid | | | | [address] [place], [place] | [place] [address] | arthritis of | | | | [address] | | multiple sites | | | | [phone] | | without organ or | | [...] | | | | | [place] [address] | | | | | | [phone] | | | | | | | | +--------+---------+ + + + | 07/30/ | Office | Nephrology | Ismael Gonzalez MD | | | 2019 | Visit | | [address] [place] | | | | | | [address] [facility] | | | | | | [address] | | | | | | | | +--------+---------+ + + + + +------+--------+ + + | Name | Type | Priori | Associated Diagnoses | Order Schedule | | | | ty | | | + +------+--------+ + + | Comprehensive | Lab | Routin | Other custodial | Expected: | | Metabolic Panel | [...] with | Lab | Routin | Other extermination supervisor | 2 Occurrences | | Differential | [...] Comprehensive | Lab | Routin | Other extermination supervisor | 2 Occurrences | | Metabolic Panel [...] Rate | Lab | Routin | Other custodial | 2 Occurrences | | | | [...] factor | | | | | | ([facility]) | | + +------+--------+ + + documented as of this encounter Visit Diagnoses + + | Diagnosis | + + | Other custodial (current) 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 | + + | Rheumatoid arthritis of multiple sites without organ or system involvement with | | positive rheumatoid factor (HCC) | + + documented in this encounter"
--- OUTSIDE RECORDS SUMMARY | ~2019-06-19 | XMS | Encounter Summary ---
Demographics + + + | Address | [address] | | | [place] [address] | + + + | Home Phone | | + + + | Preferred Language | Unknown | + + + | Marital Status | | + + + | Synagogue Affiliation | Unknown | + + + | Race | Unknown | + + + | Ethnic Group | Unknown | + + + Author + + + | Author | [facility] | | | and Jdana | + + + | Organization | [facility] | | | and Jdana [...] Team Providers + +------+ + | Care Hr Administrator Name | Role | Phone | + +------+ + | Yosef Morrow MD | PCP | | + +------+ + Encounter Details +--------+ + + + + | Date | Type | Department | Care Team | Description | +--------+ + + + + | 05/05/ | Orders Only | [facility] | [place], | | | 2015 | | RHEUMATOLOGY [address] | [address] | | | | | [address] | [address] | | | | | [place] | [place] [address] | | | | | [address] | [phone] | | | | | [phone] | | | +--------+ + + + [...] | 2020 | Visit | | [address] | | | | | | [address] | | | | | | [place] [address] | | | | | | [phone] | | | | | | | | +--------+---------+ + + + | 07/30/ | Office | Nephrology | Ismael Gonzalez MD | | | 2019 | Visit | | [address] [facility] | | | | | | [address] [place] | | | | | | [address] | | | | | | | [...]
--- OUTSIDE RECORDS SUMMARY | ~2019-06-19 | XMS | Encounter Summary ---
Demographics + + + | Address | [address] | | | [place] [address] | + + + | Home Phone [...] Author | [facility] | | | and Jdana | + + + | Organization | [facility] | | | and [...] Team Providers + +------+ + | Care Lacing String Cutter Name | Role | Phone | + +------+ + | Yosef Morrow MD | PCP | | + +------+ + Encounter Details +--------+ + + + + | Date | Type | Department | Care Team | Description | +--------+ + + + + | 05/07/ | Orders Only | [facility] | [place], | | | 2016 | | RHEUMATOLOGY [address] | [address] | | | | | [address] | [address] [place] | | | | | [place] | [place] [address] | | | | | [address] | [phone] | | | | | [phone] | | | +--------+ + + + [...] 2020 | Visit | | [address] | | | | | | [address] | | | | | | [place] [address] | | | | | | [phone] | | | | | | | | +--------+---------+ + + + | 07/30/ | Office | Nephrology | Ismael Gonzalez MD | | | 2019 | Visit | | [address] [facility] | | | | | | [address] [place] | | | | | | [address] | | | | | | | [...]
--- OUTSIDE RECORDS SUMMARY | ~2019-06-19 | XMS | Encounter Summary ---
Demographics + + + | Address | [address] | | | [place] [address] | + + + | Home Phone | | + + + | Preferred Language | Unknown | + + + | Marital Status | | + + + | Amish Affiliation | Unknown | + + + | Race | Unknown | + + + | Ethnic Group | Unknown | + + + Author + + + | Author | [facility] | | | and Jdana | + + + | Organization | [facility] | [...] Team Providers + +------+ + | Care Sole Cementer Name | Role | Phone | + +------+ + | Yosef oMrrow MD | PCP | | + +------+ [...] arthroplasty | [address] | [address] | | | | | | [place] | [place], | | | | | Procedures | [place], [place] | [place] [address] | | | | | ot eval | [address] | Phone: | | | | | | Phone: | [phone] | | | | | | [phone] | Fax: | | | | | | Fax: | [phone] | | | | | | [phone] | | +--------+--------+ + + + + [...] Dx); Hx of | | | | [address] [place], | [place] [address] | arthroplasty; | | | | [place] [address] | [phone] | Weakness of hand; | | | | [phone] | | HTN (hypertension); | | | | | Mahendra, Mady A, OT | Low back pain; | | | | | [address] | Osteoporosis; | | | | | [place] | Rheumatoid arthritis | | | | | [address] | (HCC) | | | | | [...] be different fr om the original. [facility] CTR THERAPY OT OP [address] [address] Occupational Therapy Daily Treatment Note Date: 08/07/2013 [...] | | | | | [place] [address] | | | | | | [phone] | | | | | | | | +--------+---------+ + + + | 07/30/ | Office | Nephrology | Ismael Gonzalez MD | | | 2019 | Visit | | [address] [facility] | | | | | | [address] [place] | | | | | | [address] | | | | | | | [...]
--- OUTSIDE RECORDS SUMMARY | ~2019-06-19 | XMS | Encounter Summary ---
Demographics + + + | Address | [address] | | | [place] [address] | + + + | Home Phone | | + + + | Preferred Language | Unknown | + + + | Marital Status | | + + + | Sikh Affiliation | Unknown | + + + | Race | Unknown | + + + | Ethnic Group | Unknown | + + + Author + + + | Author | [facility] | | | and Jdana | + + + | Organization | [facility] [...] Team Providers + +------+ + | Care Appellate Conferee Name | Role | Phone | + +------+ + | Julio Cesar Hawley MD | PCP | | + +------+ + Encounter Details +--------+ + + + + | Date | Type | Department | Care Team | Description | +--------+ + + + + | 09/11/ | Orders Only | [facility] | Provider, | Other watermelon inspector | | 2019 | | SYSTEM GENERIC OP | MD [address] | (current) drug | | | | [address] | [address] | therapy; Rheumatoid | | | | [address] [place], [place] | [place] [address] | arthritis of | | | | [address] | | multiple sites | | | | [phone] | | without organ or | | [...] | | | | | [place] [address] | | | | | | [phone] | | | | | | | | +--------+---------+ + + + | 07/30/ | Office | Nephrology | Ismael Gonzalez MD | | | 2019 | Visit | | [address] [place] | | | | | | [address] [facility] | | | | | | [address] | | | | | | | | +--------+---------+ + + + + +------+--------+ + + | Name | Type | Priori | Associated Diagnoses | Order Schedule | | | | ty | | | + +------+--------+ + + | Comprehensive | Lab | Routin | Other group home | Expected: | | Metabolic Panel | [...] with | Lab | Routin | Other watermelon inspector | 2 Occurrences | | Differential | [...] Comprehensive | Lab | Routin | Other watermelon inspector | 2 Occurrences | | Metabolic Panel [...] Rate | Lab | Routin | Other group home | 2 Occurrences | | | | [...] | | | | | ([facility]) | | + +------+--------+ + + documented as of this encounter Visit Diagnoses + + | Diagnosis | + + | Other group home (current) 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 | + + | Rheumatoid arthritis of multiple sites without organ or system involvement with | | positive rheumatoid factor (HCC) | + + documented in this encounter"
--- OUTSIDE RECORDS SUMMARY | ~2019-06-19 | XMS | Encounter Summary ---
Demographics + + + | Address | [address] | | | [place] [address] | + + + | Home Phone [...] | Author | [facility] | | | and Jdana | + + + | Organization | [facility] | | [...] Team Providers + +------+ + | Care Pipe Roller Name | Role | Phone | + [...] arthroplasty | [address] | [address] | | | | | | [place] | [place], | | | | | Procedures | [place], [place] | [place] [address] | | | | | ot eval | [address] | Phone: | | | | | | Phone: | [phone] | | | | | | [phone] | Fax: | | | | | | Fax: | [phone] | | | | | | [phone] | | +--------+--------+ + + + + [...] Stiffness of hand | | | | [address] [place], | [place] [address] | joint, left; | | | | [place] [address] | [phone] | Weakness of hand; | | | | [phone] | | HTN (hypertension); | | | | | Mahendra, Mady A, OT | Low back pain; | | | | | [address] | Osteoporosis; | | | | | [place] | Rheumatoid arthritis | | | | | [address] | (HCC) | | | | | [...] might be different fr om the original. [facility] CTR THERAPY OT OP [address] [address] Occupational Therapy Initial Assessment Date: 07/18/2013 Patient [...] Status: No current HEP Goal 2: Increase editing clerk to 20# Goal 2 Status: Not tested this date Plan Date of Onset: 06/26/13 Start of Care Date: 07/18/13 Requested # of Visits: 8 2x/wk for 6 weeks (Decrease to 1x/week due to travel distance) Certification From: 07/18/13 Certification To: 08/17/13 Treatment Plan/Interventions 50626 OT Evaluation;88571 Therapeutic Exercises;87700 Therapeutic Activities;Splinting;9753 5 Self Care/Home Management;75502 Manual Therapy Patient and/or family has indicated [...] | | | | | [place] [address] | | | | | | [phone] | | | | | | | | +--------+---------+ + + + | 07/30/ | Office | Nephrology | Ismael Gonzalez MD | | | 2019 | Visit | | [address] | | | | | | [address] [place] | | | | | | [address] | | | | | | | [...]
--- OUTSIDE RECORDS SUMMARY | ~2019-06-19 | XMS | Encounter Summary ---
Demographics + + + | Address | [address] | | | [place] [address] | + + + | Home Phone | | + + + | Preferred Language | Unknown | + + + | Marital Status | | + + + | Alevism Affiliation | Unknown | + + + | Race | Unknown | + + + | Ethnic Group | Unknown | + + + Author + + + | Author | [facility] | | | and Jdana | + + + | Organization | [facility] | | [...] Team Providers + +------+ + | Care Paediatrician Name | Role | Phone | + [...] | | [place] | [place] [address] | | | | | [address] | [phone] | | | | | [phone] | | | +--------+ + + + [...] 2020 | Visit | | [address] | | | | | | [address] | | | | | | [place] [address] | | | | | | [phone] | | | | | | | | +--------+---------+ + + + | 07/30/ | Office | Nephrology | Ismael Gonzalez MD | | | 2019 | Visit | | [address] [facility] | | | | | | [address] [place] | | | | | | [address] | | | | | | | [...] | | | | | performed at [facility] | | | | | | [facility] | | | | | | Diagnostics, [address] | | | | | | [address] | | | | | | [place] [address] | | | | + + + [...] | | | | | performed at [facility] | | | | | | [facility] | | | | | | Diagnostics, [address] | | | | | | [address] | | | | | | [place] [address] | | | | + + + [...] | | | | | performed at [facility] | | | | | | [facility] | | | | | | Diagnostics, [address] | | | | | | [address] | | | | | | [place] [address] | | | | + + + [...] Esteban | | | | | | [address] | | | | + + + [...]
--- OUTSIDE RECORDS SUMMARY | ~2019-06-19 | XMS | Encounter Summary ---
Demographics + + + | Address | [address] | | | [place] [address] | + + + | Home Phone [...] | Author | [facility] | | | and Jdana | + + + | Organization | [facility] | | | [...] Team Providers + +------+ + | Care Die Cast Technician Name | Role | Phone | + +------+ + PCP | Unavailable | + +------+ + Encounter Details +--------+ + + + + | Date | Type | Department | Care Team | Description | +--------+ + + + + | 12/23/ | Hospital | [facility] | | | | 2005 | Encounter | MED CTR XRAY [address] | | | | | | [address] | | | | | | [place] [address] | | | | | | [phone] | | | +--------+ + + + [...] 2019 | Visit | | [address] | | | | | | [address] | | | | | | [place] [address] | | | | | | [phone] | | | | | | | | +--------+---------+ + + + | 06/15/ | Office | Nephrology | Ismael Gonzalez MD | | | 2019 | Visit | | [address] [facility] | | | | | | [address] [place] | | | | | | [address] | | | | | | | | +--------+---------+ + + + documented as of this encounter Visit Diagnoses Not on filedocumented in this encounter"
--- OUTSIDE RECORDS SUMMARY | ~2019-06-19 | XMS | Encounter Summary ---
Demographics + + + | Address | [address] | | | [place] [address] | + + + | Home Phone | | + + + | Preferred Language | Unknown | + + + | Marital Status | | + + + | Adventist Affiliation | Unknown | + + + | Race | Unknown | + + + | Ethnic Group | Unknown | + + + Author + + + | Author | [facility] | | | and Jdana | + + + | Organization | [facility] | | [...] Team Providers + +------+ + | Care Sleep Lab Technologist Name | Role | Phone | + [...] + + | 12/13/ | Refill | [facility] | [place], | Medication Refill; | | 2018 | | RHEUMATOLOGY [address] | [address] | Medication Refill | | | | [address] | [address] | | | | | [place], [place] | [place] [address] | | | | | [address] | [phone] | | | | | [phone] | | | +--------+--------+ + + + [...] | | | | | [place] [address] | | | | | | [phone] | | | | | | | | +--------+---------+ + + + | 07/30/ | Office | Nephrology | Ismael Gonzalez MD | | | 2019 | Visit | | [address] | | | | | | [address] [place] | | | | | | [address] | | | | | | | | +--------+---------+ + + + documented as of this encounter Visit Diagnoses Not on filedocumented in this encounter"
--- OUTSIDE RECORDS SUMMARY | ~2019-06-19 | XMS | Encounter Summary ---
Demographics + + + | Address | [address] | | | [place] [address] | + + + | Home Phone [...] | Author | [facility] | | | and Jdana | + + + | Organization | [facility] | | [...] Team Providers + +------+ + | Care Student Records Coordinator Name | Role | Phone | [...] arthroplasty | [address] | [address] [place] | | | | | | [place] | [place], | | | | | Procedures | [place], [place] | [place] [address] | | | | | ot eval | [address] | Phone: | | | | | | Phone: | [phone] | | | | | | [phone] | Fax: | | | | | | Fax: | [phone] | | | | | | [phone] | | +--------+--------+ + + + + Encounter Details +--------+---------+ + + + | Date | Type | Department | Care Team | Description | +--------+---------+ + + + | 08/10/ | Office | [facility] | Rey Blcakmon | Hx of arthroplasty | | 2014 | Visit | MED CNT ONCOLOGY | MD [address] | (Primary Dx); | | | | THERAPY [address] [place] | Stiffness of hand | | | | [place], | [place] [address] | joint, left; | | | | [place] [address] | [phone] | Weakness of hand; | | | | [phone] | | HTN (hypertension); | | | | | Mahendra, Mady A, OT | Low back pain; | | | | | [address] | Osteoporosis; | | | | | [place], [place] | Rheumatoid arthritis | | | | | [address] | (HCC) | | | | | [...] be different fr om the original. [facility] CTR THERAPY OT OP [address] [address] Occupational Therapy Daily Treatment Note Date: 08/10/2013 [...] [address] | | | | | | [place] [address] | | | | | | [phone] | | | | | | | | +--------+---------+ + + + | 07/30/ | Office | Nephrology | Ismael Gonzalez MD | | | 2019 | Visit | | [address] [facility] | | | | | | [address] [place] | | | | | | [address] | | | | | | | [...]
--- OUTSIDE RECORDS SUMMARY | ~2019-06-19 | XMS | Encounter Summary ---
Demographics + + + | Address | [address] | | | [place] [address] | + + + | Home Phone | | + + + | Preferred Language | Unknown | + + + | Marital Status | | + + + | Jainism Affiliation | Unknown | + + + | Race | Unknown | + + + | Ethnic Group | Unknown | + + + Author + + + | Author | [facility] | | | and Jdana | + + + | Organization | [facility] | | [...] Team Providers + +------+ + | Care Turning Machine Operator Helper Name | Role | Phone | [...] arthroplasty | [address] | [place] | | | | | | [place] | [place], | | | | | Procedures | [place], [place] | [place] [address] | | | | | ot eval | [address] | Phone: | | | | | | Phone: | [phone] | | | | | | [phone] | Fax: | | | | | | Fax: | [phone] | | | | | | [phone] | | +--------+--------+ + + + + [...] Dx); Hx of | | | | [place], | [place] [address] | arthroplasty; | | | | [place] [address] | [phone] | Weakness of hand; | | | | [phone] | | HTN (hypertension); | | | | | Mahendra, Mady A, OT | Low back pain; | | | | | [address] | Osteoporosis; | | | | | [place] | Rheumatoid arthritis | | | | | [address] | (HCC) | | | | | [...] OT OP [address] [address] Occupational Therapy Daily Treatment Note Date: 07/26/2013 Patient Information Patient Name: Mignno Mohan Date of : 1945 Age: 68 [...] [address] | | | | | | [place] [address] | | | | | | [phone] | | | | | | | | +--------+---------+ + + + | 07/30/ | Office | Nephrology | Ismael Gonzalez MD | | | 2019 | Visit | | [address] [facility] | | | | | | [address] [place] | | | | | | [address] | | | | | | | [...]
--- OUTSIDE RECORDS SUMMARY | ~2019-06-19 | XMS | Encounter Summary ---
Demographics + + + | Address | [address] | | | [place] [address] | + + + | Home Phone | | + + + | Preferred Language | Unknown | + + + | Marital Status | | + + + | Scientology Affiliation | Unknown | + + + | Race | Unknown | + + + | Ethnic Group | Unknown | + + + Author + + + | Author | [facility] | | | and Jdana | + + + | Organization | [facility] | | | and Jdana [...] Providers + +------+ + | Care Chief Sustainability Officer Name | Role | Phone | + +------+ + | Yosef Morrow MD | PCP | | + +------+ + Encounter Details +--------+ + + + + | Date | Type | Department | Care Team | Description | +--------+ + + + + | 01/01/ | Documentati | [facility] | Mady Mccray, | | | 2014 | on | MED CNT ONCOLOGY | OT [address] | | | | | THERAPY [address] | [place] | | | | | [place], | [address] | | | | | [place] [address] | | | | | | [phone] | | | +--------+ + + + [...] might be different fr om the original. [facility] CTR THERAPY OT OP [address] [place] [address] Occupational Therapy Discharge Note This discharge is [...] 2019 | Visit | | Florina Case [facility] [address] | | | | | | [address] | | | | | | [place] [address] | | | | | | [phone] | | | | | | | | +--------+---------+ + + + | 07/30/ | Office | Nephrology | Ismael Gonzalez MD | | 2019 | Visit | | [address] | | | | | | [address] [place] | | | | | | [address] | | | | | | | [...]
--- OUTSIDE RECORDS SUMMARY | ~2019-06-19 | XMS | Encounter Summary ---
Demographics + + + | Address | [address] | | | [place] [address] | + + + | Home Phone [...] Author | [facility] | | | and Jdana | + + + | Organization | [facility] | [...] Team Providers + +------+ + | Care Water Systems Designer Name | Role | Phone | + +------+ + | Julio Cesar Hawley MD | PCP | | + +------+ + Encounter Details +--------+ + + + + | Date | Type | Department | Care Team | Description | +--------+ + + + + | 09/11/ | Orders Only | [facility] | Provider, | Other healthcare corporate account director | | 2019 | | SYSTEM GENERIC OP | [address] | (current) drug | | | | [address]VERSION [address] | [address] | therapy; Rheumatoid | | | | [address] [place], [place] | [place] [address] | arthritis of | | | | [address] | | multiple sites | | | | [phone] | | without organ or | | [...] | 2019 | Visit | | [address] | | | | | | [address] | | | | | | [place] [address] | | | | | | [phone] | | | | | | | | +--------+---------+ + + + | 07/30/ | Office | Nephrology | Ismael Gonzalez MD | | | 2019 | Visit | | [address] | | | | | | [address] [facility] | | | | | | [address] | | | | | | | | +--------+---------+ + + + + +------+--------+ + + | Name | Type | Priori | Associated Diagnoses | Order Schedule | | | | ty | | | + +------+--------+ + + | Comprehensive | Lab | Routin | Other correction | Expected: | | Metabolic Panel | [...] with | Lab | Routin | Other healthcare corporate account director | 2 Occurrences | | Differential | [...] Comprehensive | Lab | Routin | Other healthcare corporate account director | 2 Occurrences | | Metabolic Panel [...] Rate | Lab | Routin | Other correction | 2 Occurrences | | | | [...] | | | | | ([facility]) | | + +------+--------+ + + documented as of this encounter Visit Diagnoses + + | Diagnosis | + + | Other correction (current) 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 | + + | Rheumatoid arthritis of multiple sites without organ or system involvement with | | positive rheumatoid factor (HCC) | + + documented in this encounter"
--- OUTSIDE RECORDS SUMMARY | ~2019-06-19 | XMS | Encounter Summary ---
Demographics + + + | Address | [address] | | | [place] [address] | + + + | Home Phone [...] + | Author | [facility] | | | and Jdana | + + + | Organization | [facility] | | | and [...] Team Providers + +------+ + | Care Picking Crew Supervisor Name | Role | Phone | + +------+ + | Yosef Morrow MD | PCP | | + +------+ + Encounter Details +--------+ + + + + | Date | Type | Department | Care Team | Description | +--------+ + + + + | 01/01/ | Documentati | [facility] | Mady Mccray, | | | 2014 | on | MED CNT ONCOLOGY | OT [address] | | | | | THERAPY [address] | [place] | | | | | [place], | [address] | | | | | [place] [address] | | | | | | [phone] | | | +--------+ + + + [...] HOSPITAL CTR THERAPY OT OP [address] [place] [address] Occupational Therapy Discharge Note This discharge is [...] 2019 | Visit | | Florina Case [facility] [address] | | | | | | [address] | | | | | | [place] [address] | | | | | | [phone] | | | | | | | | +--------+---------+ + + + | 07/30/ | Office | Nephrology | Ismael Gonzalez MD | | 2019 | Visit | | [address] | | | | | | [address] [place] | | | | | | [address] | | | | | | | [...]
--- OUTSIDE RECORDS SUMMARY | ~2019-06-19 | XMS | Encounter Summary ---
Demographics + + + | Address | [address] | | | [place] [address] | + + + | Home Phone [...] | Author | [facility] | | | and Jdana | + + + | Organization | [facility] | [...] Providers + +------+ + | Care Back Roll Lathe Operator Name | Role | Phone | [...] arthroplasty | [address] | [address] [place] | | | | | | [place] | [place], | | | | | Procedures | [place], [place] | [place] [address] | | | | | ot eval | [address] | Phone: | | | | | | Phone: | [phone] | | | | | | [phone] | Fax: | | | | | | Fax: | [phone] | | | | | | [phone] | | +--------+--------+ + + + + [...] Stiffness of hand | | | | [place], | [place] [address] | joint, left; | | | | [place] [address] | [phone] | Weakness of hand; | | | | [phone] | | HTN (hypertension); | | | | | Mahendra, Mayd A, OT | Low back pain; | | | | | [address] | Osteoporosis; | | | | | [place] | Rheumatoid arthritis | | | | | [address] | (HCC) | | | | | [...] might be different fr om the original. [facility] THERAPY OT OP [address] [address] Occupational Therapy Initial Assessment Date: 07/18/2013 Patient [...] Status: No current HEP Goal 2: Increase napper tender to 20# Goal 2 Status: Not tested this date Plan Date of Onset: 06/26/13 Start of Care Date: 07/18/13 Requested # of Visits: 8 2x/wk for 6 weeks (Decrease to 1x/week due to travel distance) Certification From: 07/18/13 Certification To: 08/17/13 Treatment Plan/Interventions 20774 OT Evaluation;20663 Therapeutic Exercises;92349 Therapeutic Activities;Splinting;9753 5 Self Care/Home Management;63534 Manual Therapy Patient and/or family has indicated [...] | | | | | | [place] [address] | | | | | | [phone] | | | | | | | | +--------+---------+ + + + | 07/30/ | Office | Nephrology | Ismael Gonzalez MD | | | 2019 | Visit | | [address] | | | | | | [address] [place] | | | | | | [address] | | | | | | | [...]
--- OUTSIDE RECORDS SUMMARY | ~2019-06-19 | XMS | Encounter Summary ---
Demographics + + + | Address | [address] | | | [place] [address] | + + + | Home Phone | | + + + | Preferred Language | Unknown | + + + | Marital Status | | + + + | Pentecostalism Affiliation | Unknown | + + + | Race | Unknown | + + + | Ethnic Group | Unknown | + + + Author + + + | Author | [facility] | | | and Jdana | + + + | Organization | [facility] [...] Team Providers + +------+ + | Care Glass Sander Name | Role | Phone | + [...] + + | 03/07/ | Office | [facility] | Jua[place], | Rheumatoid arthritis | | 2020 | Visit | RHEUMATOLOGY [address] | [address] | involving multiple | | | | [address] | [address] | sites with positive | | | | [place], [place] | [place] [address] | rheumatoid factor | | | | [address] | [phone] | (HCC) (Primary Dx); | | | | [phone] | | High risk medication | | [...] encounter Patient Instructions Patient Instructions Luiza Landry, Dragger - 03/07/2019 11:10 AM PSTWe hope that you have experienced exceptional care today and that you found our service to be courte ous and helpful. If you have any questions you can send us a message/request using Zamplus [employer] or call our o ffice at [phone]. To reach Luiza AGUDELO type extension [phone]. If you are unable to reach a [...] can also look at your results on SeoPult. If you are experiencing an emergency, please [...] PCP), Methotrexate 10 mg once per w sleetmute (dose dec.due to mild anemia and changes [...] Florina SALINAS patient exam. Labs reviewed in [facility] --09/22/201805/30- Neg.IEP 2018hep b/c neg. Eye [...] treatment plan. Patient understands that treatment is termite inspector and if patient fails to continue regimen [...] symptoms. This document has been prepared with [employer] voice recognition system. The possibility of "s ound alike" manager solar errors, and additions, or deletions may occur. [...] [address] | | | | | | [place] [address] | | | | | | [phone] | | | | | | | | +--------+---------+ + + + | 07/30/ | Office | Nephrology | Ismael Gonzalez MD | | | 2019 | Visit | | [address] [facility] | | | | | | [address] [place] | | | | | | [address] | | | | | | | [...]
--- OUTSIDE RECORDS SUMMARY | ~2019-06-19 | XMS | Clinical Summary ---
Demographics + + + | Address | [address] | | | [place] [address] | + + + | Home Phone [...] Author | [facility] | | | and Jdana | + + + | Organization | [facility] [...] Providers + +------+ + | Care Sales Representative Public Utilities Name | Role | Phone | + [...] Patient understands that | | treatment is intermediate designer and if patient fails to continue regimen [...] | | | | | | disease) ([facility]); | | | | | | [...] 2019 | Visit | | [address] | | | | | | [address] [place] | | | | | | [place] [address] | | | | | | [phone] | | | | | | | | +--------+---------+ + + + | 07/30/ | Office | Nephrology | Ismael Gonzalez MD | | | 2019 | Visit | | [address] [facility] | | | | | | [address] [place] | | | | | | [address] | | | | | | | [...] + +--------+ | MEDICARE | MEDICA | [id number] | | [phone] | | Medica | | | RE | | 010-Pr | 5 | | re | | | PART A | | esent | | | | | | AND B | | | | | | + +--------+ +--------+ + +--------+ | MEDICARE | MEDICA | [id number] | 10/17/19 | [phone] | | Medica | | | RE | | 12-Pre | 5 | | re | | | PART A | | sent | | | | | | AND B | | | | | | + +--------+ +--------+ + +--------+ | MODA | MODA | [id number] | 02/15/19 | [phone] | [address] | Indemn | | | HEALTH | | 13-Pre | 9 | [phone] | ity | | | MDCR | | sent | | [place], | | | | [place] | | | | [place] [address] | | + +--------+ +--------+ + +--------+ | MODA | MODA | [id number] | 02/15/19 | [phone] | [address] | Indemn | | | HEALTH | | 19-Pre | 9 | [address] | ity | | | MDCR | | sent | | [place], | | | | [place] | | | | [place] [address] | | + +--------+ +--------+ + +--------+ [...] | | al/Fam | | 1945 | [phone] | [place] [address] | | | rakan | | | 4 (Home) | | + +--------+ +--------+ + + | Mignon Mohan | Person | Self | [birth year] | [address] | | | al/Fam | | 1945 | [phone] | [place] [address] | | | rakan | | | 4 (Home) | | + +--------+ +--------+ + + Advance Directives + + + + + | Type | Date Recorded | Patient | Explanation | | | | Grinding Operator | | + + + + + | Power of | | | | | Nursing Support Worker | | | | + + + + + | Advance | | | | | Directive | | | | + + + + +
--- OUTSIDE RECORDS SUMMARY | ~2019-06-19 | XMS | Encounter Summary ---
Demographics + + + | Address | [address] | | | [place] [address] | + + + | Home Phone [...] Author | [facility] | | | and Jdana | + + + | Organization | [facility] [...] Providers + +------+ + | Care Senior Mortgage Loan Processor Name | Role | Phone | [...] arthroplasty | [address] | [address] [place] | | | | | | [place] | [place], | | | | | Procedures | [place], [place] | [place] [address] | | | | | ot eval | [address] | Phone: | | | | | | Phone: | [phone] | | | | | | [phone] | Fax: | | | | | | Fax: | [phone] | | | | | | [phone] | | +--------+--------+ + + + + [...] Dx); Hx of | | | | [place], | [place] [address] | arthroplasty; | | | | [place] [address] | [phone] | Weakness of hand; | | | | [phone] | | HTN (hypertension); | | | | | Mahendra, Mady A, OT | Low back pain; | | | | | [address] | Osteoporosis; | | | | | [place] | Rheumatoid arthritis | | | | | [address] | (HCC) | | | | | [...] might be different fr om the original. [facility] CTR THERAPY OT OP [address] [address] Occupational Therapy Daily Treatment Note Date: 08/07/2013 [...] | | | | | [place] [address] | | | | | | [phone] | | | | | | | | +--------+---------+ + + + | 07/30/ | Office | Nephrology | Ismael Gonzalez MD | | | 2019 | Visit | | [address] [facility] | | | | | | [address] [place] | | | | | | [address] | | | | | | | [...]
--- OUTSIDE RECORDS SUMMARY | ~2019-06-19 | XMS | Clinical Summary ---
Demographics + + + | Address | [address] | | | [place] [address] | + + + | Home Phone | | + + + | Preferred Language | Unknown | + + + | Marital Status | | + + + | Sikh Affiliation | Unknown | + + + | Race | Unknown | + + + | Ethnic Group | Unknown | + + + Author + + + | Author | [facility] (Historical as of | | | 10-01-18) | + + + | Organization | [facility] (Historical as of | | | 10-01-18) [...] Providers + +------+ + | Care Manager Pharmacy Name | Role | Phone | + [...] | | | | | | | ([facility]), High risk | | | | | [...] +------+-------+ + | MEDICARE | MEDICA | [id number] | | | [address] | | | RE | | | | [place] [address] | | | IP-OP | | | | | + +--------+ +------+-------+ + | ODS HE[employer] PLAN | ODS | [id number] | | | | | | HEALTH [...] | | al/Fam | | 1945 | [phone] | [place] | | | [place]kan | | | [phone] | [address] | + +--------+ +--------+ + +
--- OUTSIDE RECORDS SUMMARY | ~2019-06-19 | XMS | Encounter Summary ---
Demographics + + + | Address | [address] | | | [place] [address] | + + + | Home Phone [...] | Author | [facility] | | | and Jdana | + + + | Organization | [facility] | | | [...] Team Providers + +------+ + | Care Agricultural Pilot Name | Role | Phone | + +------+ + | Julio Cesar Hawley MD | PCP | | + +------+ + Encounter Details +--------+ + + + + | Date | Type | Department | Care Team | Description | +--------+ + + + + | 05/15/ | Orders Only | [facility] | Ismael Gonzalez MD | Hypertension, | | 2020 | | NEPHROLOGY [place] | [address] [facility] | unspecified type | | | | [address] | [address] [place], [place] | (Primary Dx); | | | | [address] | [address] | Scoliosis, | | | | [place], [place] | | unspecified | | | | [address] | | scoliosis type, | | | | [phone] | | unspecified spinal | | | [...] [address] | | | | | | [place] [address] | | | | | | [phone] | | | | | | | | +--------+---------+ + + + | 07/30/ | Office | Nephrology | Ismael Gonzalez MD | | | 2019 | Visit | | [address] [facility] | | | | | | [address] [place] | | | | | | [address] | | | | | | | [...]
--- OUTSIDE RECORDS SUMMARY | ~2019-06-19 | XMS | Encounter Summary ---
Demographics + + + | Address | [address] | | | [place] [address] | + + + | Home Phone [...] Author | [facility] | | | and Jdana | + + + | Organization | [facility] | | | and [...] Providers + +------+ + | Care Business Development Coordinator Name | Role | Phone | [...] arthroplasty | [address] | [address] [place] | | | | | | [place] | [place], | | | | | Procedures | [place], [place] | [place] [address] | | | | | ot eval | [address] | Phone: | | | | | | Phone: | [phone] | | | | | | [phone] | Fax: | | | | | | Fax: | [phone] | | | | | | [phone] | | +--------+--------+ + + + + [...] Stiffness of hand | | | | [place], | [place] [address] | joint, left; | | | | [place] [address] | [phone] | Weakness of hand; | | | | [phone] | | HTN (hypertension); | | | | | Mahendra, Mady A, OT | Low back pain; | | | | | [address] | Osteoporosis; | | | | | [place], [place] | Rheumatoid arthritis | | | | | [address] | (HCC) | | | | | [...] might be different fr om the original. 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# Goal 2 Status: Not tested this date Plan Date of Onset: 06/26/13 Start of Care Date: 07/18/13 Requested # of Visits: 8 2x/wk for 6 weeks (Decrease to 1x/week due to travel distance) Certification From: 07/18/13 Certification To: 08/17/13 Treatment Plan/Interventions 49483 OT Evaluation;84415 Therapeutic Exercises;54707 Therapeutic Activities;Splinting;9753 5 Self Care/Home Management;99559 Manual Therapy Patient and/or family has indicated [...] | | | | | | [place] [address] | | | | | | [phone] | | | | | | | | +--------+---------+ + + + | 07/30/ | Office | Nephrology | Ismael Gonzalez MD | | | 2019 | Visit | | [address] | | | | | | [address] [place] | | | | | | [address] | | | | | | | [...]
--- OUTSIDE RECORDS SUMMARY | ~2019-06-19 | XMS | Encounter Summary ---
Demographics + + + | Address | [address] | | | [place] [address] | + + + | Home Phone [...] | Author | [facility] | | | and Jdana | + + + | Organization | [facility] | | | and Jdana [...] Team Providers + +------+ + | Care Photoengraving Helper Name | Role | Phone | [...] arthroplasty | [address] | [address] [place] | | | | | | [place] | [place], | | | | | Procedures | [place], [place] | [place] [address] | | | | | ot eval | [address] | Phone: | | | | | | Phone: | [phone] | | | | | | [phone] | Fax: | | | | | | Fax: | [phone] | | | | | | [phone] | | +--------+--------+ + + + + [...] Dx); Hx of | | | | [place], | [place] [address] | arthroplasty; | | | | [place] [address] | [phone] | Weakness of hand; | | | | [phone] | | HTN (hypertension); | | | | | Mahendra, Mady A, OT | Low back pain; | | | | | [address] | Osteoporosis; | | | | | [place] | Rheumatoid arthritis | | | | | [address] | (HCC) | | | | | [...] might be different fr om the original. [facility] THERAPY OT OP [address] [address] Occupational Therapy Daily Treatment Note Date: 07/24/2013 [...] [address] | | | | | | [place] [address] | | | | | | [phone] | | | | | | | | +--------+---------+ + + + | 07/30/ | Office | Nephrology | Ismael Gonzalez MD | | 2019 | Visit | | [address] [facility] | | | | | | [address] [place] | | | | | | [address] | | | | | | | [...]
--- OUTSIDE RECORDS SUMMARY | ~2019-06-19 | XMS | Encounter Summary ---
Demographics + + + | Address | [address] | | | [place] [address] | + + + | Home Phone [...] Author | [facility] | | | and Jdana | + + + | Organization | [facility] | | [...] Providers + +------+ + | Care Night Cleaner Name | Role | Phone | + [...] + + | 06/06/ | Refill | [facility] | Clarain, | Medication Refill | | 2019 | | RHEUMATOLOGY [address] | Florina Case, [facility] [address] | | | | | [address] | [address] | | | | | [place], [place] | [place] [address] | | | | | [address] | [phone] | | | | | [phone] | | | +--------+--------+ + + + [...] [address] | | | | | | [place] [address] | | | | | | [phone] | | | | | | | | +--------+---------+ + + + | 07/30/ | Office | Nephrology | Ismael Gonzalez MD | | | 2019 | Visit | | [address] [facility] | | | | | | [address] [facility] | | | | | | [address] | | | | | | | | +--------+---------+ + + + documented as of this encounter Visit Diagnoses + + | Diagnosis | + + | Rheumatoid arthritis involving multiple sites with positive rheumatoid factor (HCC) - | | Primary | + + documented in this encounter"
--- OUTSIDE RECORDS SUMMARY | ~2019-06-19 | XMS | Encounter Summary ---
Demographics + + + | Address | [address] | | | [place] [address] | + + + | Home Phone [...] Author | [facility] | | | and Jdana | + + + | Organization | [facility] | | | and [...] Team Providers + +------+ + | Care Target Aircraft Technician Name | Role | Phone | [...] + + | 03/07/ | Office | [facility] | Juaquin, | Rheumatoid arthritis | | 2020 | Visit | RHEUMATOLOGY [address] | [address] | involving multiple | | | | [address] | [address] | sites with positive | | | | [place], [place] | [place] [address] | rheumatoid factor | | | | [address] | [phone] | (HCC) (Primary Dx); | | | | [phone] | | High risk medication | | [...] encounter Patient Instructions Patient Instructions Luiza Landry, Ceramics Instructor - 03/07/2019 11:10 AM PSTWe hope that you have experienced exceptional care today and that you found our service to be courte ous and helpful. If you have any questions you can send us a message/request using Veotag or call our o ffice at [phone]. To reach Luiza AGUDELO type extension [phone]. If you are unable to reach a [...] can also look at your results on Koffeeware. If you are experiencing an emergency, please [...] PCP), Methotrexate 10 mg once per w [place] (dose dec.due to mild anemia and changes [...] Florina SALINAS patient exam. Labs reviewed in [facility] --09/22/201805/30- Neg.IEP 2018hep b/c neg. [...] treatment plan. 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 This document has been prepared with [employer] voice recognition system. The possibility of "s ound alike" front desk auxiliary errors, and additions, or deletions may occur. [...] [address] | | | | | | [place] [address] | | | | | | [phone] | | | | | | | | +--------+---------+ + + + | 07/30/ | Office | Nephrology | Ismael Gonzalez MD | | | 2019 | Visit | | [address] [facility] | | | | | | [address] [place] | | | | | | [address] | | | | | | | [...]
--- OUTSIDE RECORDS SUMMARY | ~2019-06-19 | XMS | Encounter Summary ---
Demographics + + + | Address | [address] | | | [place] [address] | + + + | Home Phone | | + + + | Preferred Language | Unknown | + + + | Marital Status | | + + + | Sikhism Affiliation | Unknown | + + + | Race | Unknown | + + + | Ethnic Group | Unknown | + + + Author + + + | Author | [facility] | | | and Jdana | + + + | Organization | [facility] | | | [...] Team Providers + +------+ + | Care Aniline Press Worker Name | Role | Phone | + +------+ + PCP | Unavailable | + +------+ + Encounter Details +--------+ + + + + | Date | Type | Department | Care Team | Description | +--------+ + + + + | 11/18/ | [facility] | [facility] | Oscar Wilson MD | | | 2010 | Encounter | MED CTR XRAY [address] | [address] | | | | | [address] | [place] [address] | | | | | [place] [address] | [phone] | | | | | [phone] | | | +--------+ + + + [...] 2019 | Visit | | [address] | | | | | | [address] | | | | | | [place] [address] | | | | | | [phone] | | | | | | | | +--------+---------+ + + + | 07/30/ | Office | Nephrology | Ismael Gonzalez MD | | | 2019 | Visit | | [address] [facility] | | | | | | [address] [facility] [place] | | | | | | [address] | | | | | | | [...] Performed At | + + + | [facility] Diagnostic Imaging Department | [facility] | | [address] [facility] | [facility] | | THREE VIEWS LUMBAR SPINE, | [...] Transcribed Date/Time: 11/18/2010 16:45 | | | Civil Lawyer: <Electronically Signed by Leobardo Mcneill MD> | | | 11/18/10 2216 | | + + + + + | Procedure Note | + + | Marin, Rad Conversion - 03/24/2013 3:57 PM [facility] | | Diagnostic Imaging Department | | [address] [facility] | | | | | | | [...] | Transcribed Date/Time: 11/18/2010 16:45 | | Civil Lawyer: | | <Electronically Signed by Leobardo Mcneill [...]
--- OUTSIDE RECORDS SUMMARY | ~2019-06-19 | XMS | Clinical Summary ---
Demographics + + + | Address | [address] | | | [place] [address] | + + + | Home Phone | | + + + | Preferred Language | Unknown | + + + | Marital Status | | + + + | Adventism Affiliation | Unknown | + + + | Race | Unknown | + + + | Ethnic Group | Unknown | + + + Author + + + | Author | [facility] | | | and Jdana | + + + | Organization | 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 and if patient fails to continue regimen [...] | | | | | | disease) ([facility]); | | | | | | Dysfunction [...] 2019 | Visit | | [address] | | | | | | [address] [place] | | | | | | [place] [address] | | | | | | [phone] | | | | | | | | +--------+---------+ + + + | 07/30/ | Office | Nephrology | Ismael Gonzalez MD | | | 2019 | Visit | | [address] [facility] | | | | | | [address] [place] | | | | | | [address] | | | | | | | [...] + +--------+ | MEDICARE | MEDICA | [id number] | | [phone] | | Medica | | | RE | | 010-Pr | 5 | | re | | | PART A | | esent | | | | | | AND B | | | | | | + +--------+ +--------+ + +--------+ | MEDICARE | MEDICA | [id number] | 10/17/19 | [phone] | | Medica | | | RE | | 12-Pre | 5 | | re | | | PART A | | sent | | | | | | AND B | | | | | | + +--------+ +--------+ + +--------+ | MODA | MODA | [id number] | 02/15/19 | [phone] | [address] | Indemn | | | HEALTH | | 13-Pre | 9 | [address] | ity | | | MDCR | | sent | | [place], | | | | [place] | | | | [place] [address] | | + +--------+ +--------+ + +--------+ | MODA | MODA | [id number] | 02/15/19 | [phone] | [address] | Indemn | | | HEALTH | | 19-Pre | 9 | [address] | ity | | | MDCR | | sent | | [place], | | | | [place] | | | | [place] [address] | | + +--------+ +--------+ + +--------+ [...] | | al/Fam | | 1945 | [phone] | [place] [address] | | | [place] | | | 4 (Home) | | + +--------+ +--------+ + + | Mignon Mohan | Person | Self | [birth year] | [address] | | | al/Fam | | 1945 | [phone] | [place] [address] | | | [place] | | | 4 (Home) | | + +--------+ +--------+ + + Advance Directives + + + + + | Type | Date Recorded | Patient | Explanation | | | | Bricklayer Helper | | + + + + + | Power of | | | | | Audio Operator | | | | + + + + + | Advance | | | | | Directive | | | | + + + + +
--- OUTSIDE RECORDS SUMMARY | ~2019-06-19 | XMS | Encounter Summary ---
Demographics + + + | Address | [address] | | | [place] [address] | + + + | Home Phone [...] + | Author | [facility] | | | and Jdana | + + + | Organization | [facility] | | | and [...] Team Providers + +------+ + | Care Planner Internship Name | Role | Phone | [...] arthroplasty | [address] | [address] | | | | | | [place] | [place], | | | | | Procedures | [place], [place] | [place] [address] | | | | | ot eval | [id number] | Phone: | | | | | | Phone: | [phone] | | | | | | [phone] | Fax: | | | | | | Fax: | [phone] | | | | | | [phone] | | +--------+--------+ + + + + [...] Stiffness of hand | | | | [address] [place], | [place] [address] | joint, left; | | | | [place] [address] | [phone] | Weakness of hand; | | | | [phone] | | HTN (hypertension); | | | | | MahendraMady A, OT | Low back pain; | | | | | [address] | Osteoporosis; | | | | | [place], [place] | Rheumatoid arthritis | | | | | [address] | (HCC) | | | | | [...] might be different fr om the original. 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# Goal 2 Status: LTG not tested Plan Date of Onset: 06/26/13 Start of Care Date: 07/18/13 Requested # of Visits: 12 2x/wk for 6 weeks (Decrease to 1x/week due to travel distance) Certification From: 08/16/13 Certification To: 09/15/13 Treatment Plan/Interventions 07945 OT Evaluation;58464 Therapeutic Exercises;83152 Therapeutic Activities;Splinting;9753 5 Self Care/Home Management;52264 Manual Therapy Medicare Functional Limitation Reporting G [...] impaired, limited or restricted Outcome Measures Tools: [place] AM-PAC and professional judgement Justification of Severity [...] [address] | | | | | | [place] [address] | | | | | | [phone] | | | | | | | | +--------+---------+ + + + | 07/30/ | Office | Nephrology | Ismael Gonzalez MD | | | 2019 | Visit | | [address] [facility] | | | | | | [address] [place] | | | | | | [address] | | | | | | | [...]
--- OUTSIDE RECORDS SUMMARY | ~2019-06-19 | XMS | Encounter Summary ---
Demographics + + + | Address | [address] | | | [place] [address] | + + + | Home Phone [...] | Author | [facility] | | | and Jdana | + + + | Organization | [facility] | | [...] Team Providers + +------+ + | Care Pneumatic System Conveyor Operator Name | Role | Phone | [...] + + | 12/13/ | Refill | [facility] | Juaquin, | Medication Refill; | | 2018 | | RHEUMATOLOGY [address] | Florina Case DRYING EQUIPMENT OPERATOR [address] | Medication Refill | | | | [address] | [address] | | | | | [place], [place] | [place] [address] | | | | | [address] | [phone] | | | | | [phone] | | | +--------+--------+ + + + [...] | | | | | [place] [address] | | | | | | [phone] | | | | | | | | +--------+---------+ + + + | 07/30/ | Office | Nephrology | Ismael Gonzalez MD | | | 2019 | Visit | | [address] | | | | | | [address] [place] | | | | | | [address] | | | | | | | | +--------+---------+ + + + documented as of this encounter Visit Diagnoses Not on filedocumented in this encounter"
--- OUTSIDE RECORDS SUMMARY | ~2019-06-19 | XMS | Encounter Summary ---
Demographics + + + | Address | [address] | | | [place] [address] | + + + | Home Phone [...] | Author | [facility] | | | and Jdana | + + + | Organization | [facility] | | [...] Team Providers + +------+ + | Care Academic Physician Name | Role | Phone | + [...] arthroplasty | [address] | [address] | | | | | | [place] | [place], | | | | | Procedures | [place], [place] | [place] [address] | | | | | ot eval | [id number] | Phone: | | | | | | Phone: | [phone] | | | | | | [phone] | Fax: | | | | | | Fax: | [phone] | | | | | | [phone] | | +--------+--------+ + + + + [...] Dx); Hx of | | | | [address] [place], | [place] [address] | arthroplasty; | | | | [place] [address] | [phone] | Weakness of hand; | | | | [phone] | | HTN (hypertension); | | | | | Mahendra, Mady A, OT | Low back pain; | | | | | [address] | Osteoporosis; | | | | | [place], [place] | Rheumatoid arthritis | | | | | [address] | (HCC) | | | | | [...] be different fr om the original. [facility] TH[facility] OT OP [address] [address] Occupational Therapy Daily Treatment Note Date: 07/31/2013 [...] [address] | | | | | | [place] [address] | | | | | | [phone] | | | | | | | | +--------+---------+ + + + | 07/30/ | Office | Nephrology | Ismael Gonzalez MD | | | 2019 | Visit | | [address] [facility] | | | | | | [address] [place] [address] | | | | | | [address] | | | | | | | [...]
--- OUTSIDE RECORDS SUMMARY | ~2019-06-19 | XMS | Encounter Summary ---
Demographics + + + | Address | [address] | | | [place] [address] | + + + | Home Phone [...] | Author | [facility] | | | and Jdana | + + + | Organization | [facility] | [...] Team Providers + +------+ + | Care Discovery Manager Name | Role | Phone | [...] arthroplasty | [address] | [address] [place] [address] | | | | | | [place] | [place], | | | | | Procedures | [place], [place] | [place] [address] | | | | | ot eval | [address] | Phone: | | | | | | Phone: | [phone] | | | | | | [phone] | Fax: | | | | | | Fax: | [phone] | | | | | | [phone] | | +--------+--------+ + + + + [...] Stiffness of hand | | | | [address] [place], | [place] [address] | joint, left; | | | | [place] [address] | [phone] | Weakness of hand; | | | | [phone] | | HTN (hypertension); | | | | | Mahendra, Mady A, OT | Low back pain; | | | | | [address] | Osteoporosis; | | | | | [place], [place] | Rheumatoid arthritis | | | | | [address] | (HCC) | | | | | [...] OT OP [address] [address] Occupational Therapy Daily Treatment Note Date: 08/10/2013 [...] [address] | | | | | | [place] [address] | | | | | | [phone] | | | | | | | | +--------+---------+ + + + | 07/30/ | Office | Nephrology | Ismael Gonzalez MD | | | 2019 | Visit | | [address] [facility] | | | | | | [address] | | | | | | [address] | | | | | | | [...]
--- OUTSIDE RECORDS SUMMARY | ~2019-06-19 | XMS | Encounter Summary ---
Demographics + + + | Address | [address] | | | [place] [address] | + + + | Home Phone [...] Author | [facility] | | | and Jdana | + + + | Organization | [facility] [...] Team Providers + +------+ + | Care Candle Pourer Name | Role | Phone | + [...] arthroplasty | [address] | [address] [place] | | | | | | [place] | [place], | | | | | Procedures | [place], [place] | [place] [address] | | | | | ot eval | [address] | Phone: | | | | | | Phone: | [phone] | | | | | | [phone] | Fax: | | | | | | Fax: | [phone] | | | | | | [phone] | | +--------+--------+ + + + + [...] Stiffness of hand | | | | [place], | [place] [address] | joint, left; | | | | [place] [address] | [phone] | Weakness of hand; | | | | [phone] | | HTN (hypertension); | | | | | MahendraMady A, OT | Low back pain; | | | | | [address] | Osteoporosis; | | | | | [place] | Rheumatoid arthritis | | | | | [address] | (HCC) | | | | | [...] might be different fr om the original. 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# Goal 2 Status: LTG not tested Plan Date of Onset: 06/26/13 Start of Care Date: 07/18/13 Requested # of Visits: 12 2x/wk for 6 weeks (Decrease to 1x/week due to travel distance) Certification From: 08/16/13 Certification To: 09/15/13 Treatment Plan/Interventions 06454 OT Evaluation;97885 Therapeutic Exercises;44363 Therapeutic Activities;Splinting;9753 5 Self Care/Home Management;78706 Manual Therapy Medicare Functional Limitation Reporting G [...] impaired, limited or restricted Outcome Measures Tools: [place] AM-PAC and professional judgement Justification of Severity [...] [address] | | | | | | [place] [address] | | | | | | [phone] | | | | | | | | +--------+---------+ + + + | 07/30/ | Office | Nephrology | Ismael Gonzalez MD | | | 2019 | Visit | | [address] [facility] | | | | | | [address] | | | | | | [address] | | | | | | | [...]
--- OUTSIDE RECORDS SUMMARY | ~2019-06-19 | XMS | Encounter Summary ---
Demographics + + + | Address | [address] | | | [place] [address] | + + + | Home Phone [...] + | Author | [facility] | | | and Jdana | + + + | Organization | [facility] | | | and [...] Providers + +------+ + | Care Health And Fitness Professor Name | Role | Phone | [...] + + | 03/07/ | Office | [facility] | J[place], | Rheumatoid arthritis | | 2020 | Visit | RHEUMATOLOGY [address] | [address] | involving multiple | | | | [address] | [address] | sites with positive | | | | [place], [place] | [place] [address] | rheumatoid factor | | | | [address] | [phone] | (HCC) (Primary Dx); | | | | [phone] | | High risk medication | | [...] encounter Patient Instructions Patient Instructions Luiza Landry, Resume Specialist - 03/07/2019 11:10 AM PSTWe hope that you have experienced exceptional care today and that you found our service to be courte ous and helpful. If you have any questions you can send us a message/request using Tablo or call our o ffice at [phone]. To reach Luiza AGUDELO type extension [phone]. If you are unable to reach a [...] can also look at your results on MembraneX. If you are experiencing an emergency, please [...] PCP), Methotrexate 10 mg once per w kaltag (dose dec.due to mild anemia and changes [...] Florina SALINAS patient exam. Labs reviewed in [facility] --09/22/201805/30- Neg.IEP 2018hep b/c neg. Eye [...] plan. 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 This document has been prepared with Door 6 voice recognition system. The possibility of "s ound alike" shift coordinator errors, and additions, or deletions may occur. [...] [address] | | | | | | [place] [address] | | | | | | [phone] | | | | | | | | +--------+---------+ + + + | 07/30/ | Office | Nephrology | Ismael Gonzalez MD | | | 2019 | Visit | | [address] [facility] | | | | | | [address] | | | | | | [address] | | | | | | | [...]
--- OUTSIDE RECORDS SUMMARY | ~2019-06-19 | XMS | Encounter Summary ---
Demographics + + + | Address | [address] | | | [place] [address] | + + + | Home Phone | | + + + | Preferred Language | Unknown | + + + | Marital Status | | + + + | Advent Affiliation | Unknown | + + + | Race | Unknown | + + + | Ethnic Group | Unknown | + + + Author + + + | Author | [facility] | | | and Jdana | + + + | Organization | [facility] | | | and [...] Team Providers + +------+ + | Care Sous Chef Name | Role | Phone | + +------+ + | Yosef Morrow MD | PCP | | + +------+ + Encounter Details +--------+ + + + + | Date | Type | Department | Care Team | Description | +--------+ + + + + | 08/05/ | Orders Only | [facility] | Juaquin, | | | 2015 | | RHEUMATOLOGY [address] | [address] | | | | | [address] | [address] | | | | | [place] | [place] [address] | | | | | [address] | [phone] | | | | | [phone] | | | +--------+ + + + [...] 2020 | Visit | | [address] | | | | | | [address] | | | | | | [place] [address] | | | | | | [phone] | | | | | | | | +--------+---------+ + + + | 07/30/ | Office | Nephrology | Ismael Gonzalez MD | | | 2019 | Visit | | [address] [facility] | | | | | | [address] | | | | | | [address] | | | | | | | [...] | | | | | performed at [place] | | | | | | [facility] | | | | | | [facility], [address] | | | | | | [address] | | | | | | [place] [address] | | | | + + + [...] | | | | | performed at [place] | | | | | | [facility] | | | | | | [facility], [address] | | | | | | [address] | | | | | | [place] [address] | | | | + + + [...] | | | | | performed at [place] | | | | | | [facility] | | | | | | [facility], [address] | | | | | | [address] | | | | | | [place] [address] | | | | + + + [...] Esteban | | | | | | [address] | | | | + + + [...]
[~2019-06-19 10:15] MED LIST changes: +IMODIUM A-D2 M2 PO; +PEPCID20 MG PO; +VITAMIN D325 MC2 PO; -VITAMIN D350000 UNIT PO
--- OUTSIDE RECORDS SUMMARY | 2019-06-19 10:18 | XMS ---
PreManage Notification: CARMEN HAY Security Division Order Analyst Events No recent Security Events currently on file CRITERIA MET - [facility] - Has Care Guidelines CARE PROVIDERS JESUS COWAN Internal Medicine 10/24/2018-Current PHONE: Unknown Gael has no Care Guidelines for this patient. Care History Medical/Surgical 10/24/2018 [facility] - Patient is currently established with [facility]. If patient is seen in the ED during business hours. Please contact [facility]Ws at [facility]. Care Recommendation: This patient has had 5 [...] providing care. E.D. VISIT COUNT (12 MO.) 4 [facility] TOTAL 4 NOTE: Visits indicate total known visits. ED/UCC VISIT TRACKING (12 MO.) 06/19/2019 10:[address] [facility] [place] TYPE: Emergency COMPLAINT: - ABDOMINAL PAIN 04/20/2019 10:17 [facility] [place] TYPE: Emergency COMPLAINT: - FALL DIAGNOSES: - Personal history of nicotine dependence - Fall on same level from slipping, tripping and stumbling with - Essential (primary) hypertension - Contusion of right front wall of thorax, initial encounter - Contusion of lower back and pelvis, initial encounter - Other usp (current) 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 - Allergy status to other drugs, medicaments and biological sub 01/28/2019 10:17 [facility] [place] TYPE: Emergency COMPLAINT: - FLU SYMPTOMS DIAGNOSES: - Diarrhea, unspecified - 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 - Personal history of nicotine dependence - Allergy status to other drugs, medicaments and biological sub - Essential (primary) hypertension 10/21/2018 09:34 [facility] [place] TYPE: Emergency COMPLAINT: - SOB DIAGNOSES: - Essential (primary) hypertension - Other usp (current) 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 - Radiographic dye allergy status - Allergy status to other drugs, medicaments and biological sub - Disease of pericardium, unspecified - Personal history of nicotine dependence - Other chest pain INPATIENT VISIT TRACKING (12 MO.) No inpatient visits to display in this time frame [id number]
--- NOTE | 2019-06-19 15:08 | NUR ---
PT TO MED-SURG FLOOR TRANSFERS SELF TO BED C/O PAIN / MORPHINE ADMINISTERED. PT CONTINUES TO BE PAINFUL THROUGHOUT ADMIT PROCESS WARM PACK APPLIED TO ABDOMEN. DIVERTIC PAMPLET PROVIDED DISCUSSED CURRENT ILLNESS AT LENGTH QUESTIONS ANSWERED. CALL LIGHT IN REACH, TV CONTROL AND GUID PROVIDED. PERSONAL CARE ITEMS AVAILABLE. SWABS FOR THRIST AND ORAL CARE AT BEDSIDE. PT DENIES FURTHER NEEDS AT THIS TIME AGREES TO USE CALL LIGHT FOR ANYTHING OUT OF BED OR NEEDS
--- NOTE | 2019-06-19 15:45 | NUR ---
Notified Dr. Spence regarding new results for EKG. Heart rate noted to be 129.
--- NOTE | 2019-06-19 15:59 | NUR ---
PT IN BED SHAKING IN PAIN REPORTING IT "29/11). 2MG MORPHINE ADMINSITERED. EKG COMPLETED. PT UNABLE TO QUITE SHAKING FOR IMAGE. HR READ 129. VITALS TAKEN HR 140'S. BLOOD PRESSURE ELEVATED. DR OLIVIER NOTIFIED OF EKG AND CONSUT. [facility]
--- NOTE | 2019-06-19 16:23 | NUR ---
DR CHILEL IN TO SEE PT DISCUSSES PLAN OF CARE WITH HER. PT CONTINUES TO BE PAINFUL AND NAUSEATED NEW ORDERS BEING WRITTEN
--- NOTE | 2019-06-19 17:06 | NUR ---
PT GIVEN DILAUDID FOR PAIN AND PHENERGAN FOR NAUSEA SHE AGREES THIS IS MUCH MORE EFFECTIVE. PT IS ABLE TO DOZE OFF, AWAKENS TO VOICE. CURRENTLY RATES PAIN 7/10 DOWN FROM 12/10. ASKED HER IF SHE FELT SHE NEEDED MORE PAIN MEDICATION SHE STATES "NO, NOT RIGHT NOW, I THINK I'LL BE FINE" PT RETURNS TO DOZING A SHORT TIME LATER. SATS DIP TO 88 PT SNORING SOFTLY 02 PLACED AT 1LPM TO MAINTAIN SATS 90
--- NOTE | 2019-06-19 17:10 | NUR ---
ELEVATED HEART RATE REPORTED TO DR COPE PRIOR TO MED CHANGES PT HR WAS 120-130'S. CURRENTLY 119 WILL CONTINUE TO MONITOR
--- NOTE | 2019-06-19 17:39 | NUR ---
PT RESTING SOUNDLY HR 112 SATS 88 02 BUMPED UP TO 2LPM NC.
--- NOTE | 2019-06-19 18:28 | NUR ---
PATIENT IN BED RESTING WITH EYES CLOSED. CALL LIGHT IN REACH. NO FURTHER NEEDS AT THIS TIME.
--- NOTE | 2019-06-19 19:15 | NUR ---
RECEIVED REPORT FROM DAY SHIFT. PT IN BED, ALERT, PARTICIPATED IN REPORT. PT ON 2L OF O2 VIA NC. SCDS ON, BED IN LOW POSITION, BED ALARM ON FOR SAFETY. CALL LIGHT WITHIN REACH. NO NEEDS AT THE MOMENT.
--- NOTE | 2019-06-19 19:58 | NUR ---
IN THE PT ROOM, STARTED SCHEDULED IV ABX. PT ALERT, ORIENTED. STATED HER PAIN 2/. SPO2 94% ON RA. RT IN THE ROOM, ASSESSED LUNG SOUND. DONE WITH ASSESSMENT. PROVIDED ORAL SWABS. BED ALARM IS ON FOR SAFETY. CALL LIGHT WITHIN REACH. NO NEEDS AT THE MOMENT
--- NOTE | 2019-06-19 20:44 | NUR ---
VS and I&Os complete. pt toileted, gown changed because it was far too large for pt. Nothing further needed at this time.
--- NOTE | 2019-06-19 21:06 | NUR ---
IN THE PT ROOM, STARTED SCHEDULED IV ABX. PT IN BED, STATED HER PAIN IS 2/10. ON RA. BED IN LOW POSITIOM, CALL LIGHT IN REACH. BED ALARM IS ON OR SAFETY.
--- NOTE | 2019-06-19 23:49 | NUR ---
PT RESTING IN BED WITH EYES CLOSED. BREATHING EVEN, NOT LABORED. DIM LIGHT IN THE ROOM. BED IN LOW POSITION, BED ALARM ON. CALL LIGHT WITHIN REACH.
--- NOTE | 2019-06-20 02:10 | NUR ---
IN THE PT ROOM. STARTED SCHEDULED IV ABX. PT UP IN HER BED. EDUCATED BY MAGNO LINARES HOW TO USE I.S. DEMONSTRATED USE OF I.S. DONE WITH ASSESSMENT. SCD ON. STATED HER PAIN 04/24. BED IN LOW POSITION. CALL LIGHT WITHIN REACH.
--- NOTE | 2019-06-20 05:37 | NUR ---
IV PUMP BEEPING. ERROR RESOLVED. pt REPORTED PAIN, PRIMARY RN INFORMED. CALL LIGHT WITHIN REACH.
--- NOTE | 2019-06-20 05:49 | NUR ---
VS AND I&OS COMPLETE. PT TOILETED. NOTHING FURTHER NEEDED AT THIS TIME.
--- NOTE | 2019-06-20 05:54 | NUR ---
pt reported pain, prn iv medication was given. see mar. pt tolerated well. in bed, awake, cooperative with care. all questions answered. bed in low position, call light within reach. no needs at the moment.
--- NOTE | 2019-06-20 05:56 | NUR ---
PT ALERT, ORIENTED, COOPERATIVE WITH CARES. PLEASANT. DID NOT GET TOO MUCH SLEEP DURING THIS SHIFT. CRACKLES AUSCALTATED AT RIGHT BASE. PT EDUCATED HOW TO USE I.S. DEMONSTRATED BACK. AMBULATED TO THE BATHROOM 1 PERSON STAND BY. VOIDED. REPORTED PAIN ONCE AT THE END OF THE SHIFT. PRN MED WAS GIVEN, SEE MAR.
--- NOTE | 2019-06-20 06:01 | NUR ---
PT ALERT, ORIENTED, PLEASANT. NG TUBE IN PLACE ON LOW INTERMITTEN SUCTION. DRAINAGE HAS BROWN COLOR. PT ANXIOUS. REPORTED THAT SHE FEELS CONGESTED AND NEEDS HER INHALER WHICH IS AT HOME. SPO2 90% ON RA. PRN MEDS WERE GIVEN, SEE MAR. PAIN MANAGEMENT UNDER CONTROL WITH PRN MEDS. SEE APR. IV PATENT. DRESSING IS CLEAN, DRY, INTACT. PT AMBULATED TO THE BATHROOM 1 PERSON STAND BY ASSIST. COOPERATIVE WITH CARE.
--- NOTE | 2019-06-20 06:26 | NUR ---
pt REPORTED 5/10 PAIN "IT COMES AND GOES" REQUESTED MORE PRN PAIN MEDICATION. PRIMARY RN INFORMED. CALL LIGHT WITHIN REACH.
--- NOTE | 2019-06-20 06:55 | NUR ---
in the pt room, pt still in pain. prn iv pain meds was given, see mar. pt tolerated well. call light in reach.
--- NOTE | 2019-06-20 07:20 | NUR ---
PATIENT RESTING IN BED. CALL LIGHT WITHIN REACH.
--- NOTE | 2019-06-20 07:32 | NUR ---
REPORT RECEIVED FROM MAGNO AKINS. PT AWAKE BUT TIRED. JUST HAD PAIN MEDICATION AND IS NOW RELAXED.
--- NOTE | 2019-06-20 08:10 | NUR ---
PT AWAKE AND TALKING ABOUT HER RA AND MEDICATIONS. DENIES PAIN ATT. STATES SHE FEELS FLUSHED, HAS COLD WASHCLOTH ON HEAD. REMOVED BLANKET, HEAT IS DOWN IN ROOM. MEDS GIVEN WNL. VS STABLE.
--- NOTE | 2019-06-20 08:47 | CONS ---
[facility] [address] [place], [place] [address] Signed DATE OF CONSULTATION: 06/19/2019 CHIEF COMPLAINT: Left lower quadrant abdominal pain. HISTORY OF PRESENT ILLNESS: Mignon is a 74-year-old female, who is immunocompromised because of her medications for the rheumatoid arthritis and her eczema. I know Mignon from back in 2005, when I had to resect a segment of her jejunum for ischemia. It has been put back together [id number] and stapled. We also took out her left ovary, which was benign. She is known to have a history of smoking, has peripheral arterial disease. In fact, she has an abdominal aortic aneurysm at 2.7 cm. However, she has bilateral iliac artery aneurysms with the right measuring 2.7 cm and the left is 3.3 cm. She has been following with the Vascular surgeon over [facility]. She just saw him earlier this year, but no current plans to place a stent and so forth. Over the last week, she has been having increasing left lower quadrant abdominal pain. We know she had a colonoscopy in 2014 because her mother had colon cancer around age 88. Mignon had minimal sigmoid diverticulosis at that time. She was generally scheduled to come back every 5 years because of her family history of colon cancer. However, we are in the midst of coronavirus pandemic and she developed this left lower quadrant abdominal pain. She has been in the emergency room. She has been evaluated by Dr. Adriano Eduardo. Her white count is elevated and she is a bit tachycardic mainly from the pain. She did undergo a CT scan of abdomen and pelvis, which confirms the aneurysms, but also this diverticular disease with inflammatory changes around the sigmoid colon as it goes behind the uterus toward the rectum. There appears to be a mural fluid collection around 46 x 23 x 14 mm. I have been asked as a general surgeon on-call to admit earlier today. We started on cefepime and Flagyl. We asked the Internal Medicine Service to see her as well because of her immunocompromised state. She would represent some increased risk for surgery if needed. ALLERGIES: Iodine, causes hives and Enbrel, I think cause fluid around her lungs. MEDICATIONS: 1. Amlodipine. 2. Betamethasone cream. 3. Folic acid. 4. Leflunomide. 5. Losartan. 6. Methotrexate. 7. Plaquenil. 8. Potassium chloride. 9. Vitamin D. Electronically Signed By: ASHLEY CHILEL MD 06/20/19 0847 PATIENT NAME: MIGNON HAY CONSULTATION DATE OF : 45 REPORT #: [id number] PHYSICIAN: ASHLEY CHILEL MD PCP: JULIO CESAR HAWLEY MD REPORT IS CONFIDENTIAL AND NOT TO BE RELEASED WITHOUT AUTHORIZATION [facility] [address], [place] [address] Signed 10. Hydroxychloroquine. 11. Loperamide. 12. Pepcid. PAST MEDICAL HISTORY: Includes a chronic cough, cataract, sinusitis, hypertension, peripheral arterial disease, pneumonia, asthma, the ischemic small intestine in 2005, chronic renal insufficiency, benign left ovarian cyst, osteoporosis, eczema, rheumatoid arthritis, migraine headaches, chronic pain and the alcohol abuse in remission. PAST SURGICAL HISTORY: Includes her cataract surgery, right breast benign biopsy, small bowel resection of 12 inches of jejunum in 2005 for ischemic reasons, open cholecystectomy in the , tubal ligation 1966. The left oophorectomy 2005 for benign indication. The and hand surgery and a colonoscopy in 2014. SOCIAL HISTORY: She still likes coffee. She has quit smoking in 2012, where she did use e-cigarettes. She is not drinking any longer. She is to Rey at [phone]. They prefer the [facility]. Dr. Julio Cesar Hawley is her primary care provider. FAMILY HISTORY: Mother had colon cancer at age 88. Father at age 25 from alcohol abuse and her mother had heart disease. REVIEW OF SYSTEMS: All 10 systems reviewed and she does have rather significant rheumatoid arthritis. She has had joints replaced in her left hand up in [place]. PHYSICAL EXAMINATION: VITAL SIGNS: Her blood pressure is 140/83, heart rate 109, respiratory rate 18, temperature is 98.2. She is 99% on room air. She is 5 feet 1 inch and 44 kg. GENERAL: Mignon is a 74-year-old female, lying supine in her hospital bed. Nurses with us. I can tell she is in some pain tachycardic. However, she speaks well and she actually has pretty good insight. LUNGS: Clear to auscultation. HEART: Tachycardic. ABDOMEN: Soft and flat, but she is tender in the left lower quadrant. LABORATORY DATA: White blood cell count is 21,000, hemoglobin 14, neutrophils 84, platelets 236. BUN 21, creatinine 1.37, glucose 107. Liver function tests are negative. Albumin 3.2, lipase 12. Urinalysis unremarkable. Electronically Signed By: ASHLEY CHILEL MD 06/20/19 0847 PATIENT NAME: MIGNON HAY ANN CONSULTATION DATE OF : 45 REPORT #: [id number] PHYSICIAN: ASHLEY CHILEL MD PCP: JULIO CESAR HAWLEY MD REPORT IS CONFIDENTIAL AND NOT TO BE RELEASED WITHOUT AUTHORIZATION [facility] [address], [place] [address] Signed RADIOGRAPHIC STUDIES: CT scan and pelvis is reviewed along with the report. One could see the aneurysms in the abdominal aorta and iliac arteries. She had diverticular disease with this 46 x 23 x 14 mm fluid collection in the bowel wall behind the uterus. ASSESSMENT/PLAN: Mignon is a 74-year-old female, who presents with rather significant diverticulitis for at least a week with mural fluid collection. We are going to treat her conservatively for now with cefepime, Flagyl, and IV fluids. We will keep her n.p.o. and we will increase her pain med from morphine to Dilaudid. Hopefully, we will have to operate on this occasion and we will get her through this acute episode of diverticular disease. Otherwise, she would pry end up with a colostomy, particularly since she is immunocompromised. She has expressed understanding and agrees to above plan. Ashley Chilel MD ALB/MODL /[id number] cc: MD Ashley Corcoran MD Copies: JULIO CESAR HAWLEY MD, ANDREW L MD ~ Electronically Signed By: ASHLEY CHILEL MD 06/20/19 0847 PATIENT NAME: MIGNON HAY CONSULTATION DATE OF : 45 REPORT #: [id number] PHYSICIAN: ASHLEY CHILEL MD PCP: JULIO CESAR HAWLEY MD REPORT IS CONFIDENTIAL AND NOT TO BE RELEASED WITHOUT AUTHORIZATION
--- NOTE | 2019-06-20 09:23 | NUR ---
PATIENT RESTING IN BED. VITAL SIGNS DONE BY RN. I&O DONE. PATIENT DID NOT VOID DURING THIS PERIOD. RN NOTIFIED. CALL LIGHT WITHIN REACH. NO OTHER NEEDS AT THIS TIME
--- NOTE | 2019-06-20 09:59 | NUR ---
PT GIVEN ICE WATER NOW THAT SHE IS ADVANCED. ADVISED TO GO SLOW. PT REPORTS A LITTLE NAUSEA AFTER SIPS.
--- NOTE | 2019-06-20 10:00 | NUR ---
In and spoke stuart castillo. She is resting in bed. States she has diverticulitis and has been very painful. Unsure what he treatment will be. 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 Lives with her spouse Rey in a 1 story house. Has 1 step into her house with a ramp. She does not use DME. States she has rhumatoid arthritis and her does the house hold chores. She plans on discharge to home when cleared by the
--- NOTE | 2019-06-20 10:47 | NUR ---
CALL LIGHT ANSWERED. PATIENT RESTING IN BED. PATIENT GOES TO USE THE BATHROOM. ONE PERSON ASSISTING. PATIENT BACKS TO BED. CALL LIGHT WITHIN REACH. NO OTHER NEEDS AT THIS TIME
--- NOTE | 2019-06-20 11:16 | NUR ---
ASSISTED PT WITH FWW TO AMB TO CHAIR. BLANKETS ON, CALL LIGHT IN REACH.
--- NOTE | 2019-06-20 12:15 | NUR ---
PT BACK IN BED AFTER SITTING IN CHAIR FOR AWHILE. SPIT UP SMALL AMT OF BILE LOOKING FLUID. CALL LIGHT IN PLACE. WOULD LIKE TO TAKE A NAP.
--- NOTE | 2019-06-20 12:22 | NUR ---
PT HAD BOUT OF NAUSEA AGAIN. GIVEN 4MG ZOFRAN.
--- NOTE | 2019-06-20 13:06 | NUR ---
PATIENT RESTING IN BED. VITAL SIGNS AND I&O DONE. CALL LIGHT WITHIN REACH. NO OTHER NEEDS AT THIS TIME
--- NOTE | 2019-06-20 13:09 | EKG ---
[facility] [address] [place] [id number] Signed Sinus tachycardia Inferior infarct , age undetermined Cannot rule out Anterior infarct , age undetermined Abnormal ECG When compared with ECG of 21-OCT-2018 16:07, Vent. rate has increased BY 57 BPM Inferior infarct is now present Confirmed by FRANCHESKA OLIVIER DO ([id number]) on 06/20/2019 1:08:48 PM Electronically Signed By: FRANCHESKA OLIVIER DO 06/20/19 1309 PATIENT NAME: CARMEN HAY ANN Electrocardiogram DATE OF : 45 PHYSICIAN: FRANCHESKA OLIVIER DO REPORT #: [id number] REPORT IS CONFIDENTIAL AND NOT TO BE RELEASED WITHOUT AUTHORIZATION
[2019-06-20] MEDS ORDERED: K-TAB ER20 MEQ PO (13:35)
--- NOTE | 2019-06-20 14:44 | NUR ---
PT GIVEN WARM BLANKET AND STARTED FLAGYL . CALL LIGHT IN REACH.
--- NOTE | 2019-06-20 14:45 | NUR ---
MED REC COMPLETE
--- NOTE | 2019-06-20 17:04 | NUR ---
PATIENT RESTING IN BED. VITAL SIGNS AND I&O DONE. ICE WATER GIVEN. CALL LIGHT WITHIN REACH. NO OTHER NEEDS AT THIS TIME
--- NOTE | 2019-06-20 18:15 | NUR ---
PT SLEPT MOST OF DAY. REDNESS OUTLINED ON LEG. MOSTLY UNCHANGED. URINE OUTPUT QS. PAIN TOLERABLE. HOME MEDS RESTARTED. AMBULATES SBA.
--- NOTE | 2019-06-20 18:40 | NUR ---
PT MORE DISTENDED THIS AFTERNOON, LAYING WITH LEGS UP. DECLINED WALKING. NON PAINFUL, PAIN MOSTLY IN BACK. U\O QS. NEW IV. D5LR @125.
--- NOTE | 2019-06-20 19:22 | NUR ---
RECEIVED REPORT FROM DAY SHIFT. PT IN BED, ALERT, PLEASANT, PARTICIPATED IN REPORT. BED IN LOW POSITION, SCDS ON. I.S. AT THE BEDSIDE. PT DENIED PAIN AT THE MOMENT. CALL LIGHT IN REACH.
--- NOTE | 2019-06-20 20:19 | NUR ---
IN THE PT ROOM, STARTED IV ABX. PT REPORTED PAIN 5/10, PRN PAIN MED WAS GIVEN, SEE MAR. DONE WITH ASSESMENT. PT IN BED, CALL LIGHT IN REACH.
--- NOTE | 2019-06-20 20:35 | NUR ---
TOOK PT ON WALK IN AGUIRRE, SHE MADE IT TO THE END OF THE AGUIRRE AND BACK TO HER ROOM. SHE USED THE RESTROOM AND IS NOW BACK IN BED. SHE IS BURPING AFTER THE WALK. SHE DENIES FURTHER NEEDS AT THIS TIME AND CALL LIGHT IS CLOSE. IV IS INFUSING FINE.
--- NOTE | 2019-06-20 22:50 | NUR ---
IN THE PT ROOM, STARTED SCHEDULED IV ABX. PT AWAKE, DENIED PAIN. NO NEED AT THE MOMENT. BED IN LOW POSITION, CALL LIGHT IN REACH.
--- NOTE | 2019-06-21 02:10 | NUR ---
IN THE PT ROOM, STARTED SCHEDULED IV ABX. PT REPORTED PAIN, MEDICATED WITH PRN IV MED. SEE APR. PT AMBULATED TO THE BATHROOM AND BACK TO BED 1 PERSOM ASSIST. DONE WITH ASSESSMENT. PT IN BED. NO NEEDS AT THE MOMENT. CALL LIGHT IN REACH.
--- NOTE | 2019-06-21 02:56 | NUR ---
in the pt room to re-assess pain. pt awake, stated it is 2/10. call light in reach, no needs at the moment.
--- NOTE | 2019-06-21 05:12 | NUR ---
PT CALLED FOR FRESH ICEWATER FOR ORAL SWAB. VS TAKEN BUT PT DOES NOT NEED TO VOID YET. PT DENIES FURTHER NEEDS AT THIS TIME. CALL LIGHT IS CLOSE.
--- NOTE | 2019-06-21 05:49 | NUR ---
ASSISTED PT TO RESTROOM AND BACK TO BED, PT DENIES FURTHER NEEDS. CALL LIGHT IS CLOSE.
--- NOTE | 2019-06-21 06:17 | NUR ---
pt alert, oriented, cooperative with cares. ambulated with walker around the unit. reported pain and nausea this shift. prn meds wer given. see mar. iv site is patent, dressing is clean, dry, intact. demonstrated use of i.s.
--- NOTE | 2019-06-21 06:52 | NUR ---
PT REPORTED PAIN, PRN IV MED WAS GIVEN, SEE MAR. PT IN BED, CALL LIGHT IN REACH.
--- NOTE | 2019-06-21 09:33 | NUR ---
PT C/O INCREASED ABD PRESSURE AND HAVING REFLUX INTO THROAT AFTER EATING JELLO. ABD FIRM AND DISTENDED. DENIES FLATUS THIS AM. BS VERY HYPOACTIVE. CALL PLACED TO DR CHILEL AND RECIEVED ORDER FOR PT TO BE NPO.
--- NOTE | 2019-06-21 10:30 | NUR ---
PT HAS BEEN SITTING UP IN RECLINER, REQUESTING PAIN MEDICATION FOR 6/10 PAIN, DILAUDID GIVEN, ASSISTED BACK TO BED. WARM BLANKET FOR COMFORT, HOB UP 30 DEGRESS. REMAINS NPO.
--- NOTE | 2019-06-21 11:00 | NUR ---
In and spoke with Mignon. States she is back to NPO status due to pain and distention following clear liq intake. Denies any needs at this time.
--- NOTE | 2019-06-21 12:24 | NUR ---
ONE PERSON ASSIST USING FWW TO AMBULATE INTO BATHROOM TO VOID -200ML DARK YELLOW URINE, PT CONT. TO FEEL BLOATED WITH INCREASED BURPING WITH ACTIVITY, REMAINS NPO, IVF PATENT.
--- NOTE | 2019-06-21 14:00 | NUR ---
ENCOURAGED TO GET UP TO RECLINER, C/O ABD DISTENTION AND PAIN, CONT. TO HAVE LOUD BURPING, DILAUDID GIVEN FOR PAIN.
--- NOTE | 2019-06-21 17:44 | NUR ---
IV INFILTRATED, RESTARTED INTO RFA, C/O FEDERICO 07/25 REQUESTING PAIN MEDICATION, DILAUDID GIVEN, REMAINS NPO, ABD VERY DISTENDED. NO EMESIS. CALL LIGHT IN EASY REACH.
--- NOTE | 2019-06-21 19:06 | NUR ---
PATIENT IN BED WATCHING TV. CALL LIGHT IN REACH. NO FURTHER NEEDS AT THIS TIME.
--- NOTE | 2019-06-21 19:19 | NUR ---
IN ROOM FOR REPORT, PT DENIES NEEDS AT THIS TIME. CALL LIGHT IS WITHIN REACH.
--- NOTE | 2019-06-21 20:17 | NUR ---
IN ROOM TO ASSESS PT AND ADMINISTER MEDICATIONS. PT WANTS TO WAIT ON PAIN MEDS AT THIS TIME. SHE IS BLOATED AND BURPING. PT DENIES FURTHER NEEDS AT THIS TIME. CALL LIGHT IS CLOSE. IV IS INFUSING FINE.
--- NOTE | 2019-06-21 20:38 | NUR ---
VITALS AND I&OS DONE AND CHARTED. HELPED PT TO THE BATHROOM AND BACK TO BED WITH HER FWW. CHANGED HER ABI AND PILLOW CASE. BEDSIDE TABLE AND CALL LIGHT IN REACH. PT NEEDS NOTHING MORE AT THIS TIME.
--- NOTE | 2019-06-21 22:13 | NUR ---
PT AMBULATED SBA WITH FWW DOWN TO END OF AGUIRRE AND BACK. PT BURPED MANY TIMES ALONG THE WAY AND STATES SHE FEELS LIKE SHE MAY HAVE FLATULENCE SOON. SHE DENIES PAIN MEDICINE AT THIS TIME AND STATES SHE CAN HANDLE IT KNOWING THAT IT MAY SLOW GUT MOTILITY. ASSISTED PT TO THE RESTROOM AND BACK TO BED. SHE DENIES FURTHER NEEDS AT THIS TIME. CALL LIGHT IS CLOSE.
--- NOTE | 2019-06-21 22:37 | NUR ---
PT DECIDED TO HAVE DILAUDID, ENCOURAGED HER TO MAKE SURE SHE WALKS MORE. PT AGREES. CALL LIGHT IS CLOSE AND PT DENIES FURTHER NEEDS.
--- NOTE | 2019-06-21 23:50 | NUR ---
PT IS RESTING WITH EYES CLOSED, RR IS EVEN AND NONLABORED. CALL LIGHT IS CLOSE.
--- NOTE | 2019-06-22 02:14 | NUR ---
FLAGYL INFUSING, PT DENIES NEEDS AT THIS TIME. CALL LIGHT IS CLOSE, SEE ASSESSMENT.
--- NOTE | 2019-06-22 02:55 | NUR ---
HELPED PT TO THE BATHROOM AND BACK TO BED WITH HER FWW. SCD'S PLUGGED BACK IN. BEDSIDE TABLE AND CALL LIGHT IN REACH. FRESH ICE PACK GIVEN FOR HER WRIST, PER PT REQUEST. PT ASKED FOR PAIN MEDS, I INFORMED HER RN KWAME. PT NEEDS NOTHING MORE AT THIS TIME.
--- NOTE | 2019-06-22 03:04 | NUR ---
ADMINISTERED IV DILAUDID FOR 8/10 PAIN. PT DENIES FURTHER NEEDS AT THIS TIME. CALL LIGHT IS WITHIN REACH. PT STILL NOT PASSING GAS BUT BURPING ALOT.
--- NOTE | 2019-06-22 03:19 | NUR ---
PT FEELING SICK ADMINISTERED ZOFRAN AND COOL WASH CLOTH PROVIDED. PT DENIES FURTHER NEEDS. CALL LIGHT IS CLOSE.
--- NOTE | 2019-06-22 04:21 | NUR ---
PT REPORTS PAIN AT ABOUT 2/10 ON FACES SCALE. SHE SAYS IT IS MOVING UPWARD. ADMINISTERED TYLENOL, SEE EMAR. SHE DENIES FURTHER NEEDS AT THIS TIME, MOM IS AT BEDSIDE. CALL LIGHT IS CLOSE.
--- NOTE | 2019-06-22 04:35 | NUR ---
IN ROOM TO CHECK ON PT, SHE REPORTS DILAUDID AND ZOFRAN HELPED SOME BUT SWELLING IN HER HANDS AND JOINTS ARE REALLY BOTHERING HER. SHE ALSO STATES SHE USES PAIN PATCHES AT HOME. SHE HAS HANDS ELEVATED ON PILLOWS AND ICE BAG ON THEM. SHE DENIES FURTHER NEEDS AT THIS TIME. CALL LIGHT IS CLOSE.
--- NOTE | 2019-06-22 06:22 | NUR ---
PT REMAINS VERY BLOATED AND UNCOMFORTABLE. SHE HAS DILAUDID FOR PAIN AND SHE TOOK ZOFRAN FOR NAUSEA. SHE IS NPO AND BURPING ALOT. SHE DID NOT HAVE FLATUS THROUGH THE NIGHT. HER JOINTS ARE SWOLLEN AND CAUSING HER DISCOMFORT, SHE WOULD REALLY LIKE TO TAKE HER HOME RA MEDS. IV IS INFUSING DSLR AT 100, SHE IS A 1PA WITH FWW.
--- NOTE | 2019-06-22 06:57 | NUR ---
HELPED PT TO THE BATHROOM AND BACK TO BED WITH HER FWW. BEDSIDE TABLE AND CALL LIGHT IN REACH. PT NEEDS NOTHING MORE AT THIS TIME.
--- NOTE | 2019-06-22 07:31 | NUR ---
PT IS ALERT SITTING UP IN BED, STATES SHE IS PASSING FLATUS THIS MORNING AND FEELS BLOATING HAS IMPROVED, DENIES NAUSEA AND REPORTS PAIN IS BETTER. WANTS TO GET UP TO SHOWER THIS AM.
--- NOTE | 2019-06-22 09:30 | NUR ---
Spoke with Mignon. Sitting up in recliner. Has just showered. States she is exhausted from activity. Remains NPO. Discussed SNF for dc as pt is deconditioned. She declines and cont. to want to go home. She would accept PT.
--- NOTE | 2019-06-22 09:39 | NUR ---
DR CHILEL IN TO SEE PT, AGREES WITH PLAN TO INCREASE ACTIVITY TODAY, REMAIN NPO WITH IVF. PT IN GOOD SPIRITS.
--- NOTE | 2019-06-22 11:00 | NUR ---
UP TO SHOWER WITH SBA, TOLERATED WELL.
--- NOTE | 2019-06-22 13:08 | NUR ---
PT TOOK SHORT WALK, THAN TO BED TO REST, C/O ABD PRESSURE AND DISTENTION AGAIN, DILAUDID GIVEN, IVF PATENT, REMAINS NPO, POSITIONED FOR COMFORT, CALL LIGHT IN EASY REACH.
--- NOTE | 2019-06-22 18:44 | NUR ---
PT HAS BEEN ENCOURAGED TO BE UP IN RECLINER, HAD SHOWER THIS AM, AMBULATED X3. CONT. TO HAVE ABD DISTENTION, VERY HYPOACTIVE BT'S, OCCASIONAL FLATUS, INCREASED BELCHING, NO NAUSEA, DILAUDID GIVEN FOR PAIN. REMAINS NPO WITH IVF, IV RATE INCREASED TO 125, REMAINS AFEBRILE. USING CALL LIGHT APPROP.
--- NOTE | 2019-06-22 20:21 | NUR ---
ON ROOM AIR, ivF INFUSING, NO C/O ADVERSE REACTION TO IV ABX. MEDICATED WITH DILAUDID 1MG IV PER C/O ABD PAIN 10/10, ABD DISTENDED, FAINT TATA BOWEL TONES. PASSING FLATUS, NO BM TODAY. TOLERATING ICE CHIPS, REPOSITIONED IN BED. HEEL PROTECTORS TO R ELBOW. IV SITE RW INTACT. IS AT BEDSIDE. WARM BLANKET TO ABD. TALKED TO EDU AT PTS REQUESTS VIA PTS PRIVATE CELL PHONE. CALL LIGHT AT BEDSIDE
--- NOTE | 2019-06-22 22:38 | NUR ---
HELPED PT TO THE BATHROOM AND BACK TO BED WITH HER FWW. I PUT SOME LOTION ON HER BACK PER HER REQUEST. FRESH ICE, NEW SPIT TOWEL, BEDSIDE TABLE AND CALL LIGHT IN REACH.
--- NOTE | 2019-06-22 23:22 | NUR ---
PT REQUESTED SOMETHING FOR NAUSEA, ADMINISTERED IV ZOFRAN. SHE DENIES FUTHER NEEDS AT THIS TIME. CALL LIGHT IS CLOSE.
--- NOTE | 2019-06-22 23:50 | NUR ---
RESTING, NO FURTHER C/O N/V, NO C/O PAIN, IVF AND CEFEPINE INFUSING W/O PROBLEMS. USES CALL LIGHT APPROPRIATELY
--- NOTE | 2019-06-23 01:22 | NUR ---
PT CALLED REQUESTING PAIN MEDICINE, ADMINISTER DILAUDID. SHE STATED SHE WANTS TO GO TO SLEEP, ADMINISTERED FLAGYL SINCE IT IS DUE SOON SO WE DON'T HAVE TO WAKE HER. SHE DENIES FURTHER NEEDS AT THIS TIME. CALL LIGHT IS WITHIN REACH.
--- NOTE | 2019-06-23 01:48 | NUR ---
VITALS DONE AND CHARTED.
--- NOTE | 2019-06-23 01:48 | NUR ---
pt very restless, anxious, c/o 10/10 abd pain. abd distended, mabel, passing flatus, no changes from earlier assessment. was medicated earlier with DIlaudid 1mg IV, 0.5mg IV given. safety reassured, . mouth care done by self. ice chips removed, turns self in bed. IVF infusing well
--- NOTE | 2019-06-23 01:49 | NUR ---
INFORMED RN AVERY OF B\P
--- NOTE | 2019-06-23 02:24 | NUR ---
HELPED PT TO THE BATHROOM AND BACK TO BED WITH HER FWW. BEDSIDE TABLE AND CALL LIGHT IN REACH. PT NEEDS NOTHING MORE AT THIS TIME.
--- NOTE | 2019-06-23 04:18 | NUR ---
Provided pt with lemon glycerin swabs
--- NOTE | 2019-06-23 04:28 | NUR ---
resting, resp even unlabored, eyes closed, ivf infusing, r arm heel protector in place, scds in place. fluids and call light at hands reach
--- NOTE | 2019-06-23 05:53 | NUR ---
PT CONTINUES TO BE ANXIOUS OVER ABD BEING DISTENDED, WAS MEDICATED SEVERAL TIMES WITH DILAUDID PER ABD PAIN AND ABD DISTENTION WITH FAIR TO NO RELIEF. ICE CHIPS REMOVED, ABD DISTENTION DOWN, ABD STILL FIRM AND TENDER. TATA. PASSING GAS RECTALLY AND BURPING. REASSURED, CALMER. NPO. MOUTH SWABS GIVEN. EXPLAINED TO PT WHY SHE COULD NOT HAVE WATER SHE WANTED WATER TO GARGLE HER THROAT.IV RESTARTED. HEEL PROTECTORS TO BOTH ELBOWS. SCDS IN PLACE. PT HADS LESS EDEMATOUS FROM RA. WENT BACK TO SLEEP. CONTIUES TO OBSERVE AND REASSURED SAFETY AND PAIN CONTROL. VOIDING QS, 1PA/FWW
--- NOTE | 2019-06-23 07:05 | NUR ---
RECEIVED REPORT FROM AVERY KIRAN. PT LAYING IN BED, CALL LIGHT WITHIN REACH. NO COMPLAINTS OR CONCERNS AT THIS TIME
--- NOTE | 2019-06-23 08:10 | NUR ---
IN PTS ROOM GIVING MEDS. PT LAYING IN BED. DENIES PAIN. PT STATES THAT SHE IS PASSING GAS
--- NOTE | 2019-06-23 09:19 | NUR ---
IN PTS ROOM HANGING ANTIBIOTICS. PT DENIES PAIN, JUST FEELS GASSY. LUIS KIRAN FROM CASE MANAGEMENT IN ROOM AT THIS TIME
--- NOTE | 2019-06-23 09:31 | NUR ---
SPOKE WITH PATIENT IN ROOM. PATIENT STILL FEELING UNWELL. PATIENT BURPING OFTEN DURING CONVERSATION. PATIENT FEELS VERY WEAK. SHE STILL INTENDS TO DISCHARGE HOME WITH . WE DISCUSSED WEAKNESS, SHE IS AGREEABLE TO HOME HEALTH IF NEEDED. SHE FEELS HER WILL BE ABLE TO HELP HER NEEDED.
--- NOTE | 2019-06-23 11:30 | NUR ---
PT REPORTING PAIN AFTER MOVING TO THE RESTROOM AND THEN BACK TO BED. PROVIDED PT WITH 1M OF DILAUDID FOR THE PAIN AT THIS TIME
--- NOTE | 2019-06-23 12:58 | NUR ---
CHECKED ON PT. CALL LIGHT WITHIN REACH BUT PT DID STATE THAT SHE WOULD LIKE TO GO TO THE BATHROOM. ASSITED PT TO RESTROOM AND THEN BACK TO BED. PER PT REQUEST PUT LOTION ON PTS BACK WHERE SHE STATED SHE FELT SORE.
--- NOTE | 2019-06-23 14:38 | NUR ---
IN PTS ROOM HANGING MEDS. CALL LIGHT WITHIN REACH. NO COMPLAINTS AT THIS TIME
--- NOTE | 2019-06-23 17:00 | NUR ---
PT UP TO RESTROOM, WHEN BACK TO BED PT STATES THAT SHE WOULD LIKE A PAIN MED AT THIS TIME. PROVIDED PT WITH 1MG DILAUDID FOR PAIN
--- NOTE | 2019-06-23 19:51 | NUR ---
up to br, voided, 1pa, back to bed, repositioned. IVF infusing well, nmo c/o adverse reaction to iv abx. on room air, less anxious, easily redirectable and calmer after safety and pain control reassured, abd distended less than yesterday, mabel, firm to touch. declined elbow protectors, bruisingareas both elbows and bruised areas l arm. legs elevated in pillows. call light at bedside, continuous to be NPO
--- NOTE | 2019-06-23 21:45 | NUR ---
PATIENT CALLED FOR ASSISTANCE TO AMBULATE TO BATHROOM. THIS OFFICIAL COURT REPORTER ASSISTED PATIENT TO BATHROOM, PATIENT TOLERATED WELL, COMPLAINS OF PAIN AND REQUESTING PAIN MEDICATION AT THIS TIME. PATIENT AMBULATED BACK TO BED, PATIENT HAS TWO RED SPOTS ABOUT A QUARTER IN SIZE ON BONY PROMINENCES OF SPINE IN MIDDLE BACK. RN NOTIFIED, PATIENT ENCOURAGED TO LAY ON HER SIDE OR PLACE PILLOWS UNDERNEATH BUT PATIENT DECLINES. PATIENT RESTING, CALL LIGHT IN REACH, SIDE RAILS UP X2, NO FURTHER NEEDS AT THSI TIME.
--- NOTE | 2019-06-23 22:23 | NUR ---
medicated with dilaudid 1mg IV 8/10 abd pain, back and hands pain , anxious, reassured. NPO
--- NOTE | 2019-06-23 22:47 | NUR ---
MAGNO VARELA REQUESTS THIS CHEMICAL INSTRUMENTATION OFFICER TO SIT IN ROOM WITH PATIENT TO HELP CALM HER ANXIETY. PATIENT APPEARS ANXIOUS, STATES SHE NEEDS TO GET UP TO USE THE BATHROOM. PATIENT AMBULATES TO BATHROOM TO VOID, WASHES HANDS AND FACE AT SINK, DENTURES IN CONTAINER AT BEDSIDE. PATIENT BACK IN BED, COMPLAINS OF THE RED SPOTS ON HER BACK STARTING TO ACHE. RN NOTIFIED. PATIENT APPEARS CALMER AFTER SITTING WITH HER AND STARTS TO CLOSE HER EYES AND REST. CALL LIGHT IN REACH, BED RAILS UP X2, NO FURTHER NEEDS AT THIS TIME.
--- NOTE | 2019-06-23 23:05 | NUR ---
allevyn applied to mid back, red area bony prominence
--- NOTE | 2019-06-24 02:12 | NUR ---
awakes easily, goes back to sleep, resp even, unlabored, no c/o pain. comfortable, IVF infusing, NPO, Mouth swabs and IS at bedside. took elbow protectors off. call light at hands reach, IVF infusing
--- NOTE | 2019-06-24 03:33 | NUR ---
FELLED SEAM OPERATOR CHAINSTITCH TO DESK, PT COMPLAINING OF NOT BEING ABLE TO CATCH HER BREATH. SAID SHE WOKE UP DIDN'T KNOW WHERE SHE WAS, WAS LOOKING FOR HER . NOTED VS, HR IN THE 130'S, O2 SATS IN 80'S. COMPLAIN OF PRESSURE, BUT PRESSURE LOCATED UPPER ABD AREA VS CHEST/HEART. WASN'T SURE SHE WANTED TO GET UP PEE, POOP OR WHAT SHE WANTED. BREATHING APPROX 20, ABLE TO FORM SENTENCES. CONTINUED TO COMPLAIN OF NOT BEING ABLE TO CATCH HER BREATH. NO CYANOSIS NOTED. FINGERS, SKIN WARM. UP TO BSC, VOIDED, BACK TO BED STATING FELT LITTLE BETTER. EKG COMPLETED DUE TO THE PRESSURE AND RAPID HR. RATE 125 WITH EKG. O2 PLACED WHEN RN FIRST INTO THE ROOM, 2L NC. AT THISTIME, 0337 STATES BREATHING BETTER, IF SHE CAN "JUST CONTROL" IT. STATES HER RA IS ACTING UP, COMPLAINING OF DRYNESS. O2 SATS 94%, HR 124 PER MACHINE . PLAN TO GET PAIN MEDICATION TO PT
--- NOTE | 2019-06-24 03:49 | NUR ---
MED WITH 1 MG DILAUDID FOR 8/10 PAIN, RESP 14 CURRENTLY WITH HR 115. WANTED TV ON TO DISTRACT HER. CALL LIGHT WITH REACH.
--- NOTE | 2019-06-24 04:15 | NUR ---
CALMER, CPOX OFF AT HER REQUESTS, SATS 95%, PULSE 96, R20, REASSURED, CALMER. IVF INFUSING
--- NOTE | 2019-06-24 04:21 | NUR ---
Sat with pt, listend to pt talk for about 5 min, pt seemed to relax, provided pt with a wet rag, pt stated she was ok she is not having a heart attack.
--- NOTE | 2019-06-24 05:48 | NUR ---
c/o feeling nauseated, dry heaving, medicated with Zofran 8mg IV
--- NOTE | 2019-06-24 07:10 | NUR ---
RECEIVED REPORT FROM AVERY KIRAN. PT LAYING IN BED AWAKE THIS AM, NO COMPLIANTS AT THIS TIME
--- NOTE | 2019-06-24 08:01 | NUR ---
IN PTS ROOM GIVING MORNING MEDS. PT AWAKE AND ALERT. CALL LIGHT WITHIN REACH. PT STATES THAT SHE IS READY FOR SOME PAIN MEDS. PROVIDED PT WITH 1 MG OF DILAUADID FOR COMFORT
--- NOTE | 2019-06-24 09:30 | NUR ---
IN PTS RROM TO HANG MORE MEDICATIONS. PT STATES THAT SHE IS WET. ASSISTED PT TO CHANGE ATTENDS, BED PAD AND SOME OF THE LINENS. ALSO ASSISTED PT TO DO A PARTIAL BED BATH WELL. PT STATES THAT SHE FEELS BETTER AND MORE CLEAN NOW
--- NOTE | 2019-06-24 11:15 | NUR ---
pt called to this rn in [place] wanting warm blankets at this time. call light is within reach. pt just wanted warm blankets so she could get more "cozy"in bed
--- NOTE | 2019-06-24 12:10 | NUR ---
in pts room to check in on her. pt requesting pain meds at this time. provided pt with 1mg of diluadid per pt request
--- NOTE | 2019-06-24 17:25 | NUR ---
CHECK IN ON PT. PT LAYING IN BED CALL LIGHT WITH REACH, STATES THAT SHE DOESNT NEED ANYTHING AT THIS TIME KELSY MARES NOTIFIED THIS RN THAT PT HAD JUST BEEN INCONTINENT
--- NOTE | 2019-06-24 18:40 | NUR ---
PT APPEARS TO BE RESTING AT THIS TIME, RESPIRATIONS NOTED. CALL LIGHT WITHIN REACH AT THIS TIME
--- NOTE | 2019-06-24 20:05 | NUR ---
PT AWAKE, WATCHING TV, NO C/O PAIN, NO ANXIETY AT THIS TIME, NPO, DOES OWN CARE. BRUISING L ARM AND BOTH ELBOWS, HEEL PROTECTORS AVAILABLE AT BEDSIDE, PT DECLINES AT THIS TIME. LEGS ELEVATED IN PILLOWS, DECLINES SCDS. WAS INCONTINENT OF URINE, ALLEVYN ON MID BACK BONY PROMINENCE. rEPOSITIONED IN BED, HOB ELEVTATED. NPO. USES CALL LIGHT APPROPRIATELY, IVF INFUSING W/O PRBLEMS
--- NOTE | 2019-06-24 21:15 | NUR ---
FLAT DRIER ROUNDING NOTE. PT RESTING IN BED AWAKE. DENIES QUESTIONS, CONCERNS, OR NEEDS AT THIS TIME. CALL LIGHT IN REACH. WHITE BOARD UPDATED.
--- NOTE | 2019-06-25 00:16 | NUR ---
PT RESTING, EYES CLOSED, NO RES PDISTRESS. IVF INFUSING, CALL LIGHT AT BEDSIDE, CONTINUOUS ON NPO STATUS, DOES OWN MOUTH CARE
--- NOTE | 2019-06-25 02:29 | NUR ---
increased anxiety, c/o being incontinent, attendas changed. repositioned in bed, c/o insomnia and itching, medicated with benadryl 12.5mg IV
--- NOTE | 2019-06-25 03:07 | NUR ---
WARM BLANKET PROVIDED.
--- NOTE | 2019-06-25 03:14 | NUR ---
PATIENT CALLED. WENT IN TO THE ROOM. PATIENT STATED "I DONT NEED ANYTHING". EMPTIED THE URINAL.
--- NOTE | 2019-06-25 05:36 | NUR ---
Increased anxiety, hyperventilating, restless in bed, pulling at iv. Repositioned in bed O2 placed on 2L NC, sasts were 88% inmediately went up to 92-93%. Medicated with Ativan 0.5mg IV. Incontinent of urine, cleansed, attends in place. NPO mouth care done.
--- NOTE | 2019-06-25 06:13 | NUR ---
PT RESTING, EYES CLOSED, WAS MEDICATED WITH ATIVAN X1 PER INCREASED ANXIETY, HYPERVENTILATING, RESTLESSNESS, R 24-P115, C/O I NEED TO GET OUT OF HERE, C/O INCREASD ABD DISTENTION, DISTENTION DECREAWED FROM LAST NIGHT, SOFTER, PASSING PLENTY OF RECTAL GAS AND BURPING. WAS MEDICATED WITH BENADRYL PER INSOMNIA AND ITCHING, PARTIALLY EFFECTIVE. HAS SLEPT 2-3 HRS NOT CONCURRENT. THIS RN SPENT TIME IN ROOM REASSURING PT AND CALMED ADRIÁN, REPOSITIONED MULTIPLE TIMES IN BED, C/O SOB, SATS WERE 88% WHEN SHE WAS HYPERVENTILATIN AND ANXIOUS, SATS WENT UP INMEDIATELY PLACED ON O22LNC, REMOVED WHEN SHE CALMED DOWN AND SATS HAS REMAINED AT 92-93%. O2 PLACED BACK ON AT PTS REQUESTS. INCONTINENT OF URINE, NO BM THIS SHIFT, ATTENDS IN PLACE. LEGS ELEVATED. DECLINED SCDS AND ELBOW PROTECTORS, HOB ELEVATE TO HER COMFORT, CONTINUES NPO. MOUTH CARE DONE SEVERAL TIMES. AND SHE DOES HER OWN. NOTED THAT WATER IN CONTAINER TO DIP ORAL SPONGES HAD DECREAED, PT DENIES DRINKING THE WATER. REMOVED. HER ANXIETY INCREAED PT C/O I NEED TO GARGLE, MY MOUTH AND THROAT ARE VERY DRY, I HAVE NOT EATED FOR SEVERAL DAYS. REASSURED, CALMER AT THIS TIME. CONTINOE TO OBSERVE, NO BM SINCE 06/18. IVF INFUSING, NO C/O ADVERSE REACTION TO IV ABX
--- NOTE | 2019-06-25 07:15 | NUR ---
RECEIVED REPORT FROM AVERY KIRAN. PT APPEARS TO BE RESTING AT THIS TIME, CALL LIGHT WITHIN REACH AT THIS TIME
--- NOTE | 2019-06-25 07:55 | NUR ---
IN PTS ROOM TO GIVE MEDS. THIS RN WILL BE BACK TO GIVE MEDS LATER DUE TO PT RESTING, RESPIRATIONS NOTED AT THIS TIME. CALL LIGHT WITHIN REACH. PT DID NOT SLEEP WELL LAST NIGHT PER AVERY RN WHO GAVE THIS RN REPORT
--- NOTE | 2019-06-25 08:05 | NUR ---
PATIENT SLEEPING, WILL RECHECK PATIENT!
--- NOTE | 2019-06-25 09:03 | NUR ---
in pts room giving meds. pt became emotional and anxious. pt is declining pain meds and stating that the staff is lying to her about her condition. discussed with pt that we aren't lying to her and that we need to know when she needs to pee because she had wet the bed again (she was not incontient when she arrived). also discussed with pt she can't go home in the state she is in due to not getting better. discussed with pt that this rn was going to speak with the md about her condition. updated charge nurse cate hinton about pts condition. cate hinton called to update him about pts condition.
--- NOTE | 2019-06-25 09:06 | NUR ---
CALLED TO UPDATE ON PT CRYING, TACHYCARDIA 110-120 BPM. PT REPORTS INCREASE IN ABD PAIN. DISCUSSED IF PT MIGHT HAVE BOWEL BLOCK, HE SAID THIS IS LIKELY THE CASE, HE SAID HE WILL BE IN TO SEE PT SOON.
--- NOTE | 2019-06-25 09:31 | NUR ---
IN PT ROOM TO ASSESS PT AND DISCUSS PLAN OF CARE. SAID HE WOULD CALL AND UPDATE PT SPOUSE WELL.
--- NOTE | 2019-06-25 10:58 | NUR ---
PATIENT IS RESTING
--- NOTE | 2019-06-25 11:03 | NUR ---
PTS DAUGHTER CALLED THIS RN DISCUSSED WITH HER HOW THE PT WAS DOING TODAY. TOLD HER THAT PT IS HAVING A HARD DAY BUT THAT THE PT IS SLEEPING NOW. PTS DAUGHTER STATED THAT SHE UNDERSTANDS AND WILL CALL BACK LATER TO TRY AND CALL LATER
--- NOTE | 2019-06-25 11:35 | EKG ---
[facility] [address] [place] [address] Signed Sinus tachycardia with premature supraventricular complexes Nonspecific ST and T wave abnormality Abnormal ECG When compared with ECG of 19-JUN-2019 15:38, premature supraventricular complexes are now present Nonspecific T wave abnormality now evident in Inferior leads Confirmed by HAIR ROSE MD ([id number] on 06/25/2019 11:35:01 AM Electronically Signed By: HAIR ROSE MD 06/25/19 1135 PATIENT NAME: CARMEN HAY ANN Electrocardiogram DATE OF : 45 PHYSICIAN: HAIR ROSE MD REPORT #: [id number] REPORT IS CONFIDENTIAL AND NOT TO BE RELEASED WITHOUT AUTHORIZATION
--- NOTE | 2019-06-25 12:11 | NUR ---
THIS RN INTO PT ROOM AND ASSISTED WITH GOWN AND BEDDING CHANGE DUE TO LARGE INCONT OF URINE. PT SAID "IT HURTS SO BAD, MY BACK, MY BELLY, I CAN'T USE MY HANDS AND THEY HURT" THIS RN SAID, "WE HAVE PAIN MEDICATION ORDER THAT WE CAN GIVE YOU" PT SAID "NO! I DONT WANT ANY" PRIMARY RN CHARLOTTE ALSO DISCUSSED BENEFIT OF PAIN MEDICATION, PT ALSO REFUSED WHEN CHARLOTTE RN TRIED TO DISCUSS PAIN MANAGEMENT.
--- NOTE | 2019-06-25 12:20 | NUR ---
in pts room to change her due to her incontinence of urine. pt stating "why are you doing this to me?" this are asked "did what" pt stated again "why are you doing this to me?" asked pt what are we doing to her. pt stated that we were hurting her by not treating her right. disussed with pt that we have offered her pain meds and this is how the md is treating her is waiting to see what her bowels do and waiting for her arthritis meds to wear off. asked pt agian if she wanted pain meds. pt refusing pain meds at this time. pt stating that her hands, back and stomach but pt is refusing pain meds. pt stating also "why do people come to this hospital? i want to go home" discussed with pt that her pain won't be better at home asked pt if she would like something to help her sleep and get comfortable, pt stated that would be okay. provided pt with 1mg of ativan pts iv also went bad at this time, leaking. removed iv from left hand.
--- NOTE | 2019-06-25 12:55 | NUR ---
CALLED PTS TO LET HIM KNOW THAT WE ARE MAKING AN EXCEEPTION TO NO VISITORS AND THAT HE IS MORE THAN WELCOME TO COME IN AND SEE HER. PTS ABELARDO SAID HE WILL BE IN SHORTLY
--- NOTE | 2019-06-25 13:30 | NUR ---
PTS IN ROOM TO SEE HER. PT BECAME EMOTIONAL WHEN SHE WOKE UP AND SAW
--- NOTE | 2019-06-25 14:05 | NUR ---
IN PTS ROOM CHANGING HER AFTER ANOTHER INCONTINENCE SPELL. PT EMOTIONAL WHEN HAVING TO CHANGE HER. PT TOLERATED OKAY.
--- NOTE | 2019-06-25 14:10 | NUR ---
PT SPOUSE INTO VISIT DUE TO PT DISTRESS, SEE OTHER NOTES
--- NOTE | 2019-06-25 14:19 | NUR ---
IN PTS ROOM HANGING MEDS. PT BACK ASLEEP, RESPIRATIONS NOTED AT THIS TIME. WHEN PT WAS AWAKE ASSISTED PT TO COUGH AND USE IS PTS GOING HOME NOW, PTS STATES THAT HE FEELS HE IS NOT BEING EFFECTIVE HERE
--- NOTE | 2019-06-25 16:24 | NUR ---
in pts room due to beeping of the iv. noticed that pts iv on her right wrist is no longer good. jv hinton in pts room now to restart the iv
--- NOTE | 2019-06-25 16:31 | NUR ---
THIS RN TO ROOM TO START IV PER RN REQUEST. IV STARTED PER PROTOCOL IN RIGHT FORARM. BED ALARM PLACED. PT RESTING IN BED. BED RAILS UP. CALL LIGHT WITHIN REACH.
--- NOTE | 2019-06-25 17:21 | NUR ---
UPDATED PTS DAUGHTER JANNIE (PT GAVE VERBAL OKAY TO UPDATE HER ON PTS CONDITION) ON PTS CONDITION AT THIS TIME. DISCUSSED WITH PTS DAUGHTER THAT PT WAS HAVING A ROUGH DAY AND THAT WE ARE WAITING UNTIL TOMORROW TO MAKE DESCIONS ON HER CARE
--- NOTE | 2019-06-25 18:02 | NUR ---
IN PTS ROOM TO CLEAR PUMPS PT HUMMING IN PAIN IN BED WHILE ASLEEP. PT DENIES PAIN MEDS AGAIN AT THIS TIME. PT STATES SHE HAS NO NEEDS JUST WANTS TO GO HOME. DISCUSSED WITH PT THAT IF SHE GOES HOME SHE PROBABLY WILL NOT GET BETTER. PT UNDERSTANDING. DISCUSSED WITH PT THAT WE ARE NOT HOLDING HER AGAINST HER WILL HERE IN THE HOSPITAL
--- NOTE | 2019-06-25 18:22 | NUR ---
IN PTS ROOM DUE TO PT PUTTING ON HER CALL LIGHT, PT COMPLAINING OF BACK PAIN. ASKED PT IF SHE WOULD LIKE PAIN MEDS. PT DECLINING PAIN MEDS AGAIN AT THIS TIME STATING "I DON'T WANT THEM" ASKED PT IF SHE WOULD LIKE TO BE REPOSITIONED, REPOSITIONED PT ONTO HER SIDE. PT TOLERATED OKAY. PT THEN BEGAN LOUDLY ACCOUSING THIS RN THAT I WAS THE ONE WHO MADE HER COME TO THE HOSPITAL AND STAY HERE AND MISTREATED HER AND LIED TO HER. EDUCATED PT THAT THIS RN WAS TRYING TO KEEP HER COMFORTABLE BY OFFERING HER PAIN MEDS AND OFFERING DIFFERENT PAIN MEDS TOO. PT DENIES THE WANT FOR ANY OTHER PAIN MEDS AT THIS TIME. PT THEN CONTINUED TO ACCOUSE THIS RN ABOUT HER SITUATION STATING "YOU DID THIS TO ME" THIS RN TRIED TO EDUCATE PT THAT THIS RN WAS ONLY THERE TO HELP AND THAT THE PT WAS ACCEPTING THE HELP. AT THIS POINT PT BEGAN VERBALLY ATTACKING THIS RN WITH MORE STATEMENTS THAT THIS RN WAS "HURTING HER" THIS RN STATED TO PT THAT SHE WILL NOT TAKE THIS VERBAL ABUSE. PT THEN STATED "THEN YOU ARE NOT STRONG ENOUGH TO BE IN THIS LINE OF WORK" THIS RN NOTED THAT PT WAS SAFE IN BED WITH THE BED LOWERED, CALL LIGHT WITHIN REACH, AND BED RAILS UP WITH PERSONAL BELONGINGS WITHIN REACH AND THIS RN WALKED OUT OF THE ROOM
--- NOTE | 2019-06-25 18:48 | NUR ---
THIS RN RESPONDED TO PT'S CALL LIGHT WITH SUPERVISOR STITCHING DEPARTMENT. PT WAS CRYING, MOANING. PT CRIED THAT SHE "NEEDED HELP" BECAUSE HER "FACE WAS SO DRY AND HER BACK HURT SO BAD." RN AND SUPERVISOR STITCHING DEPARTMENT ATTEMPTED MULTIPLE TIMES TO OFFER PAIN MEDICATIONS AND PT REFUSED STATING "NO, THEN I'LL BE HERE STILL!" RN AND SUPERVISOR STITCHING DEPARTMENT PUT CREAM ON HER FACE, WHICH PT STATED WAS MUCH BETTER. ALSO, REPOSTIONED PT TO HER BACK. LESS THAN A MINUTE LATER, SHE CALLED AGAIN. SHE WANTED HER GLASSES. WHEN ANOTHER RN ANSWERED THE CALL LIGHT, SHE LOOKED AT THIS RN AND SAID "TELL HIM TO GO FUCK HIMSELF!"
--- NOTE | 2019-06-25 19:13 | NUR ---
PT REPORTS SHE IS STRESSED ABOUT THE AMOUNT OF TIME SHE HAS BEEN HERE WITH OUT GETTING BETTER, NO ONE IS LISTENING, SHE SAID, SHE HASNT HAD PAIN MEDS FOR ALONG TIME. THIS RN ASKED PT IF SHE WOULD LIKE PAIN MEDICATION, EDUCATION GIVEN ON MEDICATIONS, SHE CONTINUES TO REFUSE AND SAY THAT THE PAIN MEDICATION CAUSED THIS AND REFUSES ANYTHING TO BE ADMINISTERED.
--- NOTE | 2019-06-25 19:20 | NUR ---
REPORT RECEIVED FROM OFFGOING RNCHARLOTTE. PT NOT DISTURBED FOR REPORT DUE TO INCREASED ANXIETY THROUGHOUT THE DAY.
--- NOTE | 2019-06-25 19:31 | NUR ---
PT AGREED TO TAKE 1MG IV DILAUDID AT THIS TIME WHILE ROUNDING WITH JES KIRAN
--- NOTE | 2019-06-25 20:22 | NUR ---
SPENT TIME VISITING WITH PT. SHE CRIED, CONCERNED ABOUT HER NOT SIGNING UP FOR "THIS", INDICATED A COLOSTOMY BAG, SHOULD THAT HAVE TO HAPPEN IF SHE AGREED TO SURGERY. STATED SHE CAME TO THE HOSPITAL FOR HELP BUT "NOTHING" HAS HAPPENED. PT SEEMS FRIGHTENED, WORRIED ABOUT THE BAG SMELLING, THAT SHE WILL BE "STUCK" AT HOME WITH THE BAG, "CAUSE SHE CAN'T GO ANYWHERE". LET PT TALK, SHE SAID HER ALTERNATIVES WOULD BE TO LAY DOWN AND , CONCERNED SHE WON'T MAKE IT THROUGH SURGERY. PT BEEN FOR 30 PLUS YEARS. USED TO HAVE A "HIGHER" POWER, BUT DOESN'T. FEELS THAT SURGERY WILLCAUSE HER TO LEAVE HER IF SHE HAS A BAG. SUGGESTED THAT SHE CONSIDER THE SURGERY "WHAT IF SHE DIDN'T HAVE A BAG", BUT HER PAIN STARTED TO GET LESS (THIS NURSE SAID. PT IS FEARFUL OF THE UNKNOWN, AND ISN'T NECESSARILY REFUSING SURGERY, BUT HAS CONCERNS THAT HER WOULD NOT LIKE THIS, OR THAT SHE MAY . REASSURED PT THAT THIS NURSE WOULD BE BACK TO CHECK ON HER. PT PRIMARY RN NOTIFIED OF THE CONVERSATION .
--- NOTE | 2019-06-25 20:59 | NUR ---
PT ASSESSMENT COMPLETE. PT STATES THAT PAIN IS AT HER USUAL LEVEL. DENIES NEED FOR PAIN MEDICATION AT THIS TIME. PT REPORTS SLIGHT SOB, SA02 90%, LUNG SOUNDS CLEAR THROUGHOUT. PT DENIES NAUSEA. BT'S HYPOACTIVE. ABD MILDLY DISTENDED, TENDER TO PALPATION. IV X 2 FLUSHED, WNL. ATTENDS IN PLACE. LINENS AND ATTENDSWET, CHANGED AT THIS TIME. PT TOLERATED TURNING IN BED WELL. PT VERY ANXIOUS, USING A CRYING VOICE TO TALK AND ASK MULTIPLE QUESTIONS ABOUT EHR CARE, CURRENT ILLNESS, MEDICATIONS. THERAPEUTIC COMM. USED TO EDUCATION. PT WITH MINIMAL UNDERSTANDING, CONTINUE TO PROVIDE REASSURANCE. PT DENIES FURTHER NEEDS AT THIS TIME. LIGHTS TURNED DOWN. PERSONAL CARE ITEMS WITHIN REACH. CALL LIGHT IN REACH.
--- NOTE | 2019-06-25 22:22 | NUR ---
AUTOCAD DRAFTSMAN TO ROOM FOR SCHEDULED MEDICATION ADMINISTRATION. PT CONTIUES TO HAVE ANXIETY, ASKING IF HER BLOOD LEVELS ARE BEING CHECKED AND MONITORED. ASKING WHY SHE ISN'T IMPROVING. STATES THAT SHE SHOULDN'T NEED TO HAVE A BOWEL MOVEMENT BECAUSE SHE HASN'T EATEN IN A WEEK. THERAPEUTIC COMMUNICATION AND REASSURANCE PROVIDED. PT DENIES FURTHER NEEDS. CALL LIGHT IN REACH.
--- NOTE | 2019-06-26 00:53 | NUR ---
PT UTILIZES CALL LIGHT. REQUESTS FOR MEDICATION TO HELP HER SLEEP. STAINED GLASS GLAZIER HELPER TO ROOM, PT TEARFUL, VERY ANXIOUS. STATES THAT SHE DOESN'T WANT TO BE HERE, THAT SHE WANTS TO GO HOME. STATES THAT NO ONE IS DOING ANYTHING FOR HER, SHE IS ANGRY THAT SHE IS NOT IMPROVING. PT STATES "THIS HOSPITAL CARES MORE ABOUT FG PROFIT THAN IT DOES PATIENTS." PT COMPAINING OF PAIN, HOLDING HER ABDOMEN. ANISHA OFFERS PT PAIN MEDICATIN. SHE REFUSES, DOES NOT WANT PAIN MEDCIATION BECAUSE SHE "DOESN'T WANT TO HAVE TO "FG" STAY HERE LONGER". STAINED GLASS GLAZIER HELPER PROVIDES EDUCATION REGARDING MEDICATION AVAILABILITY FOR ASSISTANCE SLEEPING. PT STATES THAT SHE WANTS THE BENADRYL VS ANY OTHER MEDICATION BECAUSE IT'S A MEDICATION YOU CAN GET OVER THE COUNTER. PRN BENADRYL ADMINISTERED. PT'S ATTENDS AND CHUX CHANGED, SATURATED WITH URINE. PT DENIES FURTHER NEEDS AT THIS TIME. CALL LIGHT IN REACH.
--- NOTE | 2019-06-26 02:45 | NUR ---
ASSISTED PRIMARY CHANGING PATIENT'S ATTENDS.
--- NOTE | 2019-06-26 02:51 | NUR ---
PT ASSESSMENT COMPLETE. PT RESTING IN BED MOANING AND CRYING, REPEATEDLY STATING HOW BAD HER ABDOMEN HURTS. PT STATES THAT SHE IS STILL UNABLE TO FALL ASLEEP. PT OFFERED ATIVAN TO HELP HER RELAX, SHE STATES "IF YOU GIVE THAT, I WILL HAVE TO STAY HERE! CAN I GO HOME TOMORROW?" ENCOURAGED PT TO DISCUSS PLAN FOR DC WITH MD. PT STATES "I AM HAVING SO MUCH PAIN". PACKAGE DYE STAND LOADER REMINDS PT THAT SHE DID NOT WANT ANY PAIN MEDICATION. PT STATES "OK I WILL WILL TAKE SOME THIS TIME". PRN DILAUDID ADMINISTERED. PT DENIES NAUSEA OR SOB. BT'S HAVE BECOME MUCH MORE ACTIVE SINCE PREVIOUS ASSESSMENT, PT HAVING FLATUS AND BURPING. ABDOMEN CONTINUES TO BE DISTENDED AND TENDER TO PALPATION. ATTENDS CHANGED AT THIS TIME. PT DENIES FURTHER NEEDS. CALL LIGHT IN REACH.
--- NOTE | 2019-06-26 04:15 | NUR ---
PT RESTINGIN BED WITH EYES CLOSED. DOES NOT WAKE WHILE TEARER AT BEDSIDE. CALL LIGHT IN REACH.
--- NOTE | 2019-06-26 05:15 | NUR ---
PT UTILIZES CALL LIGHT, REQUESTS TO GET TO BSC. STATES THAT SHE NEEDS TO HAVE BM. UP TO BSC WITH 2 PA. TOLERATED WELL. PT HAD MEDIUM SIZED LOOSE BROWN STOOL. PT STATES THAT THIS HAS RELIEVED SOME PRESSURE AND PAIN IN HER ABD, STATES THAT ABD REMAINS "SORE" HOWEVER. PT ASSISTED BACK TO BED. DENIES FURTHER NEEDS AT THIS TIME. CALL LIGHT IN REACH.
--- NOTE | 2019-06-26 07:30 | NUR ---
REPORT RECVIEVED FROM MAGNO COCHRAN. PT AWAKE AND LAYING IN BED. PT APPEARS TEARFUL BUT DENIES NEEDS ATT.
--- NOTE | 2019-06-26 08:54 | NUR ---
PT EMOTIONAL. ON PHONE WITH FRIEND AND TEARFUL. MISSING HER FAMILY. PT ALSO NEEDS HER RA MEDICATION HER FEET AND HANDS ARE REALLY HURTING. WILL DISCUSS WITH DR. KLEIN HER HAND AND EXPLAINED THAT TODAY IS A GOOD DAY, HAS HAD TWO LARGE BM'S AND HER DISTENTION HAS GONE DOWN.
--- NOTE | 2019-06-26 09:13 | NUR ---
PATIENT IN BED WATCHING TV. WARM WASHCLOTH GIVEN. PATIENT SAID SHOWER MAYBE LATER. CALL LIGHT IN REACH. NO FURTHER NEEDS AT THIS TIME.
--- NOTE | 2019-06-26 09:55 | NUR ---
PT RESTING WITH EYES CLOSED. CALLED AND UPDATED HIM ON HER NIGHT.
--- NOTE | 2019-06-26 11:01 | NUR ---
CHECKED ON PT AND SHE STATED THAT SHE WAS GETTING DROWSY. ADVISED TO TAKE A NAP WHILE AB IS STILL RUNNING AND WE WILL GO FOR A WALKABOUT AFTERWARDS.
--- NOTE | 2019-06-26 13:34 | NUR ---
PT IS SITTING UP IN BED, ALERT, ORIENTED AND WATCHING TV. PT IS PLEASANT AND SEEMS TO ENJOY COMPANY. PT EXPRESSED GREAT CONCERN FOR [facility]FOR HOS[facility] STAFF. SHARED SOME WAYS [facility] IS CARING FOR STAFF. PT SEEMED PLEASED. REQUESTED THAT I PRAY FOR STAFF, AND INCLUDED HER WELL. LEFT A ROSEY AND TRISH
--- NOTE | 2019-06-26 15:16 | NUR ---
PATIENT WORKED WITH PT. PATIENT NOW BACK TO BED. BED BATH GIVEN. LINENS CHANGED. NEW GOWN PROVIDED. FRESH WATER GIVEN. CALL LIGHT IN REACH. NO FURTHER NEEDS AT THIS TIME.
--- NOTE | 2019-06-26 16:11 | NUR ---
ASSISTED MARU VILLA TO WASH AND BRUSH AND BRAID PT'S HAIR. PT TOLERATED WELL EVEN THOUGH VERY MATTED. PT THEN WALKED WITH CELEBRITY MANAGER. NOW BACK TO BED AND AB STARTED.
--- NOTE | 2019-06-26 17:03 | NUR ---
ADMINISTERED MAG RIDER. IV SITE WNL. DENIES FURTHER CONCERNS
--- NOTE | 2019-06-26 17:59 | NUR ---
PATIENT IN BED WATCHING TV. FRESH WATER GIVEN. CALL LIGHT IN REACH. NO FURTHER NEEDS AT THIS TIME.
--- NOTE | 2019-06-26 18:13 | NUR ---
PT HAD GOOD DAY. WASHED AND BRAIDED HAIR. 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 ONLY NEEDED PAIN MEDS X1. CAME TO VISIT. SPOKE WITH DR OSBORN REGARDING SURGERY WITH POSSIBLE COLOSTOMY. TOOK BAG IN AND EXPLAINED TO PT. SHE IS ON BOARD WITH SURGERY TOMORROW. VS STABLE.
--- NOTE | 2019-06-26 19:28 | NUR ---
SHIFT REPORT RECEIVED FROM MAGNO AGRAWAL, pt IS RESTING SAFELY IN BED WITH CALL LIGHT IN REACH, REQUESTING PRN PAIN MEDICATION.
--- NOTE | 2019-06-26 20:50 | NUR ---
pt ASSESSMENT, VS, AND I+O's COMPLETED, pt RATES PAIN 10/10 SCHEDULED MEDS AND PRN PAIN MEDS GIVEN PER REQUEST/ORDER, 1PA TO BR, pt RESTING IN BED SAFELY WITH CALL LIGHT IN REACH, HOT PACK GIVEN PER REQUEST, DENIES FURTHER NEEDS AT THIS TIME. IV IN L FA INFILTRATED, DC'd WNL. pt REPOSITIONED HIGHER IN BED AND FLOATED ON BOTH SIDES WITH PILLOWS.
--- NOTE | 2019-06-26 22:00 | NUR ---
pt RESTING SAFELY IN BED WITH CALL LIGHT IN REACH, IVABX INFUSING WNL PER ORDER, WARM PACK PROVIDED PER REQUEST.
--- NOTE | 2019-06-27 00:31 | NUR ---
ANSWERED CALL LIGHT. IV MACHINE IS BEEPING LOW BATTERY. PLUGGED IN. ROOM LIGHT TURNED OFF.
--- NOTE | 2019-06-27 01:07 | NUR ---
CALL LIGHT ANSWERED, pt RATES PAIN 7/10 IN LLQ, PRN PAIN MEDS ADMINISTERED PER REQUEST/ORDER. pt RESTING SAFELY IN BED WITH CALL LIGHT IN REACH, DENIES FURTHER NEEDS AT THIS TIME.
--- NOTE | 2019-06-27 02:22 | NUR ---
2ND pt ASSESSMENT COMPLETE, SCHEDULED IV ABX INFUSING WNL PER ORDER. pt RESTING SAFELY IN BED WITH CALL LIGHT IN REACH DENIES ANY OTHER NEEDS AT THIS TIME.
--- NOTE | 2019-06-27 04:06 | NUR ---
CALL LIGHT ANSWERED, 1PA WITH FWW TO BR, pt WAS INCONTINENT OF URINE BUT ABLE TO VOID MORE, NEW DEPENDS IN PLACE, pt RESTING SAFELY IN BED WITH CALL LIGHT IN REACH, DENIES FURTHER NEEDS AT THIS TIME.
--- NOTE | 2019-06-27 04:50 | NUR ---
pt RESTED THROUGHOUT NIGHT, PRN PAIN MEDS ADMINISTERED PER REQUEST/ORDER, SCHEDULED IV ABX ADMINISTERED PER ORDER, pt USES CALL LIGHT APPROPRIATELY, 1PA WITH FWW TO BR, GAIT IS SLIGHTLY UNSTEADY, pt IS FORGETFULL AT TIMES, REORIENT NEEDED. BOWEL TONES ACTIVE, MILD DISTENTION IN ABD, TENDER, PASSING GAS, LBM 06/27/19. PLAN FOR SURGERY TODAY.
--- NOTE | 2019-06-27 07:31 | NUR ---
Pt in bed awake visiting with . Pt reports her pain is tolerable at this time. Surgery is planned this am. Pt states she has no needs. Personal supplies and call light within reach. No needs at this time.
--- NOTE | 2019-06-27 07:53 | NUR ---
PATIENT IN BED, RN IN ROOM. LINENS CHANGED. SURGICAL [place]IP[place]OWN GIVEN. NEW GOWN PROVIDED. ORAL CARE DONE. CALL LIGHT IN REACH. NO FURTHER NEEDS AT THIS TIME.
--- NOTE | 2019-06-27 08:20 | NUR ---
Admin dilaudid 1mg IVP for reports of 5/10 abdominal pain.
--- NOTE | 2019-06-27 15:00 | NUR ---
PT TRANSITIONED TO CCU CARE FROM LEASE ADMINISTRATION SUPERVISOR. PT WAS LYING SUPINE IN BED WITH TWO RAILS UP. FLUIDS RUNNING INTO PIV AND ELIAS CATHETER IN PLACE. NGT IN PLACE WITH FIXATION DEVICE ATTACHED TO SUCTION ON INT. NGT PUTTING OUT BROWN/GREEN FLUID. PT NEEDS FREQUENT REORIENTING TO TIME, PLACE, AND EVENT. PT ASKS IF SHE IS "GOING TO MAKE IT" AND STATES A HIGH DEGREE OF PAIN AND STATES THAT IT IS "DEEP DEEP IN MY ABDOMEN" RATES PAIN 10/10. PATIENT GIVEN MEDICATION PER EMAR. PATIENT ANXIOUS ABOUT OUTCOME OF HOSPITAL STAY, STATING "AM I GOING TO MAKE IT?" PATIENT REASSURED. TRIPLE LUMEN CENTRAL LINE ASSESSED AND FLUSHED. ASSESSMENT COMPLETE. WILL CONTINUE TO MONITOR.
--- NOTE | 2019-06-27 15:54 | NUR ---
06/27/19 1554 Carina Hendrickson 1323 PT ARRIVED IN PACU AWAKE AND PULLING AT NG AND OXYGEN MASK. CCU RN AND STUDENT AT BEDSIDE HELPING WITH PT. 1345 XRAY FOR CENTRAL LINE PLACEMENT DONE. PT MOVING AROUND IN BED. 1352 C/O ABD PAIN. UNABLE TO RATE. FENTANYL 25MCG GIVEN IVP. 1353 NO CHANGE IN DISCOMFORT IN ABD. FENTANYL 25MCG GIVEN IVP. 1400 PT PULLING AT NG AND C/O ABD PAIN. FENTANYL 50MCG GIVEN IVP. RN HOLDING PT'S HANDS AND REORIENTING PT. 1410 C/O FEELING COLD. WARM BLANKETS AND RAIMUNDO PAW PLACED ON PT. 1427 NO C/O'S FEELING COLD. C/O ABD PAIN 01/24. DILAUDID 0.5MG GIVEN IVP. DIE CASTING MACHINE SETTER WITH PT. 1440 PT STATES "IT HURTS DEEP". DILAUDID 0.5MG GIVEN IVP. 1455 REPORT GIVEN TO CCU RN AND STUDENT.
--- NOTE | 2019-06-27 17:00 | NUR ---
HOURLY URINE OUTPUT IS 10ML. WILL CONTINUE TO MONITOR.
--- NOTE | 2019-06-27 17:40 | NUR ---
TO PT ROOM TO REPOSITION O2 SAT MONITOR. CRACKLES IN THE RIGHT LOWER LOBE WERE ASCULTATED. PT EDUCATED ON DEEP BREATHING EXERCISES AND THE USE OF THE IS TO PROMOTE LUNG EXPANSION AND MITIGATE RISK FOR PNA POST-OP. PT VERBALIZES UNDERSTANDING AND A DESIRE TO AVOID PNA. PT REPOSITIONED UP IN BED WITH PILLOWS UNDER ARMS. TV ON, CALL LIGHT WITHIN REACH, BED IN LOWEST POSITION, TWO RAILS UP, BEDSIDE TABLE WITHIN REACH. PT DENIES ANY FURTHER NEEDS AT THIS TIME. WILL CONTINUE TO MONITOR.
--- NOTE | 2019-06-27 18:58 | NUR ---
PT URINE OUTPUT STILL LOW, 22ML IN THE LAST TWO HOURS. MD NOTIFIED, ORDERS UPDATED TO REFLECT CALL WITH MD. WILL CONTINUE TO MONITOR.
--- NOTE | 2019-06-27 19:10 | NUR ---
SHIFT REPORT RECEIVED FROM STUDENT RN HARPER AND MAGNO BOWIE. pt RESTING IN BED, SPO2 WNL ON 1L OXYGEN BY NC. HR 90. CALL LIGHT IN REACH.
--- NOTE | 2019-06-27 19:51 | NUR ---
CALL LIGHT ANSWERED. pt PROVIDED WITH TELEPHONE REQUESTED. pt RATES PAIN 4-5/10 AT THIS TIME, DENIES NEED FOR ADDITIONAL MEDICATION AT THIS TIME. NGT TO LOW INT WALL SUCTION, BROWN DRAINAGE NOTED. IVF AND TPN INFUSING CENTRAL LINE WNL. OXYGEN TITRATED TO RA, SPO2 94%. ELIAS DRAINING YELLOW CONCENTRATED URINE. CALL LIGHT IN REACH.
--- NOTE | 2019-06-27 21:07 | NUR ---
pt ASSESSMENT, VS, AND I+O's COMPLETE, MIDLINE DRESSING CDI, SCANT AMOUNT OF DRIED SEROSANGUINESS DRAINAGE ON AT THE DISTAL END. pt ATTEMPTED TO BE TITRATED TO RA BUT OXYGEN SATS DECREASED WITH SLEEP, pt PLACED BACK ON 1L VIA NC. HYPOACTIVE BOWEL TONES THROUGHOUT, SCANT SEROSANGUINESS DRAINAGE IN COLOSTOMY, STOMA IS MOIST AND RED, SMALL AMOUNT OF GREEN DRAINAGE FROM NGT ON LWIS. pt FLOATED WITH PILLOWS ON BOTH SIDES, RITO/CATH CARE COMPLETED, COLD PACK APPLIED TO ABD. SCHEDULED PM MEDS AND PRN PAIN MEDS ADMINISTERED PER REQUEST/ORDER, IVF AND TPN INFUSING WNL PER ORDER. UO MEASURED Q1.
--- NOTE | 2019-06-27 21:40 | NUR ---
HR 107 ON HEART MONITOR. pt AWAKE IN BED, RESTLESS, SEARCHING FOR REMOTE. DENIES ANY ADDITIONAL NEEDS AT THIS TIME. CALL LIGHT IN REACH.
--- NOTE | 2019-06-27 22:05 | NUR ---
pt AWAKE RESTING IN BED, DENIES ANY NEEDS AT THIS TIME. 14 MLS URINE NOTED IN ELIAS. CALL LIGHT IN REACH.
--- NOTE | 2019-06-27 22:19 | NUR ---
MD CALLED AND UPDATED ON INSUFFICIENT UO, NO NEW ORDERS RECIEVED, WILL CONTINUE TO MONITOR.
--- NOTE | 2019-06-27 23:35 | NUR ---
2ND pt ASSESSMENT, VS, AND I+O's COMPLETED, pt RATES PAIN 8/10 IN ABD. PRN PAIN MEDS ADMINISTERED PER REQUEST/ORDER. MIDLINE DRSNG CDI, MILD ABD DISTENTION, TENDER, STOMA IS MOIST AND RED, COLOSTOMY WAFER AND BAG IN PLACE, SCANT SEROSANGUINESS DRAINAGE, NGT TO LWIS WITH MINIMAL BROWN DRAINAGE. EDEMA IN BILAT LE HAS IMPROVED BUT STILL PRESENT. pt RESTING IN BED SAFELY WITH CALL LIGHT IN REACH, DENIES FURTHER NEEDS AT THIS TIME.
--- NOTE | 2019-06-27 23:59 | NUR ---
CALL LIGHT ANSWERED. TEMPERATURE IN ROOM ADJUSTED REQUESTED. ELIAS WITH 20 MLS YELLOW URINE OVER LAST HOUR. pt RATES PAIN 3/10. NO ADDITIONAL REQUESTS. CALL LIGHT IN REACH.
--- NOTE | 2019-06-28 01:30 | NUR ---
PT REPORT RECIEVED FROM RN, CARE ASSUMED AT THIS TIME. PT JUST MEDICATED WITH DILAUDID FOR PAIN. HEART RATE IN THE 120'S BUT NOW DOWN TO THE 110S. WILL CONTINUE TO MONITOR.
--- NOTE | 2019-06-28 02:30 | NUR ---
PT COMPLAINS OF INCREASED PAIN IN HER ABD. PRN PAIN MEDICAITION GIVEN (SEE EMAR). IV FLUIDS, TPN, AND ABX INFUSING INTO CENTRAL LINE. PT REPOSITIONED IN BED. CALL LIGHT WITHIN REACH. NO FURTHER NEEDS AT THIS TIME.
--- NOTE | 2019-06-28 03:15 | NUR ---
PT ASSESSMENT COMPLETED. PT HAS HYPOACTIVE BOWEL TONES IN ALL FOUR QUADRANTS, COLOSTOMY REMAINS NO PRODUCTIVE. LUNG BASES DIMINISHED. URINE OUTPUT REMAINS MINIMAL. LOWER LEG EDEMA NOTED IN BOTH LOWER EXTREMITIES AND IN RIGHT HAND. PT ALERT AND ORIENTED, ANSWERING QUESTIONS APPROPRAITELY. CALL LIGHT WITHIN REACH. NO FURTHER NEEDS AT THSI TIME.
--- NOTE | 2019-06-28 04:15 | NUR ---
PT GIVEN PRN PAIN MEDICATION (SEE EMAR) FOR PAIN LEVEL 6/10 IN ABD.
--- NOTE | 2019-06-28 05:51 | NUR ---
BLOOD DRAWN OFF CENTRAL LINE AND SENT TO LAB
--- NOTE | 2019-06-28 07:48 | NUR ---
INTO PT ROOM. PT IS AWAKE AND ALERT WATCHING TV. PT ASKS TO HAVE THE BLINDS CLOSED SO I LOWERED THE CURTAIN. PT DENIES ANY NEEDS AT THIS TIME. SPOKE WITH PATIENT ABOUT MORNING MEDICATIONS AND ASSESSED PAIN. PT SAYS SHE DOES NOT WANT ANY PAIN MEDICATION AT THIS TIME. PT APPEARS COMFORTABLE, LYING SUPINE IN BED WITH TWO RAILS UP. HR 124 BP 119/82 O2 SAT 92% ON 1L NC. PATIENT STATES "I'M GOOD FOR NOW" WHEN ASKED IF SHE NEEDS ANYTHING. MORNING ASSESSMENT TO COME. WILL CONTINUE TO MONITOR.
--- NOTE | 2019-06-28 09:13 | NUR ---
MD IN ROOM TO SEE PATIENT AT THIS TIME.
--- NOTE | 2019-06-28 09:13 | NUR ---
HOURLY URINE OUTPUT WAS 27ML FOR THE LAST HOUR. WILL CONTINUE TO MONITOR.
--- NOTE | 2019-06-28 10:30 | NUR ---
PHYSICAL THERAPY IN ROOM TO WORK WITH PATIENT. PATIENT ASSISTED TO CHAIR WITH PYSICAL THERAPIST AND RN. PT TOLERATED IT WELL BUT DID BECOME UNSTEADY ON HER FEET FOR A MOMENT AND STATED THAT SHE WAS "DIZZY" SUBSIDED WITHIN 5 SECONDS AND THE PATIENT STATED "IT'S BETTER". PT SITTING IN CHIAR WITH LEGS ELEVATED. CALL LIGHT WITHIN REACH, NGT ATTACHED TO INT SUCTION, PT TRIALED ON ROOM AIR, PATIENT STAYING IN LOW TO MID 90'S ON ROOM AIR. WILL CONTINUE TO MONITOR. PT PLANS TO STAY IN CHAIR FOR "A COUPLE HOURS." LINENS CHANGED. BED SCALE ZEROED. WILL CONTINUE TO MONITOR.
--- NOTE | 2019-06-28 11:16 | NUR ---
PT IN CHAIR WITH LEGS ELEVATED, BGT ATTACHED TO SUCTION, PT GIVEN WARM BLANKET AND IS WATCHING TV. O2 SAT CURRENTLY 95% ON ROOM AIR. CALL LIGHT WITHIN REACH, PT DENIES ANY FURTHER NEEDS AT THIS TIME. WILL CONTINUE TO MONITOR.
--- NOTE | 2019-06-28 13:02 | NUR ---
PT STATES "IM READY TO GO BACK TO BED." PT ASSISTED BACK TO BED WITH HELP OF SECOND RN. PT AGAIN BECAME "DIZZY" FOR A MOMENT WHEN STANDING WHICH SUBSIDED WITHIN ABOUT 5 SECONDS. PT TRANSITIONED TO BED AND SITUATED WITH PILLOWS UNDER ARMS, SCDs PLACED AND NGT ATTACHED TO SUCTION. SUPPLIMENTAL OXYGEN OF 1LNC GIVEN TO MOVE, O2 SATS TO 89-90 BUT QUICKLY WENT BACK UP TO 95%. PT STILL ON 1L NC AT THIS TIME. WILL CONTINUE TO MONITOR. PT DENIES ANY FURTHER NEEDS AT THIS TIME. PT IN BED WITH BED IN LOWEST POSITION WITH FOUR RAILS UP PER PATIENT REQUEST. PATIENT SAYS SHE FEELS SAFER WITH ALL FOUR RAILS UP. CALL LIGHT AND BEDSIDE TABLE WITHIN REACH.
--- NOTE | 2019-06-28 14:15 | NUR ---
PT RESTING IN BED, NG TUBE IN. PT SEEMED PLEASED I STOPPED BY. PT GETS WINDED SOME SHE TALKS. SHARED THAT SURGERY CASANDRA HAD HER SCARED, BUT SHE SAID,"I'M STILL HERE"! PT CLUTCHED HER P.SHAWL AND SAID SHE HELD IT OFTEN AND FOUND IT GAVE HER COMFORT. PT REQUESTED PRAYER, WILL CHECK BACK
--- NOTE | 2019-06-28 14:47 | NUR ---
INTO PATIENT ROOM TO GIVE ABX. PT STATES SHE IS IN 7/10 PAIN IN HER ABDOMEN. PRN PAIN MEDS GIVEN WELL THE ABX. PT DENIES ANY FURTHER NEEDS AT THIS TIME. WILL CONTINUE TO MONITOR.
--- NOTE | 2019-06-28 15:30 | NUR ---
SPOKE WITH CARMEN. STATES SHE IS FEELING BETTER. "HAPPY TO HAVE SURVIVED SURGERY". HOPES SHE WILL RETURN TO THE FLOOR TOMORROW.
--- NOTE | 2019-06-28 16:22 | OR ---
[facility] [address], [place] [address] Signed DATE OF OPERATION: 06/27/2019 SURGEON: Ashley Chilel MD DATE OF PROCEDURE: 06/27/2019 PREOPERATIVE DIAGNOSES: 1. Sigmoid diverticulitis with mural abscess. 2. Acute on chronic moderate protein-calorie malnutrition. POSTOPERATIVE DIAGNOSES: 1. Sigmoid diverticulitis with mural abscess. 2. Acute on chronic moderate protein-calorie malnutrition. PROCEDURES: 1. Hernandez's resection. 2. Placement of right IJ triple lumen catheter. 3. Physician-directed ultrasound. 4. Physician-directed fluoroscopy. 5. Incidental appendectomy. ESTIMATED BLOOD LOSS: Minimal. INDICATIONS: Mignon is a 74-year-old female with rather significant rheumatoid arthritis. She has ulnar deviation of the fingers on both hands. She has had multiple hand surgeries. She has been on multiple medications for the rheumatoid arthritis over the years. Currently, she is on four different medications for the rheumatoid arthritis. She actually had a colonoscopy a few years back and was known to have minimal sigmoid diverticulosis. She has also had abdominal surgery to include resection of her small-bowel with a [id number] stapled anastomosis because of ischemia. The left ovary had come out at the same time and found to have benign pathology. She has also had an open cholecystectomy. More recently, she was having pain for over a week in the left lower quadrant prior to admission. She finally came to the emergency room. She had an elevated white count with sigmoid diverticulitis and what appeared to be a mural abscess. It was a little larger than what we would normally treat conservatively. She was also dehydrated. We admitted Mignon as above, placed on IV fluids and antibiotics. Each day we reviewed this with her in detail. We could see that her baseline albumin is Electronically Signed By: ASHLEY CHILEL MD 06/28/19 1622 PATIENT NAME: MIGNON HAY OPERATIVE REPORT DATE OF : 45 REPORT #: [id number] PHYSICIAN: ASHLEY CHILEL MD PCP: JESUS COWAN MD REPORT IS CONFIDENTIAL AND NOT TO BE RELEASED WITHOUT AUTHORIZATION [facility] [address], [place] [address] Signed around 3.4, but in the hospital it has been around 2.4. I explained to her she was extremely high risk for any surgeries including her current situation. Seeing the diverticular changes with the abscess between the sacrum and the uterus, I explained to her that giving her anastomosis was prohibitively high for leak rate. After a full eight days on cefepime and Flagyl her white count had initially taken a small dip, but it came back up. She was passing some gas and some liquid stools and her abdominal exam was actually better as far as flat, nontender. No peritonitis. However, she just was not making any improvement. I explained to iMgnon and her on multiple conversations that she was smoldering because of the abscess and she was going to need surgery despite the fact that it was high risk. She and her had finally agreed to surgery. Mignon told me she wants to remain a full code during this process. She said she would not accept heroic measures, but if she needed TPN, ventilator and so forth for short time, that will be acceptable. She understands there is risk of surgery including, but not limited to bleeding, infection, scarring, change in contour of the skin, damage to bowel, damage to the ureters, difficulties in issues with the colostomy as well as her incision also with placement of the triple-lumen catheter. There could be issues including bleeding, infection, pneumothorax requiring chest tube placement. She and her expressed understanding and wished to proceed. PROCEDURE NOTE: I had met with Mignon in our preop area. I also had met with her earlier today. I once again called her Rey on the phone earlier today. We had reviewed all this in detail. After answering all the questions Mignon had been taken in the operating room and placed in the supine position. She was placed under general endotracheal tube anesthesia. She was already on preoperative cefepime and Flagyl. Yanez catheter was inserted with return of clear yellow urine without difficulty. SCDs were utilized. She was already on subcutaneous Lovenox. She was then prepped and draped in the usual sterile fashion. We used her previous periumbilical midline incision. We opened that sharply with a knife and carried in the abdomen with the help of the cautery. Fortunately, she had very little in the way of adhesions. Just a little bit of very thin omentum adherent to the abdominal wall and was taken down easily with the cautery. There were no adhesions in the small bowel. The previous small bowel anastomosis was next to the diverticular abscess. That was involving the sacrum and the pouch of Hector all the way to the bottom of the pelvis. We were able to free this up with finger dissection. There was a pocket of pus and that was irrigated and suctioned out until clear. We inspected the anastomosis, small bowel sounds to be quite satisfactory. We initially freed up the sigmoid colon along the white line of Toldt down toward the rectum. After this, we placed the Bookwalter retractors. We then did some additional dissection on both sides of the colorectal mesentery to free the sigmoid colon down to the top of the rectum. We then came across the top of the rectum with our TA-60 stapler. The proximal portion, the sigmoid colon was completely uninvolved although it was edematous, however, was not inflamed. We divided that portion with our ROSALIE stapler. Electronically Signed By: ASHLEY CHILEL MD 06/28/19 1622 PATIENT NAME: MIGNON HAY OPERATIVE REPORT DATE OF : 45 REPORT #: [id number] PHYSICIAN: ASHLEY CHILEL MD PCP: JESUS COWAN MD REPORT IS CONFIDENTIAL AND NOT TO BE RELEASED WITHOUT AUTHORIZATION [facility] [address], [place] [address] Signed We then took down the mesentery between Pean clamps and 0 Vicryl ties. We had a sufficient length to bring the colon up through her left rectus sheath just slightly lateral and below the level of the umbilicus. We had removed the disk of skin over this area and made a linear incision through the rectus sheath. We brought the colon up through this area. We then irrigated out the abdomen and pelvis once again and suctioned it out until clear. She had quite a bit of fluid in the abdomen from before from her protein levels being so low. We then closed the midline fascia with interrupted 0 and #1 [id number] Prolene sutures. Local anesthetic was injected into the abdominal wall. The incision was irrigated and suctioned out until clear. We closed the dermis with interrupted 3-0 subcuticular Monocryl sutures. The skin edges were reapproximated with jose. After this, we matured the colostomy. We used the scissors to sharply divide the colostomy and there was good bleeding from the edges. We then used 3-0 Vicryl suture with a two point stitch technique to mature the colostomy circumferentially. Again, no inflammation but quite edematous. The colostomy appliance was cut and then placed over the colostomy. Colostomy bag was then applied. Dry gauze and tape were applied to her incision. The entire field was then taken down. After this, I went out and completely re-scrubbed and re-gowned. Mignon was placed into the Trendelenburg position. The right neck and chest wall were prepped and draped in the usual sterile fashion. We used ultrasound to easily locate her right carotid artery along with the right internal jugular vein. We watched our needle pass directly underneath the ultrasound transducer and into the internal jugular vein. We were able to draw venous nonpulsatile blood back quite readily. We passed a wire without difficulty. The position of the wire was checked with our fluoroscopy unit. We then dilated the tract and placed the triple-lumen catheter over the wire up to 15 cm. Each port was then able to flush and draw quite readily. We checked the position of the wire with the fluoroscopy unit and found it to be satisfactory. After this, it was held in place with interrupted silk sutures. Dressing was applied per nursing staff. Mignon was awakened from her anesthesia, extubated in the OR, and taken to recovery in stable condition. We are currently waiting for a chest x-ray. Ashley Chilel MD ALB/MODL /[id number] Electronically Signed By: ASHLEY CHILEL MD 06/28/19 1622 PATIENT NAME: MIGNON HAY ANN OPERATIVE REPORT DATE OF : 45 REPORT #: [id number] PHYSICIAN: ASHLEY CHILEL MD PCP: JESUS COWAN MD REPORT IS CONFIDENTIAL AND NOT TO BE RELEASED WITHOUT AUTHORIZATION [facility] [address] [place] [address] Signed cc: MD Ismael Corcoran, MD Roxana Bess, MD Tang Hercules, MD Annabel Crawford, MD Ashley Chilel, MIGNON Lang Copies: JESUS COWAN MD,ISMAEL BESS,ROXANA CRAWFORD,ANNABEL CHILEL,MILAGROS YUAN MD ~ Electronically Signed By: ASHLEY CHILEL MD 06/28/19 1622 PATIENT NAME: MIGNON HAY OPERATIVE REPORT DATE OF : 45 REPORT #: [id number] PHYSICIAN: ASHLEY CHILEL MD PCP: JESUS COWAN MD REPORT IS CONFIDENTIAL AND NOT TO BE RELEASED WITHOUT AUTHORIZATION
--- NOTE | 2019-06-28 17:52 | NUR ---
PATIENT STILL PAINFUL AFTER DILAUDID PRN GIVEN. PATIENT GIVEN PRN NM TYLENOL AND KEPT TURNED ON RIGHT SIDE FOR AL ITTLE WHILE. PT STATES, "THE PAINJUST COMES IN WAVES." WILL RE ASSESS PAIN SOON. PT APOLOGIZING FOR STATING HER COMPLAINTS, BUT REASSURED TO CONTINUE TO COMMUNICATING WITH NURSING STAFF HER PAIN. CONTINUE TO MONITOR.
--- NOTE | 2019-06-28 18:57 | NUR ---
DR. OSBORN CALLED AND UPDATED ON PATIENT'S ANXIETY. ORDER PLACED FOR NIGHT TIME SLEEP TRAZODONE. PT CALLS RN IN ROOM AROUND 1830 AND STATES SHE FEELS BETTER AND THE PAIN HAD FINALLY SUBSIDED SOME. WILL CONTINUE TO MONITOR.
--- NOTE | 2019-06-28 19:30 | NUR ---
SHIFT REPORT RECEIVED. PATIENT RESTING IN BED. WITH EYES CLOSED. APPEARS RESTFUL. RR 12. O2 SAT 91% ON ROOM AIR.
--- NOTE | 2019-06-28 19:55 | NUR ---
DISCUSSED PATIENT'S PAIN MANAGEMENT WITH . HE INSTRUCTED ME TO DISCUSS THIS WITH . ORDERS FROM TO ADD PRN TORADOL IF URINE OUTPUT GREATER THAN 25 ML/HR. PATIENT'S URINE OUTPUT FOR THE LAST HOUR WAS 30 ML/HR. VERIFIED ORDERS VIA REPEAT BACK METHOD.
--- NOTE | 2019-06-28 20:30 | NUR ---
PATIENT RESTING WITH EYES CLOSED. WOKE EASILY TO VOICE. PATIENT AAOX4. DENIES NAUSEA. REPORTS PAIN IN ABD 6/10, TOLERABLE. PRN TORADOL GIVEN. ICE PACKS APPLIED TO ABD, NOT COVERING STOMA. MIDLINE DRESSING HAS SMALL AMOUNT OF RED DRAINAGE ON GAUZE. STOMA HAS SMALL AMOUNT OF SEROSANG DRAINAGE, APPEARS PINK AND WNL. ABD IS SOFT, BOWEL SOUNDS ACTIVE. PATIENT HAVING SOME BURPING AND GAS. NG TUBE IN PLACE, FLUSHED FOR MEDS. CLAMPED TEMPORARLY. CENTRAL LINE INFUSING TPN/LIPIDS. OTHER 2 PORTS FLUSHED AND RETURNED BLOOD. HEP-LOCKED AT THIS TIME, AND IV FLUIDS AND ABX INFUSING IN THIRD PORT. SITE WNL, SMALL AMOUNT OF DRAINAGE UNDER DRESSING. ELIAS CARE DONE, URINE OUTPUT >25 ML FOR THE LAST HOUR. 2+ EDEMA NOTED IN MANUEL FEET, MINIMAL IN THE LOWER EXTREMITITES. SCDS IN PLACE. PATIENT REPOSITIONED ONTO HER BACK WITH HIPS FLOATED. TOLERATED WELL. PATIENT IS ANXIOUS AND ASKING MANY QUESTIONS ABOUT HER CONDITION. PROVIDED REASSURANCE AND SHARED ASSESSMENT FINDINGS WITH HER. PATIENT DENIES ANY OTHER NEEDS. CALL LIGHT IN HAND. TOLERATING ROOM AIR. LUNG SOUNDS ARE CLEAR. PATIENT COUGHS LIGHTLY AND SPLINTING FOR COMFORT.
--- NOTE | 2019-06-28 22:25 | NUR ---
PATIENT HAS CALLED SEVERAL TIMES TO ASK QUESTIONS ABOUT HER VITALS, DRESSING, CENTRAL LINE, ETC. PROVIDING REASSURANCE. PATIENT APPEARS VERY ANXOUS AND WORRIED ABOUT "MAKING IT". SHARING POSITIVE ASSESSMENT FINDINGS AND ASSURING PATIENT OF CLOSE MONITORING. ENCOURAGED PATIENT TO TRY AND SLEEP.
--- NOTE | 2019-06-28 23:29 | NUR ---
PATIENT RESTING IN BED. REPORTS HAVING DIFFICULTY SLEEPING. ASSISTED PATIENT TO REPOSITION. PRN PAIN MEDS PROVIDED FOR PAIN 8/10 IN ABD AND GENERALIZED. PATIENT REPORTS FEELING HOPELESS AND IS FRUSTERATED WITH NOT BEING ABLE TO SLEEP. SAT WITH PATIENT FOR A WHILE TO DISCUSS PLAN OF CARE AND ENCOURAGE POSITIVE THINKING. PATIENT CONTINUES TO BE ANXIOUS AND STATES "I'VE BEEN HERE SO LONG, I CAN'T KEEP DOING THIS DAY AFTER DAY".
--- NOTE | 2019-06-29 01:10 | NUR ---
DISCUSSED PATIENT'S INABILITY TO SLEEP WITH , ONE TIME DOSE OF TRAZODONE ORDERED. VERIFIED BY REPEAT BACK.
--- NOTE | 2019-06-29 01:24 | NUR ---
PATIENT PROVIDED WITH TRAZODONE DONE THE NG TUBE. TUBE CLAMPED AT THIS TIME. PATIENT REPORTS GOOD PAIN CONTROL AND FEELING COMFORTABLE. HOWEVER, HAS CONTINUED TO BE UNABLE TO SLEEP.
--- NOTE | 2019-06-29 02:40 | NUR ---
PATIENT'S EYES OPENED WHEN RN ENTERED THE ROOM. PATIENT STATED "I THINK I MIGHT HAVE SNOOZED". ENCOURAGED PATIENT TO CONTINUE TO REST HER EYES. IV ABX STATED PER ORDER. PATIENT'S VS STABLE.
--- NOTE | 2019-06-29 04:26 | NUR ---
PATIENT APPEARS TO BE SLEEPING SOUNDLY FOR THE LAST HOUR. ALLOWED PATIENT TO REST. URINE OUTPUT QS. VS STABLE.
--- NOTE | 2019-06-29 05:55 | NUR ---
PATIENT WAS AWAKE WHEN RN ENTERED THE ROOM. WHEN ASKED IF SHE WAS IN PAIN THE PATIENT SAID "A LITTLE" AND REPORTED FEELING SHE HAD RESTED WELL. RN LEFT ROOM TO GET PRN MEDS. WHEN RN RETURNED MOMENTS LATER THE PATIENT WAS PULLING HER GOWN OFF AND STATING "I NEED TO GET UP, I CAN'T BREATH". HR WAS ELEVATED TO 140'S AND IRREGULAR. PRN MEDS PROVIDED TO PATIENT. REPOSITIONED PATIENT WITH HOB ELEVATED. PATIENT APPEARED MORE CALM BUT ASKING TO GET UP. ENCOURAGED PATIENT TO REST. HR REMAINS ELEVATED AT 120'S. BP ELEVATED 145/104 (113). O2 SAT 93%. PATIENT ORIENTED X4.
--- NOTE | 2019-06-29 06:03 | NUR ---
NOTIFIED OF PATIENT'S ELEVATED HR AND FEELING SOB. PATIENT APPEARS MORE RESTFUL NOW. PATIENT THINKS THIS MIGHT BE RELATED TO ANXIETY. WILL CONTINUE TO MONITOR CLOSELY. HR 120'S, LAST BP 126/77 (89). AFEBRILE. URINE OUTPUT QS.
--- NOTE | 2019-06-29 06:28 | NUR ---
PATIENT HAD 50 MLS OF GEL LIKE BLACK STOOL FROM HER COLOSTOMY. PATIENT ALSO HAD SOME BLACK MUCUS LIKE STOOL PER RECTUM. RITO CARE PERFORMED. NEW LINENS APPLIED. PATIENT UP TO THE RECLINER WITH 1PA AND FWW. PATIENT TOLERATED WELL. ASSISTED THE PATIENT WITH MORNING CARE, WASHING FACE AND RINSING HER MOUTH OUT. PATIENT REPORTS FEELING DISORIENTED WHEN SHE WOKE EARLIER AND ANXIOUS. NOW FEELING MORE CALM. HR 110. PAIN 4/10.
--- NOTE | 2019-06-29 07:30 | NUR ---
PATIENT SHIFT REPORT RECIEVED FROM CLERICAL CLERK RN. PATIENT RESTING IN THE CHAIR AT THIS TIME. CALL LIGHT IN REACH. WILL CONTINUE TO CLOSELY MONITOR.
--- NOTE | 2019-06-29 08:30 | NUR ---
PATIENT RESTING IN THE CHAIR AT THIS TIME. PATIENTS ASSESSMENT COMPLETED. PATIENTS BOWEL TONES ACIVE. STOMA SITE IS SWOLLEN BUT HAS SOME DARK DRAINAGE NOTED IN THE BAG. NG TUBE IN PLACE TO LOW INTERMIT. SUCTION. PATIENT HAS SOME OCCASIONAL BELCHING. PATIENT BREATH SOUNDS CLEAR AND PATIENT REMAINS ON RA. PATIENTS EXTREMITIES ARE CHILLED AND STAFF HAVING A DIFFICULT TIME GETTING A GOD SPO2 ON FINGERS. PROBE PLACED ON PATIENTS NOCE AND SPO2 93-98% ON RA. PATIENT DENIES SOB. PATIENT USING INCENTIVE SPIROMETER ON HER OWN. REPOSITIONED IN THE CHAIR FOR COMFORT. TRIPLE LUMEN CENTRAL LINE IS INTACT WITH A LITTLE OLD DRAINGAGE. WILL CHANGE DRESSING TODAY. PATIENT DENEIS ANY OTHER NEEDS AT THIS TIME. WILL CONTINUE TO CLOSELY MONITOR.
--- NOTE | 2019-06-29 10:15 | NUR ---
MD CHILEL IN TO SEE PATIENT. ADDRESSD PATIENTS HR, ANXIETY, AND LACK OF SLEEP AT TIMES. PER MD CHILEL HE IS OKAY WITH ADDING SOMETHING ON FOR HER, BUT WILL HAVE MD OSBORN MANAGE THAT PART OF HER TREATMENT. PATIENT HAS HAD SEVERAL PHONE CALLS THIS AM AND NOW WORKING WITH PHYSICAL THERAPY. WILL CONTINUE TO CLOSELY MONITOR.
--- NOTE | 2019-06-29 12:00 | NUR ---
PATIENT ASSESSMENT COMPLETED AND REMAINS UNCHANGED AT THIS TIME. PATIENTS PAIN IS INCREASED. REPOSITIONED IN THE CHAIR FOR COMFORT AND GIVEN PRN MORPHINE 10MG. WILL MONITOR FOR EFFECTIVENESS. FRESH WATER AT THE BEDSIDE FOR PATIENT TO DIP HER SPONGE AND WET HER MOUTH. WILL CONTINUE TO CLOSELY MONITOR.
--- NOTE | 2019-06-29 12:13 | NUR ---
PT HAS HAD VERY BUSY AM. DR OSBORN HAD JUST LEFT, PT WAS SITTING IN CHAIR. NG TUBE STILL INSERTED, PT SMILED AND SAID SHE WAS TIRED. LEFT HER A NEW GUIDE POST AND A BLESSING. WILL LET HER REST
--- NOTE | 2019-06-29 13:00 | NUR ---
In to speak with anna. Dr. Ngo is in the room. She gives me a thumbs up. When Dr. Ngo finishes his assessment, pt states she is feeling better everyday. Pt is frail. cont. to want to dc to her home with her spouse when she is cleared medically.
--- NOTE | 2019-06-29 13:00 | NUR ---
PATIENT COMPLAINING OF PAIN AFTER DOSE OF MORPHINE AT NOON. PATIENT S STATES "THE PAIN REALLY ISNT BETTER". GAVE PRN DILAUDID. WILL MONITOR FOR EFFECTIVENESS. WARM BLANKET PROVIDED. WILL CONTINUE TO CLOSELY MONITOR.
--- NOTE | 2019-06-29 13:19 | NUR ---
TPN DAY 3 TODAY. PATIENT REMAINS NPO WITH NGT TO SUCTION. TPN PROVIDING AN AVERAGE OF 1279 CALORIES AND 75 GRAMS OF PROTEIN PER DAY, THIS PROVIDES 28.7 JERAMY/KG AND 1.7 GM PROTEIN/KG. BUN WNL AND CREAT A LITTLE HIGH AT 1.25. POC GLUCOSE 108 TODAY AND LOOKED GOOD YESTERDAY AT 116 AND 124. NO CHANGES TO TPN RECOMMENDED AT THIS TIME. WILL CONTINUE TO MONITOR.
--- NOTE | 2019-06-29 15:00 | NUR ---
PATIENT RESTING AT THIS TIME. PATIENT HAS HAD A BUSY MORNING WITH DOING PHYSICAL THERAPY, OCCUPATIONAL THERAPY, AND VISITS FROM BOTH MDS. PATIENT DID NOT SLEEP WELL LAST NIGHT. WILL LET HER TAKE A LITTLE NAP AT THIS TIME. CALL LIGHT IN REACH. WILL CONTINUE TO CLOSELY MONITOR.
--- NOTE | 2019-06-29 15:32 | PATH ---
[facility] [address], [place] [address] Signed SPECIMEN(S): A APPENDIX SPECIMEN(S): B SIGMOID COLON SPECIMEN SOURCE: A. APPENDIX B. SIGMOID COLON CLINICAL HISTORY: Diverticulitis with abscess FINAL PATHOLOGIC DIAGNOSIS: A. Appendix, appendectomy: - Vermiform appendix with acute serositis and periappendicitis. - Negative for significant mucosal inflammation. B. Sigmoid colon, partial colectomy: - Diverticulitis coli with patchy acute serositis and pericolitis. - Negative for atypical features. JVR:cml:C2NR MICROSCOPIC EXAMINATION: Histologic sections of all submitted blocks are examined by light microscopy. These findings, together with the gross examination, support the pathologic diagnosis. GROSS DESCRIPTION: Two specimens are received in two containers, labeled "CS." A. The specimen, labeled "CS," and designated appendix per the requisition is received in formalin and consists of an appendix (5.4 cm in length x 0.9 cm in diameter) with attached mesoappendix (extending 0.4 cm out). The appendix and mesoappendix margin are inked black. The serosa is pink-peralta and slightly congested. The specimen is serially sectioned to reveal a pink-peralta mucosa with a wall thickness of 0.4 cm. I O Psychologist sections including the margin, en face, tip bisected, and cross section are submitted in cassette A1. B. The specimen, labeled "CS," and designated sigmoid colon per the requisition is received in formalin and consists of a segment of large bowel (9.6 cm in length x 4.4 cm in diameter) with attached mesenteric adipose (extending 2.6 cm out) and a stitch marking the proximal margin per the requisition. The proximal margin is stapled and the distal margin is open. The jose are removed and the PATIENT NAME: CARMEN HAY PATHOLOGY DATE OF : 45 REPORT #: [id number] PHYSICIAN: [facility] PCP: JESUS COWAN MD REPORT IS CONFIDENTIAL AND NOT TO BE RELEASED WITHOUT AUTHORIZATION [facility] [address], [place] [address] Signed proximal margin is inked blue. The distal margin is inked black. The serosa is brown-peralta to pink-peralta hemorrhagic and congested with white-peralta exudate. The specimen is opened to reveal pink-peralta edematous mucosal folds with a wall thickness ranging from 0.5 to 1.0 cm. There are multiple diverticula containing firm fecal material. I O Psychologist sections are submitted as follows: (B1) proximal and distal margin, en face (B2-B4) diverticula (B5) thickened bowel wall AC (under the direct supervision of a pathologist) The Gross Description was prepared using a voice recognition system. The report was reviewed for accuracy; however, sound-alike word errors, addition and/or deletions may occur. If there is any question about this report, please contact Client Services. PERFORMING LABORATORY: The technical component was performed by [facility], [address] [place] [id number] (Presentation Specialist: Shira Elder MD; CLIA# [id number]). Professional interpretation was performed by [facility] [address] (Presentation Specialist: Dick Preciado M.D.). Diagnostician: Dick Preciado MD Pathologist Electronically Signed 06/29/2019 Copies: ~ PATIENT NAME: CARMEN HAY PATHOLOGY DATE OF : 45 REPORT #: [id number] PHYSICIAN: WE[facility] CUNHA PCP: JESUS COWAN MD REPORT IS CONFIDENTIAL AND NOT TO BE RELEASED WITHOUT AUTHORIZATION
--- NOTE | 2019-06-29 16:00 | NUR ---
ASSISTED PATIENT BACK TO BED. WILL COMPLETE BEDBATH AND DRESSING CHANGES AT THIS TIME.
--- NOTE | 2019-06-29 18:04 | NUR ---
PATIENT BEDBATH COMPLETED. MAGNO CORLEY IN TO ASSIST WITH WASHING THE PATIENTS HAIR, COMPLETE BEDBATH DONE, LINEN CHANGED, CHANGED TAPE ON PATIENT NOSE FOR NG TUBE. CHANGED DRESSING ON CENTRAL LINE. APPLIED LOTION FOR PATIENTS COMFORT. WARM BLANKET PROVIDED. PRN PAIN MEDICATIONS GIVEN. PATIENT CALLED HER TO VISIT. NG TUBE IS TO LOW INTERMITENT SUCTION. INCISION ON MID ABD IS OPEN TO AIR. NO REDDNESS NOTED. LIGHTS DOWN TO ENCOURAGE REST AT THIS TIME. WILL CONTINUE TO CLOSELY MONITOR.
--- NOTE | 2019-06-29 18:30 | NUR ---
MD OSBORN CALLED AND UPDATED ON PATIENTS STATUS. REVIEWED URINE OUTPUT GOALS. GOAL 100MLS PER HOUR PER 4 HOURS. PATIENT SLIGHTLY UNDER. PER MD GIVE 250MLS BOLUS OVER 1 HOUR AND MONITOR FOR EFFECTIVENESS.
--- NOTE | 2019-06-29 18:39 | NUR ---
SPOKE WITH MD OSBORN. PATIENTS URINE OUTPUT IS 125MLS FOR THE LAST 2 HOURS. PER MD OSBORN GOAL OF 100MLS EVERY 4 HOURS. WILL HOLD BOLUS AT THIS TIME AND CLOSELY MONITOR.
--- NOTE | 2019-06-29 19:20 | NUR ---
SHIFT REPORT RECIEVED FROM MARY KIRAN. PT RESTING IN BED, WATCHING TV. TPN INFUSING PER ORDER. CURT PANL. CALL LIGHT IN REACH.
--- NOTE | 2019-06-29 20:12 | NUR ---
ASSESSMENT, VS AND I&O COMPLETED.ELIAS CARE PROVIDED, WNL. CENTRAL LINE FLUSHED, GOOD BLOOD RETURN, IV MEDICATION AND TPN INFUSING PER ORDER. NG LOW, INT SUCTION, CLEAR BROWN FLUID. OSTOMY SITE CDI, PINK, CLEAR BROWN DISCHARGE. 30 DANTE,CDI. ABD FIRM, TENDER, BOWEL TONES ACTIVE. BLE EDEMA 2+. CMS INTACT X4 EXTREMITIES. ABD PAIN 7/10, REPOSITIONED, COLD THERAPY OFFERED AND DECLINED. SCHEDULED MED PROVIDED. LUNGS CLEAR. NO OTHER NEEDS AT THIS TIME. CALL LIGHT IN REACH.
--- NOTE | 2019-06-29 21:32 | NUR ---
SCHEDULED MEDS PROVIDED. PRN PAIN MED PROVIDED. NG TUBE OFF AT CURRENT TIME. L FA IV FLUSHED, WNL. BLUE CENTRAL LINE FLUSHED, GOOD BLOOD RETURN AND HEPARIN LOCKED.IV MEDICATION AND TPN INFUSING PER ORDER. BRUISE AND ABRASION NOTED TO OUTSIDE LEFT CALF. PT REPOSITIONED TO RIGHT SIDE. NO OTHER NEEDS AT THIS TIME. CALL LIGHT IN REACH.
--- NOTE | 2019-06-29 22:20 | NUR ---
PT RESTING IN BED, EYES CLOSED. NG ON LOW INT. IV MEDS AND TPN INFUSING PER ORDER. CURT WNL. CALL LIGHT IN REACH.
--- NOTE | 2019-06-29 23:12 | NUR ---
PT RESTING IN BED, EYES CLOSED. RR EVEN, UNLABORED. NG LOW INT. IV MEDS AND TPN INFUSING PER ORDER. CURT WNL. CALL LIGHT IN REACH.
--- NOTE | 2019-06-30 00:05 | NUR ---
ASSESSMENT, VS AND I&O COMPLETED. VSS, UO SUFFICIENT. NG LOW INT, BROWN DRAINAGE. SPO2 95, RA. OSTOMY WNL, SCANT BROWN DRAINAGE, DARK RED STOMA. CENTRAL LINE, CDI, WNL. ABD FIRM, TENDER, MILDLY DISTENDED. ABD INCISION CDI, OPEN TO AIR. PT REPORTS ABD PAIN 2/10, REPOSITIONED. ELIAS WNL. BLE EDEMA NOTED, NO CHANGES, 2+. BOWEL TONES ACTIVE. PT BELCHING OFTEN, DENIES NAUSEA. LEFT FA IV WNL. PT DECLINES SCDs AT THIS TIMES STATING THEY ARE "TOO HOT". IV MEDICATION AND TPN INFUSING PER ORDER. NO OTHER NEEDS AT THIS TIME. MOUTH SWABS AT BEDSIDE. CALL LIGHT IN REACH.
--- NOTE | 2019-06-30 01:54 | NUR ---
SCHEDULED MEDICATION PROVIDED. WHITE LUMEN FLUSHED WITH GOOD BLOOD RETURN. PT SLEPT THROUGH INTERVENTION. NG LOW INT, BROWN DRAINAGE. ELIAS WNL. IV MEDICATION AND TPN INFUSING PER ORDER. CALL LIGHT IN REACH.
--- NOTE | 2019-06-30 03:02 | NUR ---
PT RESTING IN BED, EYES CLOSED. RR EVEN, UNLABORED. NG LOW INT. TPN INFUSING PER ORDER. CALL LIGHT IN REACH.
--- NOTE | 2019-06-30 04:57 | NUR ---
ASSESSMENT, VS AND I&O COMPLATED. PT STATES SHE IS ANXIOUS AND FEELS LIKE SHE "CAN'T GET MY BREATH.", THERAPUTIC COMMUNICATION PROVIDED, PT REPOSITIONED. ABD PAIN 4/10, PRN PAIN MED PROVIDED. AIR REMOVED FROM OSTOMY BAG, SMALL AMOUNT OF THIN BROWN DISCHARGE IN BAG. STOMA PINK, WNL. NEW NG DRAINAGE CONTAINER PROVIDED, BROWN/GREEN DISCHARGE, LOW INT. LEFT FA IV CDI, WNL. CENTRAL LINE WNL, CDI. TPN INFUSING IN DISTAL LINE PER ORDER. ABD FIRM, TENDER, MILDLY DISTENDED. INCISION CDI, WNL. BILATERAL FOOT EDEMA 2+, BILATERAL LEG EDEMA 1+. SCDs AND HEEL PROTECTORS ON. PT APPEARS MORE CALM AT THE END OF THE ASSESSMENT, HR SR @ 96, SPO2 94% ON RA. FRESH MOUTH SWABS IN CUP PROVIDED. NO OTHER NEEDS AT THIS TIME. CALL LIGHT IN REACH.
--- NOTE | 2019-06-30 05:56 | NUR ---
BLOOD DRAW FROM PROXIMAL LUMEN COMPLETED. FLUSHED, POSI-CAP CHANGED, LUMEN HEPARIN LOCKED. PT TOLERATED BLOOD DRAW WELL. TPN INFUSING PER ORDER. LIGHTS TURNED DOWN AT PT REQUEST. DENTURES CLEANED AND PROVIDED. NO OTHER NEEDS AT THIS TIME. CALL LIGHT IN REACH.
--- NOTE | 2019-06-30 06:30 | NUR ---
PT STATES SHE FEELS SHE "ISN'T SUPPORTED IN THE BED.", PT REPOSITIONED AND SUPPORT PILLOWS PROVIDED. NO OTHER NEEDS AT THIS TIME. CALL LIGHT IN REACH.
--- NOTE | 2019-06-30 07:30 | NUR ---
PATIENT SHIFT REPORT RECIEVED FROM FULLING MACHINE OPERATOR RN. PATIENT RESTING IN BED AT THIS TIME. WILL CONTINUE TO CLOSELY MONITOR.
--- NOTE | 2019-06-30 09:00 | NUR ---
PATIENT RESTING IN BED AT THIS TIME. PATIENT ASSESSMENT COMPLETED AT THIS TIME. PATIENT BREATH SOUNDS CLEAR. PATIENT SPO2 95-98% ON RA. PATIENTS BOWEL TONES ACTIVE. COLOSTOMY BAG IN PLACE WITH BROWN LIQUID STOOL PRESENT. STOMA SITE IS SWOLLEN BUT REMAINS PINK. PATIENTS MIDLINE INCISION IS C/D/I AND OPEN TO AIR WITH DANTE PRESENT. NO REDNESS NOTED. PATIENT HAS SOME EDEMA IN THE RITO AREA AND BLE. NO OTHER NEEDS AT THIS TIME. WILL CONTINUE TO CLOSELY MONTIOR.
--- NOTE | 2019-06-30 10:45 | NUR ---
PATIENT REPORT GIVEN TO [facility] MAGNO PORTER. ALL QUESTIONS ANSWERED. NG TUBE REMOVED PER MD CHILEL. NO TELE PER MD OSBORN. WILL LEAVE ELIAS IN PLACE TODAY PER MD. PRN PAIN MEDICATIONS GIVEN FOR 6/10 PAIN PRIOR TO TRANSFER. PATIENT CALLED AND UPDATED HER AND SPOKE WITH HER DAUGHTER ABOUT PLAN OF CARE. NO OTHER QUESTIONS AT THIS TIME. ALL BELONGINGS SENT WITH PATIENT.
--- NOTE | 2019-06-30 10:50 | NUR ---
PT ARRIVED TO [facility] FROM [facility] AT THIS TIME. PT IN [facility] AT THIS TIME
--- NOTE | 2019-06-30 11:00 | NUR ---
Visited with Mignon. Long discussion about SNF, assisted living, and cg in the home. She wants to home on discharge, but is concerned if her spouse can care for her. Discussed Home Health. Pt would like to plan to go home with Home Health on dc if not to deconditioned. She also has multiple questions about her diet and states she thinks her feels guilty as his cooking caused her diverticulitis. Asked is she would like to speak with [facility] and she would. I saw Dr. Amaya and updated, he states she will be able to eat anything she wants on discharge. He has already explained this to her. Spoke with Georgie jensenician and she will provide education to Mignon.
--- NOTE | 2019-06-30 11:10 | NUR ---
MAGNO HERNANDEZ REQUESTED THAT I NOT VISIT AT THIS TIME. GETTING READY TO MOVE PT TO M/S AND DC NG TUBE. WILL FOLLOW
--- NOTE | 2019-06-30 12:05 | NUR ---
STARTED PTS BLOOD INFUSION AT THIS TIME. PT ASKING A LOT OF QUESTIONS AT THIS TIME AND A BIT NERVOUS BUT EXCITED TO START FEELING BETTER
--- NOTE | 2019-06-30 13:05 | NUR ---
pt appears to be resting at this time. call light within reach
--- NOTE | 2019-06-30 14:51 | NUR ---
IN PTS ROOM STOPPING THE BLOOD TRANSFUSION. PT TOLERATED WELL AND STATES THAT SHE HAS NO SHORTNESS OF BREATH, RASHES, OR BACK PAIN THAT IS OUT OF THE ORDINARY FOR HER
--- NOTE | 2019-06-30 15:12 | NUR ---
PATIENT IN BED, WATCHING TV. RN, CHARLOTTE, TENDING TO PATIENT. TOLD PATIENT I AM THE DIETITIAN AND SHE WAS HAPPY THAT I CAME TO TALK TO HER. SHE IS WANTING A "DIET PLAN" THAT SHE AND HER CAN WORK ON TOGETHER. HE DOES THE COOKING. SHE STATES HE FEELS A LITTLE GUILTY FEEDING HER WHATEVER HE WAS BECAUSE SHE GOT SICK. I EXPLAINED TO PATIENT THAT WHEN THE DOCTOR CLEARS HER TO EAT, SHE STARTS WITH CLEAR LIQUIDS AND EXPLAINED WHAT CL'S ARE. AFTER SHE TOLERATES THAT, A FULL LIQUID DIET IS ORDERED AND I EXPLAINED WHAT FOODS ARE ALLOWED ON THAT DIET. THEN SHE MOVES ON TO SOFT FOODS AND MAY NEED A LOW-FIBER DIET FOR A COUPLE OF WEEKS. I TOLD HER I WILL BRING MORE INFORMATION NEXT WEEK WHEN HER DIET PROGRESSES SHE IS CURRENTLY NPO AND RECEIVING TPN. SHE REALLY APPRECIATED ME STOPPING BY AND IS LOOKING FORWARD TO TALKING WITH ME AGAIN.
--- NOTE | 2019-06-30 19:30 | NUR ---
SHIFT REPORT RECIEVED FROM CHARLOTTE KIRAN. PT RESTING IN BED, REPOSITIONED. TPN AND LIPIDS INFUSING PER ORDER. CURT PANL. SCDs ON. NO OTHER NEEDS AT THIS TIME. CALL LIGHT IN REACH.
--- NOTE | 2019-06-30 21:03 | NUR ---
ASSESSMENT, VS AND I&O COMPLETED. CBG 102. CENTRAL LINE MEDIAL LUMEN INFUSING IV MEDS, DISTAL LUMEN INFUSING TPN AND LIPIDS, PROXIMAL LINE REMAINS HEPARIN LOCKED. CENTRAL LINE HAS GOOD BLOOD RETURN. OSTOMY STOMA PINK, WNL, THIN BROWN DISCHARGE. ABD MILDLY DISTENDED, TENDER, BOWEL TONES ACTIVE BLE EDEMA 2+. SCDs ON. L FA IV CDI, FLUSHED WELL. INCISION AND 30 DANTE CDI, WNL. SCHEDULED MEDS PROVIDED. PT REPOSITIONED. NO OTHER NEEDS AT THIS TIME. CALL LIGHT IN REACH.
--- NOTE | 2019-06-30 22:18 | NUR ---
PT STATES SHE HAS 9/10 ABD PAIN, PRN PAIN MED PROVIDED. PT EDUCATED ON OSTOMY CARE, PT DEMONSTRATED BACK. NO OTHER NEEDS AT HIS TIME. CALL LIGHT IN REACH.
--- NOTE | 2019-07-01 00:02 | NUR ---
PT RESTING IN BED, EYES CLOSED. RR EVEN, UNLABORED. TPN, LIPIDS AND IV MEDICATIONS INFUSING PER ORDER. CALL LIGHT IN REACH.
--- NOTE | 2019-07-01 02:07 | NUR ---
SCHEDULED MEDICATION PROVIDED. ASSESSMENT COMPLETED. ABD FIRM, TENDER, MILDLY DISTENDED. PT BELCHING, INCISION WNL, CDI. BLE UNCHANGED. CENTRAL LINE WNL, CDI. L FA IV WNL, CDI. PT DENIES PAIN AT THIS TIME. PT REPOSITIONED. OSTOMY WNL. SCDs ON. NO OTHER NEEDS AT THIS TIME. CALL LIGHT IN REACH.
--- NOTE | 2019-07-01 02:26 | NUR ---
WITH THE HELP OF MAGNO JULIO WE REPOSITIONED PT IN BED TO HER COMFORT. BEDSIDE TABLE AND CALL LIGHT WITHIN REACH.
--- NOTE | 2019-07-01 02:43 | NUR ---
IV MEDICATIONS COMPLETED IN MEDIAL LINE, FLUSH, GOOD BLOOD RETURN, HEPARIN LOCKED. NO OTHER NEEDS AT THIS TIME. CALL LIGHT IN REACH.
--- NOTE | 2019-07-01 04:04 | NUR ---
REPOSITIONED PT LEGS TO HER COMFORT.
--- NOTE | 2019-07-01 06:23 | NUR ---
BLOOD DRAW COMPLETED IN PROXIMAL LUMEN OF CENTRAL LINE, SALINE FLUSHED AND LOCKED. PT REPOSITIONED. GLASSES AND DENTURES PROVIDED. CLEAN GOWN PROVIDED. PT EDUCATION CONCERNING COLOSTOMY BAG PROVIDED, PT PARTICIPATED. TPN INFUSING IN DISTAL LUMEN. VS AND I&O COMPLETED. NO OTHER NEEDS AT THIS TIME. CALL LIGHT INR EACH.
--- NOTE | 2019-07-01 08:00 | NUR ---
REPORT RECIEVED. PT LYING IN BED AWAKE. DNEIS PAIN. TPN INFUSIING AT 63ML/HR. CALL LIGHT IN REACH. DENEIS NEEDS.
--- NOTE | 2019-07-01 09:28 | NUR ---
PATIENT SITTING UP IN CHAIR. LINENS CHANGED. VITAL SIGNS AND I&O DONE. CALL LIGHT WITHIN REACH. NO OTHER NEEDS AT THIS TIME
--- NOTE | 2019-07-01 10:39 | NUR ---
ASSESSMENT COMPLETED. PT WITH SBA WITH FWW TO CHAIR. TOELRATED WELL. HR UP TO 120'S WITH AMBULATION, PT WITH PURSED LIP BREATHING. REVOVERS AFTER A COUPLE MINUTE IN CHAIR. ENCOURAGED IS USE, OT WITH NON-PRODUCTIVE, WEAK COUGH, PILLOW ON ABDOMEN FOR SPILINTING, ABX STARTED, TPN INFUSING WNL, ELIAS WITH YELLOW QS UO. DISCUSSED POC TO CALM PT ANXIETY. DENEIS PAIN. MIDLINE WELL APROXIMATED WITH NO S/SX OF INFECTION. SOME STOOL PRESENT IM OSTOMY. DR CHILEL IN TO ROUND. NEW ORDERS IN INCREASE DIET TO LIMITED LIQUID. ICE WATER PROVIDED. CALL LIGHT IN REACH.
--- NOTE | 2019-07-01 11:41 | NUR ---
RT IN EDUCATING PT ON ACAPPELLA USE. PT SITTING UP IN CHAIR. CALL LIGHT IN REACH.
--- NOTE | 2019-07-01 12:45 | NUR ---
PT REPORTING 9/10 ABDOMINAL/BACK PAIN. 20 MG MORPHINE ADMINISTERED.
--- NOTE | 2019-07-01 13:36 | NUR ---
ASISTED IN REPOSITIONING IN CHAIR. REPORTING 8/10 STABBING PAIN IN ABDOMEN, WAITNG A WHILE LONGER FOR MORPHINE TO START WORKING. FLAGYL STARTED. TPN INFUSING WNL. CALL LIGHT IN REACH. OSTOMY EMPTIED FOR 50MLS.
--- NOTE | 2019-07-01 13:40 | NUR ---
PATIENT SITTING UP IN CHAIR. VITAL SIGNS AND I&O DONE. CALL LIGHT WITHIN REACH. NO OTHER NEEDS AT THIS TIME
--- NOTE | 2019-07-01 17:29 | NUR ---
PATIENT SITTING UP IN CHAIR. VITAL SIGNS AND I&O DONE. ICE WATER GIVEN. CALL LIGHT WITHIN REACH. NO OTHER NEEDS AT THIS TIME
--- NOTE | 2019-07-01 18:25 | NUR ---
PAIN IN ABDOMEN. 20 MG MORPHINE ADEMISNTERED. ASSITED STAMD BY BACK TO BED, PT VERY UNSTEADY, PURSED LIP BREATHING PRESENT AFTER ABLUATION, HR 126. O2 92% ON RA. RECOVERED AFTER 1 MINUTE. CALL LIGHT IN REACH.
--- NOTE | 2019-07-01 19:35 | NUR ---
RECEIVED REPORT FRPM DAY SHIFT. PT ALERT, IN BED. STATED HER PAIN IS TOLERABLE AND SHE DOES NOT NEED PAIN MEDICATIONS. bED IN LOW POSITION, CALL LIGHT IN REACH. NO NEEDS AT THE MOMENT.
--- NOTE | 2019-07-01 21:43 | NUR ---
PT IN BED, ALERT. PERFORMED ELIAS CARE AND PERICARE. ASSIST PT WITH "BURPING" HER OSTOMY BAG. PT RECEIVED HER SCHEDULED IV AND ORAL MEDS, SEE MAR. PT COOPERATIVE WITH CARES. APPEARS ANXIOUS, KEEPS SAYING "I GOT IT", "OK, OK, SO, SO". DONE WITH ASSESSMENT. BED IN LOW POSITION. CALL LIGHT IN REACH. PT DENIED PAIN, STATED "I AM OK".
--- NOTE | 2019-07-01 23:46 | NUR ---
pt called due to noise of iv pump. fixed the pump, iv fluids running. pt denied pain, stated "I think I am ok". no further needs at the moment. bed in low position, call light in [facility].
--- NOTE | 2019-07-02 02:42 | NUR ---
in the ot room, started scheduled iv abx. Pt resting. Eyes closed, breathing even. no distress noted. call light in reach.
--- NOTE | 2019-07-02 04:15 | NUR ---
in the pt room. scheduled iv abx completed. TPN infusing in distal lumen (brown). Proximal and medial lumens flushed with 20 ml and 10 ml of NS, heparin locked. Done with assessment. Apical pulse 108, irregular. Incision is open to air, clean, dry, intact. jose present. colostomy has brown liquid stool. Pt resting in bed. SCDs on, ace draining yellow clear urine. Bed in low position, call light in reach.
--- NOTE | 2019-07-02 05:00 | NUR ---
PT ALERT, INVOLVED IN CARE. DEMONSTRATED USE OF ACAPELLO AND HOW TO "BURP" COLOSTOMY BAG. APPEARED ANXIOUS AT THE BEGINNING OF THE SHIFT. SCHEDULED MEDS WERE GIVEN, PT SLEPT THROUGH THE NIGHT. IRREGULAR HEART RATE NOTED, APICAL PULSE 108. TPN INFUSING IN DISTAL LUMEN (BROWN), PROXIMAL AND DISTAL LUMENS WERE FLUSHED WITH 20 ML OF NS, HEPARIN LOCKED. ABD MIDLINE INSICION OPEN TO AIR, CLEAN, DRY, INTACT. DANTE PRESENT. ELIAS DRAINED YELLOW CLEAN URINE.
--- NOTE | 2019-07-02 05:21 | NUR ---
PT AWAKE. UP TO THE CHAIR. STATED SHE FEELS GOOD. DENIED PAIN. CALL LIGHT IN REACH.
--- NOTE | 2019-07-02 05:33 | NUR ---
PT UP IN A CHAIR. SPO2 DROPPED DOWN TO 85 ON RA. PUT ON 2 L OF O2. SPO2 WENT UP TO 90-91% ON 2L OF O2 VIA NC. PT DEVELOPED IRREGULAR TACHYCARDIC HEART RATE, 120 BPM.
--- NOTE | 2019-07-02 05:58 | NUR ---
blood was drown from median lumen. flushed with 20 ml of NC and locked. Pt tolerated well. TPN is running. Spo2 94 on RA. Pulse 112. Pt up in her chair. denied pain. No needs at the moment. Call light in reach.
--- NOTE | 2019-07-02 07:42 | NUR ---
REPORT RECIEVED, PT UP IN CHAIR. DENIES PAIN. TPN INFUSING THROUGH DISTAL PORT AT 63ML/HR. DENIES NEEDS, CALL LIGHT IN REACH.
--- NOTE | 2019-07-02 10:37 | NUR ---
PT ASSISTED TO SIT WITH FEET ON THE GROUND FOR LATE FULL BREAKFAST. DENEIS NAUSEA/PAIN. CALL LIGHT IN REACH. TPN INFUSING WNL, YOCASTA AND STOOL PRESENT IN OSTOMY. MINLINE WELL APPROXIMATED, WITH DANTE IN PLACE. NO S/SX OF INFECTION. 20 MG LASIX ADMINSTERED.
--- NOTE | 2019-07-02 10:40 | NUR ---
PATIENT UP IN CHAIR, REPOSITIONED FOR BRAKFAST TRAY. VITALS AND I&OS DONE. ELIAS EMPTIED. CALL LIGHT IN REACH NO OTHER NEEDS AT THIS TIME
--- NOTE | 2019-07-02 11:43 | NUR ---
REPOSITIONED IN CHAIR. PAIN REPORTED TOLERABLE. CALL LIGHT IN REACH. LUNCH AT BEDSIDE. DENIES NAUSEA/VOMITTING.
--- NOTE | 2019-07-02 13:12 | NUR ---
PT WORKED WITH PHYSICAL THERAPY WITH 2 PERSON ASSITS. AMBULATED FROM CHAIR TO AROUND BED. KNEES BUCKLED AND END OF WALK ONCE AT SIDE OF BED. PT FELL ONTO BED WITH ASSISTANCE FROM NURSE. NO INJURY OCCURED. DID SOME BEDSIDE EXERCISES, BALANCE AND STANDING. HR AT 123 AFTER ACIVITY. OXYGEN AT 95%.
--- NOTE | 2019-07-02 13:42 | NUR ---
PATIENT RESTING WITH EYES CLOSED. VITALS AND I&OS DONE. ELIAS EMPTIED. CALL LIGHT IN REACH. NO OTHER NEEDS.
--- NOTE | 2019-07-02 15:00 | NUR ---
ASSISTED PT IN REPOSITIONING. EDUCATION AND TEACH BACK FOR EMPTYING AND "BURPING" COLOSTOMY COMPLETED. PT STILL NEEDS MORE EDUCATION WITH OSTOMY. DENIES PAIN AT THIS TIME. BOWEL TONES ACTIVE. EMPTIED 50ML OF STOOL. CALL LIGHT IN REACH.
--- NOTE | 2019-07-02 18:11 | NUR ---
PATIENT UP IN BED, VITALS AND I&OS CHARTED. CALL LIGHT IN REACH. NO OTHER NEEDS AT THIS TIME.
--- NOTE | 2019-07-02 19:21 | NUR ---
RECEIVED REPORT FROM DAY SHIFT. PT IN BED, RESTED WITH EYES CLOSED. WOKE UP EASY TO VOICE. PT ON RA, ELIAS DRAINING YELLOW URINE. PT ALERT, CALLED HER WITH UPDATE. BED IN LOW POSITION, CALL LIGHT IN REACH.
--- NOTE | 2019-07-02 21:27 | NUR ---
IN THE PT ROOM, STARTED SCHEDULED IV ABX. PT ALERT, ANXIOUS. PT DEMONSTRATED USE OF ACAPELLO. PT WAS ENCOURAGED TO "BURP' HER COLOSTOMY BAG. IT WAS CHANGED DUE TO LEAKING. HELPED PT WITH CLEANING, ALLEVYN DRESSING ON PT BACK WAS CHANGED WELL. PERFORMED RITO AND ELIAS CARE. ELIAS DRAINING CLEAR YELLOW URINE. INCISION WITH DANTE IS OPEN TO AIR, CLEAN, DRY, INTACT. TPN INFUSING IN DISTAL LUMEN. MEDIAL LUMEN WAS FLUSHED WITH NS, POXIMAL LUMEN WAS FLUSHED WITH NS, HEPARIN LOCKED. PT TOLERATED WELL. SCHEDULED PO MED WERE GIVEN, SEE MAR. BED IN LOW POSITION, CALL LIGHT IN REACH. NO NEEDS AT THE MOMENT.
--- NOTE | 2019-07-02 21:42 | NUR ---
pt used call light to ask for a warm blanket for her shoulders. she does not need anything further at this time.
--- NOTE | 2019-07-02 22:40 | NUR ---
in the pt room, started scheduled iv abx. pt resting in bed with eyes closed. breathing even, no distress noted. call light in reach.
--- NOTE | 2019-07-03 01:04 | NUR ---
PT RESTING IN BED, EYES CLOSED, BREATHING EVEN, NO DISTRESS NOTED. IV ABX AND TPN RUNNING. DIM LIGHT IN THE ROOM. BED IN LOW POSITION. CALL LIGHT IN REACH.
--- NOTE | 2019-07-03 02:27 | NUR ---
IV PUMP BEEPING. ERROR RESOLVED. PT RESTING, EYES CLOSED. BREATHING EVEN, NO DISTRESS NOTED. CALL LIGHT WITHIN REACH.
--- NOTE | 2019-07-03 03:05 | NUR ---
IN THE PT ROOM, STARTED SCHEDULED IV ABX (SEE MAR). PT RESTING COMFORTABLY, EYES CLOSED, BREATHING EVEN, NOT LABORED. CALL LIGHT WITHING REACH.
--- NOTE | 2019-07-03 04:17 | NUR ---
IN THE PT ROOM. IV ABX COMPLETE. FLUSED MEDIAL PORT WITH 20 ML OF NS. TPRN IS RUNNING. PT REPORTED SOB, STATED SHE WANTS TO GET UP AND MOVE AROUND. PT UP TO HER RECLINER WITH 2 PERSON ASSIST. CUP OF TEA WAS OFFERED. CALL LIGHT IN REACH, NO NEEDS AT THE MOMENT.
--- NOTE | 2019-07-03 04:49 | NUR ---
PT UP IN HER RECLINER. THERAPEUTIC COMMUNICATION USED, REASSURENCE PROVIDED. PT SIPPING TEA AND WATCHING TV. PT STATED SHE FEELS BETTER, NO MORE SOB, NO DISCOMFORT. NO FURTHER NEEDS. CALL LIGHT IN REACH.
--- NOTE | 2019-07-03 05:15 | NUR ---
PT ALERT, INVOLVED IN CARE. IMPROVED TO FULL LIQUID DIET. TPN INFUSING IN DISTAL LUMEN (BROWN). PROXIMAL LUMEN FLUSHED WITH NS, HEPARINE LOCKED. MIDIAL LUMEN FLUSHED WITH NS, SCHEDULED AV ABX RUNNING. PT SLEPT THROUGH THE NIGHT. DID NOT REPORT PAIN OR DISCOMFORT. WOKE UP ANXIOUS, REPORTED SOB. HELPED 2PA TO CHAIR. REASSURANCE PROVIDED, THERAPEUTIC COMMUNICATION USED, COMFORTING PROVIDED. STATED SHE FEELS BETTER, NO MORE SOB. PT DEMONSTRATED USE OF ACAPELLO. COLOSTOMY BAG WAS CHANGED AT THE BEGINNING OF THE SHIFT DUE TO LEAKING. ALLEVYN DRESSING WAS CHANGED WELL. INCISION WITH DANTE CLEAN, EDGES APPROXIMATE. SOME SEROUS DRAINAGE NOTED. BOWEL TONES ACTIVE X 4.
--- NOTE | 2019-07-03 06:26 | NUR ---
blood was drown from blue port, pt tolerated well. scheduled iv abx started, running. pt up in a chair, no needs at the moment. call light within reach.
--- NOTE | 2019-07-03 10:30 | NUR ---
Spoke with Mignon. She denies needs. Is very concerned to what hospitalization will cost. Discussed needs for dc, she states her concern as her spouse gets frustrated with her. Discussed SNF and transitional care, and she does not seem to remember our converstaion from Wednesday. She states she can't go to a SNF or TC as it will be too expensive. Discussed first 20 days are paid by medicare, she is deconditioned and could really use more PT. She will consider, but states she will not go to a SNF.
--- NOTE | 2019-07-03 10:53 | NUR ---
Pt reports she is doing well at this time. Pt on ra, resp even and non labored. Right IJ dressing CDI, patent, infusing TPN in one port, abx on 2nd port. Third port patent, good blood return noted, flushed with ns and then heparin. Yanez intact, patent draining clear yellow urine. Midline incision well approx, jose noted. No needs at this time. Personal supplies and call light within reach.
--- NOTE | 2019-07-03 11:44 | NUR ---
Admin one tab [place] 5/325mg po for reports of 5/10 abd pain.
--- NOTE | 2019-07-03 13:31 | NUR ---
PT IS SITTING IN CHAIR-NG TUBE DC'D AND LEGS ELEVATED. PT HAS TV ON, BUT SAID SHE WAS HOPING TO TAKE A NAP. GAVE BLESSING, PT STATED SHE LOVES HER P.SHAWL, JUST WHAT SHE NEEDED. WILL CHECK BACK
--- NOTE | 2019-07-03 19:24 | NUR ---
RECEIVED REPORT FROM DAY SHIFT. PT IN BED, ALERT, GREETED NURSES WITH SMILE. PT PARTICIPATED IN REPORT, STATED SHE FEELS MUCH BETTER. ORDERED TPN AND LIPIDS RUNNING IN DISTAL LUMEN. ELIAS RUNNING CLEAR YELLOW URINE. PT DENIED PAIN. CALL LIGHT WITHIN REACH.
--- NOTE | 2019-07-03 19:30 | NUR ---
CALL LIGHT ANSWERED. PATIENT WANTING THE ROOM TEMP DOWN. DONE.
--- NOTE | 2019-07-03 20:59 | NUR ---
IN THE PT ROOM. STARTED SCHEDULED IV ABX THROUGH WHITE LUMEN. FLUSHED BLUE LUMEN WITH 20ML OF NS AND HEPARIN LOCKED. PT DEMONSTRATED HOW TO CHANGE COLOSTOMY BAG WITH LITTLE ASSISTANCE. ALLEVYN DRESSING ON PT BACK WAS CHANGED WELL. ELIAS AND PERYCARE PROVIDED. SKIN PROTECTANT AROUND THE STOMA APPLIED. PT REQUESTED NOT TO TAKE SLEEPING AID TONIGHT (SEE MAR). DONE WITH ASSESSMENT. RT IN THE ROOM. PT DEMOSTRATED USE OF ACAPELLO. DENIED PAIN. BED IN LOW POSITION, NO FURTHER NEEDS AT THE MOMENT. CALL LIGHT WITHIN REACH.
--- NOTE | 2019-07-03 22:29 | NUR ---
STARTED SCHEDULED IV ABX THROUGH WHITE LUMEN. PT REPORTED SOME SKIN "BURNING" AT HER LOW ABD. PUT PILLOW CASE UNDER COLOSTOMY BAG FOR SKIN PROTECTION. PT STATED IT FEELS "SOFT". PT TURNED LIGHT OFF BY HERSELF. NO NEEDS AT THE MOMENT. CALL LIGHT WITHING REACH.
--- NOTE | 2019-07-04 00:06 | NUR ---
pt reported pain 8/10. has occasional loose cough. prn med was given, see mar. ace drains clear yellow urine. pt has no futher needs. call light within reach.
--- NOTE | 2019-07-04 02:10 | NUR ---
iv pump beeping. in the room, scheduled iv abx completed. iv pump noise fixed. pt awake. call light in reach.
--- NOTE | 2019-07-04 02:54 | NUR ---
IN THE PT ROOM, STARTED SCHEDULED IV ABX. PT AWAKE, ALERT. CALL LIGHT IN REACH, DENIED FURTHER NEEDS.
--- NOTE | 2019-07-04 03:48 | NUR ---
PT AWAKE. CALLED INTO THE ROOM. AMBULATED TO RECLINER 1PAWW. THERE IS SOME DRAINAGE OF SEROUS FLUID NOTED. LINENS AND GOWN CHANGED, MARU MART HELPED PT WITH CLEANING AND WHIPING WHOLE BODY. SCHEDULED IV ABX COMPLETED. ELIAS DRAINES CLEAN YELLOW URINE. DONE WITH ASSESSMENT. WARM TEA WAS PROVIDED. PT UP IN RECLINER, CALL LIGHT WITHIN REACH.
--- NOTE | 2019-07-04 04:13 | NUR ---
PT AWAKE. CALLED INTO THE ROOM. AMBULATED TO RECLINER 1PAWW. THERE IS SOME DRAINAGE OF SEROUS FLUID NOTED. LINENS AND GOWN CHANGED, MARU MART HELPED PT WITH CLEANING AND WHIPING WHOLE BODY. ELIAS DRAINES CLEAN YELLOW URINE. DONE WITH ASSESSMENT. WARM TEA WAS PROVIDED. PT UP IN RECLINER, CALL LIGHT WITHIN REACH.
--- NOTE | 2019-07-04 04:52 | NUR ---
PT ALERT, COOPERATIVE, PLEASANT. DID NOT WANT TO TAKE SLEEPING AID THIS EVENING (SEE MAR). REPORTED PAIN 8/, PRN MED WAS GIVEN (SEE MAR). TPN RUNNING THROUGH BROWN PORT. LIPIDS COMPLETED. BLUE PORT FLUSHED WITH 20 ML OF NS, HEPARIN LOCKED. WHITE PORT FLUSHED WITH NS. BLOOD WAS DROWN THIS MORNING. PT TOLERATED WELL. SCHEDULED ABX STARTED AND RUNNING (SEE APR). ELIAS DRAINED SUFFICIENT AMOUT OF CLEAN YELLOW URINE. PERYCARE AND ELIAS CARE WERE PROVIDED. SOME SEROUS LIQUID NOTED ON PT GOWN AND BEDDING. LINNENS AND GOWN WERE CHANGED. SKIN PROTECTANT WAS APPLIED. PT WAS ABLE TO CHANGE COLOSTOMY BAG WITH SOME ASSISTANCE. INCISION WITH DANTE OPEN TO AIR. EDGES WELL APPROXIMATE. PT DEMONDTRATED USE OF ACAPELLO. SOME LOOSE OCCASIONAL COUGH NOTED. ANXIOUS. REASSURANCE PROVIDED, THERAPEUTIC COMMUNICATIONS USED. PT VERY MOTIVATED TO GET WELL AND GO HOME. PT AMBULATED TO CHAIR IPAWW.
--- NOTE | 2019-07-04 05:30 | NUR ---
BLOOD DROWN. PT TOLERATED WELL. UP IN A CHAIR. CALL LIGHT WITHIN REACH.
--- NOTE | 2019-07-04 06:07 | NUR ---
STARTED SCHEDULED IV ABX (SEE MAR), RUNNING THROUGH [place]. PT UP IN CHAIR. CALL LIGHT IN REACH. NO NEEDS AT THE MOMENT.
--- NOTE | 2019-07-04 07:42 | NUR ---
REPORT REICEVED. PT REPORTS SLEEPING WELL LAST NIGHT. TPT RATE DECREASED TO 31.5ML/HR. PT SITTING UP IN [facility]IAR WORKING ON ACAPPELLA. NBA NEEDS. STUDENT NURSE AT BEDSIDE. CALL LIGHT IN REACH.
--- NOTE | 2019-07-04 08:00 | NUR ---
PATIENT SITTING UP IN CHAIR. ICE WATER GIVEN. PATIENT'S BREAKFAST ORDERED. CALL LIGHT WITHIN REACH. NO OTHER NEEDS AT THIS TIME
--- NOTE | 2019-07-04 09:32 | NUR ---
PATIENT SITTING UP IN CHAIR. STUDENT RN IN ROOM. IV WRAPPED. LINENS CHANGED. PATIENT GOES TO THE BATHROOM TO TAKE A SHOWER. PATIENT USES WALKER. TWO PERSON ASSISTING. PATIENT BACKS TO CHAIR. VITAL SIGNS AND I&O DONE. HIGH DYASTOLIC BLOOD PRESSURE. RN NOTIFIED. CALL LIGHT WITHIN REACH. NO OTHER NEEDS AT THIS TIME
--- NOTE | 2019-07-04 10:50 | NUR ---
ABX COMPLETED. GOOD BLOOD RETURN. HEP LACKED LINE
--- NOTE | 2019-07-04 11:25 | NUR ---
PATIENT UP IN CHAIR WATCHING TV. TPN TO BE WEANED TODAY, THEN D/C'D. SHE IS NOW ON A REGULAR DIET. I BROUGHT SOME INFORMATION ON COLOSTOMY NUTRITION THERAPY. WE REVIEWED SOME FOODS THAT MAY CAUSE GAS, SUCH BROCCOLI, AND TALKED ABOUT LOW ROUGHAGE FOODS THAT SHE CAN EAT RIGHT NOW. SHE SAID SHE PROBABLY SHOULDN'T EAT A SALAD WITH ALL SORTS OF FRESH VEGGIES ON IT, AND I SAID, IT'S PROBABLY BEST TO STAY AWAY FROM SALAD FOR A FEW DAYS, THEN IF SHE WANTS SOME, TO HAVE A SMALL AMOUNT. SHE ALREADY WAS AWARE TO AVOID LARGE AMOUNTS OF SEEDS. SHE HAS NO OTHER QUESTIONS AT THIS TIME. MY NAME AND OFFICE # PROVIDED IN CASE SHE OR HER HAVE QUESTIONS IN THE FUTURE.
--- NOTE | 2019-07-04 11:30 | NUR ---
Pt. resting in chair. Spoke with pt. She again declines, SNF for dc. Discussed Transitional care and brochure was given. Pt states she thinks she might stay for rehab. Wants to know what she will need on dc and discussed option of OP or HH if needed. Returned call to pt's , Rey and step daughter, Kiera. They are both concerned what will happen when pt discharges. Spouse states concern pt will be weak and he will be unable to care for her. Discussed TC and pt agreement to cont. rehab if needed. They wanted to know what happens after TC, discussed Home Health is available if pt has skilled need and requires assist with her ostomy. Texted a picture of TC brochure to daughter for further information.
--- NOTE | 2019-07-04 12:09 | EKG ---
[facility] [address] [facility] [place] [address] Signed Sinus rhythm with marked sinus arrhythmia with occasional premature ventricular complexes Otherwise normal ECG When compared with ECG of 24-JUN-2019 03:32, premature ventricular complexes are now present premature supraventricular complexes are no longer present Confirmed by FRANCHESKA OLIVIER DO ([id number]) on 07/04/2019 12:09:23 PM Electronically Signed By: FRANCHESKA OLIVIER DO 07/04/19 1209 PATIENT NAME: CARMEN HAY ANN Electrocardiogram DATE OF : 45 PHYSICIAN: FRANCEHSKA OLIVIER DO REPORT #: [id number] REPORT IS CONFIDENTIAL AND NOT TO BE RELEASED WITHOUT AUTHORIZATION
--- NOTE | 2019-07-04 13:30 | NUR ---
TPN DISCONTINUED PER ORDER. BROWN PORT HEPARIN LOCKED. FLUSHES WELL GOOD BLOOD RETURN.
--- NOTE | 2019-07-04 13:30 | NUR ---
PT WAS SITTING IN CHAIR, TV ON AND NIBBLING ON LUNCH. PT MENTIONED THAT SHE HAS HAD A BUSY AM AND IS READY FOR A REST. PT SAID SHE WAS FEELING GOOD AFTER HER SHOWER THIS AM. GAVE ENCOURAGEMENT TO PT AND BLESSING.
--- NOTE | 2019-07-04 13:50 | NUR ---
PATIENT SITTING UP IN CHAIR. VITAL SIGNS OBTAINED BY STUDENT RN. I&O DONE. CALL LIGHT WITHIN REACH. NO OTHER NEEDS AT THIS TIME
--- NOTE | 2019-07-04 15:00 | NUR ---
PT REPORTING SIDE CRAMP, HEAT PACK APPLIED WOVER BLANKETS AND 20MG MORPHINE ADMISNTERED. ASSISTED PT IN "BURPING" COLOSTOMY. PT DID MOST OF THE WORK WIHT MINIMAL ASSISTANCE.
--- NOTE | 2019-07-04 16:29 | NUR ---
ABELARDO CALLED FOR UPDATE ON PLAN OR CARE. DISCUSSED TPN, COLOSTOMY AND APPETITE, LABS AND EKG RESULTS. ALL QUESTIONS ANSWERED.
--- NOTE | 2019-07-04 17:00 | NUR ---
PATIENT SITTING UP IN CHAIR. VITAL SIGNS AND I&O DONE. ICE WATER GIVEN. CALL LIGHT WITHIN REACH. NO OTHER NEEDS AT THIS TIME
--- NOTE | 2019-07-04 17:27 | NUR ---
ASSISTED PT TO REPOSITION IN [facility]. ALLEVYN REPLACED ON REDENED BLANCHABLE AREA ON PROTRUDING SPINE. COLOSTOMY EMPTIED FOR 100ML. PT REPORTING RIGHT ABDOMINAL PAIN STABING. PRN PAIN MEDICATION ADMINSTERED. PT REFUSED DINNER CITING NOT BEING HUNGRY. ENURE PROVIDED. PT AGREED TO DRINK. CALL LIGHT IN REACH.
--- NOTE | 2019-07-04 19:16 | NUR ---
RECEIVED REPORT FROM MAGNO BURRIS. pt RESTING IN CHAIR, ROOM TEMPERATURE ADJUSTED PER REQUEST. pt REPORTED SHE WAS DOING "OKAY" WORKING ON ENSURE. NO FURTHER REQUESTS AT THIS TIME. CALL LIGHT WITHIN REACH. WHITEBOARD UPDATED.
--- NOTE | 2019-07-04 19:37 | NUR ---
RECEIVED REPORT FROM DAY SHIFT. PT UP IN A CHAIR. ALERT, ORIENTED, PLEASANT. DENIED PAIN AT THE MOMENT. SCHEDULED ABX RUNNING THROUGH WHITE PORT. ELIAS DRAINS CLEAN YELLOW URINE. WHITE BOARD UPDATED. WILL BE BACK TO ASSESS.
--- NOTE | 2019-07-04 20:25 | NUR ---
FLUSHED BLUE PORT WIHT 10 ML OF NS ABD STARTED SCHEDULED ABX (SEE MAR). PT UP IN RECLINER. CALL LIGHT WITHIN REACH, NO NEEDS AT THE MOMENT.
--- NOTE | 2019-07-04 20:45 | NUR ---
PT'S IV WAS BEEPING, LEFT OPEN TKO. PT DENIES NEEDS AT THIS TIME CALL LIGHT IS CLOSE.
--- NOTE | 2019-07-04 21:00 | NUR ---
scheduled abx completed. flushed blue and white ports with 10 ml of ns. caps on. pt tolerated well, no further needs. call light within reach.
--- NOTE | 2019-07-04 22:16 | NUR ---
SCHEDULED MEDS WERE GIVEN, PT DECIDED NOT TO USE SLEEPING AID TONIGHT. (SEE MAR). 3 PORTS FLUSHED WITH NS, BROWN AND WHITE PORTS HEPARIN LOCKED. PT TOLERATED WELL. DONE WITH ASSESSMENT. PT DEMONSTRATED USE OF ACAPELLO AND HOW TO BURP COLOSTOMY BAG. BACK WAS WIPED WITH WARM WIPES. SEROUS LIQUID NOTED. CLEAN LINENS WERE PROVIDED. INCISION WITH DANTE DRY, EDGES WELL APPROXIMATED. PT HAS NO NEEDS AT THE MOMENT. CALL LIGHT WITHIN REACH.
--- NOTE | 2019-07-04 23:06 | NUR ---
started scheduled abx via blue port. pt up in a chair. no needs at the moment, call light in reach.
--- NOTE | 2019-07-05 01:02 | NUR ---
rounded on pt. APPEARS COMFORTABLE, EYES CLOSED, BREATHING EVEN, UNLABORED. DIM LIGHT IN THE ROOM. CALL LIGHT WITHIN REACH.
--- NOTE | 2019-07-05 02:58 | NUR ---
in the pt room, started scheduled abx. pt awake, alert, pleasant. a cup of warm tea was offered. Pt denied pain. done with assessment. call light within reach.
--- NOTE | 2019-07-05 03:28 | NUR ---
IV PUMP BEEPING, IV ABX INFUSION COMPLETED. LUMEN SL. NO REQUESTS AT THIS TIME. CALL LIGHT WITHIN REACH.
--- NOTE | 2019-07-05 05:11 | NUR ---
PT REPORTED PAIN 8/10, PRN MED WAS GIVEN (SEE MAR). SEROUS LIQUID STAINED LINNES.PT WAS HELPED WITH CLEANING, FRESH LINNES WERE PROVIDED. PT STOOD UP WITH 2PAWW, REPORTED WEAKNESS. BACK TO CHAIR. NO NEEDS AT THE MOMENT. CALL LIGHT IN REACH.
--- NOTE | 2019-07-05 05:44 | NUR ---
PT ALERT, ORIENTED, PLEASANT. LESS ANXIOUS. DECIDED NOT TO TAKE SLEEPING AID AT NIGHT. SLEPT IN A CHAIR THROUGH THE NIGHT. REPORTED PAIN 8/10 IN THE MORNING, PRN MED WAS GIVEN (SEE MAR). PT ADVANCED TO REGULAR DIET, TPN D/C. ELIAS DRAINS CLEAR YELLOW URINE, SUFFICIENT [place]. INCISION WITH DANTE OPEN TO AIR, DRY, EDGES WELL APPROXIMATED. PT DEMONSTRATED KNOWELEDGE IN BURPING AND EMPTINING COLOSTOMY BAG. AUSCULTATED COARSE IN RLL. PT DEMONSTRATED USE OF ACAPELLA. LOOSE OCCASIONAL COUGH NOTED. PUBIC EDEMA NOTED, SEROUS LIQUID STAINED LINENS TWICE DURING THIS SHIFT. CENTAL RIGHT JV FLUSHED PER PROTOCOL. GOOD BLOOD RETURN NOTED IN ALL LUMENS. REASSURANCE PROVIDED, THERAPEUTIC COMMUNICATION USED.
--- NOTE | 2019-07-05 06:08 | NUR ---
CALL LIGHT ON pt REQUESTING ASSISTANCE. HELPED TO REPOSITION. NO FURTHER REQUESTS AT THIS TIME. CALL LIGHT WITHIN REACH.
--- NOTE | 2019-07-05 06:43 | NUR ---
in the pt room. started scheduled abx (see mar). pt reported pain /, prn med was given (see mar). call light within reach. no further needs at the moment.
--- NOTE | 2019-07-05 08:45 | NUR ---
PT IS ALERT, ORIENTED SITTING UP IN RECLINER, PICKING AT BREAKFAST BUT NOT MUCH APPETITE. OFFERED PT ENSURE, LASIX IV GIVEN, EDEMA IS WEEPING ALONG THIGHS, ELIAS IN PLACE, GOOD BOWEL SOUNDS, BROWN LIQUID IN COLOSTOMY, DENIES NAUSEA, IJ PATENT. CALL LIGHT IN EASY REACH.
--- NOTE | 2019-07-05 11:41 | NUR ---
PT AMBULATED WITH PHYSICAL THERAPY, MOTIVATED AND IN GOOD SPIRITS, URINE OUTPUT HAS PICKED UP SINCE GETTING LASIX.
--- NOTE | 2019-07-05 13:41 | NUR ---
Spoke with Mignon. She states she spoke with her spouse and is aware we talked about TC. She states she is planning on staying for rehab as her family feels this would be best. Denies needs or requests.
--- NOTE | 2019-07-05 17:42 | NUR ---
PT HAS HAD INCREASE IN FLATUS TODAY, 100ML BROWN LIQUID FROM COLOSTOMY TODAY, APPETITE NOT GOOD BUT IS DRINKING CHOCOLATE ENSURE WITH ENCOURAGEMENT, URINE OUTPUT MUCH IMPROVED WITH LASIX, CONT. TO HAVE PITTING EDEMA WITH CLEAR FLUID LEAKING FROM LOWER END OF INCISION AROUNF STAPLE SITES, ELIAS PATENT WITH LIGHT YELLOW URINE, IN GOOD SPIRITS TODAY.
--- NOTE | 2019-07-05 19:24 | NUR ---
SHIFT REPORT RECIEVED FROM BASIL KIRAN. PT SITTING IN CHAIR, WATCHING TV. NO NEEDS AT THIS TIME. CALL LIGHT IN REACH.
--- NOTE | 2019-07-05 21:19 | NUR ---
ASSESSMENT COMPLETED. INCISION WNL, SOME CLEAR FLUID DRAINAGE AT BOTTOM OF INCISION. EDEMA NOTED IN BLE AND ABD. IJ WNL, PROXIMAL LINE FLUSHED WELL WITH GOOD BLOOD RETURN. CMS INTACT. PT ORIENTED X3. OSTOMY PINK. PT DENIES NEED FOR PAIN INTERVENTION AT THIS TIME. PAIN RATED 6/10, REPOSITIONED. PT STATES SHE WILL BE SLEEPING IN CHAIR, DECLINES SCDs. SCHEDULED MEDS PROVIDED. NO OTHER NEEDS AT THIS TIME. CALL LIGHT IN REACH.
--- NOTE | 2019-07-05 21:50 | NUR ---
SCHEDULED MED IN PROXIMAL LINE COMPLETED. PROXIMAL LINE FLUSHED AND HEPARIN LOCKED.
--- NOTE | 2019-07-05 22:31 | NUR ---
SCHEDULED MED PROVIDED IN MEDIAL LINE. LINE FLUSHED WELL, GOOD BLOOD RETURN.
--- NOTE | 2019-07-05 23:53 | NUR ---
PT RESTING IN CHAIR, EYES CLOSED. RR EVEN, UNLABORED. IV MEDICATIONS INFUSING PER ORDER. CALL LIGHT IN REACH.
--- NOTE | 2019-07-06 00:16 | NUR ---
PT CALLS TO STATE SHE IS UNCOMFORTABLE BUT NOT IN PAIN. PT REPOSITIONED. NO OTHER NEEDS AT THIS TIME. CALL LIGHT IN REACH.
--- NOTE | 2019-07-06 00:39 | NUR ---
PT CALLED AND REQUESTED SOMEONE COME AND ZIPPER TRIMMER HER REMOTE FOR HER, SHE HAD DROPPED IT. I WENT IN AND GOT IT FOR HER AND PUT ON HER BEDSIDE TABLE.
--- NOTE | 2019-07-06 02:57 | NUR ---
ASSESSMENT COMPLETED. LUNGS CLEAR. EDEMA IN ABD AND BLE NOTED. SEROUS FLUID MODERATE DRAINAGE FROM LOWER INCISION. INCISION CLEAN, WET, NO REDNESS NOTED, CENTRAL LINE WNL. OSTOMY PINK WITH BROWN DRAINAGE IN BAG, DRESSING CDI. ABD PAIN 6/10, PRN PAIN MED PROVIDED. PINK FOAM APPLIED TO SPINE ON RED AREAS. ELIAS WNL. SCHEDULED MED PROVIDED. NO OTHER NEEDS AT THIS TIME. CALL LIGHT IN REACH.
--- NOTE | 2019-07-06 04:19 | NUR ---
PT RESTING IN THE CHAIR, SLEEPING OFF AND ON. RR EVEN, UNLABORED. FEET ELEVATED.CURT WNL. CALL LIGHT IN REACH.
--- NOTE | 2019-07-06 05:06 | NUR ---
COLOSTOMY BAG CHANGED DUE TO LEAKAGE. PT MOVED TO BED, FWW, 1PA. VS AND I&O COMPLETED BY May. ICE WATER PROVIDED. NO OTHER NEEDS. CALL LIGHT IN REACH.
--- NOTE | 2019-07-06 05:22 | NUR ---
VITALS AND I&OS DONE AND CHARTED. FRESH ICE WATER GIVEN. GARBAGES EMPTIED. BEDSIDE TABLE AND CALL LIGHT IN REACH. PT NEEDS NOTHING MORE AT THIS TIME.
--- NOTE | 2019-07-06 05:46 | NUR ---
BLOOD DRAW COMPLETED FROM MEDIAL LINE. LINE CHANGED ANS POSI CAP CHANGED. SCHEDULED MED PROVIDED. NO OTHER NEEDS AT THIS TIME. CALL LIGHT IN REACH.
--- NOTE | 2019-07-06 09:30 | NUR ---
PT IS ALERT, ONE PERSON ASSIST USING FWW TO GET UP TO RECLINER. IN GOOD SPIRITS, FEELS SHE CAN MOVE EASIER, EDEMA HAS IMPROVED, CONT. TO HAVE MILD CLEAR FLUID LEAKING FROM STAPLE SITES, CONT. IV LASIXJAYASHREEEY IS PATENT WITH GOOD OUTPUT, SECURE, TAKING PO FLUIDS WELL. NEEDS ENCOURAGEMENT TO EAT. IS DRINKING ENSURE.
--- NOTE | 2019-07-06 11:01 | NUR ---
TELE PLACED PER MD ORDER, PT WILL BE RESTARTING PLAQUENIL.
--- NOTE | 2019-07-06 11:15 | NUR ---
Spoke with Mignon in her room. She is resting. States she feels well. Denies c/o.
--- NOTE | 2019-07-06 12:51 | NUR ---
PT DRINKING ESURE, FLAGYL NOW PO, SITTING UP IN RECLINER READING NEWSPAPER, DENIES ANY NEEDS.
--- NOTE | 2019-07-06 16:29 | NUR ---
PT HAS HAD A GOOD DAY, ONE PERSON ASSIST TO RECLINER, DENIES NAUSEA, HAS BEEN DRINKING ENSURE TODAY, NOT MUCH APPETITE FOR FOOD, EDEMA MUCH IMPROVED, 2ND DOSE OF LASIX GIVEN TODAY, ELIAS REMAINS PATENT WITH GOOD OUTPUT. COLOSTOMY WITH FLATUS AND BROWN LIQUID STOOL. TOLERATING FLAGYL PO. FAMILY SENT SOME CLOTHES AND MAGAZINES, PT VERY HAPPY.
--- NOTE | 2019-07-06 17:58 | NUR ---
ALLEVYN DRSG APPLIED TO BONY PROMINENCE MID BACK TO PROTECT SKIN.
--- NOTE | 2019-07-06 19:14 | NUR ---
SHIFT REPORT RECIEVED FROM BASIL KIRAN. PT UP IN CHAIR, WATCHING TV. NO NEEDS AT THIS TIME. CALL LIGHT IN REACH.
--- NOTE | 2019-07-06 20:49 | NUR ---
SCHEDULED MEDS PROVIDED. PRN PAIN MED PROVIDED FOR 8/10 PAIN IN ABD.PT MOVED TO BED. IJ WNL. STOMA PINK, WNL. OSTOMY BAG CDI. EDEMA NOTED IN ABD, THIGHS AND HIPS. TELE # SR @ 90. INCISION WNL. NO OTHER NEEDS AT THIS TIME. CALL LIGHT IN REACH.
--- NOTE | 2019-07-06 22:15 | NUR ---
SCHEDULED MED PROVIDED. PROXIMAL CENTRAL FLUSHED, GOOD BLOOD RETURN. ELIAS WNL. NO OTHER NEEDS. CALL LIGHT IN REACH.
--- NOTE | 2019-07-07 00:05 | NUR ---
PT RESTING IN BED, EYES CLOSED. RR EVEN, UNLABORED. IV MEDS INFUSING. CALL LIGHT IN REACH.
--- NOTE | 2019-07-07 00:41 | NUR ---
per pt request she asked me to reposition her leg and for fresh ice. pt needs nothing more at this time.
--- NOTE | 2019-07-07 01:47 | NUR ---
PT RESTING IN BED, EYES CLOSED. RR EVEN, UNLABORED. CALL LIGHT IN REACH.
--- NOTE | 2019-07-07 02:30 | NUR ---
PATIENT PROXIMAL LINE HEPLOCK FLUSHED AFTER RECOMMENDED NS FLUSH AND NS LINE THAT WAS RUNNING ANTIBIOTIC HAD VOLUME CLEARED AND PUMP SHUT OFF.
--- NOTE | 2019-07-07 02:50 | NUR ---
WITH THE HELP OF MAGNO JULIO WE CHANGED HER ABI AND DRAW SHEET UNDER HER DUE TO LEAKING. REPOSITIONED HER TO HER LEFT SIDE TO HER COMFORT. BEDSIDE TABLE AND CALL LIGHT IN REACH.
--- NOTE | 2019-07-07 02:50 | NUR ---
PT REPOSITIONED. PT REPORTS PAIN 9/10 IN ABD AND BACK. PRN PAIN MED PROVIDED. NO OTHER NEEDS. CALL LIGHT IN REACH.
--- NOTE | 2019-07-07 02:57 | NUR ---
WENT IN AND FIXED HER TELE.
--- NOTE | 2019-07-07 04:05 | NUR ---
PT CALLS TO BE REPOSITIONED. PT REPOSITIONED IN BED. NO OTHER NEEDS AT THIS TIME. CALL LIGHT IN REACH.
--- NOTE | 2019-07-07 05:47 | NUR ---
VITALS AND I&OS DONE AND CHARTED. EMPTIED GARBAGES. BEDSIDE TABLE AND CALL LIGHT IN REACH. PT NEEDS NOTHING MORE AT THIS TIME.
--- NOTE | 2019-07-07 05:47 | NUR ---
BLODD DRAW COMPLETED. SCHEDULED IV MED PROVIDED. PROXIMAL LINE FLUSHED, GOOD BLOOD RETURN. PT REPOSITIONED. NO OTHER NEEDS AT THIS TIME. CALL LIGHT IN REACH.
--- NOTE | 2019-07-07 09:40 | NUR ---
PATIENT UP IN BED, EXCITED TO HAVE JUST WATCHED THE JETS FLY OVER! VITALS AND I&OS DONE AND CHARTED. CALL LIGHT IN REACH. NO OTHER NEEDS.
--- NOTE | 2019-07-11 08:18 | DS ---
[facility] [address], [place] [address] Signed ADMISSION DATE: 06/19/2019 DISCHARGE DATE: 07/07/2019 FINAL DIAGNOSES: 1. Perforated sigmoid diverticulitis with abscess. 2. Significant rheumatoid arthritis. 3. Significant protein-calorie malnutrition. PROCEDURES: 1. Hernandez's resection. 2. Placement of right IJ triple lumen catheter. HISTORY OF PRESENT ILLNESS: Mignon is a 74-year-old female, who I have known for many years. She has very significant rheumatoid arthritis. She takes four different medications for rheumatoid arthritis. She had been having left lower quadrant abdominal pain for over a week. She presented to our emergency room with perforated sigmoid diverticulitis contained over the area of the sacrum. I have been asked to admit her as a general surgeon on-call. HOSPITAL COURSE: Mignon was admitted as above and started on cefepime and Flagyl and hydrated. Despite daily discussions, she had declined surgery for nearly a week. I had even spoken with her as well. She finally convinced herself she was not going to get better on simple antibiotics. We took her surgery on 06/27/2019, for a routine open Hernandez's resection. The abscess appeared to be actually outside the colonic wall in the presacral space. We also placed a right IJ triple lumen catheter for ongoing nutritional support as well as blood draws, IV antibiotics and so forth. At the same time, we performed an incidental appendectomy. She actually has tolerated that procedure fairly well. She has had an increase in her BUN and creatinine, but overall she is doing well on high output renal failure. She has been responding nicely to the IV Lasix. We did switch our cefepime over to the Zosyn. Overall, she has done excellent. Her white count was as high as 24,000 at one point, it has been hovering around [address]. Sed rate is little up at 100. Her albumin was below 2. Consequently, she has had significant edema in her abdominal wall in the lower half of her body. She has had it to a lesser extent in the upper half of her body. We have had her negative fluid balance and that is markedly improved the last several days. She is having a brown liquid stool out at the colostomy. The colostomy itself has minimal edema, it is pink, moist, and functioning quite nicely. Her incision is healing well without any local signs or symptoms of infection. The abdomen is now flat, soft, nontender. Unfortunately, Mignon is not at home status. Electronically Signed By: ASHLEY CHILEL MD 07/11/19 0818 PATIENT NAME: MIGNON HAY ANN DISCHARGE SUMMARY DATE OF : 45 REPORT #: [id number] PHYSICIAN: ASHLEY CHILEL MD PCP: JESUS COWAN MD REPORT IS CONFIDENTIAL AND NOT TO BE RELEASED WITHOUT AUTHORIZATION [address] [address] Signed Consequently, we are going to move her over to our swing bed on the Internal Medicine Service. We are going to leave the triple-lumen catheter in place along with her Yanez catheter at least for now. She will continue on Zosyn and Flagyl currently. The Flagyl has been switched over to p.o. She has also been on some of her chronic p.o. medications including metoprolol to help control her sinus arrhythmia. She has also been put back on her Plaquenil. She is on a regular diet and generally, making slow, but sure progress. DISCHARGE PLANS AND MEDICATIONS: Mignon is going to be transferred over to our swing bed here in the hospital. She will be on the Internal Medicine Service. We are going to leave their triple-lumen catheter and Yanez catheter in place at this point. She will continue on Zosyn and Flagyl along with her other medications including the metoprolol and Plaquenil. She will continue her regular diet. She can shower and bathe as usual. We are going to remove 1/2 of the jose today and the other 1/2 will remove in about 5-7 days. I have reviewed this with Mignon and our hospitalist, Dr. Liane Reyes. They have expressed understanding and agreed to above plan. I will see Mignon in about 10-14 days for followup. Ashley Chilel MD ALB/MODL /[id number] cc: MD Ashley Corcoran MD Copies: JESUS COWAN MD, ANDREW L MD ~ Electronically Signed By: ASHLEY CHILEL MD 07/11/19 0818 PATIENT NAME: MIGNON HAY DISCHARGE SUMMARY DATE OF : 45 REPORT #: [id number] PHYSICIAN: ASHLEY CHILEL MD PCP: JESUS COWAN MD REPORT IS CONFIDENTIAL AND NOT TO BE RELEASED WITHOUT AUTHORIZATION
== END 2019-07-07 13:00 | disposition swing bed (61) | DRG 330 ==
LOC: ED 10:15 → MS 10:17 → CCU 16:23 → MS 06-30 10:50
PROVIDERS: ADMIT Colon & Rectal Surgery
PROC: 0DTN0ZZ Resection of Sigmoid Colon, Open Approach (ICD-10-PCS; principal; 2019-06-27 11:00)
PROC: 0D1N0Z4 Bypass Sigmoid Colon to Cutaneous, Open Approach (ICD-10-PCS; 2019-06-27 11:00)
PROC: 0DTJ0ZZ Resection of Appendix, Open Approach (ICD-10-PCS; 2019-06-27 11:00)
PROC: 02HV33Z Insertion of Infusion Device into Superior Vena Cava, Percutaneous Approach (ICD-10-PCS; 2019-06-27 11:00)
PROC: 30233N1 Transfusion of Nonautologous Red Blood Cells into Peripheral Vein, Percutaneous Approach (ICD-10-PCS; 2019-06-30)
DX: K57.20 Diverticulitis of large intestine with perforation and abscess without bleeding (principal); E44.0 Moderate protein-calorie malnutrition; N17.9 Acute kidney failure, unspecified; M80.08XA Age-related osteoporosis with current pathological fracture, vertebra(e), initial encounter for fracture; Z68.1 Body mass index [BMI] 19.9 or less, adult; E86.0 Dehydration; I12.9 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e 4 chronic kidney disease, or unspecified chronic kidney disease; N18.3 Chronic kidney disease, stage 3 (moderate); J45.909 Unspecified asthma, uncomplicated; M06.9 Rheumatoid arthritis, unspecified; L30.9 Dermatitis, unspecified; E87.6 Hypokalemia; F41.9 Anxiety disorder, unspecified; E83.39 Other disorders of phosphorus metabolism; R60.0 Localized edema; I71.4 Abdominal aortic aneurysm, without rupture; G89.29 Other chronic pain; F10.11 Alcohol abuse, in remission; I73.9 Peripheral vascular disease, unspecified; K21.9 Gastro-esophageal reflux disease without esophagitis; E83.42 Hypomagnesemia; G43.909 Migraine, unspecified, not intractable, without status migrainosus; E27.8 Other specified disorders of adrenal gland; D64.9 Anemia, unspecified; D72.829 Elevated white blood cell count, unspecified; Z20.828 Contact with and (suspected) exposure to other viral communicable diseases; Z88.8 Allergy status to other drugs, medicaments and biological substances; Z79.899 Other long term (current) 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; Z87.891 Personal history of nicotine dependence; Z80.0 Family history of malignant neoplasm of digestive organs
CPT/HCPCS: 00840; 36415; 36430; 71045; 74177; 74300; 77001; 80048; 80053; 80061; 80076; 81001; 82607; 82728; 82746; 83540; 83605; 83690; 83735; 83880; 84100; 84134; 84466; 85025; 85045; 85610; 85651; 85730; 86850; 86900; 86901; 86920; 87040; 93005; 93010; 94667; 94668; 94760; 96361; 96375; 96376; 97110; 97116; 97140; 97161; 97162; 97165; 97530; 97535; 99285-25; C9113; J0330; J0610; J0692; J1170; J1200; J1650; J1885; J1940; J2001; J2060; J2270; J2370; J2405; J2543; J2550; J2704; J3010; J3430; J3475; J3480; J7030; J7060; J7121; P9016; Q9967; U0002

== ENCOUNTER 2019-07-07 13:01 | Inpatient (IN) | payer MEDICARE, OTHER ==
[~2019-07-07] VITALS: Ht 154.9 cm; Wt 64.9 kg
--- OUTSIDE RECORDS SUMMARY | ~2019-07-07 | XMS | Encounter Summary ---
Demographics + + + | Address | [address] | | | [place] [address] | + + + | Home Phone | | + + + | Preferred Language | Unknown | + + + | Marital Status | | + + + | Mu-Ism Affiliation | Unknown | + + + | Race | Unknown | + + + | Ethnic Group | Unknown | + + + Author + + + | Author | [facility] | | | and Jdana | + + + | Organization | [facility] | | | and Jdana [...] Team Providers + +------+ + | Care Computer Repair Technician Name | Role | Phone | + +------+ + | Julio Cesar Hawley MD | PCP | | + +------+ + Reason for Visit +--------+ + | Reason | Comments | +--------+ + | Other | Called to offer virtual visit | +--------+ + Encounter Details +--------+ + + + + | Date | Type | Department | Care Team | Description | +--------+ + + + + | 06/22/ | Telephone | [facility] | [place], | Other (Called to | | 2019 | | RHEUMATOLOGY [address] | offer virtual visit) | | | | [address] | [address] | | | | | [place] | [place] [address] | | | | | [address] | [phone] | | | | | [phone] | | | +--------+ + + + + Social History + +-------+ +--------+------+ | Tobacco Use | Types | Packs/Day | Years | Date | | | | | Used | | + +-------+ +--------+------+ | Former Smoker | | 1 | | | + +-------+ +--------+------+ + [...] + + documented as of this encounter Plan of Treatment +--------+---------+ + + + | Date | Type | Specialty | Care Team | Description | +--------+---------+ + + + | 07/30/ | Office | Nephrology | Ismael Gonzalez MD | | | 2020 | Visit | | [address] | | | | | | [address] [place] | | | | | | [address] | | | | | | | | +--------+---------+ + + + documented as of this encounter Visit Diagnoses Not on filedocumented in this encounter"
--- OUTSIDE RECORDS SUMMARY | ~2019-07-07 | XMS | Clinical Summary ---
Demographics + + + | Address | [address] | | | [place] [address] | + + + | Home Phone | | + + + | Preferred Language | Unknown | + + + | Marital Status | | + + + | Congregation Affiliation | Unknown | + + + | Race | Unknown | + + + | Ethnic Group | Unknown | + + + Author + + + | Author | [facility] | | | and Jdana | + + + | Organization | [facility] | | | and Jdana [...] Team Providers + +------+ + | Care Hat Blocker Name | Role | Phone | + [...] Patient understands that | | treatment is halfway and if patient fails to continue regimen [...] report 06/27/19) | | | | | 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 Tank 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 | | +--------+ + + + + [...] 2020 | Visit | | [address] | | | | | | [address], [place] | | | | | | [address] | | | | | | | [...] + +--------+ | MEDICARE | MEDICA | [id number] | | [phone] | | Medica | | | RE | | 010-Pr | 5 | | re | | | PART A | | esent | | | | | | AND B | | | | | | + +--------+ +--------+ + +--------+ | MEDICARE | MEDICA | [id number] | 10/17/19 | [phone] | | Medica | | | RE | | 12-Pre | 5 | | re | | | PART A | | sent | | | | | | AND B | | | | | | + +--------+ +--------+ + +--------+ | MODA | MODA | [id number] | 02/15/19 | [phone] | [address] | Indemn | | | HEALTH | | 13-Pre | 9 | [phone] | ity | | | MDCR | | sent | | [place], | | | | [place] | | | | [place] [address] | | + +--------+ +--------+ + +--------+ | MODA | MODA | [id number] | 02/15/19 | [phone] | [address] | Indemn | | | HEALTH | | 19-Pre | 9 | [phone] | ity | | | MDCR | | sent | | [place], | | | | [place] | | | | [place] [address] | | + +--------+ +--------+ + +--------+ [...] | 1945 | [phone] | [place] [address] | | | rakan | | | 4 (Home) | | + +--------+ +--------+ + + | Mignon Mohan | Person | Self | [birth year] | [address] | | | al/Fam | | 1945 | [phone] | [place] [address] | | | rakan | | | 4 (Home) | | + +--------+ +--------+ + + Advance Directives + + + + + | Type | Date Recorded | Patient | Explanation | | | | Fastener Technologist | | + + + + + | Power of | | | | | Record Press Tender | | | | + + + + + | Advance | | | | | Directive | | | | + + + + +
--- OUTSIDE RECORDS SUMMARY | ~2019-07-07 | XMS | Encounter Summary ---
Demographics + + + | Address | [address] | | | [place] [address] | + + + | Home Phone | | + + + | Preferred Language | Unknown | + + + | Marital Status | | + + + | Jew Affiliation | Unknown | + + + | Race | Unknown | + + + | Ethnic Group | Unknown | + + + Author + + + | Author | [facility] | | | and Jdana | + + + | Organization | [facility] | | | and [...] Team Providers + +------+ + | Care Rn Training Name | Role | Phone | + [...] arthroplasty | [address] | [address] | | | | | | [place] | [place], | | | | | Procedures | [place], [place] | [place] [address] | | | | | ot eval | [address] | Phone: | | | | | | Phone: | [phone] | | | | | | [phone] | Fax: | | | | | | Fax: | [phone] | | | | | | [phone] | | +--------+--------+ + + + + [...] Dx); Hx of | | | | [address] [place], | [place] [address] | arthroplasty; | | | | [place] [address] | [phone] | Weakness of hand; | | | | [phone] | | HTN (hypertension); | | | | | Mahendra, Mady A, OT | Low back pain; | | | | | [address] | Osteoporosis; | | | | | [place] | Rheumatoid arthritis | | | | | [address] | (HCC) | | | | | [...] might be different fr om the original. [facility] OT OP [address] [address] Occupational Therapy Daily Treatment Note Date: 07/31/2013 [...] 2020 | Visit | | [address] | | | | | | [address] | | | | | | [address] | | | | | | | [...]
--- OUTSIDE RECORDS SUMMARY | ~2019-07-07 | XMS | Clinical Summary ---
Demographics + + + | Address | [address] | | | [place] [address] | + + + | Home Phone | | + + + | Preferred Language | Unknown | + + + | Marital Status | | + + + | Restorationist Affiliation | Unknown | + + + | Race | Unknown | + + + | Ethnic Group | Unknown | + + + Author + + + | Author | [facility] (Historical as of | | | 10-01-18) | + + + | Organization | [facility] (Historical as of | | | 10-01-18) [...] Team Providers + +------+ + | Care Head Of Sales Promotion Name | Role | Phone | + [...] | | | | | | | ([facility]), High risk | | | | | [...] +------+-------+ + | MEDICARE | MEDICA | [id number] | | | [address] | | | RE | | | | [place] [address] | | | IP-OP | | | | | + +--------+ +------+-------+ + | [employer]DS HEALTH PLAN | ODS | [id number] | | | | | | HEALTH [...] | | al/Fam | | 1945 | [phone] [place]MANU[place] AGUIRRE | | | rakan | | | [phone] | + +--------+ +--------+ + +
--- OUTSIDE RECORDS SUMMARY | ~2019-07-07 | XMS | Encounter Summary ---
Demographics + + + | Address | [address] | | | [place] [address] | + + + | Home Phone | | + + + | Preferred Language | Unknown | + + + | Marital Status | | + + + | Jew Affiliation | Unknown | + + + | Race | Unknown | + + + | Ethnic Group | Unknown | + + + Author + + + | Author | [facility] | | | and Jdana | + + + | Organization | [facility] [...] Team Providers + +------+ + | Care Embroiderer Hand Name | Role | Phone | + +------+ + | Julio Cesar Hawley MD | PCP | | + +------+ + Encounter Details +--------+ + + + + | Date | Type | Department | Care Team | Description | +--------+ + + + + | 09/11/ | Orders Only | [facility] | Provider, | Other emt intermediate | | 2019 | | [facility] GENER[facility] OP | MD Ken [address] | (current) drug | | | | CONVERSION [address] | [address] | therapy; Rheumatoid | | | | [address] [place], [place] | [place] [address] | arthritis of | | | | [address] | | multiple sites | | | | [phone] | | without organ or | | [...] | | [address] [facility] [address] [address] | | | | | | [address] [place], [place] | | | | | | [address] | | | | | | | | +--------+---------+ + + + + +------+--------+ + + | Name | Type | Priori | Associated Diagnoses | Order Schedule | | | | ty | | | + +------+--------+ + + | Comprehensive | Lab | Routin | Other emt intermediate | Expected: | | Metabolic Panel [...] factor | | | | | | ([facility]) | | + +------+--------+ + + | CBC with | Lab | Routin | Other emt intermediate | 2 Occurrences | | Differential | [...] Comprehensive | Lab | Routin | Other jail | 2 Occurrences | | Metabolic Panel [...] Rate | Lab | Routin | Other jail | 2 Occurrences | | | | [...] | Diagnosis | + + | Other emt intermediate (current) 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 | + + | Rheumatoid arthritis of multiple sites without organ or system involvement with | | positive rheumatoid factor (HCC) | + + documented in this encounter"
--- OUTSIDE RECORDS SUMMARY | ~2019-07-07 | XMS | Encounter Summary ---
Demographics + + + | Address | [address] | | | [place] [address] | + + + | Home Phone | | + + + | Preferred Language | Unknown | + + + | Marital Status | | + + + | Jainism Affiliation | Unknown | + + + | Race | Unknown | + + + | Ethnic Group | Unknown | + + + Author + + + | Author | [facility] | | | and Jdana | + + + | Organization | [facility] | | | [...] Team Providers + +------+ + | Care Lard Bleacher Name | Role | Phone | + [...] | [address] | [address] [address] | | | | | [place] | [place] | | | | | [address] | [place] [address] | | | | | [phone] | [phone] | | | | | | | [...] 2020 | Visit | | [address] [facility] | | | | | | [address] [place] | | | | | | [address] | | | | | | | [...]
--- OUTSIDE RECORDS SUMMARY | ~2019-07-07 | XMS | Encounter Summary ---
Demographics + + + | Address | [address] | | | [place] [address] | + + + | Home Phone | | + + + | Preferred Language | Unknown | + + + | Marital Status | | + + + | Zoroastrian Affiliation | Unknown | + + + | Race | Unknown | + + + | Ethnic Group | Unknown | + + + Author + + + | Author | [facility] | | | and Jdana | + + + | Organization | [facility] | | | and Jdana [...] Team Providers + +------+ + | Care Associate Store Manager Name | Role | Phone | [...] arthroplasty | [address] | [address] | | | | | | [place] | [place], | | | | | Procedures | [place], [place] | [place] [address] | | | | | ot eval | [address] | Phone: | | | | | | Phone: | [phone] | | | | | | [phone] | Fax: | | | | | | Fax: | [phone] | | | | | | [phone] | | +--------+--------+ + + + + [...] Dx); Hx of | | | | [address] [place], | [place] [address] | arthroplasty; | | | | [place] [address] | [phone] | Weakness of hand; | | | | [phone] | | HTN (hypertension); | | | | | Mahendra, Mady A, OT | Low back pain; | | | | | [address] | Osteoporosis; | | | | | [place] | Rheumatoid arthritis | | | | | [address] | (HCC) | | | | | [...] be different fr om the original. [facility] THERAPY OT OP [address] [address] Occupational Therapy Daily Treatment Note Date: 07/24/2013 [...] | Visit | | [address] [facility] | | | | | | 160 [place], [place] | | | | | | [address] | | | | | | | [...]
--- OUTSIDE RECORDS SUMMARY | ~2019-07-07 | XMS | Encounter Summary ---
Demographics + + + | Address | [address] | | | [place] [address] | + + + | Home Phone | | + + + | Preferred Language | Unknown | + + + | Marital Status | | + + + | Anabaptism Affiliation | Unknown | + + + | Race | Unknown | + + + | Ethnic Group | Unknown | + + + Author + + + | Author | [facility] | | | and Jdana | + + + | Organization | [facility] | | | and [...] Team Providers + +------+ + | Care Subscription Agent Name | Role | Phone | + +------+ + | Julio Cesar Hawley MD | PCP | | + +------+ + Encounter Details +--------+ + + + + | Date | Type | Department | Care Team | Description | +--------+ + + + + | 05/15/ | Orders Only | [facility] | Ismael Gonzalez MD | Hypertension, | | 2020 | | NEPHROLOGY [place] | [address] [facility] | unspecified type | | | | [address] | [address] [place], [place] | (Primary Dx); | | | | [address] | [address] | Scoliosis, | | | | [place], [place] | | unspecified | | | | [address] | | scoliosis type, | | | | [phone] | | unspecified spinal | | | [...] 2020 | Visit | | [address] [facility] | | | | | | 160 [place] | | | | | | [address] | | | | | | | [...]
--- OUTSIDE RECORDS SUMMARY | ~2019-07-07 | XMS | Encounter Summary ---
Demographics + + + | Address | [address] | | | [place] [address] | + + + | Home Phone | | + + + | Preferred Language | Unknown | + + + | Marital Status | | + + + | Congregational Affiliation | Unknown | + + + | Race | Unknown | + + + | Ethnic Group | Unknown | + + + Author + + + | Author | [facility] | | | and Jdana | + + + | Organization | [facility] | | | and Jdana [...] Team Providers + +------+ + | Care Chief Of Hospital Medicine Name | Role | Phone | [...] arthroplasty | [address] | [address] [place] | | | | | | [place] | [place], | | | | | Procedures | [place], [place] | [place] [address] | | | | | ot eval | [address] | Phone: | | | | | | Phone: | [phone] | | | | | | [phone] | Fax: | | | | | | Fax: | [phone] | | | | | | [phone] | | +--------+--------+ + + + + [...] Stiffness of hand | | | | [place], | [place] [address] | joint, left; | | | | [place] [address] | [phone] | Weakness of hand; | | | | [phone] | | HTN (hypertension); | | | | | Mahendra, Mady A, OT | Low back pain; | | | | | [address] | Osteoporosis; | | | | | [place] | Rheumatoid arthritis | | | | | [address] | (HCC) | | | | | [...] might be different fr om the original. 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
--- OUTSIDE RECORDS SUMMARY | ~2019-07-07 | XMS | Encounter Summary ---
Demographics + + + | Address | [address] | | | [place] [address] | + + + | Home Phone | | + + + | Preferred Language | Unknown | + + + | Marital Status | | + + + | Latter-Day Affiliation | Unknown | + + + | Race | Unknown | + + + | Ethnic Group | Unknown | + + + Author + + + | Author | [facility] | | | and Jdana | + + + | Organization | [facility] | | | and [...] Team Providers + +------+ + | Care Wafer Line Worker Name | Role | Phone | [...] arthroplasty | [address] | [address] [place] | | | | | | [place] | [place], | | | | | Procedures | [place], [place] | [place] [address] | | | | | ot eval | [address] | Phone: | | | | | | Phone: | [phone] | | | | | | [phone] | Fax: | | | | | | Fax: | [phone] | | | | | | [phone] | | +--------+--------+ + + + + [...] Stiffness of hand | | | | [place], | [place] [address] | joint, left; | | | | [place] [address] | [phone] | Weakness of hand; | | | | [phone] | | HTN (hypertension); | | | | | Mahendra, Mady A, OT | Low back pain; | | | | | [address] | Osteoporosis; | | | | | [place], [place] | Rheumatoid arthritis | | | | | [address] | (HCC) | | | | | [...] be different fr om the original. [facility] THERAPY OT OP [address] [address] Occupational Therapy Daily Treatment Note Date: 08/10/2013 Patient Information Patient Name: Mignon Mohan Date of : 1945 Age: 68 y.o. History Encounter Diagnoses Code Name Primary? V45.89 Hx of arthroplasty Yes 719.54 Stiffness of hand joint, left 728.87 Weakness of hand 401.9 HTN (hypertension) 724.2 Low back pain 733.00 Osteoporosis 714.0 Rheumatoid arthritis (HCC) Date of Onset: Referring Provider: Rey Blackomn MD No past medical history on file. [...] 2020 | Visit | | [address] [facility] | | | | | | 160 [place], [place] | | | | | | [address] | | | | | | | [...]
--- OUTSIDE RECORDS SUMMARY | ~2019-07-07 | XMS | Encounter Summary ---
Demographics + + + | Address | [address] | | | [place] [address] | + + + | Home Phone [...] | Author | [facility] | | | and Jdana | + + + | Organization | [facility] | | | and Jdana | + [...] Team Providers + +------+ + | Care Commercial Representative Name | Role | Phone | + +------+ + | Jluio Cesar Hawley MD | PCP | | + +------+ + Reason for Visit +--------+ + | Reason | Comments | +--------+ + | Other | operative report 06/27/19 | +--------+ + Encounter Details +--------+ + + + + | Date | Type | Department | Care Team | Description | +--------+ + + + + | 07/02/ | Documentati | [facility] | Benji, | Other (operative | | 2019 | on | NEPHROLOGY [place]IE | [facility] | report 06/27/19) | | | | [address] | Field Crop Farm Worker | | | | | [address] [facility] [place] | | | | | | [address] | | | | | | [phone] | | | +--------+ + + + [...] 2020 | Visit | | [address] [facility] | | | | | | [address] [facility] [place] | | | | | | [address] | | | | | | | | +--------+---------+ + + + documented as of this encounter Visit Diagnoses Not on filedocumented in this encounter"
--- OUTSIDE RECORDS SUMMARY | ~2019-07-07 | XMS | Encounter Summary ---
Demographics + + + | Address | [address] | | | [place] [address] | + + + | Home Phone | | + + + | Preferred Language | Unknown | + + + | Marital Status | | + + + | Evangelical Affiliation | Unknown | + + + | Race | Unknown | + + + | Ethnic Group | Unknown | + + + Author + + + | Author | [facility] | | | and Jdana | + + + | Organization | [facility] [...] Providers + +------+ + | Care Civil Engineering Professional Name | Role | Phone | + [...] arthroplasty | [address] | [address] | | | | | | [place] | [place], | | | | | Procedures | [place], [place] | [place] [address] | | | | | ot eval | [address] | Phone: | | | | | | Phone: | [phone] | | | | | | [phone] | Fax: | | | | | | Fax: | [phone] | | | | | | [phone] | | +--------+--------+ + + + + [...] Stiffness of hand | | | | [place], | [place] [address] | joint, left; | | | | [place] [address] | [phone] | Weakness of hand; | | | | [phone] | | HTN (hypertension); | | | [...] Landa COTA - 08/14/2013 3:14 PM PDT [facility] CTR THERAPY OT OP [address] [place] [address] Occupational Therapy Daily Treatment Note Date: 08/14/2013 [...] 2020 | Visit | | [address] [facility] | | | | | | 160 [place] | | | | | | [address] | | | | | | | [...]
--- OUTSIDE RECORDS SUMMARY | ~2019-07-07 | XMS | Encounter Summary ---
Demographics + + + | Address | [address] | | | [place] [address] | + + + | Home Phone [...] | Author | [facility] | | | and Jdana | + + + | Organization | [facility] | | | and [...] Team Providers + +------+ + | Care Supervisor Electron Tube Processing Name | Role | Phone | + +------+ + | Yosef Morrow MD | PCP | | + +------+ + Encounter Details +--------+ + + + + | Date | Type | Department | Care Team | Description | +--------+ + + + + | 05/05/ | Orders Only | [facility] | J[place], | | | 2015 | | RHEUMATOLOGY [address] | [address] | | | | | [address] | [address] | | | | | [place] | [place] [address] | | | | | [address] | [phone] | | | | | [phone] | | | +--------+ + + + [...] 2020 | Visit | | [address] [facility] | | | | | | 160 [place], [place] | | | | | | [address] | | | | | | | [...]
--- OUTSIDE RECORDS SUMMARY | ~2019-07-07 | XMS | Encounter Summary ---
Demographics + + + | Address | [address] | | | [place] [address] | + + + | Home Phone [...] | Author | [facility] | | | and Jdana | + + + | Organization | [facility] | | | and Jdana | [...] Team Providers + +------+ + | Care Double Needle Operator Name | Role | Phone | + +------+ + | Yosef Morrow MD | PCP | | + +------+ + Encounter Details +--------+ + + + + | Date | Type | Department | Care Team | Description | +--------+ + + + + | 08/05/ | Orders Only | [facility] | [place], | | | 2015 | | RHEUMATOLOGY [address] | [address] | | | | | [address] | [address] | | | | | [place] | [place] [address] | | | | | [address] | [phone] | | | | | [phone] | | | +--------+ + + + [...] 2020 | Visit | | [address] [facility] | | | | | | 160 [place], [place] | | | | | | [address] | | | | | | | [...] | | | | | performed at [facility] | | | | | | [facility] | | | | | | Diagnostics, [address] | | | | | | [address], [address] | | | | | | [place] [address] | | | | + + + [...] | | | | | performed at [facility] | | | | | | [facility] | | | | | | Diagnostics, [address] | | | | | | [address] | | | | | | [place] [address] | | | | + + + [...] [place] | | | | | | [facility] | | | | | | Diagnostics, [address] | | | | | | [address] | | | | | | [place] [address] | | | | + + + [...] | | | | | | at [facility], [address] | | | | | | [place] | | | | | | [address] | | | | + + + [...]
--- OUTSIDE RECORDS SUMMARY | ~2019-07-07 | XMS | Encounter Summary ---
Demographics + + + | Address | [address] | | | [place] [address] | + + + | Home Phone [...] | Author | [facility] | | | and Jdana | + + + | Organization | [facility] | | | and [...] Team Providers + +------+ + | Care Metal Mine Inspector Name | Role | Phone | + [...] arthroplasty | [address] | [address] | | | | | | [place] | [place], | | | | | Procedures | [place], [place] | [place] [address] | | | | | ot eval | [address] | Phone: | | | | | | Phone: | [phone] | | | | | | [phone] | Fax: | | | | | | Fax: | [phone] | | | | | | [phone] | | +--------+--------+ + + + + [...] Dx); Hx of | | | | [address], | [place] [address] | arthroplasty; | | | | [place] [address] | [phone] | Weakness of hand; | | | | [phone] | | HTN (hypertension); | | | | | Mahendra, Mady A, OT | Low back pain; | | | | | [address] | Osteoporosis; | | | | | [place] | Rheumatoid arthritis | | | | | [address] | (HCC) | | | | | [...] might be different fr om the original. [facility] CTR THERAPY OT OP [address] [address] Occupational Therapy Daily Treatment Note Date: 07/26/2013 [...] 2020 | Visit | | [address] [facility] | | | | | | [address] [place] | | | | | | [address] | | | | | | | [...]
--- OUTSIDE RECORDS SUMMARY | ~2019-07-07 | XMS | Encounter Summary ---
Demographics + + + | Address | [address] | | | [place] [address] | + + + | Home Phone [...] | Author | [facility] | | | and Jdana | + + + | Organization | [facility] [...] Providers + +------+ + | Care Manager Aviation Name | Role | Phone | + [...] arthroplasty | [address] | [address] | | | | | | [place] | [place], | | | | | Procedures | [place], [place] | [place] [address] | | | | | ot eval | [address] | Phone: | | | | | | Phone: | [phone] | | | | | | [phone] | Fax: | | | | | | Fax: | [phone] | | | | | | [phone] | | +--------+--------+ + + + + [...] Dx); Hx of | | | | [address], | [place] [address] | arthroplasty; | | | | [place] [address] | [phone] | Weakness of hand; | | | | [phone] | | HTN (hypertension); | | | | | Mahendra, Mady A, OT | Low back pain; | | | | | [address] | Osteoporosis; | | | | | [place] | Rheumatoid arthritis | | | | | [address] | (HCC) | | | | | [...] might be different fr om the original. [facility] CTR THERAPY OT OP [address] [address] Occupational Therapy Daily Treatment Note Date: 08/07/2013 [...] | | | | | | [address] [place] | | | | | | [address] | | | | | | | [...]
--- OUTSIDE RECORDS SUMMARY | ~2019-07-07 | XMS | Encounter Summary ---
Demographics + + + | Address | [address] | | | [place] [address] | + + + | Home Phone [...] | Author | [facility] | | | and Jdana | + + + | Organization | [facility] | | | [...] Team Providers + +------+ + | Care Combination Machine Tender Name | Role | Phone [...] + + | 06/06/ | Refill | [facility] | Clarain, | Medication Refill | | 2019 | | RHEUMATOLOGY [address] | Florina Case, [facility] [address] | | | | | [address] | [address] | | | | | [place], [place] | [place] [address] | | | | | [address] | [phone] | | | | | [phone] | | | +--------+--------+ + + + [...] 2020 | Visit | | [address] [facility] | | | | | | 160 [place] | | | | | | [address] | | | | | | | | +--------+---------+ + + + documented as of this encounter Visit Diagnoses + + | Diagnosis | + + | Rheumatoid arthritis involving multiple sites with positive rheumatoid factor (HCC) - | | Primary | + + documented in this encounter"
--- OUTSIDE RECORDS SUMMARY | ~2019-07-07 | XMS | Encounter Summary ---
Demographics + + + | Address | [address] | | | [place] [address] | + + + | Home Phone [...] | Author | [facility] | | | and Jdana | + + + | Organization | [facility] | | [...] Team Providers + +------+ + | Care Cross Enterprise Integrator Name | Role | Phone | + +------+ + | Yosef Morrow MD | PCP | | + +------+ + Encounter Details +--------+ + + + + | Date | Type | Department | Care Team | Description | +--------+ + + + + | 01/01/ | Documentati | [facility] | Mady Mccray, | | | 2014 | on | MED CNT ONCOLOGY | OT [address] | | | | | THERAPY [address] | [place] | | | | | [place], | [address] | | | | | [place] [address] | | | | | | [phone] | | | +--------+ + + + [...] might be different fr om the original. [facility] CTR THERAPY OT OP [address] [place] [address] Occupational Therapy Discharge Note This discharge is [...] 2020 | Visit | | [address] [facility] | | | | | | 160 [place], [place] | | | | | | [address] | | | | | | | [...]
--- OUTSIDE RECORDS SUMMARY | ~2019-07-07 | XMS | Encounter Summary ---
Demographics + + + | Address | [address] | | | [place] [address] | + + + | Home Phone [...] Author | [facility] | | | and Jdana | + + + | Organization | [facility] | | | and Jdana [...] Team Providers + +------+ + | Care Batting Machine Operator Insulation Name | Role | Phone | + +------+ + | Yosef Morrow MD | PCP | | + +------+ + Encounter Details +--------+ + + + + | Date | Type | Department | Care Team | Description | +--------+ + + + + | 07/19/ | Documentati | [facility] | Concetta Camara, | | | 2013 | on | MED CNT ONCOLOGY | OT [address] | | | | | THERAPY [address] | [place] | | | | | [place], | [address] | | | | | [place] [address] | | | | | | [phone] | | | +--------+ + + + [...] Camara, [place] - 07/19/2013 [facility]47 [facility] [address] [facility] [address] Cancellation/No Show Date: 07/19/2013 Patient Information Patient [...] | | | | | | 160 [place], [place] | | | | | | [address] | | | | | | | [...]
--- OUTSIDE RECORDS SUMMARY | ~2019-07-07 | XMS | Encounter Summary ---
Demographics + + + | Address | [address] | | | [place] [address] | + + + | Home Phone | | + + + | Preferred Language | Unknown | + + + | Marital Status | | + + + | Pentecostalism Affiliation | Unknown | + + + | Race | Unknown | + + + | Ethnic Group | Unknown | + + + Author + + + | Author | [facility] | | | and Jdana | + + + | Organization | [facility] | | | [...] Team Providers + +------+ + | Care Night Custodian Name | Role | Phone | + [...] arthroplasty | [address] | [address] | | | | | | [place] | [place], | | | | | Procedures | [place], [place] | [place] [address] | | | | | ot eval | [address] | Phone: | | | | | | Phone: | [phone] | | | | | | [phone] | Fax: | | | | | | Fax: | [phone] | | | | | | [phone] | | +--------+--------+ + + + + [...] Stiffness of hand | | | | [address] [place], | [place] [address] | joint, left; | | | | [place] [address] | [phone] | Weakness of hand; | | | | [phone] | | HTN (hypertension); | | | | | MahendraMady A, OT | Low back pain; | | | | | [address] | Osteoporosis; | | | | | [place] | Rheumatoid arthritis | | | | | [address] | (HCC) | | | | | [...] OT OP [address] [address] Occupational Therapy Progress Assessment Date: 08/16/2013 Patient [...] be independent with HEP Goal 1 Status: Acstro achieved, New goal to be independent iwth upgraed HEP Goal 2: Increase transfer worker to 20# Goal 2 Status: LTG not tested Plan Date of Onset: 06/26/13 Start of Care Date: 07/18/13 Requested # of Visits: 12 2x/wk for 6 weeks (Decrease to 1x/week due to travel distance) Certification From: 08/16/13 Certification To: 09/15/13 Treatment Plan/Interventions 27685 OT Evaluation;47766 Therapeutic Exercises;87984 Therapeutic Activities;Splinting;9753 5 Self Care/Home Management;19069 Manual Therapy Medicare Functional Limitation Reporting G [...] impaired, limited or restricted Outcome Measures Tools: [place] AM-PAC and professional judgement Justification of Severity [...] | | | | | | [address] [place], [place] | | | | | | [address] | | | | | | | [...]
--- OUTSIDE RECORDS SUMMARY | ~2019-07-07 | XMS | Encounter Summary ---
Demographics + + + | Address | [address] | | | [place] [address] | + + + | Home Phone [...] | Author | [facility] | | | and Jdana | + + + | Organization | [facility] | | [...] Team Providers + +------+ + | Care Intake Man Name | Role | Phone | + +------+ + | Yosef Morrow MD | PCP | | + +------+ + Encounter Details +--------+ + + + + | Date | Type | Department | Care Team | Description | +--------+ + + + + | 05/07/ | Orders Only | [facility] | [place], | | | 2016 | | RHEUMATOLOGY [address] | [address] | | | | | [address] | [address] | | | | | [place] | [place] [address] | | | | | [address] | [phone] | | | | | [phone] | | | +--------+ + + + [...] | | | | | | [address] [place], [place] | | | | | | [address] | | | | | | | [...]
--- OUTSIDE RECORDS SUMMARY | ~2019-07-07 | XMS | Encounter Summary ---
Demographics + + + | Address | [address] | | | [place] [address] | + + + | Home Phone [...] Author | [facility] | | | and Jdana | + + + | Organization | [facility] | | [...] Team Providers + +------+ + | Care Data Management Analyst Name | Role | Phone | + +------+ + PCP | Unavailable | + +------+ + Encounter Details +--------+ + + + + | Date | Type | Department | Care Team | Description | +--------+ + + + + | 12/23/ | Hospital | [facility] | | | | 2005 | Encounter | MED CTR XRAY [address] | | | | | | [address] | | | | | | [place] [address] | | | | | | [phone] | | | +--------+ + + + [...] 2020 | Visit | | [address] [facility] | | | | | | [address] [place], [place] | | | | | | [address] | | | | | | | | +--------+---------+ + + + documented as of this encounter Visit Diagnoses Not on filedocumented in this encounter"
--- OUTSIDE RECORDS SUMMARY | ~2019-07-07 | XMS | Encounter Summary ---
Demographics + + + | Address | [address] | | | [place] [address] | + + + | Home Phone [...] | [facility] | | | and Jdana | + + + | Organization | [facility] | | | and Jdana [...] Team Providers + +------+ + | Care Customs Collector Name | Role | Phone | + [...] + + | 01/28/ | Telephone | [facility] | [place], | Results | | 2019 | | RHEUMATOLOGY [address] | Florina Case, STUD DAIRY CATTLE FARMER [address] | | | | | [address] | [address] | | | | | [place], [place] | [place] [address] | | | | | [address] | [phone] | | | | | [phone] | | | +--------+ + + + [...] [place] | | | | | | [address] | | | | | | | | +--------+---------+ + + + documented as of this encounter Visit Diagnoses Not on filedocumented in this encounter"
--- OUTSIDE RECORDS SUMMARY | ~2019-07-07 | XMS | Encounter Summary ---
Demographics + + + | Address | [address] | | | [place] [address] | + + + | Home Phone [...] + | Author | [facility] | | | and Jdana | + + + | Organization | [facility] | [...] Team Providers + +------+ + | Care Pad Extraction Tender Name | Role | Phone | [...] [address] | | | | | [place] | [address] | | | | | [address] | [place] | | | | | [phone] | [address] | | | | | | [phone] | | | | | | | [...] | Visit | | [address] [facility] | | | | | | [address] [place] | | | | | | [address] | | | | | | | [...] - 1.030 | EXTERNAL | | | [place], | | | LAB | | | [...]
--- OUTSIDE RECORDS SUMMARY | ~2019-07-07 | XMS | Encounter Summary ---
Demographics + + + | Address | [address] | | | [place] [address] | + + + | Home Phone | | + + + | Preferred Language | Unknown | + + + | Marital Status | | + + + | Sabianism Affiliation | Unknown | + + + | Race | Unknown | + + + | Ethnic Group | Unknown | + + + Author + + + | Author | [facility] | | | and Jdana | + + + | Organization | [facility] | | [...] Team Providers + +------+ + | Care Rotary Shear Operator Name | Role | Phone | [...] + + | 12/13/ | Refill | [facility] | [place], | Medication Refill; | | 2018 | | RHEUMATOLOGY [address] | Florina Case DOCUMENTATION COORDINATOR [address] | Medication Refill | | | | [address] | [address] | | | | | [place], [place] | [place] [address] | | | | | [address] | [phone] | | | | | [phone] | | | +--------+--------+ + + + [...] 2020 | Visit | | [address] [facility] | | | | | | [address] [place] | | | | | | [address] | | | | | | | | +--------+---------+ + + + documented as of this encounter Visit Diagnoses Not on filedocumented in this encounter"
--- OUTSIDE RECORDS SUMMARY | ~2019-07-07 | XMS | Encounter Summary ---
Demographics + + + | Address | [address] | | | [place] [address] | + + + | Home Phone | | + + + | Preferred Language | Unknown | + + + | Marital Status | | + + + | Christianity Affiliation | Unknown | + + + | Race | Unknown | + + + | Ethnic Group | Unknown | + + + Author + + + | Author | [facility] | | | and Jdana | + + + | Organization | [facility] | | | and [...] Team Providers + +------+ + | Care Auto Parker Name | Role | Phone | + +------+ + PCP | Unavailable | + +------+ + Encounter Details +--------+ + + + + | Date | Type | Department | Care Team | Description | +--------+ + + + + | 11/18/ | [facility] | [facility] | Oscar Wilson MD | | | 2010 | Encounter | MED CTR XRAY [address] | [address] | | | | | [address] | [place] [address] | | | | | [place] [address] | [phone] | | | | | [phone] | | | +--------+ + + + [...] 2019 | Visit | | [address] [facility] | | | | | | [address] [place] | | | | | | [address] | | | | | | | [...] Performed At | + + + | [facility] Diagnostic Imaging Department | [facility] | | [address] | [facility] | | THREE VIEWS LUMBAR SPINE, | [...] Transcribed Date/Time: 11/18/2010 16:45 | | | Rn Lvn: <Electronically Signed by Leobardo Mcneill MD> | | | 11/18/10 2216 | | + + + + + | Procedure Note | + + | Marin, Rad Conversion - 03/24/2013 3:57 PM [facility] | | Diagnostic Imaging Department | | [address] | | | | | | | [...] | Transcribed Date/Time: 11/18/2010 16:45 | | Rn Lvn: | | <Electronically Signed by Leobardo Mcneill [...]
--- OUTSIDE RECORDS SUMMARY | ~2019-07-07 | XMS | Encounter Summary ---
Demographics + + + | Address | [address] | | | [place] [address] | + + + | Home Phone [...] | Author | [facility] | | | and Jdana | + + + | Organization | [facility] | [...] Team Providers + +------+ + | Care Mine Manager Name | Role | Phone | [...] + + | 03/07/ | Office | [facility] | [place], | Rheumatoid arthritis | | 2020 | Visit | RHEUMATOLOGY [address] | [address] | involving multiple | | | | [address] | [address] | sites with positive | | | | [place], [place] | [place] [address] | rheumatoid factor | | | | [address] | [phone] | (HCC) (Primary Dx); | | | | [phone] | | High risk medication | | [...] encounter Patient Instructions Patient Instructions Luiza Landry, Personal Care Assistant - 03/07/2019 11:10 AM PSTWe hope that you have experienced exceptional care today and that you found our service to be courte ous and helpful. If you have any questions you can send us a message/request using [employer] or call our o ffice at [phone]. To reach Luiza [place] type extension [phone]. If you are unable to reach a [...] can also look at your results on [employer]Builder. If you are experiencing an emergency, please [...] PCP), Methotrexate 10 mg once per w quileute (dose dec.due to mild anemia and changes [...] Florina SALINAS patient exam. Labs reviewed in [facility] --09/22/201805/30- Neg.IEP 2018hep b/c neg. Eye [...] treatment plan. Patient understands that treatment is meterman and if patient fails to continue regimen [...] symptoms. This document has been prepared with [employer] voice recognition system. The possibility of "s ound alike" director recreation center errors, and additions, or deletions may occur. [...] [place] | | | | | | [address] | | | | | | | [...]
[~2019-07-07 13:01] MED LIST changes: +K-TAB ER20 MEQ PO
--- NOTE | 2019-07-07 13:19 | NUR ---
PT UP WITH OCCUPATIONAL THERAPY EARLIER THIS AM. LARGE AMOUNT OF URINE LEAKAGE AROUND CATHETER, PAD AND CHUX SATURATED. LINENS CHANGED. NO COMPLAINTS AT THIS TIME.
--- NOTE | 2019-07-07 14:00 | NUR ---
PATIENT SITTING UP IN BED, VITALS AND I&OS DONE AND CHARTED. 200 OUTPUT IS ACTUALLY FROM ELIAS, PATIENT IS NOW SWING BED PATIENT AND I HAD NO PLACE TO ENTER ELIAS OUTPUT. RN CHERYL IS AWARE. RADHA SANTOS, CALL LIGHT IS WITHIN REACH.
--- NOTE | 2019-07-07 17:50 | NUR ---
PATIENT RESTING WITH EYES CLOSED. I&OS CHARTED. CALL LIGHT IN BED NEXT TO PATIENT.
--- NOTE | 2019-07-07 19:27 | NUR ---
SHIFT REPORT RECIEVED FROM CHERYL KIRAN. PT RESTING IN BED. PT DENIES PAIN. NO NEEDS AT THIS TIME. CALL LIGHT IN REACH.
--- NOTE | 2019-07-07 20:00 | NUR ---
charge rnr rounding note. pt sitting up in chair watching tv. pt assisted to sit up and place blanket behind her back. pt states chair is causing discomfort, states relief with blanket in place. warm blanket provided. pt denies further needs at this time. call light in reach. white board updated.
--- NOTE | 2019-07-07 20:55 | NUR ---
PT UTILIZES JERAMY LIGHT, REQUESTS WARM BLANKET. PT REPOSITIONED IN CHAIR AGAIN. THERMOSTAT INCREASED AND WARM BLANKET PLACED. PT DENIES FURTHER NEEDS. CALL LIGHT IN REACH.
--- NOTE | 2019-07-07 21:44 | NUR ---
ASSESSMENT, VS AND I&O COMPLETED. SCHEDULED MEDS PROVIDED. PAIN 8/10, PRN PAIN MED PROVIDED. OSTOMY PINK, WNL. INCISION WNL, CDI. BLE AND ABD EDEMA NOTED. ABD TENDER, BOWEL TONES ACTIVE. PT HAS MOIST COUGH AND SWALLOWS SPUTUM, TISSUES AND EMESIS BAG OFFERED AND DECLINED. ELIAS WNL, CLEANED AND EMPTIED. PROXIMAL CENTRAL LINE FLUSHED, GOOD BLOOD RETURN, IV MED INFUSING PER ORDER. NO OTHER NEEDS AT THIS TIME. CALL LIGHT IN REACH.
--- NOTE | 2019-07-07 23:21 | NUR ---
PT RESTING IN BED, EYES CLOSED. RR EVEN, UNLABORED. SR@ 99 ON TELE 8. CALL LIGHT IN REACH.
--- NOTE | 2019-07-08 02:16 | NUR ---
PROXIMAL LINE IV MEDICATION COMPLETED. PROXIMAL LINE HEPARIN LOCKED. PT SLEPT THROUGH INTERVENTION. CALL LIGHT IN REACH. TELE SR @86.
--- NOTE | 2019-07-08 03:34 | NUR ---
PT RESTING IN BED, EYES CLOSED. RR EVEN, UNLABORED. TELE 8 SR @ 98. CALL LIGHT IN REACH.
--- NOTE | 2019-07-08 05:08 | NUR ---
PT AWAKE IN ROOM. I&O COMPLETED. PT REPOSITIONED. NO OTHER NEEDS AT THIS TIME. CALL LIGHT IN REACH.
--- NOTE | 2019-07-08 05:28 | NUR ---
PT SLEPT WELL THIS SHIFT. PAIN WAS WELL MANAGED WITH PRN AND SCHEDULED MEDS. INCISION SITE WNL. OSTOMY WNL. CENTRAL LINE WNL, GOOD BLOOD RETURN. PT ABLE TO HELP REPOSITION HERSELF IN BED AND WALK WITH 1PA, FWW. EDEMA REMIANS IN BLE, HIPS AND ABD.
--- NOTE | 2019-07-08 05:31 | NUR ---
SCHEDULED IV MED PROVIDED IN PROXIMAL LINE. LINE FLUSHED WELL AND GOOD BLOOD RETURN. WARM TEA PROVIDED. PAIN 2/, PT DENIES NEED FOR PAIN MED. NO OTHER NEEDS. CALL LIGHT IN REACH.
--- NOTE | 2019-07-08 07:35 | NUR ---
RECIEVED BEDSIDE REPORT FROM MAGNO JULIO. PT HAD A GOOD NIGHT, SLEPT BETTER THAN PREVIOUSLY. PT NEEDED REASSURANCE, THE NEIGHBOR WAS SLAMMING THE CLOSET DOORS WHICH SOUNDED LIKE THE VASQUEZ WERE COMING DOWN.
--- NOTE | 2019-07-08 09:19 | NUR ---
PT IS COMFORTABLE IN BED. STATES SHE HAD A GOOD NIGHT, BUT SHE DID MENTION RECOGNIZING PARANOID THOUGHTS CREEPING IN. RN AND PT DISCUSSED WAYS TO AOVID THOSE THOUGHTS FROM BECOMING OVERWHELMING. PT WAS APPRECIATIVE. PT ASKED FOR EYE DROPS HER EYES ARE DRY. NIO FOR EYE DROPS ENTERED. PT VERY HAPPY.
--- NOTE | 2019-07-08 09:55 | NUR ---
PT TELE DC PER ORDER. REMOVED UNIT FROM PT. SHE WAS VERY EXICTED TO HAVE THAT REMOVED. PT DECLINED TO GET HER WEIGHT AT THIS TIME, STATED SHE WOULD GET UP AND DO THAT WITH THERAPY. LOOKED FOR ACTIVITIES FOR HER TO DO, UNABLE TO FIND ANY.
--- NOTE | 2019-07-08 11:22 | NUR ---
WORKING WITH PHYSICAL THERAPY. PT AGREED TO SIT IN THE CHAIR AFTER THEARPY. PT WAS C/O PAIN.
--- NOTE | 2019-07-08 15:29 | NUR ---
PATIENT CALLED SO ALLEN AND I WENT IN TO BOOST HER UP IN BED.
--- NOTE | 2019-07-08 19:26 | NUR ---
REPORT RECEIVED [facility] DAY SHIFT RN. PT RETURNING TO BED FROM [place] WELL. ALERT AND ORIENTED. DENIES NEEDS AT THIS TIME. WHITE BOARD UPDATED. CALL LIGHT IN REACH.
--- NOTE | 2019-07-08 19:35 | NUR ---
SPECIAL EDUCATION AIDE ROUNDING NOTE. PT RESTING IN BED. UTILIZES CALL LIGHT TO REQUEST GLOVE WITH FINGERS CUT OFF TO HELP CLINICAL AUDIOLOGIST SIDE RAIL. INSTEAD, SIDE RAIL WRAPPED WITH COBAN. PT STATES THAT THIS IS HELPFUL. DENIES FURTHER NEEDS AT THIS TIME. CALL LIGHT WITHIN REACH. WHITE BOARD UPDATED.
--- NOTE | 2019-07-08 22:38 | NUR ---
EVENING ASSESSMENT COMPLETE. SCHEDULED MEDS GIVEN WITHOUT ISSUE. TRIPLE LUMEN CENTRAL LINE FLUSHED PER PROTOCOL, BRISK BLOOD RETURN NOTED. IV ABX INFUSING IN BROWN LUMEN. MIDLINE INCISION WELL APPROXIMATED, NO REDNESS OR DRAINAGE NOTED. DANTE INTACT. PT ABLE TO EMPTY OWN OSTOMY. ELIAS IN PLACE LOW URINE OUTPUT NOTED. PT REPORTS PAIN IS TOLERABLE. NO FURTHER NEEDS, CALL LIGHT IN REACH.
--- NOTE | 2019-07-09 01:54 | NUR ---
PT RESTING IN BED ON RIGHT SIDE. EYES CLOSED. RR EVEN AND UNLABORED. IV ABX INFUSING. CALL LIGHT IN REACH.
--- NOTE | 2019-07-09 02:45 | NUR ---
IV ABX COMPLETE. PT RESTING IN BED WITH EYES CLOSED, NAD.
--- NOTE | 2019-07-09 06:00 | NUR ---
SCHEDULED MEDS ADMINISTERED. PRN GIVEN FOR ABD PAIN. PT INCONTINENT AROUND ELIAS CATH. RITO CARE DONE BY STAFF. FRESH LINEN PROVIDED. OSTOMY EMPTIED OF 150 ML BROWN STOOL. MIDLINE INCISION WELL APPROXIMATED WITH DANTE, NO REDNESS OR DRAINAGE NOTED. LABS DRAWN PER PROTOCOL.
--- NOTE | 2019-07-09 07:17 | NUR ---
RECIEVED BEDSIDE REPORT FROM MAGNO DECKER. PT IS VOIDING AROUND THE ELIAS CATH. PT IS ABLE TO FEEL THE URGE TO VOID, SATURATING A PAD. PT TRIES TO GET UP AND PARTCIPATES. HOWEVER, SHE DOES NOT HAVE THE ENERGY TO GET UP TO THE BSC.
--- NOTE | 2019-07-09 08:46 | NUR ---
PT REFUSED A SHOWER TODAY, STATING "OH, NOT TODAY" SHE AGREED TO A BEDBATH, STATING SHE WOULD DO THAT.
--- NOTE | 2019-07-09 10:32 | NUR ---
MONTESSORI TODDLER TEACHERBASIL, DISCUSSED WITH PT THE IMPORTANCE OF GETTING UP AND WORKING WITH THERAPY. PT AGREED TO GET UP FOR MEALS AND SIT IN THE CHAIR.
--- NOTE | 2019-07-09 14:01 | NUR ---
CENTRAL LINE DRESSING CHANGED IN STERILE FASHION. MASK PLACED ON PT AND INSTRUCTED TO TURN AWAY FROM FIELD. PT TOLERATED DRESSING CHANGE WELL. AREA CLEANED WITH CHLORAHEXIDINE WAND. REPLACED BIOPATCH. DRESSING REPLACED. ELIAS REMOVED. PT IMMEDEATELY REQUESTED TO USE THE BATHROOM. SHE WAS ABLE TO GET UP AND WALK TO THE BATHROOM TO VOID (UNMEASURED). AND WALKED BACK TO THE CHAIR. ALSO INCONT IN CHAIR. CHANGED LINENS.
--- NOTE | 2019-07-09 15:11 | NUR ---
THIS MORNING I HELPED PHYSICAL THERAPY. PATIENT IS SITTING UP IN HER CHAIR. BED LINENS CHANGED WILL ASK HER AND SHE IF SHE WOULD LIKE TO TAKE A SHOWER OR BED BATH. BUT RIGHT NOW PATIENT IS SLEEPING.
--- NOTE | 2019-07-09 15:13 | NUR ---
ALSO PATIENT HELPED ME REPOSITION HER IN CHAIR.
--- NOTE | 2019-07-09 19:22 | NUR ---
PT DID NOT WANT ME TO CALL HER TO ADVISE HIM OF THE ASSIST TO THE FLOOR, STATING "I'M NOT GONNA TELL HIM! HE WILL JUST WORRY AND HE DOESN'T NEED TO KNOW. YOU GIRLS DID JUST GREAT!" DR ROSE NOTIFIED VIA PHONE. NO NEW ORDERS. VITAL SIGNS ENTERED INTO COMPUTER.
--- NOTE | 2019-07-09 19:36 | NUR ---
REPORT RECEIVED FROM DAY SHIFT RN. PT LYING IN BED, ALERT AND ORIENTED. REPOSITIONED WITH PILLOWS. DENIES PAIN OR NAUSEA. WHITE BOARD UPDATED. NO NEEDS AT THIS TIME. CALL LIGHT IN REACH.
--- NOTE | 2019-07-09 21:15 | NUR ---
EVENING ASSESSMENT COMPLETE. SCHEDULED MEDS ADMINISTERED. PRN GIVEN FOR ABD/BACK PAIN. PT UP TO BSC WITH 2PA AND FWW. PT WEAK THIS EVENING AND DID NOT AURORA WELL. BACK TO BED. CENTRAL LINE FLUSHED PER PROTOCOL. MIDLINE ABD INCISION WELL APPROXIMATED, DANTE INTACT. NO REDNESS OR DRAINAGE NOTED. OSTOMY DRAINING BROWN STOOL. PT POSITIONED TO THE LEFT SIDE WITH PILLOWS. NO FURTHER NEEDS AT THIS TIME. CALL LIGHT IN REACH.
--- NOTE | 2019-07-09 23:45 | NUR ---
PT UP TO BSC WITH 1PA AND FWW TO VOID 100 ML CONCENTRATED YELLOW URINE. PT ABLE TO DO OWN RITO CARE. BACK TO BED, AURORA WELL. NO FURTHER NEEDS.
--- NOTE | 2019-07-10 03:09 | NUR ---
PT RESTING IN BED WITH EYES CLOSED, NAD.
--- NOTE | 2019-07-10 05:27 | NUR ---
PT UP TO BR WITH 2PA AND FWW TO VOID. BACK TO BED, [address] WELL. OBTAINED DAILY WEIGHT. PT ABLE TO EMPTY OWN OSTOMY. PRN GIVEN FOR ABD/BACK PAIN. NO FURTHER NEEDS. CALL LIGHT IN REACH.
--- NOTE | 2019-07-10 05:34 | NUR ---
PATIENT STOOD TO TRANSFER TO COMMODE, GET STANDING WEIGHT, AND THEN BACK TO BED. PATIENT'S GOWN CHANGED, DECLINES AM CARE AT THIS TIME. PATIENT CALL LIGHT IN REACH, SIDE RAILS UP X4 PER PATIENT REQUEST. NO FURTHER NEEDS AT THIS TIME.
--- NOTE | 2019-07-10 07:37 | NUR ---
RECIEVED BEDSIDE FROM MAGNO DECKER. PT HAD A GOOD NIGHT, DID NOT HAVE ANY RESIDUAL EFFECTS FROM SLIDE YESTERDAY.
--- NOTE | 2019-07-10 07:54 | NUR ---
PATIENT WAS IN BED, ASKED THIS SOLAR BUSINESS DEVELOPER TO GET A PAIR OF SHOES TO HELP HER MOBOLIZE BETTER, WE PLAN TO SHOWER PATIENT TODAY PATIENT HAS REFUSED SHOWERS ALL WEKK
--- NOTE | 2019-07-10 12:48 | NUR ---
PATIENT HAS LOW ENDURANCE, FATIGUES QUICKLY.IS VERY WILLING TO TRY, BUT IS ALMOST TO WEAK. TRYING TO ENCOURAGE PATIENT TO EAT MORE, PATIENT IS CONSUMING ENSURES BUT NOT MUCH WITH MEALS
--- NOTE | 2019-07-10 14:05 | NUR ---
PATIENT DRANK AN ENSURE FOR LUNCH AND ATE A LITTLE BIT OF FRUIT
--- NOTE | 2019-07-10 17:02 | NUR ---
PATIENT HAS BEEN WALKING INTO THE BATHROOM AND USING HER WALKER HER ASSIST ALL DAY, SHE NEEDS ENCOURAGING BUT DOES WELL THIS SWITCH COUPLER SPOT CHECKS HER OXYGEN LEVELS AND THEY ARE AT 94-96% EACH TIME SHE HAS GOTTEN UP DURING THE EXERCISE. PATIENT HAS TOLERATED IT PRETTY WELL THROUGHOUT THE DAY.
--- NOTE | 2019-07-10 19:35 | NUR ---
REPORT RECEIVED FROM DAY SHIFT RN. PT LYING IN BED, ALERT AND ORIENTED WATCHING TV. WARM BLANKET PROVIDED. PT DENIES FURTHER NEEDS. WHITE BOARD UPDATED. CALL LIGHT IN REACH.
--- NOTE | 2019-07-10 20:21 | NUR ---
THIS MILL DRESSER AND PRIMARY RN HELPED PATIENT USED THE BEDSIDE COMMODE AND BACK TO BED. OSTOMY BAG EMPTIED. V/S AND I&O DONE AND CHARTED. PERSONAL THINGS, SIDE TABLE AND CALL LIGHT WITHIN REACH.
--- NOTE | 2019-07-10 21:13 | NUR ---
PT UP TO BSC WITH 2PA AND FWW. GAIT WEAK. BACK TO BED, [address]. COLOSTOMY EMPTIED. EVENING ASSESSMENT COMPLETE. MIDLINE INCISION WELL APPROXIMATED, DANTE INTACT. NO REDNESS OR DRAINAGE NOTED. SCHEDULED MEDS ADMINISTERED. PRN GIVEN FOR ABD/BACK PAIN. CENTRAL LINE FLUSHED PER PROTOCOL. BRISK BLOOD RETURN NOTED. PT DENIES FURTHER NEEDS. CALL LIGHT IN REACH.
--- NOTE | 2019-07-10 22:45 | NUR ---
REPOSITIONED PT IN BED WITH PILLOWS. WARM BLANKET PROVIDED.
--- NOTE | 2019-07-11 01:41 | NUR ---
PT RESTING IN BED WITH EYES CLOSED, NAD.
--- NOTE | 2019-07-11 03:29 | NUR ---
CALL LIGHT ANSWERED. PT UP TO BR WITH 2PA AND FWW. STAFF ASSIST WITH RITO CARE. BACK TO BED, AURORA WELL. REPORTS PAIN IS TOLERABLE, DENIES PRN.
--- NOTE | 2019-07-11 03:30 | NUR ---
THIS MILL LABOR SUPERVISOR AND PRIMARY RN JERONIMO HELPED PATIENT USE THE BEDSIDE COMMODE. PATIENT IS BACK IN BED. NO OTHER NEEDS AT THIS TIME. CALL LIGHT IN REACH.
--- NOTE | 2019-07-11 05:01 | NUR ---
CHOCOLATE ENSURE PROVIDED PER PT REQUEST.
--- NOTE | 2019-07-11 06:39 | NUR ---
UP TO BSC WITH 2PA AND FWW. BACK TO BED, [address]. DAILY WEIGHT OBTAINED. COLOSTOMY EMPTIED. PT REPORTS PAIN IS TOLERABLE. MIDLINE INCISION UNCHANGED. NO FURTHER NEEDS. CALL LIGHT IN REACH.
--- NOTE | 2019-07-11 07:38 | NUR ---
Pt a&ox4, hob elevated, resp even and non labored. Pt denies needs at this time. Personal supplies within reach. No needs at this time. Call light within reach.
--- NOTE | 2019-07-11 08:13 | NUR ---
[place] 5/325mg po one tab admin for reports of 6/10 abd pain.
--- NOTE | 2019-07-11 09:20 | NUR ---
PATIENT UP TO BSC AND BACK TO BED, 2PA FWW. FRESH WATER GIVEN. CALL LIGHT IN REACH. NO FURTHER NEEDS AT THIS TIME.
--- NOTE | 2019-07-11 09:51 | NUR ---
PATIENT AWAKE, ALERT, IN BED WATCHING TV. TPN HAS BEEN D/C'D FOR ABOUT 6 DAYS. SHE HAS BEEN ON A REGULAR DIET FOR 5 DAYS. SHE DOES DRINK ENSURE ENLIVE THROUGHOUT THE DAY. SHE LOVES CREAM OF WHEAT WITH BUTTER. SHE ATE ABOUT 50% OF THIS WITH GRAPE SYED THIS MORNING. SHE LIKES FRUIT, TOO. STATES SHE LIKES TO HAVE SOME DAVID AND AVOCADO RIGHT AROUND LUNCH TIME. ENCOURAGED HER TO CONTINUE WORKING ON HER FOOD INTAKE. THE ENSURES WILL ALWAYS BE AVAILABLE, TOO. SHE HAS NO OTHER QUESTIONS AT THIS TIME. WILL CONTINUE TO MONITOR.
--- NOTE | 2019-07-11 11:37 | NUR ---
Blood started. Education provided to pt regarding s/s of possible blood infusion reaction. Pt verbalized her understanding of blood admin education and states she will alert staff, if needed. Vs taken prior to admin; stable at this time.
--- NOTE | 2019-07-11 12:10 | NUR ---
IJ to right neck removed per doc order. Catheter tip intact, pressure applied to site for appoximately 15min, dressing then placed with obsite over. Pt tolerated well. Pt has no needs. Personal supplies and call light within reach.
--- NOTE | 2019-07-11 12:16 | NUR ---
Admin Oxycodone 5mg po for reports of 8/10 back pain.
--- NOTE | 2019-07-11 13:43 | NUR ---
PT WAS RESTING IN BED, ALERT AND ORIENTED. SHE MENTIONED THAT SHE HAS HAD A BUSY AM. TOLD HER I WILL LET HER REST, GAVE HER A N.PAPER ARTICLE OF INTEREST TO HER TO READ. GAVE ARIADNA
--- NOTE | 2019-07-11 13:56 | NUR ---
Second unit of blood started with second RN check. Pt reports she is doing well. Vital signs taken and are stable. Pt has no needs.
--- NOTE | 2019-07-11 13:57 | NUR ---
PATIENT RESTING IN BED. RN IN ROOM. I&O DONE. PATIENT'S LUNCH ORDERED. CALL LIGHT WITHIN REACH. NO OTHER NEEDS AT THIS TIME
--- NOTE | 2019-07-11 17:39 | NUR ---
PATIENT SLEEPING. I&O DONE. CALL LIGHT WITHIN REACH. NO OTHER NEEDS AT THIS TIME
--- NOTE | 2019-07-11 18:04 | NUR ---
Admin one tab Oxycodone 5mg po for reports of 6/10 back pain.
--- NOTE | 2019-07-11 18:57 | NUR ---
CALL LIGHT ANSWERED. PATIENT RESTING IN BED. PATIENT USES THE BASE COMMODE. TWO PERSON ASSISTING. PATIENT BACKS TO BED. CALL LIGHT WITHIN REACH. NO OTHER NEEDS AT THIS TIME
--- NOTE | 2019-07-11 19:28 | NUR ---
REPORT RECEIVED FROM DAY SHIFT RN. PT LYING IN BED, ALERT AND ORIENTED. REPOSITIONED WITH PILLOWS. IVF INFUSING. PT REPORTS PAIN IS TOLERABLE AT THIS TIME. WHITE BOARD UPDATED. CALL LIGHT IN REACH.
--- NOTE | 2019-07-11 19:50 | NUR ---
PATIENT CALLED WANTING TO BE REPOSITIONED. DONE.
--- NOTE | 2019-07-11 21:30 | NUR ---
PT REQUESTING PRN FOR PAIN AND REPORTS TYLENOL DOES NOT HELP HER. DR. OSBORN CALLED, NEW TELEPHONE ORDERS RECEIVED. VERIFIED WITH READ BACK METHOD. PRN ADMINISTERED (SEE EMAR). EVENING ASSESSMENT COMPLETE. SCHEDULED MEDS ADMINISTERED. MID LINE FLUSHED WITH 10 ML NS, BRISK BLOOD RETURN NOTED. IVF INFUSING. MIDLINE ABD INCISION WELL APPROXIMATED. DANTE INTACT. NO REDNESS OR DRAINAGE NOTED. MODERATE AMOUNT OF ABD, RITO AREA, AND BLE EDEMA NOTED. DR. OSBORN UPDATED. PT REPOSITIONED IN BED WITH PILLOWS. NO FURTHER NEEDS AT THIS TIME. CALL LIGHT IN REACH.
--- NOTE | 2019-07-11 23:06 | NUR ---
PT RESTING IN BED WITH EYES CLOSED, NAD.
--- NOTE | 2019-07-12 01:43 | NUR ---
CALL LIGHT ANSWERED. PT UP TO BR WITH 2PA AND FWW. GAIT STEADY. BACK TO BED, [place] WELL. PT REPOSITIONED TO LEFT SIDE WITH PILLOWS. FRESH WATER PROVIDED.
--- NOTE | 2019-07-12 04:10 | NUR ---
PT UP TO BSC WITH 2PA AND FWW. DAILY WEIGHT OBTAINED. BACK TO BED, [place] WELL. PRN GIVEN FOR ABD PAIN.
--- NOTE | 2019-07-12 05:37 | NUR ---
CALL LIGHT ANSWERED. PT REQUESTING ADDITIONAL PAIN MEDICATION. OFFERED TYLENOL, PT RELUCTANT TO TAKE IT SHE STATES "TYLENOL WON'T DO ANYTHING FOR ME". PT DID ACCEPT AND TYLENOL WAS ADMINISTERED. PT REFUSED TO BE REPOSITIONED IN BED AT THIS TIME. WILL REASSESS PAIN LEVEL AFTER PO HAS TIME TO WORK.
--- NOTE | 2019-07-12 06:29 | NUR ---
PRN PAIN MED GIVEN FOR 8/10 ABDOMINAL PAIN. EKG COMPLETED PER ORDER AT THIS TIME.
--- NOTE | 2019-07-12 06:50 | NUR ---
DR. OSBORN AWARE EXTRA DOSE OF PRN OXYCODONE GIVEN. STATES "WATCH HER BREATHING". PT AWARE TO NOTIFY STAFF IF HAVING DIFFICULTY BREATHING.
--- NOTE | 2019-07-12 07:48 | NUR ---
CPOX PLACED. SPO2 95% ON RA. HR 80'S. RR 17. PT REPORTS PAIN IS 8.5/10. DAY SHIFT RN UPDATED.
--- NOTE | 2019-07-12 07:52 | NUR ---
Pt in bed at this time, resp even and non labored. Pt continues to report 8/10 abdominal pain. Colostomy intact, patent draining brown soft stool. Pt recently medicated with Oxycodone.
--- NOTE | 2019-07-12 09:25 | NUR ---
ASSISTED STUDENT TO WALK PT TO DOOR AND THEN TO CHAIR. PT RATING PAIN 10\10 BUT WILL NOT DISCRIBE. FACE APPEARS CALM AND RELAXED. NON FURROWED BROW. INSTRUCTED TO CALL WHEN SHE WANTS TO WALK AGAIN.
--- NOTE | 2019-07-12 10:12 | NUR ---
PATIENT RESTING IN BED. VITAL SIGNS DONE BY RN. PATIENT DID NOT EAT, DRINK OR VOID DURING THIS PERIOD. RN NOTIFIED. CALL LIGHT WITHIN REACH. NO OTHER NEEDS AT THIS TIME
--- NOTE | 2019-07-12 11:06 | NUR ---
Novelty one tab 5/325mg po admin for reports of 10/10 abd pain.
--- NOTE | 2019-07-12 11:10 | NUR ---
Pt denies need to void at this time. Bladder scan completed; 231ml noted.
--- NOTE | 2019-07-12 11:40 | NUR ---
Spoke with Mignon briefly. States she is having a very rough day. Rn completing bladder scan as pt cont. to complain of increasing bladder pain. Will see pt. tomorrow.
--- NOTE | 2019-07-12 11:43 | NUR ---
Pt has yet to void for this shift. Dr. Samano made aware. Plan for now is to continue to monitor urine output.
--- NOTE | 2019-07-12 12:44 | NUR ---
REPOSITIONED PATIENT TO HER RIGHT SIDE WITH HELP OF MARU BROOKS. CALL LIGHT IN REACH
--- NOTE | 2019-07-12 13:17 | NUR ---
PATIENT RESTING IN BED. I&O DONE. PATIENT DID NOT VOID DURING THIS PERIOD. RN NOTIFIED. CALL LIGHT WITHIN REACH. NO OTHER NEEDS AT THIS TIME
--- NOTE | 2019-07-12 14:15 | NUR ---
PT LAYING IN BED, SAID SHE IS HAVING A DIFFICULT DAY. PT HAS TV ON, PT SHARED THAT SHE JUST DIDN'T FEEL GOOD. PT REQUESTED PRAYER, WILL CHECK BACK
--- NOTE | 2019-07-12 14:16 | NUR ---
Admin one tab [place] 5/325mg for reports of 7/10 abd pain.
--- NOTE | 2019-07-12 17:32 | NUR ---
PATIENT SITTING UP IN BED WATCHING TV. VITALS AND I&OS CHARTED, CALL LIGHT IN REACH, NO OTHER NEEDS AT THIS TIME.
--- NOTE | 2019-07-12 18:12 | NUR ---
Admin one tab [place] 5/325mg po for reports of 6/10 abd pain.
--- NOTE | 2019-07-12 19:10 | NUR ---
SHIFT REPORT RECEIVED FROM DAYSMTFT MAGNO MORTON AT BEDSIDE. PT AWAKE AND RESTING IN BED, ABDOMINAL MIDLINE INCISION OPEN TO AIR WITH DANTE IN PLACE. WELL APPROXIMATED, NO SIGNS OF INFECTION. PT COMPLIANT WITH CARE AND DENIES CONCERNS OR NEEDS. CALL LIGHT IN REACH.
--- NOTE | 2019-07-12 20:20 | NUR ---
ASSESSMENT COMPLETE, SCHEDULED MEDS GIVEN (SEE EMAR). IV FLUIDS INFUSING, MIDLINE WNL. DRESSING INTACT AND BLOOD RETURN NOTED. VSS, PT A/O. MIDLINE INCISION OPEN TO AIR, DANTE IN PLACE AND WELL APPROXIMATED. OSTOMY SITE WNL, PT DENIES NAUSEA. NO ADDITIONAL NEEDS, CALL LIGHT IN REACH.
--- NOTE | 2019-07-12 22:30 | NUR ---
NORCO X1 GIVEN FOR 7/10 ABDOMINAL PAIN (SEE EMAR). PT DENIES ADDITIOANL NEEDS, CALL LIGHT IN REACH.
--- NOTE | 2019-07-12 23:30 | NUR ---
THIS RN NOTIFIED BY MUSIC PRODUCER THAT PT REPORTS SOB. THIS RN IN ROOM TO ASSESS, O2 SAT LOW 90'S ON RA, HR 107. NO OBVIOUS SIGNS OF DISTRESS NOTED. NO CRACKLES NOTED, LUNG SOUNDS CLEAR. HOB REMAINS ELEVATED, WILL MONITOR FOR CHANGES. PT DENIES FURTHER NEEDS, CALL LIGHT IN REACH.
--- NOTE | 2019-07-13 00:14 | NUR ---
PT RESTING QUIETLY IN BED AND WATCHING TELEVISION, DENIES NEEDS OR CONCERNS. CALL LIGHT IN REACH.
--- NOTE | 2019-07-13 03:23 | NUR ---
THIS CRANE MANAGER ASSISTED RN TO REPOSITION PATIENT AND ADJUST LINENS. PATIENT BACK IN BED, CALL LIGHT IN REACH. NO FURTHER NEEDS AT THIS TIME.
--- NOTE | 2019-07-13 03:30 | NUR ---
PT REPOSITIONED WITH HELP FROM MARU ELENA. IV FLUIDS INFUSING, MIDLINE SITE WNL. DRESSING REMAINS INTACT, CIRCUMFERENCE UNCHANGED. CALL LIGHT IN REACH.
--- NOTE | 2019-07-13 05:05 | NUR ---
PATIENT STAND AND PIVOTS TO BEDSIDE COMMODE TO VOID. PATIENT DECLINES EMPTYING HER OSTOMY AT THIS TIME AND STATES "THERES NOT ENOUGH IN IT TO NEED EMPTIED RIGHT NOW". PATIENT BACK IN BED, CALL LIGHT IN REACH. NO FURTHER NEEDS AT THIS TIME.
--- NOTE | 2019-07-13 07:32 | NUR ---
WHEN GIVING REPORT TO DAYSHIFT MAGNO DELGADO, PT REPORTS SOB IN BED. O2 SAT UPPER 80'S, PT PLACED ON 1LNC. POSTERIOR LUNG SOUNDS CLEAR, SANDY TO CALL RT FOR TREATMENT. PT DENIES FURTHER NEEDS, NO DISTRESS NOTED. CALL LIGHT IN REACH.
--- NOTE | 2019-07-13 08:30 | NUR ---
Discussed in IDT meeting with Dr. Samano. Plan for possible discharge next week.
--- NOTE | 2019-07-13 08:30 | NUR ---
Discussed in IDT with Dr. Samano.
--- NOTE | 2019-07-13 08:33 | NUR ---
PT IN BED ATE SOME BKF BUT NOT MUCH THIS AM. BP ELEVATED THIS AM, WILL TAKE WITH DR OSBORN. PT GIVEN TOPERAL 25MG PO ORDERED. WILL RECHECK BP IN 1 HOUR.
--- NOTE | 2019-07-13 09:58 | NUR ---
BP RECHECKED BETTER BUT WILL LET DR OSBORN KNOW OF DECREASE.
--- NOTE | 2019-07-13 13:11 | EKG ---
[facility] [address] [facility] [place] [address] Signed Normal sinus rhythm Low voltage QRS Cannot rule out Anterior infarct , age undetermined Abnormal ECG When compared with ECG of 04-JUL-2019 11:35, premature ventricular complexes are no longer present Confirmed by HUSSAIN OSBORN MD ([id number]) on 07/13/2019 1:11:25 PM Electronically Signed By: HUSSAIN OSBORN MD 07/13/19 1311 PATIENT NAME: CARMEN HAY ANN Electrocardiogram DATE OF : 45 PHYSICIAN: HUSSAIN OSBORN MD REPORT #: [id number] REPORT IS CONFIDENTIAL AND NOT TO BE RELEASED WITHOUT AUTHORIZATION
--- NOTE | 2019-07-13 14:38 | NUR ---
PT MEDICATED WITH 2 PO NORCO AT THIS TIME. PAIN 6/10 AT THIS TIME.
--- NOTE | 2019-07-13 16:43 | NUR ---
PT UP TO THE BATHROOM AND THEN BACK TO BED, ASKED HER TO SIT UP IN THE CHAIR FOR DINNER AND PT STATES "NO I DONT WANT TO" BACK TO BED AND REPOSITIONED IN BED.
--- NOTE | 2019-07-13 17:25 | NUR ---
PT AWAKE WORKING OF EATING HER DINNER. SHE DID NOT ORDER MUCH, YORGERT AND ENSURE. SHE IS CURRENTLY WORKING ON THOSE ITEMS.
--- NOTE | 2019-07-13 19:10 | NUR ---
PT AWAKE AND RESTING IN BED, IV FLUIDS INFUSING IN MIDLINE. DRESSING INTACT, SITE WNL. PT REQUESTING PAIN MEDICATION WHEN AVAILABLE. NO ADDITIONAL NEEDS, CALL LIGHT IN REACH.
--- NOTE | 2019-07-13 19:58 | NUR ---
HELPED PT TO THE BSC AND BACK TO BED WITH HER FWW. BEDSIDE TABLE AND CALL LIGHT IN REACH. PT NEEDS NOTHING MORE AT THIS TIME.
--- NOTE | 2019-07-13 21:09 | NUR ---
VITALS AND I&OS DONE AND CHARTED. BEDSIDE TABLE AND CALL LIGHT IN REACH. PT NEEDS NOTHING MORE AT THIS TIME.
--- NOTE | 2019-07-13 21:30 | NUR ---
ASSESSMENT COMPLETE, SCHEDULED MEDS GIVEN ALONG WITH PRN NORCO (SEE EMAR). VSS, PT ON 1LNC, LUNG SOUNDS CLEAR. JUNKY SOUNDING ON EXPIRATION, BUT NO WHEEZES OR CRACKLES NOTED. PT REPORTS CLEAR PHLEGM WHEN ABOUT TO COUGH UP CONTENTS, IS AND ACAPELLA AT BEDSIDE. PT A/O, USES CALL LIGHT APPROPERIATELY. IV FLUIDS INFUSING AT 50MLS, WILL HEP LOCK AFTER CURRENT BAG COMPLETES PER DAYSHIFT MAGNO DELGADO. DRESSING INTACT, FLUSHES EASILY. NO FURTHER NEEDS, CALL LIGHT IN REACH.
--- NOTE | 2019-07-13 23:30 | NUR ---
PT RESTING IN BED WITH EYES CLOSED, RESPIRATIONS EVEN AND UNLABORED. NO DISTRESS NOTED, 1LNC REMAINS IN PLACE. CALL LIGHT IN REACH.
--- NOTE | 2019-07-14 00:10 | NUR ---
PT UP 1PA WITH FWW TO BSC TO VOID AND BACK TO BED. 1LNC REMAINS IN PLACE, MOIST COUGH NOTED. IS AND ACAPELLA AT BEDSIDE, RR WNL. NO DISTRESS NOTED, PT REPORTS CLEAR PHLEGM AT TIMES WITH COUGH. WILL MONITOR. PT BOOSTED IN BED, NO FURTHER NEEDS, CALL LIGHT IN REACH.
--- NOTE | 2019-07-14 02:10 | NUR ---
PT REQUESTING HELP WITH REPOSITIONING. PT BOOSTED IN BED WITH HELP FROM MARU MAY. PT DENIES ADDITIONAL NEEDS, CALL LIGHT IN REACH.
--- NOTE | 2019-07-14 03:30 | NUR ---
CURRENT BAG IV FLUIDS COMPLETE. MIDLINE FLUSHED AND HEP LOCKED PER POLICY. DRESSING INTCT. PT DENIES FURTHER NEEDS, CALL LIGHT IN REACH.
--- NOTE | 2019-07-14 05:00 | NUR ---
THIS RN IN ROOM TO ANSWER CALL LIGHT. PT AWAKE AND RESTING IN BED, TALKING ON PHONE WITH DAUGHTER JANNIE. PT UPSET AND VERBALIZING WISHES TO GO HOME, STATES "I JUST CAN'T DO IT ANYMORE, I JUST WANNA GO HOME AND REST. I DIDN'T GET ANY SLEEP LAST NIGHT AND I KNOW IT'S THE HOSPITAL. THE THUNDER KEPT ME UP AND I'M NOT IN PAIN I JUST WANNA SLEEP". THIS RN HAD LONG THERAPEUTIC DISCUSSION WITH PT ON SAFETY AND IMPORTANCE IN COMPLETING SWINGBED PROGRAM. WARM BLANKET, TEA, PAIN MEDICATION, AND OTHER REST PROMOTING TACTICS DECLINED BY PT. DAUGHTER JANNIE STATES ON PHONE, "I DON'T KNOW HOW MY DAD WILL BE ABLE TO TAKE CARE OF HER AND I AM ONLY GOING TO BE HERE FOR ANOTHER COUPLE DAYS". THIS RN OFFERED TO TURN OFF TELEVISION AND LIGHTS AND SUGGEST PT TRY AND SLEEP AND WAIT UNTIL DOCTOR OSBORN ROUNDS ON PT AFTER MORNING MEETING IN A COUPLE HOURS. PT INITIALLY DECLINED AND STATES, "I'M REALY PROUD OF MYSELF AND KNOW I DID THE BEST I CAN".
--- NOTE | 2019-07-14 05:11 | NUR ---
REPOSITIONED PT IN BED TO HER COMFORT. BEDSIDE TABLE AND CALL LIGHT IN REACH. GARBAGES EMPTIED.
--- NOTE | 2019-07-14 05:55 | NUR ---
DISCUSSED AGAIN WITH PT HER CONCERNS, AND DISCUSSED POSSIBLE OPTION TO LEAVE AMA OR TO SEE VISITATION OPTIONS IF DOCTOR ALLOWS. PT STATES SHE DOESN'T WANT TO LEAVE AMA AND WOULD BE WILLING TO COME BACK WHEN INSTRUCTED BY THE DOCOR. O2 SAT 89% ON RA, WEARS 1LNC PRN FOR COMFORT. CALLED DR OSBORN REGARDING PT'S CONCERNS. NO NEW ORDERS, PER DR OSBORN, HE WILL COME FIRST THING IN THE MORNING AND ASSESS PT, BUT NO DECISIONS TO BE MADE AT THIS MOMENT.
--- NOTE | 2019-07-14 06:17 | NUR ---
SPOKE TO DAUGHTER JANNIE REGARDING POC FOR PT. JANNIE STATES, "OKAY, I THINK WHAT WE ARE CONCERNED ABOUT IS IF SHE IS WEAK SHE STATES SHE IS IS IF SHE WILL BE ABLE TO MOVE ONCE SHE GETS HERE AND IF SHE'LL BE ABLE TO GET BACK TO THE HOSPITAL". PT BACK IN ROOM AND TALKING TO DAUGHTER JANNIE AND ABELARDO FOR THERAPEUTIC SUPPORT. CALL LIGHT IN REACH.
--- NOTE | 2019-07-14 06:41 | NUR ---
HELPED PT INTO THE WHEELCHAIR PER HER REQUEST. I PUSHED HER AROUND [facility] FOR A COUPLE OF ROUNDS. PT KEEPS TELLING ME SHE IS READY TO GO HOME NOW, AND HER DAUGHTER IS WAITING AT THE EXIT. I EXPLAINED TO HER THAT HER RN RUBEN IS TALKING TO HER DAUGHTER NOW ON THE PHONE. SHE GOT VERY AGITATED AND SAID "I WANT TO GO HOME NOW, IM NOT WAITING ALL DAY". I TOOK HER BACK TO HER ROOM SO SHE COULD CALL HER . I GOT HIM ON THE PHONE FOR HER. SHE WANTED TO STAY IN THE WHEELCHAIR AND TALK ON THE PHONE. BEDSIDE TABLE AND CALL LIGHT NEXT TO HER. I LEFT THE ROOM WHILE SHE TALKED TO HER .
--- NOTE | 2019-07-14 07:25 | NUR ---
PT UP IN THE WC AND WANTING TO GO BACK TO BED AT THIS TIME. PT DOES NOT WANT TO USE THE BATHROOM AT THIS TIME AND WANTS A PAD SO SHE CAN PEE IN HER BED. EXPLAINED THAT THIS IS NOT GOOD FOR HER SKIN AND THAT SHE NEEDS TO USE THE BATHROOM.
--- NOTE | 2019-07-14 07:50 | NUR ---
PT UP TO THE BATHROOM AND VOIDED AND THEN BACK TO THE WC AND THEN TO BED. PT WANTS POKER IN TO NOT ALLOW ANY TEST, INTERUPTIONS OR ANYTHING THAT WILL PREVENT HER FROM SLEEPING. EXPLAINED THAT SHE IS ON SWING BED AND THAT SHE HAS TO SHOW PROGRESS IN HER ACTIVITIES OF ADL'S AND TO INPROVE HER EATING. EXPLAINED THAT SHE NEEDS TO EAT MORE HIGH PROTIEN FOODS, EGGS, MEAT AND NOT TO EAT ENSURE ALL DAY. PT DID NOT SAY ANYTHING AND JUST LOOKED AT THE TV.
--- NOTE | 2019-07-14 09:25 | NUR ---
PT UP TO THE BATHROOM AMBULATED WITH WALKER WAS ABLE TO DUE THIS TASK WITH MINUAL ASSISTANCE. PT AMBULATED BACK TO BED AND THEN SAT UP TO EAT HER EGGS. ENCOURAGE PT TO EAT THE EGGS BEFORE SHE DRANK HER ENSURE. CONTIOUE TO ENCOURAGE FOOD OR DRINK.
--- NOTE | 2019-07-14 09:30 | NUR ---
PT STATES SHE ATE 1/2 OF HER SCRAMBLE EGGS. PT DID NOT EAT HALF. IT APPEARS THAT SHE HAD ABOUT TWO BITES OF FOOD.
--- NOTE | 2019-07-14 10:56 | NUR ---
PT HAS BEEN WORKING WITH PT SOME THIS AM. PT HAS BEEN SLEEPING OR WHAT APPEARS TO BE SLEEPING THIS AM.
--- NOTE | 2019-07-14 11:02 | NUR ---
PT RESTING IN BED WIT TV ON. PT ADMITTED THAT SHE JUST WANTS TO GO HOME. "I JUST CANNOT GET ANY REST HERE, AND I AM EXHAUSTED". HOPES TO DC TODAY, PT THANKED ME FOR VISITING AND ENCOURAGEMENT. OFFERED PRAYER FOR PT, WILL FOLLOW NEEDED
--- NOTE | 2019-07-14 11:30 | NUR ---
Spoke with pt and OT. Pt stating she had a very difficult night and discussed going AMA this am. She states mentally she needs to get out of the hospital. Discussed with pt if she wants to dc and transfer to for therapy or if she would like an outing to go home for a short time and then return. Pt states she wants to return as she knows she needs further PT/OT. Again stating she mentally, just needs to leave for a while. Updated Dr. Samano and Temporary absence sheet given for him to complete. Called pt's and he is concerned about taking pt home. He is concerned pt will not want to remove. I asked him to call and speak with pt and he states he doesn't wnat tomake her made. Suggested he come to the hospital for a visit outside with pt. He would rather take her to their house. Set up he will arrive at 12:30 and she will go for a 2 hours visit. He states concern a large wc won't fit up his ramp. Sm wc to room along with kit for ostomy change. Absence from program sheet read to pt and signed by pt.
--- NOTE | 2019-07-14 13:29 | NUR ---
PT HAD VISITED WITH FAMILY IN THE FRONT LOBBY. DID WELL WITH THAT AND THEN BACK TO HER ROOM. ONE PERSON TRANSFER FROM THE TO BED. CALL LIGHT WITHIN PLACE.
--- NOTE | 2019-07-14 14:31 | NUR ---
PT IN BED AND APPEARS TO BE SLEEPING.
--- NOTE | 2019-07-14 15:06 | NUR ---
Spoke with Mignon. She is getting ready to work with PT. States she was unable to go on an outing as she could not get into the van. She sat outside with and visited for over an hour. States this was so helpful to her as she had missed him so much.
--- NOTE | 2019-07-14 15:11 | NUR ---
PT WORKING WITH PT AT THIS TIME. FOUND DOING THINGS WITH PT AND DID NOT NEED THE NURSE AT THIS TIME.
--- NOTE | 2019-07-14 15:49 | NUR ---
PT UP TO THE BATHROOM AMBULATED WITH ONE PERSON STAND BY AND VOIDED AND THEN BACK TO BED. CHANGED PTS GOWN TO A JONATHAN GOWN SO THAT IT DOES NOT GO TO THE GROUND ON HER. PT IS DOING BETTER WITH AMBULATION THIS AFTERNOON.
--- NOTE | 2019-07-14 17:21 | NUR ---
PT SITTING UP IN THE BED EATTING DINNER AT THIS TIME.
--- NOTE | 2019-07-14 18:09 | NUR ---
PATIENT RESTING IN BED WITH EYES CLOSED. I&OS CHARTED. CALL LIGHT IN REACH, NO OTHER NEEDS AT THIS TIME.
--- NOTE | 2019-07-14 19:20 | NUR ---
SHIFT REPORT RECEIVED FROM DAYSHIFT MAGNO DELGADO AT BEDSIDE. RR EVEN AND UNLABORED, PT ON RA, EYES CLOSED. NO DISTRESS NOTED. CALL LIGHT IN REACH.
--- NOTE | 2019-07-14 22:04 | NUR ---
ASSESSMENT COMPLETE, SCHEDULED MEDS GIVEN (SEE EMAR). PT DROWSY AND RESTING QUIETLY IN BED, VSS. 102HR AND 92%ON RA, NO DISTRESS NOTED. PT DENIES PAIN AND NAUSEA. ABDOMINAL INCISION ELIU, DANTE IN PLACE AND SITE WELL APPROXIMATED. NO FURTHER NEEDS, RLE ELEVATED WITH PILLOW. MIDLINE DRESSING INTACT, HEP LOCKED.
--- NOTE | 2019-07-14 23:30 | NUR ---
PT UP SBA TO VOID WITH FWW. PT TOLERATED AMBULATION WELL, FREQUENT ENCOURAGEMENT GIVEN. PT VOIDED IN BATHROOM AND AMBULATED BACK TO BED. NO FURTHER NEEDS, CALL LIGHT IN REACH.
--- NOTE | 2019-07-15 00:30 | NUR ---
PRN NORCO GIVEN FOR 8/10 PAIN (SEE EMAR). NO FURTHER NEEDS, CALL LIGHT IN REACH.
--- NOTE | 2019-07-15 02:30 | NUR ---
PT RESTING WITH EYES CLOSED, RR EVEN AND UNLABORED. NO DISTRESS NOTED. CALL LIGHT IN REACH.
--- NOTE | 2019-07-15 04:01 | NUR ---
HELPED PT TO THE BATHROOM AND BACK TO BED WITH HER FWW. BEDSIDE TABLE AND CALL LIGHT IN REACH. PT NEEDS NOTHING MORE AT THIS TIME.
--- NOTE | 2019-07-15 06:22 | NUR ---
HELPED PT TO THE BATHROOM AND BACK TO BED WITH HER FWW. BEDSIDE TABLE AND CALL LIGHT IN REACH.
--- NOTE | 2019-07-15 08:08 | NUR ---
CALL LIGHT ANSWERED. PATIENT RESTING IN BED. SETS UP TABLE FOR BREAKFAST. CALL LIGHT WITHIN REACH. NO OTHER NEEDS AT THIS TIME
--- NOTE | 2019-07-15 08:38 | NUR ---
PT ATE SOME OF HER EGGS THIS AM, BUT NOT ENOUGH TO INCREASE HER PROTINE INTAKE. PT TOOK AM MEDS AND IS CURRENTLY RESTING IN BED.
--- NOTE | 2019-07-15 09:23 | NUR ---
PATIENT IN BED WATCHING TV, VITALS AND I&OS DONE, REFILLED WATER CUP CALL LIGHT IN REACH, NO OTHER NEEDS AT THIS TIME
--- NOTE | 2019-07-15 11:11 | NUR ---
PT REMAINS IN BED AND APPEARS TO BE SLEEPING.
--- NOTE | 2019-07-15 12:21 | NUR ---
PT SITTING UP IN BED EATING LUNCH AT THIS TIME WHEN OIL BOILER WAS TALKING WITH HER SHE STATES "I AM EATING MY HAMBURGER" IT IS NOTED TO BE ONLY A FEW BITES GONE.
--- NOTE | 2019-07-15 13:15 | NUR ---
Pt ate some of her lunch this afternoon. Pt contioues to have poor food intake, but does well on drinking water. Pt remains in bed
--- NOTE | 2019-07-15 14:52 | NUR ---
PATIENT SLEEPING. I&O DONE. CALL LIGHT WITHIN REACH. NO OTHER NEEDS AT THIS TIME
--- NOTE | 2019-07-15 16:25 | NUR ---
OSTOMY BAG WITH SMALL TEAR. PT REPLACED WITH NO ASSISTENCE. REPORTING 7/10 PAIN IN ABDOMEN. PRN PAIN MEDICATIONS ADMINISTERED. CALL LIGHT IN REACH.
--- NOTE | 2019-07-15 17:45 | NUR ---
PATIENT RESTING IN BED. I&O DONE. CALL LIGHT WITHIN REACH. NO OTHER NEEDS AT THIS TIME
--- NOTE | 2019-07-15 17:46 | NUR ---
PATIENT RESTING IN BED. PATIENT DID NOT VOID DURING THIS PERIOD. RN NOTIFIED
--- NOTE | 2019-07-15 19:22 | NUR ---
SHIFT REPORT RECIEVED FROM FATUMA KIRAN. PT RESTING IN BED, WATCHING TV. PT DENIES PAIN AT THIS TIME. ICE WATER PROVIDED. NO OTHER NEEDS AT THIS TIME. CALL LIGHT IN REACH.
--- NOTE | 2019-07-15 21:00 | NUR ---
ASSESSMENT COMPLETED. INCISION CDI, WNL. OSTOMY WNL. LUNGS CLEAR. PT HAS MOIST COUGH, ENCOURAGED TO USE ACCAPELLA AND CLEAR UPPER AIRWAY/THROAT. MIDLINE FLUSHED, GOOD BLOOD RETURN, HEPARIN LOCKED. PT REPOSITIONED. VS AND I&O COMPLETED BY May. NO OTHER NEEDS AT THIS TIME. CALL LIGHT IN REACH.
--- NOTE | 2019-07-15 21:18 | NUR ---
HELPED PT TO REPOSITION IN BED WITH A PILLOW PER PT REQUEST. PT RESTING IN BED AND NEEDS NOTHING MORE AT THIS TIME.
--- NOTE | 2019-07-15 21:55 | NUR ---
HELPED PT TO THE BSC AND BACK TO BED WITH FWW. BEDSIDE TABLE AND CALL LIGHT IN REACH. PT NEEDS NOTHING MORE AT THIS TIME.
--- NOTE | 2019-07-16 00:52 | NUR ---
PT RESTING IN BED, EYES CLOSED. RR EVEN, UNLABORED. CALL LIGHT IN REACH.
--- NOTE | 2019-07-16 01:47 | NUR ---
PT RESTING IN BED, EYES CLOSED. RR EVEN, UNLABORED. CALL LIGHT IN REACH.
--- NOTE | 2019-07-16 02:34 | NUR ---
PT CALLS TO USE BR. 1PA, FWW TO BSC AND BACK TO BED. PT REPOSITIONED. NO OTHER NEEDS AT THIS TIME. CALL LIGHT IN REACH.
--- NOTE | 2019-07-16 03:15 | NUR ---
PT USED THE CALL LIGHT FOR ME TO COME IN AND REPOSITION HER TO HER LEFT SIDE WITH A PILLOW. SHE IS MUCH MORE COMFORTABLE SHE SAYS. PT NEEDS NOTHING MORE AT THIS TIME.
--- NOTE | 2019-07-16 04:30 | NUR ---
PT RESTING IN BED, EYES CLOSED. RR EVEN, UNLABORED. CALL LIGHT IN REACH.
--- NOTE | 2019-07-16 05:00 | NUR ---
REPOSITIONED PT TO HER LEFT SIDE PER HER REQUEST. I&OS DONE AND CHARTED. PT NEEDS NOTHING MORE FROM ME. MAGNO JULIO IN THE ROOM WHEN I LEFT. BEDSIDE TABLE AND CALL LIGHT IN REACH.
--- NOTE | 2019-07-16 05:01 | NUR ---
PT CALLS TO BE REPOSITIONED AND REPORT PAIN. BACK AND ABD PAIN 10/10, PRN PAIN MED PROVIDED. PT REPOSITIONED. NO OTHER NEEDS AT THIS TIME. CALL LIGHT IN REACH.
--- NOTE | 2019-07-16 05:40 | NUR ---
PT SLEPT OFF AND ON TONIGHT. BACK AND ABD PAIN MANAGED WITH PRN PAIN MEDS. MIDLINE CDI, WNL, GOOD BLOOD RETURN, FLUSHED WELL, HEPARIN LOCKED. PT DID NOT DRINK FLUIDS WELL, PT EDUCATION PROVIDED. VSS. UO SUFFICIENT.
--- NOTE | 2019-07-16 06:44 | NUR ---
PT CALLED AND WANTED ME TO TURN UP HER HEAT. SHE NEEDS NOTHING MORE AT THIS TIME.
--- NOTE | 2019-07-16 07:45 | NUR ---
REPORT RECEIVED. PT IN [facility]. [facility] NEEDS. CALL LIGHT IN REACH.
--- NOTE | 2019-07-16 09:30 | NUR ---
PATIENT RESTING IN BED. PATIENT GOES TO USE THE BATHROOM. PATIENT USES WALKER. ONE PERSON ASSISTING. PATIENT BACKS TO CHAIR. VITAL SIGNS AND I&O DONE. CALL LIGHT WITHIN REACH. NO OTHER NEEDS AT THIS TIME
--- NOTE | 2019-07-16 12:56 | NUR ---
CHOLOSTOMY CHANGED. WAFER CUT TO STOMA SIZE. ADHESIVE REMOVER USED TO REMOVE EXCESS ADHESIVE. ADHEISIVE PASTE APPLIED ON WAIFER AND PRESSURE PLACED AROUND STOMA. STOMA IS PINK IN COLOR. PT DENEIS PAIN. SOME EXCORIATION IS NOTED TO THE SURROUNDING SKIN R/T OLD WAIFER CUT TOO BIG AND STOOL BEING PRESENT ON SKIN.
--- NOTE | 2019-07-16 13:22 | NUR ---
PATIENT SLEEPING IN THE RECLINER. I&O DONE. CALL LIGHT WITHIN REACH. NO OTHER NEEDS AT THIS TIME
--- NOTE | 2019-07-16 15:28 | NUR ---
ASSISTED PATIENT TO BR AND BACK TO BED USING FWW. CALL LIGHT AND BEDSIDE TABLE WITHIN REACH. NO OTHER NEEDS AT THIS TIME.
--- NOTE | 2019-07-16 16:41 | NUR ---
PT IN BED. DENEIS PAIN. CALL LIGHT IN REACH.
--- NOTE | 2019-07-16 19:00 | NUR ---
SHIFT REPORT RECEIVED FROM DAYSHIFT MAGNO BURRIS AT BEDSIDE. PT AWAKE AND RESTING IN BED, NO ADDITIONAL NEEDS. CALL LIGHT IN REACH.
--- NOTE | 2019-07-16 19:28 | NUR ---
pt reporting 8/10 pain in back/side and abdomen. 2 tabs of norco adminsitered.
--- NOTE | 2019-07-16 20:16 | NUR ---
VITALS AND I&OS DONE AND CHARTED. HELPED HER EMPTY HER OSTOMY BAG. BEDSIDE TABLE AND CALL LIGHT IN REACH. PT NEEDS NOTHING MORE AT THIS TIME.
--- NOTE | 2019-07-16 20:30 | NUR ---
ASSESSMENT COMPLETE, SCHEDULED MEDS GIVEN (SEE EMAR). VSS, PT ON RA, LUNG SOUNDS CLEAR, MOIST COUGH NOTED. MIDLINE DRESSING INTACT, FLUSHES EASILY AND HEP LOCKED PER POLICY. ABDOMINAL INCISION OPEN TO AIR, SITE WELL APPROXIMATED WITH [address] RECENTLY MEDICATED WITH PRN NORCO, REPORTS TOLERABLE PAIN THAT IS IMPROVING. NO FURTHER NEEDS, CALL LIGHT IN REACH.
--- NOTE | 2019-07-16 21:11 | NUR ---
PT CALLED AND ASKED IF I WOULD PUT A [place]ITARY [place] UNDER HER SPINE FOR CUSHION. AFTER I PUT IT THERE SHE SAID THAT HELPED A LOT. SHE NEEDS NOTHING ELSE AT THIS TIME.
--- NOTE | 2019-07-16 22:30 | NUR ---
PT AWAKE AND RESTING IN BED, HEARD FROM HALLWAY USING ACAPELLA. ENCOURAGEMENT GIVEN BY NURSING STAFF, PT DENIES NEEDS. CALL LIGHT IN REACH.
--- NOTE | 2019-07-17 01:07 | NUR ---
PT REPORTING DIFFICULTY SLEEPING. 8/10 PAIN IN BACK, PRN NORCO X2 GIVEN (SEE EMAR). NO FURTHER NEEDS, CALL LIGHT IN REACH.
--- NOTE | 2019-07-17 03:34 | NUR ---
PT RESTING QUIETLY IN BED WITH EYES CLOSED. RESPIRATIONS EVEN AND UNLABORED, NO DISTRESS NOTED. CALL LIGHT IN REACH.
--- NOTE | 2019-07-17 04:19 | NUR ---
PT UP 1PA WITH FWW TO BATHROOM TO VOID AND BACK TO BED. PT REQUIRED ASSISTANCE GETTING FEET IN AND OUT OF BED. NO CHANGES IN ABDOMINAL INCISION. NO ADDITIOANAL NEEDS, CALL LIGHT IN REACH.
--- NOTE | 2019-07-17 04:56 | NUR ---
CALL LIGHT ANSWERED. RITO PAD PROVIDED pt REQUESTED FOR PADDING AMONG BONY SPINE, ALLEVYN IN PLACE. pt REFUSES REPOSITIONING, PILLOW BEHIND BACK. NO ADDITIONAL REQUESTS. CALL LIGHT IN REACH. pt STATES SHE WILL TRY TO GET SOME SLEEP.
--- NOTE | 2019-07-17 05:32 | NUR ---
PT HAD A GOOD NIGHT, PAIN CONTROLLED WITH PRN NORCO. VSS, CALLS APPROPERIATELY. 1PA WITH FWW, REQUIRES ASSISTANCE GETTING LEGS IN AND OUT OF BED. REGULAR DIET, NO NAUSEA REPORTED. ENCOURAGE NUTRITION RICH FOODS AND PO INTAKE. CALLS APPROPERIATELY.
--- NOTE | 2019-07-17 08:12 | NUR ---
pt sitting upright in bed eating morning meal denies discomforts or needs of
--- NOTE | 2019-07-17 09:02 | NUR ---
REMOVED PT'S MIDLINE DANTE W\O DIFFICULTY. PT TOLERATED WELL AND EVEN DID THE COUNTING. INCISION WELL APPROXIMATED AND SCABBED.
--- NOTE | 2019-07-17 09:26 | NUR ---
PATIENT IN BED WATCHING TV. FRESH WATER GIVEN. PATIENT SAID SHOWER MAYBE LATER. CALL LIGHT IN REACH. NO FURTHER NEEDS AT THIS TIME.
--- NOTE | 2019-07-17 11:03 | NUR ---
PT RESTING IN BED AGREES PAIN MED WAS EFFECTIVE FOR HER. COLOSTOMY BAG IS FULL OF AIR, PT EMPTIES THIS HERSELF WITH VERBAL INSTRUCTION. DENIES NEEDS AT THIS TIME
--- NOTE | 2019-07-17 13:34 | NUR ---
DRESSING TO MIDLINE IV CHANGED, WELL TOLERATED BY PT. SHE HAS BEEN UP TO THE SHOWER AND HAD LUNCH, CURRENTLY RESTING IN BED. FRESH H20 PROVIDED DENIES OTHER NEEDS OR REQUESTS
--- NOTE | 2019-07-17 13:40 | NUR ---
Spoke with Mignon and she states she had an ok weekend. Discussed when she would like to discharge. She states later in the week. She also states she wants to make sure is not resusitated or intubated. Informed I will check her Polst and we can fill out a new form if this is not how it reads. I did ask she speak with spouse as she states this will upset him. Will proceed with plan for dc end of this week.
--- NOTE | 2019-07-17 14:06 | NUR ---
MAGNO LUCERO JUST LEAVING PTS' RM. PT RELAXED, JUST SHOWERED AND HAIR WASHED, AND FEELING MUCH BETTER. PT AGAIN SHARED HOW MUCH HER P.SHAWL HAS MEANT TO HER. GAVE BLESSING, WILL LET PT REST.
--- NOTE | 2019-07-17 16:55 | NUR ---
PT C/O BACK PAIN ON BONY PROMINENCE REQUESTS NEW PAD TO BE APPLIED. REMOVED EXISTING ALLEVYN, PRESSURE WOUNDS X2 PT HAS REFUSED UP TO THE CHAIR AND OTHER ACITIVIES ALL DAY. PHOTOS OF WOUNDS SHOWN TO PT, DISCUSSED THE THIN TISSUE COVERING BONE AND HOW PRESSURE KILLS TISSUE AND POSSIBLE CONSEQUENCES OF NO PRESSURE RELIEF. DISCUSSED PILLOW PROPPING AND DIFFERENT STRATEGIES TO RELIVE PRESSURE THROUGHOUT THE DAY TO ALLOW WOUND TO HEAL AND PREVENT FURTHER TISSUE DAMANGE. PT APPEARS COOPERATIVE AND VOICES UNDERSTANDING STATING SHE WILL EMPLOY THESE STRATEGIES. NEW THICKER ALLEVYN APPLIED TO COVER AND CUSHION THE AREA.
--- NOTE | 2019-07-17 18:04 | NUR ---
PATIENT IN BED RESTING. CALL LIGHT IN REACH. NO FURTHER NEEDS AT THIS TIME.
--- NOTE | 2019-07-17 19:20 | NUR ---
REPORT RECEIVED FROM DAY SHIFT RN. PT LYING IN BED, ALERT AND ORIENTED WATCHING TV. DENIES NEEDS AT THIS TIME. WHITE BOARD UPDATED. CALL LIGHT IN REACH.
--- NOTE | 2019-07-17 20:45 | NUR ---
EVENING ASSESSMENT COMPLETE. SCHEDULED MEDS GIVEN WITHOUT ISSUE. PRN GIVEN FOR ABD/SPINE PAIN. MIDLINE ABD INCISION WELL APPROXIMATED. NO REDNESS OR DRAINAGE NOTED. DRESSING ON SPINE INTACT. PT REPOSITIONED WITH PILLOWS. CALL LIGHT IN REACH.
--- NOTE | 2019-07-18 00:24 | NUR ---
CALL LIGHT ON. REPOSITIONED pt PER REQUEST. NO FURTHER REQUESTS. CALL LIGHT WITHIN REACH.
--- NOTE | 2019-07-18 01:29 | NUR ---
PRN ADMINISTERED FOR ABD/SPINE PAIN. ASSITED PT TO REPOSITION IN BED. NO FURTHER NEEDS AT THIS TIME. CALL LIGHT IN REACH.
--- NOTE | 2019-07-18 04:39 | NUR ---
PT UP TO BSC WITH 1PA AND FWW. BACK TO BED, AUROR[place] WELL. PT USING IS IN BED. NO FURTHER NEEDS. CALL LIGHT IN REACH.
--- NOTE | 2019-07-18 07:50 | NUR ---
REPORT RECEIVED. PT LYING IN BED. CALL LIGHT IN REACH.
--- NOTE | 2019-07-18 09:00 | NUR ---
PATIENT UP TO SHOWER DONN. PATIENT ASSISTED IN SHOWER. RITO CARE SKIN CARE, ORAL CARE, AM CARE, LINEN CHANGE DONE. NEW GOWN PROVIDED. FRESH WATER GIVEN. CALL LIGHT IN REACH. NO FURTHER NEEDS AT THIS TIME.
--- NOTE | 2019-07-18 10:45 | NUR ---
In and spoke with Mignon. She does not want to participate in TC program and would like to go home on Wed. Discussed needs for dc. She would like to work with PT/OT today and tomorrow but feels she can't do so due to edema in legs. She would like to restart her HCTZ. Informed I can notify the Dr. She will work with Pt/OT today.
--- NOTE | 2019-07-18 11:23 | NUR ---
PT ASSISTED BACK TO BED. WITH FWW. CALL LIGHT IN REACH. 7/10 PAIN REPORTED, PRN PAIN MEDS GIVEN.
--- NOTE | 2019-07-18 14:01 | NUR ---
PT RESTING IN BED-ALERT AND ORIENTED. PT IS WATCHING TV AND MENTIONED THAT SHE FEELS TIRED TODAY, BUT IS PUSHING THROUGH. WRAPPED IN HER P.SHAWL, AND GAVE HER A.POST AND BLESSING
--- NOTE | 2019-07-18 14:10 | NUR ---
PATIENT IN BED WATCHING TV. FRESH WATER GIVEN. PATIENT DRANK A CHOCOLATE ENSURE AND IS NOT HUNGRY FOR LUNCH. CALL LIGHT IN REACH. NO FURTHER NEEDS AT THIS TIME.
--- NOTE | 2019-07-18 15:20 | NUR ---
Notified by RT, pt would like to visit. Pt discusses discharge and needs. She is following a daily schedule of attempting to eat well, getting up showering, drinking tea, empties ostomy, sitting in recliner. She plans on continueing this routine at home. She would like a walker, HH PT/OT/Bathaid, and her spouse to come to the hospital for education prior to dc. Informed we can discuss tomorrow and I will request rx from Dr. Dalton ostomy supplies and walker. Discussed [facility] and she would like tohave her ostomy supplies through them. I will send the chart.
--- NOTE | 2019-07-18 16:30 | NUR ---
PT REQUESTING DR OLIVIER FOR QUESTIONS REGAURDING "WATER PILLS". PLACED NEW ORDERS. DISCUSSED IN LENGTH WITH PATIENT OWN RESPONSIBILITYS TO IMPROVING. DISCUSSED IMPORTANCE OF PARTICIPATING IN THERAPY AND AMULATING TO BATHROOM AND GETTING UP TO CHAIR. PT AGREEABLE TO TRY. ALSO DISCUSSED DIET AND IMPORTANCE OF EATING AT EACH MEAL. PT INDEPENDENTY EMTIED OSTOMY. PAIN MEDICATIONS GIVEN FOR 8/10 PAIN. PHYSICAL THERAPY IN TO WORK WITH PT.
--- NOTE | 2019-07-18 17:56 | NUR ---
PATIENT IN BED RESTING WITH EYES CLOSED. PATIENT WORKING ON ENSURE BUT DOES NOT WANT TO ORDER ANY FOOD. CALL LIGHT IN REACH. NO FURTHER NEEDS AT THIS TIME.
--- NOTE | 2019-07-18 18:44 | NUR ---
PT HAD GOOD DAY. SHOWERED IN THE MORNING. IS TRYING TO EAT HIGH PROTEIN WITH EVERY MEAL. EMPYING OSTOMY INDEPNDENTLY. UP TO CHAIRS WITH MEALS. LASIX GIVEN. NORCO CONTROLLING PAIN WELL.
--- NOTE | 2019-07-18 19:21 | NUR ---
IN ROOM FOR REPORT, PT IS AWAKE IN BED. SHE DENIES NEEDS AT THIS TIME. CALL LIGHT IS CLOSE.
--- NOTE | 2019-07-18 19:41 | NUR ---
PT'S IV WAS BEEPING, SHE DENIES NEEDS AT THIS TIME.CALL LIGHT IS CLSOE.
--- NOTE | 2019-07-18 21:12 | NUR ---
IN ROOM TO ASSIST PT TO RESTROOM AND BACK TO BED. SEE ASSESSMENT AND EMAR. PT DENIES NEEDS AT THIS TIME. CALL LIGHT IS CLOSE.
--- NOTE | 2019-07-18 23:37 | NUR ---
PT IS RESTING WITH EYES CLOSED, RR IS EVEN AND NONLABORED. CALL LIGHT IS CLOSE.
--- NOTE | 2019-07-19 01:03 | NUR ---
2 PA TO THE BATHROOM USING WALKER. PATIENT IS BACK IN BED.
--- NOTE | 2019-07-19 02:06 | NUR ---
PT CALLED REQUESTING PAIN MED FOR 09/24 PAIN. SHE DENIES FURTHER NEEDS AT THIS TIME. CALL LIGHT IS CLOSE.
--- NOTE | 2019-07-19 04:00 | NUR ---
PT CALLED FOR ASSISTANCE TO THE RESTROOM. 1PA FWW TO RESTROOM AND BACK TO BED. SHE WAS NOT ABLE TO SCOOT HER BOTTOM BACK, HAD TO CALL FOR HELP FROM 2ND RN. PT IS NOW IN BED AND DENIES FURTHER NEEDS AT THIS TIME. CALL LIGHT IS CLOSE.
--- NOTE | 2019-07-19 04:49 | NUR ---
PT CALLED ASKING FOR ANOTHER PAD TO PLACE BEHIND SPINE. SHE ALSO WANTED TEA, SHE DENIES FURTHER NEEDS AT THIS TIME. CALL LIGHT IS CLOSE.
--- NOTE | 2019-07-19 05:43 | NUR ---
PT CALLED REQUESTING PAIN MEDS FOR 8/10 PAIN. SHE DENIES FURTHER NEEDS AT THIS TIME. CALL LIGHT IS CLOSE.
--- NOTE | 2019-07-19 08:15 | NUR ---
In and spoke with Mignon. She plans on going home tomorrow. She would like to complete a polst form. She cannot remember if she has completed in the past. I was unable to find in chart. Form to room and pt completed for DNR/DNI. States she wants in writing as she is concerned her spouse will not follow her wishes. Discussed needs to go home tomorrow and she would like a wc, scooter, comode and a walker. Discussed medicare will pay for one for mobility. She would like a walker. She will have her family get other DME from [place]. I will send orders to [place] for ostomy supplies when rx signed. Polst placed on Dr Spence's desk for completion.
--- NOTE | 2019-07-19 09:38 | NUR ---
PT AMBULATED TO BATHROOM WITH FWW, PT IS ABLE TO WALK AND IS UNABLE TO GET FEET BACK INTO THE BED. PT CONTIOUES TO EAT POOLY, AND LITTLE PROTEIN.
--- NOTE | 2019-07-19 09:54 | NUR ---
PATIENT IS SITTING UP IN BED, WATCHING TV. VITALS AND I&OS DONE, CALL LIGHT IN REACH. NO OTHER NEEDS AT THIS TIME
--- NOTE | 2019-07-19 10:54 | NUR ---
Called and spoke with pt's Rey. He is aware pt plans on dc to home tomorrow. He is working on equipment. New bed is being delivered today, daughter has obtained walker, wc, and commode. He denies need for walker through [facility] as they have already obtained. Discussed completed Polst with Mignon this am and he states he understands. Would like pt to have wc van ride home tomorrow, as she was unable to go onouting with him earlier, she could not get into their van.
--- NOTE | 2019-07-19 11:07 | NUR ---
PT IS C/O NOT BEING ABLE TO GET HER BREATH UNDER CONTROL. PT IS SITTING UP IN BED RESP RATE AND RHYTHUM IS NORMAL, SPO2 93% ON RA, ENCOURAGE PT TO USE ACUPELLA. EXPLAINED THAT HER RESP RATE AND RHYTHUM IS NORMAL AND HER LUNGS ARE CLEAR.
--- NOTE | 2019-07-19 11:10 | NUR ---
surgery report, chart notes, RX faxed to [facility] for ostomy supplies. [phone].
--- NOTE | 2019-07-19 13:09 | NUR ---
PT AMBULATED TO BATHROOM, VOIDED AND EMPTY COLOSTOMY AT THIS TIME, AMBULATED BACK TO BED. DID WELL WITH THIS. WHEN CHECKING ON PT SHE STATES " HER CALL LIGHT WOULD NOT WORK" WHEN IT SECURITY ADMINISTRATOR CHECKED CALL LIGHT IT DOES WORK. PT HAD THROWN PILLOWS, BLANKETS AND WATER TO THE FLOOR. WHEN ASKED WHY SHE DID THIS "MY CALL LIGHT DID NOT WORK" EXPLAINED THAT THE FLOOR HER IS NOT A PLCE FOR PILLOWS, BLANKETS AND TO USE CALL LIGHT AND IF ALL ELSE FAILS YELL FOR STAFF.
--- NOTE | 2019-07-19 14:27 | NUR ---
PATIENT RESTING IN BED, EYES CLOSED. WOKE AND AND ASKED THIS TO ORDER LUNCH, SHE HAS NOT EATEN YET(ENSURE/ICE CREAM AND CHOCOLATE CHIP COOKIE) CALL LIGHT IN REACH. NOOHTER NEEDS
--- NOTE | 2019-07-19 14:49 | NUR ---
PT IN BED AND APPEARS TO BE SLEEPING.
--- NOTE | 2019-07-19 15:14 | NUR ---
PT EATING ENSURE, COOKIE, AND ICE CREAM AT THIS TIME. ENCOURAGE HER TO ORDER PROTEIN AMINAL BASED. 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
--- NOTE | 2019-07-19 17:07 | NUR ---
PT REFUSED TO EAT DINNER, BUT ENCOURAGED HER TO DRINK AN ENSURE.
--- NOTE | 2019-07-19 17:39 | NUR ---
PT REFUSED TO ORDER DINNER, GAVE PT A CLEAR ENSURE TO DRINK. PT IN BED AND WATCHING TV.
--- NOTE | 2019-07-19 18:00 | NUR ---
pt refused to sit in the chair today or work with pt and ot. Pt refused to eat dinner, but is drinking clear ensure. pt will not turn off her back remains in a sitting position in bed.
--- NOTE | 2019-07-19 18:17 | NUR ---
PT HAS COUGH, BUT NOT GETTING ANYTHING UP AT THIS TIME. MBULATED TO THE BATHROOM AND THEN BACK TO BED. CONTIOUES TO ONLY SIT UP IN BED ON HER AND REFUSES TO CHANGE POSITION. PT ENCOUAGE TO COUGH AND DEEP BREATH, ENCOURAGE TO GET UP OUT OF THE ROOM AND AMBULATED IN THE AGUIRRE, PT REFUSED.
--- NOTE | 2019-07-19 19:06 | NUR ---
IN ROOM FOR REPORT, PT DENIES NEEDS AND CALL LIGHT IS CLOSE.
--- NOTE | 2019-07-19 19:49 | NUR ---
PT ASKED FOR SALT AND A CUP OF WARM WATER. SHE NEEDS NOTHING MORE AT THIS TIME.
--- NOTE | 2019-07-19 21:08 | NUR ---
HELPED PT TO THE BSC AND BACK TO BED WITH HER FWW. VITALS AND I&OS DONE AND CHARTED. HELPED HER EMPTY HER OSTOMY BAG. BEDSIDE TABLE AND CALL LIGHT IN REACH.
--- NOTE | 2019-07-19 21:28 | NUR ---
IN ROOM TO ADMINISTER MEDICATIONS AND ASSESS PT. SHE WAS GIVEN NORCO ABOUT AN HOUR AGO BY THE FASHION DESIGNER. PT REPORTS PAIN IS 8/10 BUT STATES THE PAIN MEDS ARE STARTING TO KICK IN AND SHE IS FINE. SEE ASSESSMENT AND EMAR. PT DENIES FURTHER NEEDS AT THIS TIME. CALL LIGHT IS CLOSE.
--- NOTE | 2019-07-19 23:22 | NUR ---
HELPED PT TO THE BSC AND BACK TO BED WITH HER FWW. HELPED HER EMPTY HER OSTOMY SO SHE WOULD NOT GET IT ALL OVER HER HANDS AND BED. BEDSIDE TABLE AND CALL LIGHT IN REACH.
--- NOTE | 2019-07-19 23:43 | NUR ---
PT CALLED FOR ME TO COME HELP HER FIND HER REMOTE. I WALKED INTO HER ROOM AND IT WAS LAYING IN BETWEEN HER LEGS. SHE NEEDS NOTHING MORE AT THIS TIME.
--- NOTE | 2019-07-20 00:55 | NUR ---
helped pt from the bsc back to bed with her fww. bedside table and call light in reach. pt needs nothing more at this time.
--- NOTE | 2019-07-20 02:37 | NUR ---
HELPED PT TO THE BSC AND BACK TO BED WITH HER FWW. BEDSIDE TABLE AND CALL LIGHT IN REACH. PT ASKED FOR PAIN MEDS. I INFORMED HER RN KWAME.
--- NOTE | 2019-07-20 02:45 | NUR ---
IN ROOM TO ADMINISTER PAIN MEDS PER PT REQUEST. SHE DENIES FURTHER NEEDS AT THIS TIME. CALL LIGHT IS CLOSE.
--- NOTE | 2019-07-20 04:49 | NUR ---
ASSISTED PT TO BSC AND BACK TO BED, SHE DENIES FURTHER NEEDS AT THIS TIME. CALL LIGHT IS CLOSE.
--- NOTE | 2019-07-20 08:22 | NUR ---
PT UP TO THE BATHROOM, VOIDED AND BACK TO BED. PT DID ORAL CARE AND IS SET UP FOR BKF. ENCOURAGE PT TO EAT WELL TODAY.
--- NOTE | 2019-07-20 09:23 | NUR ---
PATIENT REFUSED SHOWER. GETTING UP IN THE CHAIR. GETTING HER SOME MORE ICE WATER AND A WARM BLANKET.
--- NOTE | 2019-07-20 09:30 | NUR ---
IDT with Mignon. She plans on dc today. Feels she has "mentally hit a wall" and wants to go home. She has met most of her goals, does not want to continue. Family have obtained wc, walker, shower chair, and a new bed in anticipation for pt to come home. Chart was sent to [place] for ostomy supplies and they confirmed receipt yesterday. They will send supplies this week. Chart sent to [facility] at pt's requests. Pt has home exercises to complete until [facility] starts to see. Pt denies other needs, wanting to go home as soon as possible. Pt will go home by wc van as spouse is concerned she is unable to get into their van. Pt signed Medicare letter of dc and I picked up today with the TC survey.
--- NOTE | 2019-07-20 11:20 | NUR ---
pt c/o pain at this time, contioues to refuse to ambulated and sit in the chair this am. "I am going home and i have a new nice bed, chair and a big tub to take a bath in" pt contioues to have a cough that sounds productive, but is unable to cough anything up. encourage to use IS.
--- NOTE | 2019-07-20 11:46 | NUR ---
PT REFUED TO [facility] LUNCH, GET IN THE CHAIR, "I JUST WANT TO GO HOME"
[2019-07-20] MEDS ORDERED: METOPROLOL SUCC25 MG PO (11:58)
[2019-07-20] MEDS ORDERED: FUROSEMIDE20 MG PO (11:58)
--- NOTE | 2019-07-20 13:30 | NUR ---
DISCHARGE INSTRUCTIONS DISCUSSED WITH PATIENT, VERBALIZES UNDERSTANDING AND WRITTEN INSTUCTIONS GIVEN, SCHEDULED APPOINTMENT CARDS GIVEN. MIDLINE CATHETER DC'D INTACT WITH PRESSURE DRESSING, DRSG CHANGED X1 WITH SMALL AMOUNT OF BLEEDING. REDRESSED WITH INSTRUCTION TO REMOVE IN ANOTHER 30 MINUTES.
== END 2019-07-20 13:30 | disposition home health service (06) | DRG 641 ==
LOC: MS 13:01
PROVIDERS: ADMIT Internal Medicine
PROC: 05HY33Z Insertion of Infusion Device into Upper Vein, Percutaneous Approach (ICD-10-PCS; principal; 2019-07-11)
PROC: 30233N1 Transfusion of Nonautologous Red Blood Cells into Peripheral Vein, Percutaneous Approach (ICD-10-PCS; 2019-07-11)
DX: E43 Unspecified severe protein-calorie malnutrition (principal); N17.9 Acute kidney failure, unspecified; Z68.1 Body mass index [BMI] 19.9 or less, adult; M06.9 Rheumatoid arthritis, unspecified; E87.70 Fluid overload, unspecified; D64.9 Anemia, unspecified; I10 Essential (primary) hypertension; I71.9 Aortic aneurysm of unspecified site, without rupture; E27.8 Other specified disorders of adrenal gland; M48.56XD Collapsed vertebra, not elsewhere classified, lumbar region, subsequent encounter for fracture with routine healing; M48.54XD Collapsed vertebra, not elsewhere classified, thoracic region, subsequent encounter for fracture with routine healing; Z88.8 Allergy status to other drugs, medicaments and biological substances; Z79.899 Other long term (current) 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; Z93.3 Colostomy status; Z87.891 Personal history of nicotine dependence
CPT/HCPCS: 36415; 36430; 36569; 71045; 74176; 80048; 80069; 81001; 82565; 82570; 83735; 84300; 84520; 84540; 85025; 86850; 86900; 86901; 86920; 93005; 93010; 97110; 97116; 97165; 97530; 97535; J1650; J2543; J7121; P9016

== ENCOUNTER 2019-07-20 23:08 | Emergency (ER) | payer MEDICARE, OTHER ==
[~2019-07-20] VITALS: Ht 154.9 cm; Wt 64.9 kg
--- OUTSIDE RECORDS SUMMARY | ~2019-07-20 | XMS | Encounter Summary ---
Demographics + + + | Address | [address] | | | [place] [address] | + + + | Home Phone | | + + + | Preferred Language | Unknown | + + + | Marital Status | | + + + | Muslim Affiliation | Unknown | + + + | Race | Unknown | + + + | Ethnic Group | Unknown | + + + Author + + + | Author | [facility] | | | and Jdana | + + + | Organization | [facility] | | | and Jdana | [...] Team Providers + +------+ + | Care Plant Operator Control Room Operator Name | Role | Phone | + +------+ + | Julio Cesar Hawley MD | PCP | | + +------+ + Encounter Details +--------+ + + + + | Date | Type | Department | Care Team | Description | +--------+ + + + + | 05/15/ | Orders Only | [facility] | Ismael Gonzalez MD | Hypertension, | | 2020 | | NEPHROLOGY [place] | [address] | unspecified type | | | | [address] | [address] [place], [place] | (Primary Dx); | | | | [address] | [address] | Scoliosis, | | | | [place], [place] | | unspecified | | | | [address] | | scoliosis type, | | | | [phone] | | unspecified spinal | | | | | | region; Heart | | | | | | disease; PVD | | | | | | (peripheral vascular | | | | | | disease) (HCC); | | | | | | Dysfunction of | | | | | | Eustachian tube, | | | | | | unspecified | | | | | | laterality; | | | | | | Normocytic anemia; | | | | | | Herpes zoster | | | | | | without | | | | | | complication; Post | | | | | | herpetic neuralgia; | | | | | | Immunosuppressed | | | | | | status (HCC); | | | | | | Chronic kidney | | | | | | disease, stage III | | | | | | (moderate) (HCC) | +--------+ + + + + Social [...] 2020 | Visit | | [address] | | | | | | [address] [place] | | | | | | [address] | | | | | | | | +--------+---------+ + + + + +------+--------+ + + | Name | Type | Priori | Associated Diagnoses | Order Schedule | | | | ty | | | + +------+--------+ + + | Basic Metabolic | Lab | Routin | Hypertension, | Expected: | | Panel | | e | unspecified type | 07/24/2019, Expires: | | | | | Chronic kidney | 05/15/2020 | | | | | disease, stage III | | | | | | (moderate) (HCC) | | + +------+--------+ + + | Protein/Creatinine | Lab | Routin | Hypertension, | Expected: | | Ratio, Urine | | e | unspecified type | 07/24/2019, Expires: | | | | | Chronic kidney | 05/15/2020 | | | | | disease, stage III | | | | | | (moderate) (HCC) | | + +------+--------+ + + | Uric Acid | Lab | Routin | Hypertension, | Expected: | | | | e | unspecified type | 07/24/2019, Expires: | | | | | Chronic kidney | 05/15/2020 | | | | | disease, stage III | | | | | | (moderate) (HCC) | | + +------+--------+ + + | Urinalysis With | Lab | Routin | Hypertension, | Expected: | | Microscopic | | e | unspecified type | 07/24/2019, Expires: | | | | | Chronic kidney | 05/15/2020 | | | | | disease, stage III | | | | | | (moderate) (HCC) | | + +------+--------+ + + | CBC with | Lab | Routin | Hypertension, | Expected: | | Differential | | e | unspecified type | 07/24/2019, Expires: | | | | | Chronic kidney | 05/15/2020 | | | | | disease, stage III | | | | | | (moderate) (HCC) | | + +------+--------+ + + documented as of this encounter Procedures + +--------+ + + + | Procedure Name | Priori | Date/Time | Associated Diagnosis | Comments | | | ty | | | | + +--------+ + + + | VITAMIN D, | Routin | 07/21/2018 | | Results for this | | 25-HYDROXY, LC/MS/MS | e | | | procedure are in the | | | | | | results section. | + +--------+ + + + | CBC NO DIFFERENTIAL | Routin | 07/21/2018 | | Results for this | | | e | | | procedure are in the | | | | | | results section. | + +--------+ + + + | VITAMIN B-12 | Routin | 07/21/2018 | | Results for this | | | e | | | procedure are in the | | | | | | results section. | + +--------+ + + + | TSH | Routin | 07/21/2018 | | Results for this | | | e | | | procedure are in the | | | | | | results section. | + +--------+ + + + | COMPREHENSIVE | Routin | 07/21/2018 | | Results for this | | METABOLIC PANEL | e | | | procedure are in the | | | | | | results section. | + +--------+ + + + documented in this encounter Results CBC with Manual Differential (07/21/2018) + + + + + + | Component | Value | Ref Range | Performed | Pathologist | | | | | At | Signature | + + + + + + | WBC | 4.7 | 4.5 - 11.0 | | | + + + + + + | RBC | 3.54 (A) | 3.80 - 5.10 | | | | | | M/uL | | | + + + + + + | Hemoglobin | 11.1 (A) | 12 - 16 | | | + + + + + + | Hematocrit, | 33.3 (A) | 35.0 - 45.0 % | | | | POC | | | | | + + + + + + | MCV | 94.0 | 81.0 - 99.0 fL | | | + + + + + + | MCHC | 33.0 | 30.0 - 36.0 | | | | | | g/dL | | | + + + + + + | MCH | 31.0 | 27.0 - 33.0 pg | | | + + + + + + | Platelet | 262 | 140 - 440 | | | | Count | | | | | | Plasma | | | | | + + + + + + | RDW | 16.5 (A) | 10.5 - 15.0 | | | + + + + + + | BAL | 59 | 39 - 80 % | | | | Neutrophils | | | | | | % | | | | | + + + + + + | % | 17.3 (A) | 24 - 44 | | | | Lymphocytes | | | | | + + + + + + | Monocyte % | 16.8 (A) | 0 - 12 | | | + + + + + + | BAL | 6 | 0 - 6 % | | | | Eosinophils | | | | | | % | | | | | + + + + + + | BF % | 1 | 0 - 2 % | | | | Basophils | | | | | + + + + + + + + | Specimen | + + | Blood | + + Vitamin D, 25-Hydroxy, LC/MS/MS (07/21/2018) + +-------+ + + + | Component | Value | Ref Range | Performed | Pathologist | | | | | At | Signature | + +-------+ + + + | Vit D, | 41 | 30 - 100 | | | | 25-Hydroxy | | | | | + +-------+ + + + + + | Specimen | + + | Blood | + + Vitamin B-12 (07/21/2018) + +-------+ + + + | Component | Value | Ref Range | Performed | Pathologist | | | | | At | Signature | + +-------+ + + + | VITAMIN | 370 | 232 - 1,245 | | | | B-12 | | pg/mL | | | + +-------+ + + + + + | Specimen | + + | Blood | + + TSH (07/21/2018) + +-------+ + + + | Component | Value | Ref Range | Performed | Pathologist | | | | | At | Signature | + +-------+ + + + | TSH, | 3.60 | 0.270 - 4.20 | | | | External | | | | | + +-------+ + + + + + | Specimen | + + | Blood | + + Comprehensive Metabolic Panel (07/21/2018) + + + + + + | Component | Value | Ref Range | Performed | Pathologist | | | | | At | Signature | + + + + + + | Na | 137 | 132 - 143 | | | | | | mmol/L | | | + + + + + + | K | 3.9 | 3.6 - 5.1 | | | | | | mmol/L | | | + + + + + + | Cl | 105 | 95 - 112 mmol/L | | | + + + + + + | CO2 | 24 | 19 - 31 mmol/L | | | + + + + + + | Anion Gap | 12 | 7 - 21 mmol/L | | | + + + + + + | Glucose | 102 (A) | 70 - 100 mg/dL | | | + + + + + + | BUN | 18 | 6 - 23 mg/dL | | | + + + + + + | Creatinine | 1.31 (A) | 0.70 - 1.18 | | | | | | mg/dL | | | + + + + + + | Estimated | 40.0 (A) | 60.0 - 140.0 | | | | GFR | | mL/min/1.73m2 | | | + + + + + + | BUN/Creatin | 13.7 | 6.0 - 28.6 | | | | ine Ratio | | | | | + + + + + + | Calcium | 8.5 | 8.5 - 10.3 | | | + + + + + + | AST | 21 | 13 - 39 U/L | | | + + + + + + | ALT | 10 | 7 - 52 U/L | | | + + + + + + | ALP, | 62 | 31 - 130 | | | | External | | | | | + + + + + + | BILIRUBIN, | 0.3 | 0.0 - 1.2 | | | | TOTAL | | | | | + + + + + + | Protein, | 6.4 | 6.0 - 8.3 | | | | Total | | | | | + + + + + + | Albumin | 3.5 | 3.5 - 5.0 g/dL | | | + + + + + + | Globulin | 2.9 | 1.8 - 3.5 | | | + + + + + + | Albumin/Bria | 1.2 | 1.1 - 2.4 | | | | bulin Ratio | | | | | + + + + + + + + | Specimen | + + | Blood | + + documented in this encounter Visit Diagnoses + + | Diagnosis | + + | Hypertension, unspecified type - Primary | + + | Scoliosis, unspecified scoliosis type, unspecified spinal region | + + | Heart disease Heart disease, unspecified | + + | PVD (peripheral vascular disease) (HCC) Peripheral vascular disease, unspecified | + + | Dysfunction of Eustachian tube, unspecified laterality | + + | Normocytic anemia Anemia, unspecified | + + | Herpes zoster without complication | + + | Post herpetic neuralgia Herpes zoster with other nervous system complications | + + | Immunosuppressed status (HCC) Unspecified disorder of immune mechanism | + + | Chronic kidney disease, stage III (moderate) (HCC) Chronic kidney disease, Stage III | | (moderate) | + + documented in this encounter"
--- OUTSIDE RECORDS SUMMARY | ~2019-07-20 | XMS | Encounter Summary ---
Demographics + + + | Address | [address] | | | [place] [address] | + + + | Home Phone | | + + + | Preferred Language | Unknown | + + + | Marital Status | | + + + | Sabianism Affiliation | Unknown | + + + | Race | Unknown | + + + | Ethnic Group | Unknown | + + + Author + + + | Author | [facility] | | | and Jdana | + + + | Organization | [facility] | | | and Jdana [...] Team Providers + +------+ + | Care Driftman Name | Role | Phone | + [...] arthroplasty | [address] | [address] | | | | | | [place] | [place], | | | | | Procedures | [place], [place] | [place] [address] | | | | | ot eval | [id number] | Phone: | | | | | | Phone: | [phone] | | | | | | [phone] | Fax: | | | | | | Fax: | [phone] | | | | | | [phone] | | +--------+--------+ + + + + Encounter Details +--------+---------+ + + + | Date | Type | Department | Care Team | Description | +--------+---------+ + + + | 08/10/ | Office | [facility] | Rey Blackmon | Hx of arthroplasty | | 2014 | Visit | [facility] | MD [address] | (Primary Dx); | | | | THERAPY [address] [place] | Stiffness of hand | | | | [place], | [place] [address] | joint, left; | | | | [place] [address] | [phone] | Weakness of hand; | | | | [phone] | | HTN (hypertension); | | | | | Mahendra, Mady A, OT | Low back pain; | | | | | [address] | Osteoporosis; | | | | | [place] | Rheumatoid arthritis | | | | | [address] | (HCC) | | | | | [...] this encounter Progress Mady Lamar OT - 08/10/2013 6:36 PM PDTFormatting of this note might be different fr om the original. [facility] OT OP [address] [place] [address] Occupational Therapy Daily Treatment Note Date: 08/10/2013 [...] 2020 | Visit | | [address] [facility] | | | | | | [address] [place], [place] | | | | | | [address] | | | | | | | [...]
--- OUTSIDE RECORDS SUMMARY | ~2019-07-20 | XMS | Encounter Summary ---
Demographics + + + | Address | [address] | | | [place] [address] | + + + | Home Phone | | + + + | Preferred Language | Unknown | + + + | Marital Status | | + + + | Sikh Affiliation | Unknown | + + + | Race | Unknown | + + + | Ethnic Group | Unknown | + + + Author + + + | Author | [facility] | | | and Jdana | + + + | Organization | [facility] | | | and Jdana [...] Team Providers + +------+ + | Care Engineering Illustrator Name | Role | Phone | + +------+ + | Yosef Morrow MD | PCP | | + +------+ + Encounter Details +--------+ + + + + | Date | Type | Department | Care Team | Description | +--------+ + + + + | 08/05/ | Orders Only | [facility] | Juaquin, | | | 2015 | | RHEUMATOLOGY [address] | [address] | | | | | [address] | [address] | | | | | [place] | [place] [address] | | | | | [address] | [phone] | | | | | [phone] | | | +--------+ + + + [...] 2020 | Visit | | [address] [facility] | | | | | | [address] [place], [place] | | | | | | [address] | | | | | | | | +--------+---------+ + + + documented as of this encounter Procedures + +--------+ + + + | Procedure Name | Priori | Date/Time | Associated Diagnosis | Comments | | | ty | | | | + +--------+ + + + | EXTERNAL LAB: CBC | Routin | 08/06/2015 | | Results for this | | | e | 10:06 AM | | procedure are in the | | | | PDT | | results section. | + +--------+ + + + | RHEUMATOID FACTOR, | Routin | 08/06/2015 | | Results for this | | IGA, IGG AND IGM | e | 10:06 AM | | procedure are in the | | | | PDT | | results section. | + +--------+ + + + | CCP ANTIBODIES, IGG | Routin | 08/06/2015 | | Results for this | | IGA | e | 10:06 AM | | procedure are in the | | | | PDT | | results section. | + +--------+ + + + | SEDIMENTATION RATE, | Routin | 08/06/2015 | | Results for this | | AUTOMATED | e | 10:06 AM | | procedure are in the | | | | PDT | | results section. | + +--------+ + + + | C-REACTIVE PROTEIN | Routin | 08/06/2015 | | Results for this | | | e | 10:06 AM | | procedure are in the | | | | PDT | | results section. | + +--------+ + + + | COMPREHENSIVE | Routin | 08/06/2015 | | Results for this | | METABOLIC PANEL | e | 10:06 AM | | procedure are in the | | | | PDT | | results section. | + +--------+ + + + documented in this encounter Results Rheumatoid Factor IgA, IgG and IgM (08/06/2015 10:06 AM PDT) + + + + + + | Component | Value | Ref Range | Performed | Pathologist | | | | | At | Signature | + + + + + + | Rheumatoid | >100 (H)Comment: | U | EXTERNAL | | | Factor IgG | | | LAB | | | | | | | | | | REFERENCE | | | | | | RANGE: | | | | | | | | | | | | | | | | | | <=6 NEGATIVE | | | | | | | | | | | | | | | | | | >6 | | | | | | POSITIVETesting | | | | | | performed at [facility] | | | | | | [facility] | | | | | | [facility], [id number] | | | | | | [address], [address] | | | | | | [place] [address] | | | | + + + + + + | Rheumatoid | >100 (H)Comment: | U | EXTERNAL | | | Factor IgA | | | LAB | | | | | | | | | | REFERENCE | | | | | | RANGE: | | | | | | | | | | | | | | | | | | <=6 NEGATIVE | | | | | | | | | | | | | | | | | | >6 | | | | | | POSITIVETesting | | | | | | performed at [facility] | | | | | | [facility] | | | | | | [facility], [address] | | | | | | [address] | | | | | | [place] [address] | | | | + + + + + + | Rheumatoid | >100 (H)Comment: | U | EXTERNAL | | | Factor IgM | | | LAB | | | | | | | | | | REFERENCE | | | | | | RANGE: | | | | | | | | | | | | | | | | | | <=6 NEGATIVE | | | | | | | | | | | | | | | | | | >6 | | | | | | POSITIVETesting | | | | | | performed at [facility] | | | | | | [facility] | | | | | | [facility], [address] | | | | | | [address] | | | | | | [place] [address] | | | | + + + + + + + + | Specimen | + + | | + + + +---------+ + + | Performing | Address | City/State/Zipcode | Phone Number | | Organization | | | | + +---------+ + + | EXTERNAL LAB | | | | + +---------+ + + CCP Antibodies, IgG IgA (08/06/2015 10:06 AM PDT) + + + + + + | Component | Value | Ref Range | Performed | Pathologist | | | | | At | Signature | + + + + + + | Cyclic | 538 (H)Comment: | CU | EXTERNAL | | | Citrullin | Reference range: | | LAB | | | Peptide Ab | <19.9NEGATIVE 0 TO | | | | | | 19.9POSITIVE | | | | | | >19.9Testing performed | | | | | | at [facility], [address] | | | | | | [place] | | | | | | [address] | | | | + + + + + + + + | Specimen | + + | Blood specimen | | (specimen) | + + + +---------+ + + | Performing | Address | City/State/Zipcode | Phone Number | | Organization | | | | + +---------+ + + | EXTERNAL LAB | | | | + +---------+ + + Sedimentation rate, automated (08/06/2015 10:06 AM PDT) + +--------+ + + + | Component | Value | Ref Range | Performed | Pathologist | | | | | At | Signature | + +--------+ + + + | Sed Rate | 53 (H) | 0 - 30 mm/h | EXTERNAL | | | | | | LAB | | + +--------+ + + + + + | Specimen | + + | Blood specimen | | (specimen) | + + + +---------+ + + | Performing | Address | City/State/Zipcode | Phone Number | | Organization | | | | + +---------+ + + | EXTERNAL LAB | | | | + +---------+ + + External Lab: CBC (08/06/2015 10:06 AM PDT) + + + + + + | Component | Value | Ref Range | Performed | Pathologist | | | | | At | Signature | + + + + + + | WBC | 11.7 (H) | 3.8 - 11.0 | EXTERNAL | | | | | 10*3/uL | LAB | | + + + + + + | Red Blood | 4.10 | 3.70 - 5.10 | EXTERNAL | | | Cells | | 10*6/uL | LAB | | | Counted | | | | | + + + + + + | Hemoglobin | 12.1 | 11.3 - 15.5 | EXTERNAL | | | | | g/dL | LAB | | + + + + + + | Hematocrit, | 37.2 | 34.0 - 46.0 % | EXTERNAL | | | POC | | | LAB | | + + + + + + | MCV | 91.0 | 80.0 - 100.0 fL | EXTERNAL | | | | | | LAB | | + + + + + + | MCH | 29.6 | 27.0 - 34.0 pg | EXTERNAL | | | | | | LAB | | + + + + + + | MCHC | 32.6 | 32.0 - 35.5 | EXTERNAL | | | | | g/dL | LAB | | + + + + + + | Platelet | 319 | 150 - 400 | EXTERNAL | | | Count | | 10*3/uL | LAB | | | Plasma | | | | | + + + + + + | MPV | 8.2 | fL | EXTERNAL | | | | | | LAB | | + + + + + + | Differentia | AUTOMATED | | EXTERNAL | | | l Type | | | LAB | | + + + + + + | % Segmented | 69.4 | | EXTERNAL | | | | | | LAB | | | Neutrophils | | | | | + + + + + + | % | 12.2 | % | EXTERNAL | | | Lymphocytes | | | LAB | | + + + + + + | % Monocytes | 14.2 | % | EXTERNAL | | | | | | LAB | | + + + + + + | % | 3.6 | % | EXTERNAL | | | Eosinophils | | | LAB | | + + + + + + | % Basophils | 0.6 | % | EXTERNAL | | | | | | LAB | | + + + + + + | Absolute | 8.1 (H) | 1.9 - 7.4 | EXTERNAL | | | Segmented | | 10*3/uL | LAB | | | Neutrophils | | | | | + + + + + + | Absolute | 1.4 | 1.0 - 3.9 | EXTERNAL | | | Lymphocytes | | 10*3/uL | LAB | | + + + + + + | Absolute | 1.7 (H) | 0.0 - 0.8 | EXTERNAL | | | Monocytes | | 10*3/uL | LAB | | + + + + + + | Absolute | 0.4 | 0.0 - 0.5 | EXTERNAL | | | Eosinophils | | 10*3/uL | LAB | | + + + + + + | Absolute | 0.1 | 0.0 - 0.1 | EXTERNAL | | | Basophils | | 10*3/uL | LAB | | + + + + + + + + | Specimen | + + | Blood specimen | | (specimen) | + + + +---------+ + + | Performing | Address | City/State/Zipcode | Phone Number | | Organization | | | | + +---------+ + + | EXTERNAL LAB | | | | + +---------+ + + C-Reactive Protein (08/06/2015 10:06 AM PDT) + +---------+ + + + | Component | Value | Ref Range | Performed | Pathologist | | | | | At | Signature | + +---------+ + + + | CRP | 0.7 (H) | mg/dL | EXTERNAL | | | | | | LAB | | + +---------+ + + + + + | Specimen | + + | Blood specimen | | (specimen) | + + + +---------+ + + | Performing | Address | City/State/Zipcode | Phone Number | | Organization | | | | + +---------+ + + | EXTERNAL LAB | | | | + +---------+ + + Comprehensive Metabolic Panel (08/06/2015 10:06 AM PDT) + + + + + + | Component | Value | Ref Range | Performed | Pathologist | | | | | At | Signature | + + + + + + | Na | 138 | 135 - 143 | EXTERNAL | | | | | mmol/L | LAB | | + + + + + + | K | 4.6 | 3.5 - 4.9 | EXTERNAL | | | | | mmol/L | LAB | | + + + + + + | Cl | 105 | 99 - 109 mmol/L | EXTERNAL | | | | | | LAB | | + + + + + + | CO2 | 22 (L) | 23 - 32 mmol/L | EXTERNAL | | | | | | LAB | | + + + + + + | Anion Gap | 16 | 5 - 20 mmol/L | EXTERNAL | | | | | | LAB | | + + + + + + | Glucose, | 113 (H) | 65 - 99 mg/dL | EXTERNAL | | | Fasting | | | LAB | | + + + + + + | BUN | 20 | 8 - 25 mg/dL | EXTERNAL | | | | | | LAB | | + + + + + + | Creatinine | 1.3 (H) | 0.50 - 1.00 | EXTERNAL | | | | | mg/dL | LAB | | + + + + + + | BUN/Creatin | 15 | | EXTERNAL | | | ine Ratio | | | LAB | | + + + + + + | Calcium | 8.9 | 8.5 - 10.5 | EXTERNAL | | | | | mg/dL | LAB | | + + + + + + | Protein, | 6.8 | 6.3 - 8.2 g/dL | EXTERNAL | | | Total | | | LAB | | + + + + + + | Albumin | 3.9 | 3.3 - 4.8 g/dL | EXTERNAL | | | | | | LAB | | + + + + + + | Globulin | 2.9 | 1.3 - 4.9 g/dL | EXTERNAL | | | | | | LAB | | + + + + + + | A/G Ratio | 1.3 | 1.0 - 2.4 | EXTERNAL | | | | | | LAB | | + + + + + + | Bilirubin | 0.4 | 0.1 - 1.5 mg/dL | EXTERNAL | | | Total | | | LAB | | + + + + + + | ALP, | 90 | 35 - 115 U/L | EXTERNAL | | | External | | | LAB | | + + + + + + | AST | 19 | 10 - 45 U/L | EXTERNAL | | | | | | LAB | | + + + + + + | ALT | 8 (L) | 10 - 65 U/L | EXTERNAL | | | | | | LAB | | + + + + + + | Estimated | 43 (L)Comment: GFR <60: | mL/min/{1.73_m2 | EXTERNAL | | | GFR | CHRONIC KIDNEY DISEASE, | } | LAB | | | | IF FOUND OVER A 3 MONTH | | | | | | PERIOD. GFR <15: KIDNEY | | | | | | FAILURE. FOR | | | | | | AMERICANS, MULTIPLY THE | | | | | | CALCULATED GFR BY 1.210. | | | | + + + + + + + + | Specimen | + + | Blood specimen | | (specimen) | + + + +---------+ + + | Performing | Address | City/State/Zipcode | Phone Number | | Organization | | | | + +---------+ + + | EXTERNAL LAB | | | | + +---------+ + + documented in this encounter Visit Diagnoses Not on filedocumented in this encounter"
--- OUTSIDE RECORDS SUMMARY | ~2019-07-20 | XMS | Encounter Summary ---
Demographics + + + | Address | [address] | | | [place] [address] | + + + | Home Phone | | + + + | Preferred Language | Unknown | + + + | Marital Status | | + + + | Orthodoxy Affiliation | Unknown | + + + | Race | Unknown | + + + | Ethnic Group | Unknown | + + + Author + + + | Author | [facility] | | | and Jdana | + + + | Organization | [facility] | | | and Jdana [...] Team Providers + +------+ + | Care Sponge Fisherman Name | Role | Phone | + [...] arthroplasty | [address] | [address] | | | | | | [place] | [place], | | | | | Procedures | [place], [place] | [place] [address] | | | | | ot eval | [address] | Phone: | | | | | | Phone: | [phone] | | | | | | [phone] | Fax: | | | | | | Fax: | [phone] | | | | | | [phone] | | +--------+--------+ + + + + Encounter Details +--------+---------+ + + + | Date | Type | Department | Care Team | Description | +--------+---------+ + + + | 08/14/ | Office | [facility] | Rey Blackmon | Hx of arthroplasty | | 2014 | Visit | [facility] | MD [address] | (Primary Dx); | | | | THERAPY [address] [place] | Stiffness of hand | | | | [address] [place], | [place] [address] | joint, left; | | | | [place] [address] | [phone] | Weakness of hand; | | | | [phone] | | HTN (hypertension); | | | | | Tammy Jules COTA | Low back pain; | | | | | | Osteoporosis; | | | | | | Rheumatoid arthritis | | | | | | (HCC) | +--------+---------+ + + + Social History [...] + documented as of this encounter Progress Tammy Landa COTA - 08/14/2013 3:14 PM PDT [facility] TH[facility] OT OP [address] [place] [id number] Occupational Therapy Daily Treatment Note Date: 08/14/2013 Patient Information Patient Name: Mignon Mohan Date [...] Mohan/: 1945/ Start Time: 1030 Stop time: 1115 Duration: 45 minutes Timed Treatment Codes: 45 minutes # of OT Visits: 6 Subjective: I do my exercises every day (demonstrated AROM exercise) and I am amazed at how much better it is getting Pain Assessment Pain Scale Used: NUMERIC Pain Rating Pre Assessment: 1 Objective Patient/Caregiver Education Learner: Patient Readiness: Eager Method: Explanation;Demonstration Response: Verbalizes Understanding;Demonstrated Understanding Comment: Pt educated in wear/care of scar gel pads Manual Therapy Manual Therapy Site: Left hand Manual Therapy: Manual scar mobilization to scar across MP's as well as thumb scar. PROM w ith prolonged stretch at end range to MP's, PIP's and DIP's. Pt then performed AROM all di gits. Pt given gel scar pads for MP and thumb scars to facilitate further scar reduction. Pt educated in wear/care of gel pads. Assessment Pt continues to demonstrate good progress overall with motivation to participate fully in H EP. Pt is currently at week 7 from DOS. Rehabilitation potential: Patient demonstrates good potential to achieve established goals to address the documented impairments by participating in skilled occupational therapy serv ices. Next Visit: continue as per proticol Electronically signed by: SEVERINO Cadet, 08/14/2013 15:14 Patient Name: Mignon Mohan/: 1945/ OT documented in this enc ounter Plan of Treatment +--------+---------+ + + + | Date | Type | Specialty | Care Team | Description | +--------+---------+ + + + | 07/30/ | Office | Nephrology | Ismael Gonzalez MD | | | 2020 | Visit | | [address] [facility] | | | | | | [address] [place] | | | | | | [address] | | | | | | | [...]
--- OUTSIDE RECORDS SUMMARY | ~2019-07-20 | XMS | Clinical Summary ---
Demographics + + + | Address | [address] | | | [place] [address] | + + + | Home Phone | | + + + | Preferred Language | Unknown | + + + | Marital Status | | + + + | Islam Affiliation | Unknown | + + + | Race | Unknown | + + + | Ethnic Group | Unknown | + + + Author + + + | Author | [facility] | | | and Jdana | + + + | Organization | [facility] | | | and Jdana | + [...] Team Providers + +------+ + | Care Special Needs Babysitter Name | Role | Phone | + [...] [address] | | | | 1/20 | | e | | capsule | [...] | | | + + + +---------+------+------+-------+ Active Problems [...] Patient understands that | | treatment is nursing home and if patient fails to continue regimen [...] | +--------+ + + + + | 07/02/ | Documentati | Nephrology | Benji, | Other (operative | | 2019 | on | | Rohini Lim | report 06/27/19) | | | | | Substation Wireman | | +--------+ + + + + | 06/22/ | Telephone | Rheumatology | Juaquin, | Other (Called to | 2019 | | | MIGNON Corey | offer virtual visit) | +--------+ + + + + | [...] 2020 | Visit | | [address] [facility] | | | | | | [address] [place], [place] | | | | | | [address] | | | | | | | [...] + +--------+ | MEDICARE | MEDICA | [id number] | | [phone] | | Medica | | | RE | | 010-Pr | 5 | | re | | | PART A | | esent | | | | | | AND B | | | | | | + +--------+ +--------+ + +--------+ | MEDICARE | MEDICA | [id number] | 10/17/19 | [phone] | | Medica | | | RE | | 12-Pre | 5 | | re | | | PART A | | sent | | | | | | AND B | | | | | | + +--------+ +--------+ + +--------+ | MODA | MODA | [id number] | 02/15/19 | [phone] | [address] | Indemn | | | HEALTH | | 13-Pre | 9 | [phone] | ity | | | MDCR | | sent | | [place], | | | | [place] | | | | [place] [address] | | + +--------+ +--------+ + +--------+ | MODA | MODA | [id number] | 02/15/19 | [phone] | [address] | Indemn | | | HEALTH | | 19-Pre | 9 | [address] | ity | | | MDCR | | sent | | [place], | | | | [place] | | | | [place] [address] | | + +--------+ +--------+ + +--------+ + +--------+ +--------+ + + | Guarantor Name | Accoun | Relation to | Date | Phone | Billing Address | | | t Type | Patient | of | | | | | | | | | | + +--------+ +--------+ + + | Mignon Mohan | Person | Self [birth year] | [address] | | | al/Fam | | 1945 | [phone] | [place] [address] | | | rakan | | | 4 (Home) | | + +--------+ +--------+ + + | Mignon Mohan | Person | Self | [birth year] | [address] | | | al/Fam | | 1945 | [phone] | [place] [address] | | | rakan | | | 4 (Home) | | + +--------+ +--------+ + + Advance Directives + + + + + | Type | Date Recorded | Patient | Explanation | | | | Residential Specialist | | + + + + + | Power of | | | | | Assistant Commissioner | | | | + + + + + | Advance | | | | | Directive | | | | + + + + +
--- OUTSIDE RECORDS SUMMARY | ~2019-07-20 | XMS | Encounter Summary ---
Demographics + + + | Address | [address] | | | [place] [address] | + + + | Home Phone | | + + + | Preferred Language | Unknown | + + + | Marital Status | | + + + | Protestant Affiliation | Unknown | + + + | Race | Unknown | + + + | Ethnic Group | Unknown | + + + Author + + + | Author | [facility] | | | and Jdana | + + + | Organization | [facility] | | | and Jdana [...] Team Providers + +------+ + | Care Chimney Repairer Name | Role | Phone | + [...] arthroplasty | [address] | [address] | | | | | | [place] | [place], | | | | | Procedures | [place], [place] | [place] [address] | | | | | ot eval | [address] | Phone: | | | | | | Phone: | [phone] | | | | | | [phone] | Fax: | | | | | | Fax: | [phone] | | | | | | [phone] | | +--------+--------+ + + + + Encounter Details +--------+---------+ + + + | Date | Type | Department | Care Team | Description | +--------+---------+ + + + | 07/26/ | Office | [facility] | Rey Blackmon | Stiffness of hand | | 2014 | Visit | [facility] | [address] | joint, left (Primary | | | | THERAPY [address] | Dx); Hx of | | | | [address] [place], | [place] [address] | arthroplasty; | | | | [place] [address] | [phone] | Weakness of hand; | | | | [phone] | | HTN (hypertension); | | | | | Mahendra, Mady A, OT | Low back pain; | | | | | [address] | Osteoporosis; | | | | | [place] | Rheumatoid arthritis | | | | | [address] | (HCC) | | | | | [...] this encounter Progress Mady Lamar OT - 07/26/2013 3:06 PM PDTFormatting of this note might be different fr om the original. [facility] THER[facility] OT OP [address] [place] [address] Occupational Therapy Daily Treatment Note Date: 07/26/2013 Patient Information Patient Name: Mignon Mohan Date [...] Mohan/: 1945/ Start Time: 1115 Stop time: 1200 Duration: 45 minutes Timed Treatment Codes: 45 minutes # of OT Visits: 3 Subjective: Since you put the finger dividers in the splnt, I have not had the soreness of the back of my forarm that I had before at night. Pain Assessment Pain Rating Pre Assessment: 3 Location: Every once in a while, 3 times a day, I have a sharp electric current feeling al jamie the (dorsal 5th mc) part of my hand, then it goes a way Objective Manual Therapy Manual Therapy Site: left hand Manual Therapy: Foam added over ulnar finger strap to help position little finger better in splint. AROM to hand. K tape to forarm to decrease edama. Review of HEP. Pt provided wit h additional tubulare dressing for under splint. Assessment Pt is tolerating exercise program and limitations better. Rehabilitation potential: Patient demonstrates good potential to achieve established goals to address the documented impairments by participating in skilled occupational therapy serv ices. Next Visit: Fabrizio BEST. Electronically signed by: Mady Mccray OT, 07/26/2013 15:07 Patient Name: Mignon Mohan/: 1945/ documented in this e ncounter Plan of Treatment +--------+---------+ + + + | Date | Type | Specialty | Care Team | Description | +--------+---------+ + + + | 07/30/ | Office | Nephrology | Ismael Gonzalez MD | | | 2020 | Visit | | [address] [facility] | | | | | | [address] [place] | | | | | | [address] | | | | | | | [...]
--- OUTSIDE RECORDS SUMMARY | ~2019-07-20 | XMS | Encounter Summary ---
Demographics + + + | Address | [address] | | | [place] [address] | + + + | Home Phone | | + + + | Preferred Language | Unknown | + + + | Marital Status | | + + + | Mosque Affiliation | Unknown | + + + | Race | Unknown | + + + | Ethnic Group | Unknown | + + + Author + + + | Author | [facility] | | | and Jdana | + + + | Organization | [facility] | | | and Jdana [...] Team Providers + +------+ + | Care Controlled Area Checker Name | Role | Phone | + [...] arthroplasty | [address] | [address] [place] | | | | | | [place] | [place], | | | | | Procedures | [place], [place] | [place] [address] | | | | | ot eval | [address] | Phone: | | | | | | Phone: | [phone] | | | | | | [phone] | Fax: | | | | | | Fax: | [phone] | | | | | | [phone] | | +--------+--------+ + + + + [...] Stiffness of hand | | | | [place], | [place] [address] | joint, left; | | | | [place] [address] | [phone] | Weakness of hand; | | | | [phone] | | HTN (hypertension); | | | | | Mahendra, Mady A, OT | Low back pain; | | | | | [address] | Osteoporosis; | | | | | [place], [place] | Rheumatoid arthritis | | | | | [address] | (HCC) | | | | | [...] might be different fr om the original. [facility] THERAP[facility] OT OP [address] [address] Occupational Therapy Daily Treatment Note Date: 08/10/2013 [...] 2020 | Visit | | [address] [facility] | | | | | | [address] [place], [place] | | | | | | [address] | | | | | | | [...]
--- OUTSIDE RECORDS SUMMARY | ~2019-07-20 | XMS | Encounter Summary ---
Demographics + + + | Address | [address] | | | [place] [address] | + + + | Home Phone | | + + + | Preferred Language | Unknown | + + + | Marital Status | | + + + | Catholic Affiliation | Unknown | + + + | Race | Unknown | + + + | Ethnic Group | Unknown | + + + Author + + + | Author | [facility] | | | and Jdana | + + + | Organization | [facility] | | | and [...] Team Providers + +------+ + | Care Meat Processor Name | Role | Phone | + +------+ + | Julio Cesar Hawley MD | PCP | | + +------+ + Reason for Visit + + + | Reason | Comments | + + + | Medication Refill | | + + + Encounter Details +--------+--------+ + + + | Date | Type | Department | Care Team | Description | +--------+--------+ + + + | 06/06/ | Refill | [facility] | Clarain, | Medication Refill | | 2019 | | RHEUMATOLOGY [address] | Florina Case, [facility] [address] | | | | | [address] | [address] | | | | | [place], [place] | [place] [address] | | | | | [address] | [phone] | | | | | [phone] | | | +--------+--------+ + + + Social History + +-------+ [...] 2020 | Visit | | [address] [facility] | | | | | | [address] [place] | | | | | | [address] | | | | | | | | +--------+---------+ + + + documented as of this encounter Visit Diagnoses + + | Diagnosis | + + | Rheumatoid arthritis involving multiple sites with positive rheumatoid factor (HCC) - | | Primary | + + documented in this encounter"
--- OUTSIDE RECORDS SUMMARY | ~2019-07-20 | XMS | Encounter Summary ---
Demographics + + + | Address | [address] | | | [place] [address] | + + + | Home Phone | | + + + | Preferred Language | Unknown | + + + | Marital Status | | + + + | Gnosticism Affiliation | Unknown | + + + | Race | Unknown | + + + | Ethnic Group | Unknown | + + + Author + + + | Author | [facility] | | | and Jdana | + + + | Organization | [facility] | | | and Jdana [...] Team Providers + +------+ + | Care Contract Design Agent Name | Role | Phone | + [...] arthroplasty | [address] | [address] | | | | | | [place] | [place], | | | | | Procedures | [place], [place] | [place] [address] | | | | | ot eval | [address] | Phone: | | | | | | Phone: | [phone] | | | | | | [phone] | Fax: | | | | | | Fax: | [phone] | | | | | | [phone] | | +--------+--------+ + + + + [...] Stiffness of hand | | | | [address] [place], | [place] [address] | joint, left; | | | | [place] [address] | [phone] | Weakness of hand; | | | | [phone] | | HTN (hypertension); | | | | | MahendraMady A, OT | Low back pain; | | | | | [address] | Osteoporosis; | | | | | [place] | Rheumatoid arthritis | | | | | [address] | (HCC) | | | | | [...] might be different fr om the original. [facility] CTR THERAPY OT OP [address] [address] Occupational Therapy Progress Assessment Date: 08/16/2013 Patient [...] independent iwth upgraed HEP Goal 2: Increase toy consultant to 20# Goal 2 Status: LTG not tested Plan Date of Onset: 06/26/13 Start of Care Date: 07/18/13 Requested # of Visits: 12 2x/wk for 6 weeks (Decrease to 1x/week due to travel distance) Certification From: 08/16/13 Certification To: 09/15/13 Treatment Plan/Interventions 21580 OT Evaluation;56660 Therapeutic Exercises;62491 Therapeutic Activities;Splinting;9753 5 Self Care/Home Management;70768 Manual Therapy Medicare Functional Limitation Reporting G [...] impaired, limited or restricted Outcome Measures Tools: [place] AM-PAC and professional judgement Justification of Severity [...] 2020 | Visit | | [address] [facility] | | | | | | [address] [place], [place] | | | | | | [address] | | | | | | | [...]
--- OUTSIDE RECORDS SUMMARY | ~2019-07-20 | XMS | Encounter Summary ---
Demographics + + + | Address | [address] | | | [place] [address] | + + + | Home Phone | | + + + | Preferred Language | Unknown | + + + | Marital Status | | + + + | Islam Affiliation | Unknown | + + + | Race | Unknown | + + + | Ethnic Group | Unknown | + + + Author + + + | Author | [facility] | | | and Jdana | + + + | Organization | [facility] | | | and [...] Team Providers + +------+ + | Care Archival Studies Professor Name | Role | Phone | + +------+ + PCP | Unavailable | + +------+ + Encounter Details +--------+ + + + + | Date | Type | Department | Care Team | Description | +--------+ + + + + | 12/23/ | Hospital | [facility] | | | | 2005 | Encounter | MED CTR XRAY [address] | | | | | | [address] | | | | | | [place] [address] | | | | | | [phone] | | | +--------+ + + + [...] 2020 | Visit | | [address] [facility] | | | | | | [address] [place], [place] | | | | | | [address] | | | | | | | | +--------+---------+ + + + documented as of this encounter Visit Diagnoses Not on filedocumented in this encounter"
--- OUTSIDE RECORDS SUMMARY | ~2019-07-20 | XMS | Encounter Summary ---
Demographics + + + | Address | [address] | | | [place] [address] | + + + | Home Phone | | + + + | Preferred Language | Unknown | + + + | Marital Status | | + + + | Yarsanism Affiliation | Unknown | + + + | Race | Unknown | + + + | Ethnic Group | Unknown | + + + Author + + + | Author | [facility] | | | and Jdana | + + + | Organization | [facility] | | | and Jdana [...] Team Providers + +------+ + | Care Dye Reel Operator Name | Role | Phone | [...] arthroplasty | [address] | [address] | | | | | | [place] | [place], | | | | | Procedures | [place], [place] | [place] [address] | | | | | ot eval | [address] | Phone: | | | | | | Phone: | [phone] | | | | | | [phone] | Fax: | | | | | | Fax: | [phone] | | | | | | [phone] | | +--------+--------+ + + + + [...] Dx); Hx of | | | | [address] [place], | [place] [address] | arthroplasty; | | | | [place] [address] | [phone] | Weakness of hand; | | | | [phone] | | HTN (hypertension); | | | | | Mahendra, Mady A, OT | Low back pain; | | | | | [address] | Osteoporosis; | | | | | [place], [place] | Rheumatoid arthritis | | | | | [address] | (HCC) | | | | | [...] might be different fr om the original. [facility] CTR THERAPY OT OP [address] [address] Occupational Therapy Daily Treatment Note Date: 07/24/2013 [...] 2020 | Visit | | [address] [facility] | | | | | | [address] [place], [place] | | | | | | [address] | | | | | | | [...]
--- OUTSIDE RECORDS SUMMARY | ~2019-07-20 | XMS | Encounter Summary ---
Demographics + + + | Address | [address] | | | [place] [address] | + + + | Home Phone | | + + + | Preferred Language | Unknown | + + + | Marital Status | | + + + | Buddhist Affiliation | Unknown | + + + | Race | Unknown | + + + | Ethnic Group | Unknown | + + + Author + + + | Author | [facility] | | | and Jdana | + + + | Organization | [facility] | | | and Jdana [...] Team Providers + +------+ + | Care Public Affairs Specialist Name | Role | Phone | + +------+ + | Julio Cesar Hawley MD | PCP | | + +------+ + Reason for Visit +---------+ + | Reason | Comments | +---------+ + | Results | | +---------+ + Encounter Details +--------+ + + + + | Date | Type | Department | Care Team | Description | +--------+ + + + + | 01/28/ | Telephone | [facility] | Juaquin, | Results | | 2019 | | RHEUMATOLOGY [address] | Florina Case, MANAGER INDUSTRIAL [address] | | | | | [address] | [address] | | | | | [place], [place] | [place] [address] | | | | | [address] | [phone] | | | | | [phone] | | | +--------+ + + + [...] 2020 | Visit | | [address] [facility] | | | | | | [address] [place] | | | | | | [address] | | | | | | | | +--------+---------+ + + + documented as of this encounter Visit Diagnoses Not on filedocumented in this encounter"
--- OUTSIDE RECORDS SUMMARY | ~2019-07-20 | XMS | Encounter Summary ---
Demographics + + + | Address | [address] | | | [place] [address] | + + + | Home Phone | | + + + | Preferred Language | Unknown | + + + | Marital Status | | + + + | Restorationism Affiliation | Unknown | + + + | Race | Unknown | + + + | Ethnic Group | Unknown | + + + Author + + + | Author | [facility] | | | and Jdana | + + + | Organization | [facility] | | | and Jdana [...] Team Providers + +------+ + | Care Mainframe Systems Administrator Name | Role | Phone | + [...] | [address] | [place] 1977 | | | | | [place] | [place] | | | | | [address] | [place] [address] | | | | | [phone] | [phone] | | | | | | | [...] 2020 | Visit | | [address] [facility] | | | | | | [address] [place] | | | | | | [address] | | | | | | | | +--------+---------+ + + + documented as of this encounter Procedures + +--------+ + + + | Procedure Name | Priori | Date/Time | Associated Diagnosis | Comments | | | ty | | | | + +--------+ + + + | EXTERNAL LAB: CBC | Routin | 02/23/2017 | | Results [...]
--- OUTSIDE RECORDS SUMMARY | ~2019-07-20 | XMS | Encounter Summary ---
Demographics + + + | Address | [address] | | | [place] [address] | + + + | Home Phone | | + + + | Preferred Language | Unknown | + + + | Marital Status | | + + + | Adventism Affiliation | Unknown | + + + | Race | Unknown | + + + | Ethnic Group | Unknown | + + + Author + + + | Author | [facility] | | | and Jdana | + + + | Organization | [facility] | | | and [...] Team Providers + +------+ + | Care Online Health And Fitness Coach Name | Role | Phone | + [...] + + | 01/28/ | Telephone | [facility] | Juaquin, | Results | | 2019 | | RHEUMATOLOGY [address] | Florina Case, NET TECHNICAL ARCHITECT [address] | | | | | [address] | [address] | | | | | [place], [place] | [place] [address] | | | | | [address] | [phone] | | | | | [phone] | | | +--------+ + + + [...] 2020 | Visit | | [address] [facility] | | | | | | [address] [place] | | | | | | [address] | | | | | | | | +--------+---------+ + + + documented as of this encounter Visit Diagnoses Not on filedocumented in this encounter"
--- OUTSIDE RECORDS SUMMARY | ~2019-07-20 | XMS | Encounter Summary ---
Demographics + + + | Address | [address] | | | [place] [address] | + + + | Home Phone | | + + + | Preferred Language | Unknown | + + + | Marital Status | | + + + | Quaker Affiliation | Unknown | + + + | Race | Unknown | + + + | Ethnic Group | Unknown | + + + Author + + + | Author | [facility] | | | and Jdana | + + + | Organization | [facility] | | | and Jdana [...] Team Providers + +------+ + | Care Optical Glass Etcher Name | Role | Phone | + +------+ + | Yosef Morrow MD | PCP | | + +------+ + Encounter Details +--------+ + + + + | Date | Type | Department | Care Team | Description | +--------+ + + + + | 07/19/ | Documentati | [facility] | Concetta Camara, | | | 2013 | on | MED CNT ONCOLOGY | OT [address] | | | | | THERAPY [address] | [place] | | | | | [place], | [address] | | | | | [place] [address] | | | | | | [phone] | | | +--------+ + + + [...] Camara, [place] - 07/19/2013 11:47 [facility] [address] [facility] [address] Cancellation/No Show Date: 07/19/2013 Patient Information Patient [...] | | | | | | [address] [place], [place] | | | | | | [address] | | | | | | | [...]
--- OUTSIDE RECORDS SUMMARY | ~2019-07-20 | XMS | Encounter Summary ---
Demographics + + + | Address | [address] | | | [place] [address] | + + + | Home Phone | | + + + | Preferred Language | Unknown | + + + | Marital Status | | + + + | Church Affiliation | Unknown | + + + | Race | Unknown | + + + | Ethnic Group | Unknown | + + + Author + + + | Author | [facility] | | | and Jdana | + + + | Organization | [facility] | | | and [...] Team Providers + +------+ + | Care Rabbit Breeder Name | Role | Phone | + +------+ + | Julio Cesar Hawley MD | PCP | | + +------+ + Encounter Details +--------+ + + + + | Date | Type | Department | Care Team | Description | +--------+ + + + + | 05/15/ | Orders Only | [facility] | Ismael Gonzalez MD | Hypertension, | | 2020 | | NEPHROLOGY [place] | [address] [facility] | unspecified type | | | | [address] | [address] [place], [place] | (Primary Dx); | | | | [address] | [address] | Scoliosis, | | | | [place], [place] | | unspecified | | | | [address] | | scoliosis type, | | | | [phone] | | unspecified spinal | | | [...] 2020 | Visit | | [address] [facility] | | | | | | [address] [place] | | | | | | [address] | | | | | | | [...]
--- OUTSIDE RECORDS SUMMARY | ~2019-07-20 | XMS | Encounter Summary ---
Demographics + + + | Address | [address] | | | [place] [address] | + + + | Home Phone | | + + + | Preferred Language | Unknown | + + + | Marital Status | | + + + | Faith Affiliation | Unknown | + + + | Race | Unknown | + + + | Ethnic Group | Unknown | + + + Author + + + | Author | [facility] | | | and Jdana | + + + | Organization | [facility] | | [...] Team Providers + +------+ + | Care Nozzle And Sleeve Worker Name | Role | Phone | + +------+ + | Yosef Morrow MD | PCP | | + +------+ + Reason for Visit + + + | Reason | Comments | + + + | Medication Refill | | + + + | Medication Refill | | + + + Encounter Details +--------+--------+ + + + | Date | Type | Department | Care Team | Description | +--------+--------+ + + + | 12/13/ | Refill | [facility] | Juaquin, | Medication Refill; | | 2018 | | RHEUMATOLOGY [address] | Florina Case SALES AND DISTRIBUTION CLERK [address] | Medication Refill | | | | [address] | [address] | | | | | [place], [place] | [place] [address] | | | | | [address] | [phone] | | | | | [phone] | | | +--------+--------+ + + + [...] 2020 | Visit | | [address] [facility] | | | | | | [address] [place] | | | | | | [address] | | | | | | | | +--------+---------+ + + + documented as of this encounter Visit Diagnoses Not on filedocumented in this encounter"
--- OUTSIDE RECORDS SUMMARY | ~2019-07-20 | XMS | Encounter Summary ---
Demographics + + + | Address | [address] | | | [place] [address] | + + + | Home Phone | | + + + | Preferred Language | Unknown | + + + | Marital Status | | + + + | Yazidi Affiliation | Unknown | + + + | Race | Unknown | + + + | Ethnic Group | Unknown | + + + Author + + + | Author | [facility] | | | and Jdana | + + + | Organization | [facility] [...] Team Providers + +------+ + | Care Health Promoter Name | Role | Phone | + +------+ + | Yosef Morrow MD | PCP | | + +------+ + Encounter Details +--------+ + + + + | Date | Type | Department | Care Team | Description | +--------+ + + + + | 08/05/ | Orders Only | [facility] | Juaquin, | | | 2015 | | RHEUMATOLOGY [address] | [address] | | | | | [address] | [address] | | | | | [place] | [place] [address] | | | | | [address] | [phone] | | | | | [phone] | | | +--------+ + + + [...] | 07/30/ | Office | Nephrology | Imsael Gonzalez MD | | | 2020 | Visit | | [address] [facility] | | | | | | [address] [place], [place] | | | | | | [address] | | | | | | | [...] | | | | | performed at [place] | | | | | | [facility] | | | | | | Diagnostics, [address] | | | | | | [address] | | | | | | [place] [address] | | | | + + + [...] | | | | | performed at [place] | | | | | | [facility] | | | | | | Diagnostics, [address] | | | | | | [address] | | | | | | [place] [address] | | | | + + + [...] [place] | | | | | | [facility] | | | | | | Diagnostics, [address] | | | | | | [address] | | | | | | [place] [address] | | | | + + + [...] | | | | | | at [facility], [address] | | | | | | [place] | | | | | | [address] | | | | + + + [...]
--- OUTSIDE RECORDS SUMMARY | ~2019-07-20 | XMS | Encounter Summary ---
Demographics + + + | Address | [address] | | | [place] [address] | + + + | Home Phone | | + + + | Preferred Language | Unknown | + + + | Marital Status | | + + + | Anglican Affiliation | Unknown | + + + | Race | Unknown | + + + | Ethnic Group | Unknown | + + + Author + + + | Author | [facility] | | | and Jdana | + + + | Organization | [facility] | | | and Jdana | [...] Team Providers + +------+ + | Care Center Specialists Name | Role | Phone | + [...] arthroplasty | [address] | [address] | | | | | | [place] | [place], | | | | | Procedures | [place], [place] | [place] [address] | | | | | ot eval | [address] | Phone: | | | | | | Phone: | [phone] | | | | | | [phone] | Fax: | | | | | | Fax: | [phone] | | | | | | [phone] | | +--------+--------+ + + + + [...] Stiffness of hand | | | | [place], | [place] [address] | joint, left; | | | | [place] [address] | [phone] | Weakness of hand; | | | | [phone] | | HTN (hypertension); | | | | | Mahendra, Mady A, OT | Low back pain; | | | | | [address] | Osteoporosis; | | | | | [place] | Rheumatoid arthritis | | | | | [address] | (HCC) | | | | | [...] OT OP [address] [address] Occupational Therapy Initial Assessment Date: 07/18/2013 Patient [...] Status: No current HEP Goal 2: Increase cloth hand to 20# Goal 2 Status: Not tested this date Plan Date of Onset: 06/26/13 Start of Care Date: 07/18/13 Requested # of Visits: 8 2x/wk for 6 weeks (Decrease to 1x/week due to travel distance) Certification From: 07/18/13 Certification To: 08/17/13 Treatment Plan/Interventions 82392 OT Evaluation;85046 Therapeutic Exercises;39712 Therapeutic Activities;Splinting;9753 5 Self Care/Home Management;53834 Manual Therapy Patient and/or family has indicated [...] 2020 | Visit | | [address] [facility] | | | | | | [address] [place], [place] | | | | | | [address] | | | | | | | [...]
--- OUTSIDE RECORDS SUMMARY | ~2019-07-20 | XMS | Encounter Summary ---
Demographics + + + | Address | [address] | | | [place] [address] | + + + | Home Phone | | + + + | Preferred Language | Unknown | + + + | Marital Status | | + + + | Sabianist Affiliation | Unknown | + + + | Race | Unknown | + + + | Ethnic Group | Unknown | + + + Author + + + | Author | [facility] | | | and Jdana | + + + | Organization | [facility] | | | and [...] Team Providers + +------+ + | Care Base Manager Name | Role | Phone | [...] + + | 03/07/ | Office | [facility] | Juaquin, | Rheumatoid arthritis | | 2020 | Visit | RHEUMATOLOGY [address] | [address] | involving multiple | | | | [address] | [address] | sites with positive | | | | [place], [place] | [place] [address] | rheumatoid factor | | | | [address] | [phone] | (HCC) (Primary Dx); | | | | [phone] | | High risk medication | | [...] encounter Patient Instructions Patient Instructions Luiza Landry, Lead Tank Mechanic - 03/07/2019 11:10 AM PSTWe hope that you have experienced exceptional care today and that you found our service to be courte ous and helpful. If you have any questions you can send us a message/request using [employer] Aligned or call our o ffice at [phone]. To reach Luiza [place] type extension [phone]. If you are unable to reach a [...] can also look at your results on Finanzchef24. If you are experiencing an emergency, please [...] PCP), Methotrexate 10 mg once per w mekoryuk (dose dec.due to mild anemia and changes [...] Florina SALINAS patient exam. Labs reviewed in [facility] --09/22/201805/30- Neg.IEP 2018hep b/c neg. Eye exam- [...] treatment plan. Patient understands that treatment is long term care administrator and if patient fails to continue regimen [...] symptoms. This document has been prepared with [employer] voice recognition system. The possibility of "s ound alike" supervisor doping errors, and additions, or deletions may occur. [...] [place] | | | | | | [address] | | | | | | | [...]
--- OUTSIDE RECORDS SUMMARY | ~2019-07-20 | XMS | Encounter Summary ---
Demographics + + + | Address | [address] | | | [place] [address] | + + + | Home Phone | | + + + | Preferred Language | Unknown | + + + | Marital Status | | + + + | Episcopalian Affiliation | Unknown | + + + | Race | Unknown | + + + | Ethnic Group | Unknown | + + + Author + + + | Author | [facility] | | | and Jdana | + + + | Organization | [facility] | | | and [...] Team Providers + +------+ + | Care Business Support Administrator Name | Role | Phone | + +------+ + PCP | Unavailable | + +------+ + Encounter Details +--------+ + + + + | Date | Type | Department | Care Team | Description | +--------+ + + + + | 11/18/ | [facility] | [facility] | Oscar Wilson MD | | | 2010 | Encounter | MED CTR XRAY [address] | [address] | | | | | [address] | [place] [address] | | | | | [place] [address] | [phone] | | | | | [phone] | | | +--------+ + + + [...] 2019 | Visit | | [address] [facility] | | | | | | [address] [place] | | | | | | [address] | | | | | | | [...] Performed At | + + + | [facility] Diagnostic Imaging Department | [facility] | | [address] [facility] | [facility] | | THREE VIEWS LUMBAR [...] Transcribed Date/Time: 11/18/2010 16:45 | | | Site Engineer: <Electronically Signed by Leobardo Mcneill MD> | | | 11/18/10 2216 | | + + + + + | Procedure Note | + + | Marin, Rad Conversion - 03/24/2013 3:57 PM [facility] | | Diagnostic Imaging Department | | [address] [facility] | | | | | | [...] | Transcribed Date/Time: 11/18/2010 16:45 | | Site Engineer: | | <Electronically Signed by Leobardo Mcneill MD> 11/18/10 2216 | + + + +---------+ + + | Performing | Address | City/State/Zipcode | Phone Number | | Organization | | | | + +---------+ + + | [place] | | | | | [place] | | | | + +---------+ + + documented in this encounter Visit Diagnoses Not on filedocumented in this encounter"
--- OUTSIDE RECORDS SUMMARY | ~2019-07-20 | XMS | Encounter Summary ---
Demographics + + + | Address | [address] | | | [place] [address] | + + + | Home Phone [...] Author | [facility] | | | and Jdana | + + + | Organization | [facility] | | | and [...] Team Providers + +------+ + | Care Ocean Freight Forwarder Name | Role | Phone | + +------+ + PCP | Unavailable | + +------+ + Encounter Details +--------+ + + + + | Date | Type | Department | Care Team | Description | +--------+ + + + + | 12/23/ | Hospital [facility] | | | | 2005 | Encounter | MED CTR XRAY [address] | | | | | | [address] | | | | | | [place] [address] | | | | | | [phone] | | | +--------+ + + + [...] 2020 | Visit | | [address] [facility] | | | | | | [address] [place], [place] | | | | | | [address] | | | | | | | | +--------+---------+ + + + documented as of this encounter Visit Diagnoses Not on filedocumented in this encounter"
--- OUTSIDE RECORDS SUMMARY | ~2019-07-20 | XMS | Encounter Summary ---
Demographics + + + | Address | [address] | | | [place] [address] | + + + | Home Phone | | + + + | Preferred Language | Unknown | + + + | Marital Status | | + + + | Mu-Ism Affiliation | Unknown | + + + | Race | Unknown | + + + | Ethnic Group | Unknown | + + + Author + + + | Author | [facility] | | | and Jdana | + + + | Organization | [facility] | [...] Team Providers + +------+ + | Care Casket Assembler Metal Name | Role | Phone | + +------+ + | Yosef Morrow MD | PCP | | + +------+ + Encounter Details +--------+ + + + + | Date | Type | Department | Care Team | Description | +--------+ + + + + | 05/05/ | Orders Only | [facility] | Juaquin, | | | 2015 | | RHEUMATOLOGY [address] | [address] | | | | | [address] | [address] | | | | | [place] | [place] [address] | | | | | [address] | [phone] | | | | | [phone] | | | +--------+ + + + [...] 2020 | Visit | | [address] [facility] | | | | | | 160 [place], [place] | | | | | | [address] | | | | | | | [...]
--- OUTSIDE RECORDS SUMMARY | ~2019-07-20 | XMS | Encounter Summary ---
Demographics + + + | Address | [address] | | | [place] [address] | + + + | Home Phone [...] + | Author | [facility] | | | and Jdana | + + + | Organization | [facility] | | | and Jdana [...] Providers + +------+ + | Care Back Grinder Name | Role | Phone | [...] arthroplasty | [address] | [address] | | | | | | [place] | [place], | | | | | Procedures | [place], [place] | [place] [address] | | | | | ot eval | [address] | Phone: | | | | | | Phone: | [phone] | | | | | | [phone] | Fax: | | | | | | Fax: | [phone] | | | | | | [phone] | | +--------+--------+ + + + + [...] Dx); Hx of | | | | [address] [place], | [place] [address] | arthroplasty; | | | | [place] [address] | [phone] | Weakness of hand; | | | | [phone] | | HTN (hypertension); | | | | | Mahendra, Mady A, OT | Low back pain; | | | | | [address] | Osteoporosis; | | | | | [place] | Rheumatoid arthritis | | | | | [address] | (HCC) | | | | | [...] OT OP [address] [address] Occupational Therapy Daily Treatment Note Date: 07/24/2013 [...] 2020 | Visit | | [address] [facility] | | | | | | 160 [place], [place] | | | | | | [address] | | | | | | | [...]
--- OUTSIDE RECORDS SUMMARY | ~2019-07-20 | XMS | Encounter Summary ---
Demographics + + + | Address | [address] | | | [place] [address] | + + + | Home Phone [...] | Author | [facility] | | | and Jdana | + + + | Organization | [facility] | | | and Jdana [...] Team Providers + +------+ + | Care Steaming Cabinet Tender Name | Role | Phone | + +------+ + | Yosef Morrow MD | PCP | | + +------+ + Encounter Details +--------+ + + + + | Date | Type | Department | Care Team | Description | +--------+ + + + + | 05/07/ | Orders Only | [facility] | Juaquin, | | | 2016 | | RHEUMATOLOGY [address] | [address] | | | | | [address] | [address] [place] | | | | | [place] | [place] [address] | | | | | [address] | [phone] | | | | | [phone] | | | +--------+ + + + [...] 2020 | Visit | | [address] [facility] | | | | | | 160 [place], [place] | | | | | | [address] | | | | | | | [...]
--- OUTSIDE RECORDS SUMMARY | ~2019-07-20 | XMS | Encounter Summary ---
Demographics + + + | Address | [address] | | | [place] [address] | + + + | Home Phone [...] + | Author | [facility] | | | and Jdana | + + + | Organization | [facility] | [...] Team Providers + +------+ + | Care Belt Cutter Name | Role | Phone | + +------+ + | Yosef Morrow MD | PCP | | + +------+ + Encounter Details +--------+ + + + + | Date | Type | Department | Care Team | Description | +--------+ + + + + | 05/07/ | Orders Only | [facility] | Juaquin, | | | 2016 | | RHEUMATOLOGY [address] | [address] | | | | | [address] | [address] [place] | | | | | [place] | [place] [address] | | | | | [address] | [phone] | | | | | [phone] | | | +--------+ + + + [...] 2020 | Visit | | [address] [facility] | | | | | | 160 [place], [place] | | | | | | [address] | | | | | | | [...]
--- OUTSIDE RECORDS SUMMARY | ~2019-07-20 | XMS | Encounter Summary ---
Demographics + + + | Address | [address] | | | [place] [address] | + + + | Home Phone | | + + + | Preferred Language | Unknown | + + + | Marital Status | | + + + | Taoist Affiliation | Unknown | + + + | Race | Unknown | + + + | Ethnic Group | Unknown | + + + Author + + + | Author | [facility] | | | and Jdana | + + + | Organization | [facility] | | [...] Team Providers + +------+ + | Care Perforator Operator Oil Well Name | Role | Phone | + +------+ + | Yosef Morrow MD | PCP | | + +------+ + Encounter Details +--------+ + + + + | Date | Type | Department | Care Team | Description | +--------+ + + + + | 07/19/ | Documentati | [facility] | Concetta Camara, | | | 2013 | on | MED CNT ONCOLOGY | OT [address] | | | | | THERAPY [address] | [place] | | | | | [place], | [address] | | | | | [place] [address] | | | | | | [phone] | | | +--------+ + + + [...] Camara, STERLING - 07/19/2013 [facility] OP [address] [facility] [address] Cancellation/No Show Date: 07/19/2013 Patient Information Patient [...] 2020 | Visit | | [address] [facility] | | | | | | 160 [place], [place] | | | | | | [address] | | | | | | | [...]
--- OUTSIDE RECORDS SUMMARY | ~2019-07-20 | XMS | Encounter Summary ---
Demographics + + + | Address | [address] | | | [place] [address] | + + + | Home Phone | | + + + | Preferred Language | Unknown | + + + | Marital Status | | + + + | Oriental Orthodox Affiliation | Unknown | + + + | Race | Unknown | + + + | Ethnic Group | Unknown | + + + Author + + + | Author | [facility] | | | and Jdana | + + + | Organization | [facility] | | | and [...] Team Providers + +------+ + | Care Electrical Parts Reconditioner Name | Role | Phone | [...] [address] | | | | | [place] | [address] | | | | | [address] | [place] | | | | | [phone] | [address] | | | | | | [phone] | | | | | | | [...] 2020 | Visit | | [address] [facility] | | | | | | 160 [place] | | | | | | [address] | | | | | | | [...] - 1.030 | EXTERNAL | | | [place], | | | LAB | | | [...]
--- OUTSIDE RECORDS SUMMARY | ~2019-07-20 | XMS | Encounter Summary ---
Demographics + + + | Address | [address] | | | [place] [address] | + + + | Home Phone [...] Author | [facility] | | | and Jdana | + + + | Organization | [facility] | | | and [...] Team Providers + +------+ + | Care Collision Technician Name | Role | Phone | [...] arthroplasty | [address] | [address] | | | | | | [place] | [place], | | | | | Procedures | [place], [place] | [place] [address] | | | | | ot eval | [address] | Phone: | | | | | | Phone: | [phone] | | | | | | [phone] | Fax: | | | | | | Fax: | [phone] | | | | | | [phone] | | +--------+--------+ + + + + [...] Stiffness of hand | | | | [address] [place], | [place] [address] | joint, left; | | | | [place] [address] | [phone] | Weakness of hand; | | | | [phone] | | HTN (hypertension); | | | | | Mahendra, Mady A, OT | Low back pain; | | | | | [address] | Osteoporosis; | | | | | [place] | Rheumatoid arthritis | | | | | [address] | (HCC) | | | | | [...] om the original. 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
--- OUTSIDE RECORDS SUMMARY | ~2019-07-20 | XMS | Encounter Summary ---
Demographics + + + | Address | [address] | | | [place] [address] | + + + | Home Phone | | + + + | Preferred Language | Unknown | + + + | Marital Status | | + + + | Moravian Affiliation | Unknown | + + + | Race | Unknown | + + + | Ethnic Group | Unknown | + + + Author + + + | Author | [facility] | | | and Jdana | + + + | Organization | [facility] | | | and Jdana | [...] Providers + +------+ + | Care Manager Culinary Name | Role | Phone | + +------+ + | Yosef Morrow MD | PCP | | + +------+ + Encounter Details +--------+ + + + + | Date | Type | Department | Care Team | Description | +--------+ + + + + | 05/05/ | Orders Only | [facility] | Juaquin, | | | 2015 | | RHEUMATOLOGY [address] | [address] | | | | | [address] | [address] | | | | | [place] | [place] [address] | | | | | [address] | [phone] | | | | | [phone] | | | +--------+ + + + [...] 2020 | Visit | | [address] [facility] | | | | | | 160 [place], [place] | | | | | | [address] | | | | | | | [...]
--- OUTSIDE RECORDS SUMMARY | ~2019-07-20 | XMS | Encounter Summary ---
Demographics + + + | Address | [address] | | | [place] [address] | + + + | Home Phone | | + + + | Preferred Language | Unknown | + + + | Marital Status | | + + + | Spiritism Affiliation | Unknown | + + + | Race | Unknown | + + + | Ethnic Group | Unknown | + + + Author + + + | Author | [facility] | | | and Jdana | + + + | Organization | [facility] | | | and [...] Team Providers + +------+ + | Care Siebel Crm Developer Name | Role | Phone | + [...] + + | 06/22/ | Telephone | [facility] | Juaquin, | Other (Called to | | 2019 | | RHEUMATOLOGY [address] | [address] | offer virtual visit) | | | | [address] | [address] | | | | | [place] | [place] [address] | | | | | [address] | [phone] | | | | | [phone] | | | +--------+ + + + [...] [place] | | | | | | [address] | | | | | | | | +--------+---------+ + + + documented as of this encounter Visit Diagnoses Not on filedocumented in this encounter"
--- OUTSIDE RECORDS SUMMARY | ~2019-07-20 | XMS | Encounter Summary ---
Demographics + + + | Address | [address] | | | [place] [address] | + + + | Home Phone [...] Author | [facility] | | | and Jdana | + + + | Organization | [facility] | | [...] Team Providers + +------+ + | Care Vehicle Technician Name | Role | Phone | [...] [address] | | | | | [place] | [address] | | | | | [address] | [place] | | | | | [phone] | [address] | | | | | | [phone] | | | | | | | [...] 2020 | Visit | | [address] [facility] | | | | | | 160 [place] | | | | | | [address] | | | | | | | [...] - 1.030 | EXTERNAL | | | [place], | | | LAB | | | [...]
--- OUTSIDE RECORDS SUMMARY | ~2019-07-20 | XMS | Encounter Summary ---
Demographics + + + | Address | [address] | | | [place] [address] | + + + | Home Phone | | + + + | Preferred Language | Unknown | + + + | Marital Status | | + + + | Mandaen Affiliation | Unknown | + + + | Race | Unknown | + + + | Ethnic Group | Unknown | + + + Author + + + | Author | [facility] | | | and Jdana | + + + | Organization | [facility] | | | and [...] Team Providers + +------+ + | Care Customer Support Associate Name | Role | Phone | [...] arthroplasty | [address] | [address] [place] | | | | | | [place] | [place], | | | | | Procedures | [place], [place] | [place] [address] | | | | | ot eval | [address] | Phone: | | | | | | Phone: | [phone] | | | | | | [phone] | Fax: | | | | | | Fax: | [phone] | | | | | | [phone] | | +--------+--------+ + + + + [...] Dx); Hx of | | | | [place], | [place] [address] | arthroplasty; | | | | [place] [address] | [phone] | Weakness of hand; | | | | [phone] | | HTN (hypertension); | | | | | Mahendra, Mady A, OT | Low back pain; | | | | | [address] | Osteoporosis; | | | | | [place] | Rheumatoid arthritis | | | | | [address] | (HCC) | | | | | [...] might be different fr om the original. [facility] CTR THERAPY OT OP [address] [address] Occupational Therapy Daily Treatment Note Date: 08/07/2013 [...] | | | | | | [address] [place] | | | | | | [address] | | | | | | | [...]
--- OUTSIDE RECORDS SUMMARY | ~2019-07-20 | XMS | Encounter Summary ---
Demographics + + + | Address | [address] | | | [place] [address] | + + + | Home Phone [...] Author | [facility] | | | and Jdana | + + + | Organization | [facility] | | | and [...] Team Providers + +------+ + | Care Wind Tunnel Engineer Name | Role | Phone | [...] + + | 06/22/ | Telephone | [facility] | Juaquin, | Other (Called to | | 2019 | | RHEUMATOLOGY [address] | [address] | offer virtual visit) | | | | [address] | [address] | | | | | [place] | [place] [address] | | | | | [address] | [phone] | | | | | [phone] | | | +--------+ + + + [...] [place] | | | | | | [address] | | | | | | | | +--------+---------+ + + + documented as of this encounter Visit Diagnoses Not on filedocumented in this encounter"
--- OUTSIDE RECORDS SUMMARY | ~2019-07-20 | XMS | Encounter Summary ---
Demographics + + + | Address | [address] | | | [place] [address] | + + + | Home Phone [...] + + | Author | [facility] | | | and Jdana | + + + | Organization | [facility] | | | and Jdana [...] Team Providers + +------+ + | Care Stewardesses Teacher Name | Role | Phone | + +------+ + | oYsef Morrow MD | PCP | | + +------+ + Encounter Details +--------+ + + + + | Date | Type | Department | Care Team | Description | +--------+ + + + + | 02/23/ | Orders Only | [facility] | Juaquin, | | | 2018 | | [address] | [address] | | | | | [place] | [place] | | | | | [address] | [place] [address] | | | | | [phone] | [phone] | | | | | | | [...] 2020 | Visit | | [address] [facility] | | | | | | 160 [place] | | | | | | [address] | | | | | | | [...]
--- OUTSIDE RECORDS SUMMARY | ~2019-07-20 | XMS | Encounter Summary ---
Demographics + + + | Address | [address] | | | [place] [address] | + + + | Home Phone [...] Team Providers + +------+ + | Care Tie Worker Name | Role | Phone | [...] + + | 12/13/ | Refill | [facility] | Juaquin, | Medication Refill; | | 2018 | | RHEUMATOLOGY [address] | [address]ina [address] POLL CL[address] | Medication Refill | | | | [address] | [address] | | | | | [place], [place] | [place] [address] | | | | | [address] | [phone] | | | | | [phone] | | | +--------+--------+ + + + [...] 2020 | Visit | | [address] [facility] | | | | | | 160 [place] | | | | | | [address] | | | | | | | | +--------+---------+ + + + documented as of this encounter Visit Diagnoses Not on filedocumented in this encounter"
--- OUTSIDE RECORDS SUMMARY | ~2019-07-20 | XMS | Encounter Summary ---
Demographics + + + | Address | [address] | | | [place] [address] | + + + | Home Phone [...] Author | [facility] | | | and Jdana | + + + | Organization | [facility] | [...] Providers + +------+ + | Care Financial Internship Name | Role | Phone | + [...] | | | | | [place] | [place], | | | | | Procedures | [place], [place] | [place] [address] | | | | | ot eval | [address] | Phone: | | | | | | Phone: | [phone] | | | | | | [phone] | Fax: | | | | | | Fax: | [phone] | | | | | | [phone] | | +--------+--------+ + + + + [...] hand | | | | [place], | [place] [address] | joint, left; | | | | [place] [address] | [phone] | Weakness of hand; | | | | [phone] | | HTN (hypertension); | | | [...] Landa COTA - 08/14/2013 3:14 PM PDT [facility] THERAPY OT OP [address] [place] [address] Occupational Therapy Daily Treatment Note Date: 08/14/2013 [...] 2020 | Visit | | [address] [facility] | | | | | | 160 [place] | | | | | | [address] | | | | | | | [...]
--- OUTSIDE RECORDS SUMMARY | ~2019-07-20 | XMS | Encounter Summary ---
Demographics + + + | Address | [address] | | | [place] [address] | + + + | Home Phone | | + + + | Preferred Language | Unknown | + + + | Marital Status | | + + + | Evangelical Affiliation | Unknown | + + + | Race | Unknown | + + + | Ethnic Group | Unknown | + + + Author + + + | Author | [facility] | | | and Jdana | + + + | Organization | [facility] | [...] Team Providers + +------+ + | Care Instant Powder Supervisor Name | Role | Phone | [...] arthroplasty | [address] | [address] [place] | | | | | | [place] | [place], | | | | | Procedures | [place], [place] | [place] [address] | | | | | ot eval | [address] | Phone: | | | | | | Phone: | [phone] | | | | | | [phone] | Fax: | | | | | | Fax: | [phone] | | | | | | [phone] | | +--------+--------+ + + + + [...] Dx); Hx of | | | | [place], | [place] [address] | arthroplasty; | | | | [place] [address] | [phone] | Weakness of hand; | | | | [phone] | | HTN (hypertension); | | | | | Mahendra, Mady A, OT | Low back pain; | | | | | [address] | Osteoporosis; | | | | | [place] | Rheumatoid arthritis | | | | | [address] | (HCC) | | | | | [...] might be different fr om the original. [facility] CTR THERAPY OT OP [address] [address] Occupational Therapy Daily Treatment Note Date: 07/31/2013 [...] 2020 | Visit | | [address] [facility] | | | | | | [address] [facility] | | | | | | [address] | | | | | | | [...]
--- OUTSIDE RECORDS SUMMARY | ~2019-07-20 | XMS | Encounter Summary ---
Demographics + + + | Address | [address] | | | [place] [address] | + + + | Home Phone [...] + | Author | [facility] | | | and Jdana | + + + | Organization | [facility] | | | and Jdana [...] Team Providers + +------+ + | Care Electronics Engineering Professor Name | Role | Phone | [...] arthroplasty | [address] | [address] [place] | | | | | | [place] | [place], | | | | | Procedures | [place], [place] | [place] [address] | | | | | ot eval | [address] | Phone: | | | | | | Phone: | [phone] | | | | | | [phone] | Fax: | | | | | | Fax: | [phone] | | | | | | [phone] | | +--------+--------+ + + + + [...] Dx); Hx of | | | | [place], | [place] [address] | arthroplasty; | | | | [place] [address] | [phone] | Weakness of hand; | | | | [phone] | | HTN (hypertension); | | | | | Mahendra, Mady A, OT | Low back pain; | | | | | [address] | Osteoporosis; | | | | | [place] | Rheumatoid arthritis | | | | | [address] | (HCC) | | | | | [...] be different fr om the original. [facility] CTR THERAPY OT OP [address] [address] Occupational Therapy Daily Treatment Note Date: 08/07/2013 [...] | | | | | | [address] [place] | | | | | | [address] | | | | | | | [...]
--- OUTSIDE RECORDS SUMMARY | ~2019-07-20 | XMS | Encounter Summary ---
Demographics + + + | Address | [address] | | | [place] [address] | + + + | Home Phone [...] + | Author | [facility] | | | and Jdana | + + + | Organization | [facility] | | | and Jdana [...] Team Providers + +------+ + | Care Video Operator Name | Role | Phone | [...] + + | 06/06/ | Refill | [facility] | Clarain, | Medication Refill | | 2019 | | RHEUMATOLOGY [address] | Florina Case, [facility] [address] | | | | | [address] | [address] | | | | | [place], [place] | [place] [address] | | | | | [address] | [phone] | | | | | [phone] | | | +--------+--------+ + + + [...] | | | | | | [address] [place] | | | | | | [address] | | | | | | | | +--------+---------+ + + + documented as of this encounter Visit Diagnoses + + | Diagnosis | + + | Rheumatoid arthritis involving multiple sites with positive rheumatoid factor (HCC) - | | Primary | + + documented in this encounter"
--- OUTSIDE RECORDS SUMMARY | ~2019-07-20 | XMS | Encounter Summary ---
Demographics + + + | Address | [address] | | | [place] [address] | + + + | Home Phone [...] [facility] | | | and Jdana | + + + | Organization | [facility] | | | and Jdana [...] Team Providers + +------+ + | Care Assistant Superintendent For Curriculum Name | Role | Phone | + [...] arthroplasty | [address] | [address] [place] | | | | | | [place] | [place], | | | | | Procedures | [place], [place] | [place] [address] | | | | | ot eval | [address] | Phone: | | | | | | Phone: | [phone] | | | | | | [phone] | Fax: | | | | | | Fax: | [phone] | | | | | | [phone] | | +--------+--------+ + + + + [...] Dx); Hx of | | | | [place], | [place] [address] | arthroplasty; | | | | [place] [address] | [phone] | Weakness of hand; | | | | [phone] | | HTN (hypertension); | | | | | Mahendra, Mady A, OT | Low back pain; | | | | | [address] | Osteoporosis; | | | | | [place] | Rheumatoid arthritis | | | | | [address] | (HCC) | | | | | [...] might be different fr om the original. [facility] CTR THERAPY OT OP [address] [address] Occupational Therapy Daily Treatment Note Date: 07/31/2013 [...] 2020 | Visit | | [address] [facility] | | | | | | [address] [place] | | | | | | [address] | | | | | | | [...]
--- OUTSIDE RECORDS SUMMARY | ~2019-07-20 | XMS | Encounter Summary ---
Demographics + + + | Address | [address] | | | [place] [address] | + + + | Home Phone | | + + + | Preferred Language | Unknown | + + + | Marital Status | | + + + | Yazdanism Affiliation | Unknown | + + + | Race | Unknown | + + + | Ethnic Group | Unknown | + + + Author + + + | Author | [facility] | | | and Jdana | + + + | Organization | [facility] | | | and [...] Providers + +------+ + | Care Research Technician Name | Role | Phone | + +------+ + PCP | Unavailable | + +------+ + Encounter Details +--------+ + + + + | Date | Type | Department | Care Team | Description | +--------+ + + + + | 11/18/ | [facility] | [facility] | Oscar Wilson MD | | | 2010 | Encounter | MED CTR XRAY [address] | [address] | | | | | [place] [address] | [place] [address] | | | | | [place] [address] | [phone] | | | | | [phone] | | | +--------+ + + + [...] 2019 | Visit | | [address] [facility] | | | | | | [address] [place] | | | | | | [address] | | | | | | | [...] Performed At | + + + | [facility] Diagnostic Imaging Department | [facility] | | [address] [facility] [facility] | [facility] | | THREE VIEWS LUMBAR SPINE, | [...] Transcribed Date/Time: 11/18/2010 16:45 | | | Public Records Officer: <Electronically Signed by Leobardo Mcneill MD> | | | 11/18/10 2216 | | + + + + + | Procedure Note | + + | Marin, Rad Conversion - 03/24/2013 3:57 PM [facility]ly [facility] | | Diagnostic Imaging Department | | [address] [facility] | | | | | | | [...] | Transcribed Date/Time: 11/18/2010 16:45 | | Public Records Officer: | | <Electronically Signed by Leobardo Mcneill [...]
--- OUTSIDE RECORDS SUMMARY | ~2019-07-20 | XMS | Encounter Summary ---
Demographics + + + | Address | [address] | | | [place] [address] | + + + | Home Phone | | + + + | Preferred Language | Unknown | + + + | Marital Status | | + + + | Lutheran Affiliation | Unknown | + + + | Race | Unknown | + + + | Ethnic Group | Unknown | + + + Author + + + | Author | [facility] | | | and Jdana | + + + | Organization | [facility] | | | and Jdana [...] Team Providers + +------+ + | Care Vamp Presser Name | Role | Phone | + [...] + + | 03/07/ | Office | [facility] | Jua[place], | Rheumatoid arthritis | | 2020 | Visit | RHEUMATOLOGY [address] | involving multiple | | | | [address] | [address] | sites with positive | | | | [place], [place] | [place] [address] | rheumatoid factor | | | | [address] | [phone] | (HCC) (Primary Dx); | | | | [phone] | | High risk medication | | [...] encounter Patient Instructions Patient Instructions Luiza Landry, Joint Cleaning Machine Operator - 03/07/2019 11:10 AM PSTWe hope that you have experienced exceptional care today and that you found our service to be courte ous and helpful. If you have any questions you can send us a message/request using Unda or call our o ffice at [phone]. To reach Luiza AG[place] type extension [phone]. If you are unable to reach a [...] can also look at your results on Vericept. If you are experiencing an emergency, please [...] PCP), Methotrexate 10 mg once per w [place] (dose dec.due to mild anemia and changes [...] Florina SALINAS patient exam. Labs reviewed in [facility] --09/22/201805/30- Neg.IEP 2018hep b/c neg. Eye [...] treatment plan. 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 This document has been prepared with MEDEM voice recognition system. The possibility of "s ound alike" econometrics professor errors, and additions, or deletions may occur. [...] | Visit | | [address] [facility] | | | | | | [address] [place] | | | | | | [address] | | | | | | | [...]
--- OUTSIDE RECORDS SUMMARY | ~2019-07-20 | XMS | Encounter Summary ---
Demographics + + + | Address | [address] | | | [place] [address] | + + + | Home Phone [...] + | Author | [facility] | | | and Jdana | + + + | Organization | [facility] | | | and Jdana | [...] Team Providers + +------+ + | Care Hearing Aide Technician Name | Role | Phone | [...] arthroplasty | [address] | [address] | | | | | | [place] | [place], | | | | | Procedures | [place], [place] | [place] [address] | | | | | ot eval | [address] | Phone: | | | | | | Phone: | [phone] | | | | | | [phone] | Fax: | | | | | | Fax: | [phone] | | | | | | [phone] | | +--------+--------+ + + + + [...] Dx); Hx of | | | | [address] [place], | [place] [address] | arthroplasty; | | | | [place] [address] | [phone] | Weakness of hand; | | | | [phone] | | HTN (hypertension); | | | | | Mahendra, Mady A, OT | Low back pain; | | | | | [address] | Osteoporosis; | | | | | [place] | Rheumatoid arthritis | | | | | [address] | (HCC) | | | | | [...] might be different fr om the original. [facility] CTR THERAPY OT OP [address] [place] [address] Occupational Therapy Daily Treatment Note Date: 07/26/2013 [...] 2020 | Visit | | [address] [facility] | | | | | | [address] [place] | | | | | | [address] | | | | | | | [...]
--- OUTSIDE RECORDS SUMMARY | ~2019-07-20 | XMS | Encounter Summary ---
Demographics + + + | Address | [address] | | | [place] [address] | + + + | Home Phone | | + + + | Preferred Language | Unknown | + + + | Marital Status | | + + + | Mormonism Affiliation | Unknown | + + + | Race | Unknown | + + + | Ethnic Group | Unknown | + + + Author + + + | Author | [facility] | | | and Jdana | + + + | Organization | [facility] [...] Team Providers + +------+ + | Care Compound Worker Name | Role | Phone | [...] arthroplasty | [address] | [address] | | | | | | [place] | [place], | | | | | Procedures | [place], [place] | [place] [address] | | | | | ot eval | [address] | Phone: | | | | | | Phone: | [phone] | | | | | | [phone] | Fax: | | | | | | Fax: | [phone] | | | | | | [phone] | | +--------+--------+ + + + + [...] Stiffness of hand | | | | [address] [place], | [place] [address] | joint, left; | | | | [place] [address] | [phone] | Weakness of hand; | | | | [phone] | | HTN (hypertension); | | | | | MahendraMady A, OT | Low back pain; | | | | | [address] | Osteoporosis; | | | | | [place] | Rheumatoid arthritis | | | | | [address] | (HCC) | | | | | [...] might be different fr om the original. [facility] CTR THERAPY OT OP [address] [address] Occupational Therapy Progress Assessment Date: 08/16/2013 Patient [...] independent iwth upgraed HEP Goal 2: Increase carpenter mold to 20# Goal 2 Status: LTG not tested Plan Date of Onset: 06/26/13 Start of Care Date: 07/18/13 Requested # of Visits: 12 2x/wk for 6 weeks (Decrease to 1x/week due to travel distance) Certification From: 08/16/13 Certification To: 09/15/13 Treatment Plan/Interventions 26305 OT Evaluation;72765 Therapeutic Exercises;53700 Therapeutic Activities;Splinting;9753 5 Self Care/Home Management;08500 Manual Therapy Medicare Functional Limitation Reporting G [...] impaired, limited or restricted Outcome Measures Tools: [place] AM-PAC and professional judgement Justification of Severity [...] 2020 | Visit | | [address] [facility] | | | | | | [address] [place], [place] | | | | | | [address] | | | | | | | [...]
--- OUTSIDE RECORDS SUMMARY | ~2019-07-20 | XMS | Encounter Summary ---
Demographics + + + | Address | [address] | | | [place] [address] | + + + | Home Phone [...] | Author | [facility] | | | and Jdana | + + + | Organization | [facility] | | | and Jdana [...] Team Providers + +------+ + | Care Roller Gold Leaf Name | Role | Phone | + [...] [place] | | | | | [place], | [address] | | | | | [place] [address] | | | | | | [phone] | | | +--------+ + + + [...] might be different fr om the original. [facility] CTR THERAPY OT OP [address] [place] [address] Occupational Therapy Discharge Note This discharge is [...] 2020 | Visit | | [address] [facility] | | | | | | [address] [place], [place] | | | | | | [address] | | | | | | | [...]
--- OUTSIDE RECORDS SUMMARY | ~2019-07-20 | XMS | Encounter Summary ---
Demographics + + + | Address | [address] | | | [place] [address] | + + + | Home Phone [...] Author | [facility] | | | and Jdana | + + + | Organization | [facility] | | | and [...] Team Providers + +------+ + | Care Oven Laborer Name | Role | Phone | + +------+ + | Julio Cesar Hawley MD | PCP | | + +------+ + Encounter Details +--------+ + + + + | Date | Type | Department | Care Team | Description | +--------+ + + + + | 09/11/ | Orders Only | [facility] | Provider, | Other terminal manager | | 2019 | | SYSTEM GENERIC OP | MD [address] | (current) drug | | | | CONVERSION [address] | [address] | therapy; Rheumatoid | | | | [address] [place], [place] | [place] [address] | arthritis of | | | | [address] | | multiple sites | | | | [phone] | | without organ or | | [...] 2020 | Visit | | [address] [facility] | | | | | | [address] [place], [place] | | | | | | [address] | | | | | | | | +--------+---------+ + + + + +------+--------+ + + | Name | Type | Priori | Associated Diagnoses | Order Schedule | | | | ty | | | + +------+--------+ + + | Comprehensive | Lab | Routin | Other terminal manager | Expected: | | Metabolic Panel | [...] | | | | ([facility]) | | + +------+--------+ + + | CBC with | Lab | Routin | Other terminal manager | 2 Occurrences | | Differential | [...] Comprehensive | Lab | Routin | Other usp | 2 Occurrences | | Metabolic Panel [...] Rate | Lab | Routin | Other usp | 2 Occurrences | | | | [...] | Diagnosis | + + | Other terminal manager (current) 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 | + + | Rheumatoid arthritis of multiple sites without organ or system involvement with | | positive rheumatoid factor (HCC) | + + documented in this encounter"
--- OUTSIDE RECORDS SUMMARY | ~2019-07-20 | XMS | Encounter Summary ---
Demographics + + + | Address | [address] | | | [place] [address] | + + + | Home Phone [...] + + | Author | [facility] | | | and Jdana | + + + | Organization | [facility] | | [...] Team Providers + +------+ + | Care Space Sciences Director Name | Role | Phone | + +------+ + | Julio Cesar Hawley MD | PCP | | + +------+ + Encounter Details +--------+ + + + + | Date | Type | Department | Care Team | Description | +--------+ + + + + | 09/11/ | Orders Only | [facility] | Provider, | Other terminal gauger supervisor | | 2019 | | SYSTEM GENERIC OP | MD [address] | (current) drug | | | | CONVERSION [address] | [address] | therapy; Rheumatoid | | | | [address] [place], [place] | [place] [address] | arthritis of | | | | [address] | | multiple sites | | | | [phone] | | without organ or | | [...] | [address] [facility] [address] | | | | | | [address] [place], [place] | | | | | | [address] | | | | | | | | +--------+---------+ + + + + +------+--------+ + + | Name | Type | Priori | Associated Diagnoses | Order Schedule | | | | ty | | | + +------+--------+ + + | Comprehensive | Lab | Routin | Other terminal gauger supervisor | Expected: | | Metabolic Panel | [...] factor | | | | | | ([facility]) | | + +------+--------+ + + | CBC with | Lab | Routin | Other terminal gauger supervisor | 2 Occurrences | | Differential [...] Comprehensive | Lab | Routin | Other mcc | 2 Occurrences | | Metabolic Panel [...] Rate | Lab | Routin | Other mcc | 2 Occurrences | | | | [...] Diagnosis | + + | Other terminal gauger supervisor (current) 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 | + + | Rheumatoid arthritis of multiple sites without organ or system involvement with | | positive rheumatoid factor (HCC) | + + documented in this encounter"
--- OUTSIDE RECORDS SUMMARY | ~2019-07-20 | XMS | Encounter Summary ---
Demographics + + + | Address | [address] | | | [place] [address] | + + + | Home Phone [...] Author | [facility] | | | and Jdana | + + + | Organization | [facility] | [...] Team Providers + +------+ + | Care Ore Storage Drier Name | Role | Phone | [...] + + | 07/02/ | Documentati | [facility] | Benji, | Other (operative | | 2019 | on | NEPHROLOGY [place] | [address]ina [facility] | report 06/27/19) | | | | [address] | Tab Card Press Operator | | | | | [address] [facility] [place] [place] | | | | | | [address] | | | | | | [phone] | | | +--------+ + + + [...] 2020 | Visit | | [address] [facility] | | | | | | [address] [facility] [place] | | | | | | [address] | | | | | | | | +--------+---------+ + + + documented as of this encounter Visit Diagnoses Not on filedocumented in this encounter"
--- OUTSIDE RECORDS SUMMARY | ~2019-07-20 | XMS | Clinical Summary ---
Demographics + + + | Address | [address] | | | [place] [address] | + + + | Home Phone | | + + + | Preferred Language | Unknown | + + + | Marital Status | | + + + | Rastafarian Affiliation | Unknown | + + + | Race | Unknown | + + + | Ethnic Group | Unknown | + + + Author + + + | Author | [facility] | | | and Jdana | + + + | Organization | [facility] | | | and Jdana [...] Team Providers + +------+ + | Care Qualification Engineer Name | Role | Phone | [...] Patient understands that | | treatment is shelter and if patient fails to continue regimen [...] report 06/27/19) | | | | | Dam Operator | | +--------+ + + + + [...] 2020 | Visit | | [address] [facility] | | | | | | [address] [place], [place] | | | | | | [address] | | | | | | | [...] + +--------+ | MEDICARE | MEDICA | [id number] | | [phone] | | Medica | | | RE | | 010-Pr | 5 | | re | | | PART A | | esent | | | | | | AND B | | | | | | + +--------+ +--------+ + +--------+ | MEDICARE | MEDICA | [id number] | 10/17/19 | [phone] | | Medica | | | RE | | 12-Pre | 5 | | re | | | PART A | | sent | | | | | | AND B | | | | | | + +--------+ +--------+ + +--------+ | MODA | MODA | [id number] | 02/15/19 | [phone] | [address] | Indemn | | | HEALTH | | 13-Pre | 9 | [phone] | ity | | | MDCR | | sent | | [place], | | | | [place] | | | | [place] [address] | | + +--------+ +--------+ + +--------+ | MODA | MODA | [id number] | 02/15/19 | [phone] | [address] | Indemn | | | HEALTH | | 19-Pre | 9 | [id number] | ity | | | MDCR | | sent | | [place], | | | | [place] | | | | [place] [address] | | + +--------+ +--------+ + +--------+ [...] | 1945 | [phone] | [place] [address] | | | rakan | | | 4 (Home) | | + +--------+ +--------+ + + | Mignon Mohan | Person | Self | [birth year] | [address] | | | al/Fam | | 1945 | [phone] | [place] [address] | | | rakan | | | 4 (Home) | | + +--------+ +--------+ + + Advance Directives + + + + + | Type | Date Recorded | Patient | Explanation | | | | Scientologist | | + + + + + | Power of | | | | | Grocery Stock Clerk | | | | + + + + + | Advance | | | | | Directive | | | | + + + + +
--- OUTSIDE RECORDS SUMMARY | ~2019-07-20 | XMS | Encounter Summary ---
Demographics + + + | Address | [address] | | | [place] [address] | + + + | Home Phone [...] | Author | [facility] | | | and Jdana | + + + | Organization | [facility] [...] Team Providers + +------+ + | Care Box Machine Operator Name | Role | Phone [...] + + | 07/02/ | Documentati | [facility] | Benji, | Other (operative | | 2019 | on | NEPHROLOGY [place]UCKIE | [facility] | report 06/27/19) | | | | [address] | Marina Sales And Service Supervisor | | | | | [address] [facility] [place] | | | | | | [address] | | | | | | [phone] | | | +--------+ + + + [...] | | | | | | [address] [facility] [place] | | | | | | [address] | | | | | | | | +--------+---------+ + + + documented as of this encounter Visit Diagnoses Not on filedocumented in this encounter"
--- OUTSIDE RECORDS SUMMARY | ~2019-07-20 | XMS | Encounter Summary ---
Demographics + + + | Address | [address] | | | [place] [address] | + + + | Home Phone | | + + + | Preferred Language | Unknown | + + + | Marital Status | | + + + | Mormonism Affiliation | Unknown | + + + | Race | Unknown | + + + | Ethnic Group | Unknown | + + + Author + + + | Author | [facility] | | | and Jdana | + + + | Organization | [facility] | | | and Jdana [...] Team Providers + +------+ + | Care Identity Management Consultant Name | Role | Phone | + +------+ + | Yosef Morrow MD | PCP | | + +------+ + Encounter Details +--------+ + + + + | Date | Type | Department | Care Team | Description | +--------+ + + + + | 01/01/ | Documentati | [facility] | Mady Mccray, | | | 2014 | on | MED CNT ONCOLOGY | OT [address] | | | | | THERAPY [address] | [place] | | | | | [place], | [address] | | | | | [place] [address] | | | | | | [phone] | | | +--------+ + + + [...] might be different fr om the original. [facility] CTR THERAPY OT OP [address] [place] [address] Occupational Therapy Discharge Note This discharge is [...] 2020 | Visit | | [address] [facility] | | | | | | [address] [place], [place] | | | | | | [address] | | | | | | | [...]
[~2019-07-20 23:08] MED LIST changes: +FUROSEMIDE20 MG PO; +METOPROLOL SUCC25 MG PO
--- OUTSIDE RECORDS SUMMARY | 2019-07-20 23:12 | XMS ---
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 Care History Medical/Surgical 10/24/2018 [facility] [place] - Patient is currently established with [facility]. If patient is seen in the ED during business hours. Please contact [facility] at [facility]. Care Recommendation: This patient has had 5 [...] providing care. E.D. VISIT COUNT (12 MO.) 5 [facility] TOTAL 5 NOTE: Visits indicate total known visits. ED/UCC VISIT TRACKING (12 MO.) 07/20/2019 23:09 [facility] [place] TYPE: Emergency COMPLAINT: - SOB 06/19/2019 10:16 [facility] [place] TYPE: Emergency COMPLAINT: - DIVERTICULITIS 04/20/2019 10:17 [facility] [place] TYPE: Emergency COMPLAINT: - FALL DIAGNOSES: - Personal history of nicotine dependence - Fall on same level from slipping, tripping and stumbling with - Essential (primary) hypertension - Contusion of right front wall of thorax, initial encounter - Contusion of lower back and pelvis, initial encounter - Other group home (current) 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 - Allergy status to other drugs, medicaments and biological sub 01/28/2019 10:17 [facility] [place] TYPE: Emergency COMPLAINT: - FLU SYMPTOMS DIAGNOSES: - Diarrhea, unspecified - 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 - Personal history of nicotine dependence - Allergy status to other drugs, medicaments and biological sub - Essential (primary) hypertension 10/21/2018 09:34 [facility] [place] TYPE: Emergency COMPLAINT: - SOB DIAGNOSES: - Essential (primary) hypertension - Other group home (current) 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 - Radiographic dye allergy status - Allergy status to other drugs, medicaments and biological sub - Disease of pericardium, unspecified - Personal history of nicotine dependence - Other chest pain INPATIENT VISIT TRACKING (12 MO.) 07/07/2019 13:01 [facility] [place] TYPE: Medical Surgical COMPLAINT: - DECONDITIONING DIAGNOSES: - Unspecified severe protein-calorie malnutrition - Rheumatoid arthritis, unspecified - Allergy status to other drugs, medicaments and biological sub - Body mass index (BMI) 19.9 or less, adult - Acute kidney failure, unspecified - Anemia, unspecified - Other specified disorders of adrenal gland - Fluid overload, unspecified - 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 - Collapsed vertebra, not elsewhere classified, lumbar region, - Collapsed vertebra, not elsewhere classified, thoracic region - Weakness - Aortic aneurysm of unspecified site, without rupture - Personal history of nicotine dependence - Colostomy status 06/19/2019 16:23 [facility] [place] TYPE: Medical Surgical COMPLAINT: - DIVERTICULITIS DIAGNOSES: - Localized edema - Elevated white blood cell count, unspecified - Hypomagnesemia - Localized edema - Moderate protein-calorie malnutrition - Alcohol abuse, in remission - Age-related osteoporosis with current pathological fracture, - Acute kidney failure, unspecified - Peripheral vascular disease, unspecified - Anemia, unspecified - Unspecified asthma, uncomplicated - Dehydration - Dermatitis, unspecified - 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 - Diverticulitis of large intestine with perforation and absces - Rheumatoid arthritis, unspecified - 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 - Other chronic pain - Migraine, unspecified, not intractable, without status migrai - Unspecified asthma, uncomplicated - Diverticulitis of large intestine with perforation and absces - Acute kidney failure, unspecified - Other disorders of phosphorus metabolism - Diverticulitis of large intestine without perforation or absc - Abdominal aortic aneurysm, without rupture - Anxiety disorder, unspecified - Anemia, unspecified - Other chronic pain - Alcohol abuse, in remission - Personal history of nicotine dependence - Anxiety disorder, unspecified - Chronic kidney disease, stage 3 (moderate) - Age-related osteoporosis with current pathological fracture, - Chronic kidney disease, stage 3 (moderate) - Hypokalemia - Hypomagnesemia - Allergy status to other drugs, medicaments and biological sub - 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 - Contact with and (suspected) exposure to other viral communic - Peripheral vascular disease, unspecified - Dehydration - Body mass index (BMI) 19.9 or less, adult - Elevated white blood cell count, unspecified - 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 - Allergy status to other drugs, medicaments and biological sub - Other disorders of phosphorus metabolism - Hypokalemia - Personal history of nicotine dependence - Rheumatoid arthritis, unspecified - Dermatitis, unspecified - Abdominal aortic aneurysm, without rupture - Body mass index (BMI) 19.9 or less, adult - Moderate protein-calorie malnutrition - Gastro-esophageal reflux disease without esophagitis - Family history of malignant neoplasm of digestive organs - Other specified disorders of adrenal gland - Gastro-esophageal reflux disease without esophagitis - Other specified disorders of adrenal gland - Migraine, unspecified, not intractable, without status migrai - Contact with and (suspected) exposure to other viral communic - Family history of malignant neoplasm of digestive organs [email or web address]
--- NOTE | 2019-07-21 07:43 | EKG ---
[facility] [address] [facility] [place], [place] [address] Signed Sinus tachycardia Nonspecific T wave abnormality Abnormal ECG When compared with ECG of 12-JUL-2019 06:25, No significant change was found Confirmed by HAIR ROSE MD ([id number]) on 07/21/2019 7:42:44 AM Electronically Signed By: HAIR ROSE MD 07/21/19 0743 PATIENT NAME: SATNAMCARMEN Electrocardiogram DATE OF : 45 PHYSICIAN: HAIR ROSE MD REPORT #: [id number] REPORT IS CONFIDENTIAL AND NOT TO BE RELEASED WITHOUT AUTHORIZATION
--- NOTE | 2019-07-21 07:45 | EKG ---
[facility] [address] [facility] [place], [place] [address] Signed Normal sinus rhythm Anterior infarct , age undetermined Abnormal ECG When compared with ECG of 20-JUL-2019 23:15, (Unconfirmed) No significant change was found Confirmed by HAIR ROSE MD ([id number]) on 07/21/2019 7:45:04 AM Electronically Signed By: HAIR ROSE MD 07/21/19 0745 PATIENT NAME: CARMEN HAY ANN Electrocardiogram DATE OF : 45 PHYSICIAN: HAIR ROSE MD REPORT #: [id number] REPORT IS CONFIDENTIAL AND NOT TO BE RELEASED WITHOUT AUTHORIZATION
== END 2019-07-21 06:30 | disposition short-term general hospital (02) ==
LOC: ED 23:08
DX: I50.9 Heart failure, unspecified (principal); R10.9 Unspecified abdominal pain; R79.89 Other specified abnormal findings of blood chemistry; R60.1 Generalized edema; Z87.891 Personal history of nicotine dependence; Z88.8 Allergy status to other drugs, medicaments and biological substances; Z91.09 Other allergy status, other than to drugs and biological substances; Z79.899 Other long term (current) 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
CPT/HCPCS: 71045; 74176; 80053; 83735; 83880; 84484; 85025; 93005; 93010; 96374; 96375; 96376; 99285-25; J1170; J2405